=== PATIENT | male | born 1950 | race Caucasian/White ===

== ENCOUNTER → 2017-03-24 | Outpatient (CLI) | payer BC ==
[~2017-03-24] MED LIST: ADVIN50/60 INH; ALBU1AER9 INH; ALEN70TA2 PO; CHOL100010 PO; CHOL400C6 PO; CITA20TA4 PO; CLON1TAB3 PO; CTP1X PO; DILT-117 PO; FERR1TAB13 PO; IPRA1AER2 INH; IPRASOL4 INH; LAMO25TA PO; LEVA1.258 INH; LORA-741 PO; LXP/20 PO; OMEP20TA PO; OXGN; PRED-301 PO; PRED10TA PO; [UNRECOGNIZED DRUG - CODE] PO
--- NOTE | 2017-03-24 09:17 | DIAGNOSTIC IMAGING REPORT ---
(CHEST) THORAX WITHOUT CT DOSE: 411.30 mGycm CLINICAL HISTORY: 66 years-old Male with PULMONARY EMPHYSEMA, PULMONARY NODULE. Follow-up exam. TECHNIQUE: Multiaxial CT images of the chest were performed without contrast. A dose lowering technique was utilized adhering to the principles of ALARA. COMPARISON: CT chest 07/21/2016 and 01/19/2016. FINDINGS: No focal thyroid nodule identified. There is no pathologic adenopathy by CT size criteria. There is a small pericardial effusion measuring up to 1.1 cm anteriorly. Three-vessel distribution coronary arterial calcifications are present. There is moderate atherosclerosis of the thoracic aorta. Severe upper lobe prominent bullous centrilobular emphysematous changes are noted. There is no pneumothorax or pleural effusion. No focal suspicious pulmonary nodules are identified. Again noted are subsegmental linear consolidative opacities with mild bronchial wall thickening in the distribution of the right middle lobe, slightly improved from comparison suggesting atelectasis/scarring without circumscribed definite nodule identified. Similar less extensive changes are present in the lateral basal segment right lower lobe. The central airways are patent. Mild bronchial wall thickening involves the bilateral lung bases. Partially imaged midline anterior abdominal wall hernia is present containing mesenteric fat with diastases of 2.9 cm. Multiple gallstones are seen layering within the gallbladder neck. Punctate nonobstructing calculus of the superior pole left kidney is noted with low attenuating superior pole left kidney lesions suggesting cysts. Multiple remote rib fractures are seen on the right. The bones are demineralized with multilevel endplate spurring and facet arthrosis throughout the spine. IMPRESSION: 1. Persistent subsegmental distribution of somewhat linear and triangular shaped groundglass and consolidative opacities within the right middle lobe and to lesser extent the lateral basal segment right lower lobe with associated mild bronchial wall thickening appears unchanged from comparison study dated 07/21/2016. These findings would suggest chronic pleural parenchymal scarring with possible superimposed pneumonitis. No focal suspicious pulmonary nodules are identified. 2. Severe upper lobe predominant bullous centrilobular emphysema redemonstrated. 3. Cholelithiasis and nonobstructing punctate superior pole left renal calculus incidentally noted. 4. Small fat filled ventral abdominal wall hernia. Electronically signed by: Conner Montes M.D. 03/24/2017 9:16 AM Dictated Date/Time: 03/24/2017 9:06 AM
== END | disposition home or self-care (01) ==
LOC: C.CTS 08:50
PROVIDERS: ATTEND Internal Medicine Pulmonary Disease
DX: J43.9 Emphysema, unspecified (principal); R91.1 Solitary pulmonary nodule; R93.8 Abnormal findings on diagnostic imaging of other specified body structures; N20.0 Calculus of kidney; K80.20 Calculus of gallbladder without cholecystitis without obstruction; K43.9 Ventral hernia without obstruction or gangrene

== ENCOUNTER → 2017-04-29 | Day surgery (SDC) | payer BC ==
[2017-04-14 13:16] VITALS: Ht 170.2 cm; Wt 67.3 kg
[~2017-04-29] VITALS: Ht 170.2 cm; Wt 67.3 kg
[~2017-04-29] MED LIST changes: -ALBU1AER9 INH; -CHOL100010 PO; +FENTANYL CITRATE INJ 50 MCG/1 ML 2 ML VIAL ONE; -LEVA1.258 INH; +LIDOCAINE HCL 2% 2 ML VIAL (20MG/ML) ONE; -LORA-741 PO; -LXP/20 PO; -PRED10TA PO; +PROPOFOL IV EMULSION 10 MG/ML 20 ML VIAL IV ONE
--- NOTE | 2017-04-29 12:27 | Endo History and Physical ---
History & Physical Date of Service: Apr 29, 2017. Chief Complaint: Monteiro's Esophagus and Screening Colonoscopy Referring Physician: Case History of Present Illness 66 yo CM who presents for EGD secondary to Monteiro's Esophagus and screening colonoscopy. Past Medical History Asthma, Anxiety, Reflux, Hypertension, COPD, Depression Past Surgical History Hx Cardiac Surgery: Yes (HEART CATH, NO STENTS) Hx Internal Defibrillator: No Hx Pacemaker: No Hx Abdominal Surgery: No Hx of Implantable Prosthesis: No Hx Post-Op Nausea and Vomiting: No Hx Cancer Surgery: No Hx Thoracic Surgery: No Hx Orthopedic: No Hx Urinary Tract Surgery: No Family History None Social History Smoking Status: Former Smoker Hx Substance Use: No Hx Alcohol Use: No Allergies Coded Allergies: Influenza Vaccines (Verified Allergy, Severe, SHORTNESS OF BREATH, 04/29/17 ) Current Medications Reported Home Medications Medications Dose Route/Sig Max Daily Dose Days Date Category Fosamax (Alendronate Sodium) 70 Mg Tab 70 Mg PO WK 04/14/17 Reported Duoneb (Ipratropium-Albuterol) 3 Ml Nebu 1 Treatment INH Q4H PRN 04/14/17 Reported Kp Ferrous Sulfate (Ferrous Sulfate) 325 Mg Tab 1 Tab PO QPM 04/14/17 Reported Citalopram Hydrobromide 20 Mg Tab 1 Tab PO QAM 04/14/17 Reported Prednisone 5 Mg Tab 5 Mg PO Q2D 04/14/17 Reported D 400 (Cholecalciferol) 400 Unit Chw 2 Tabs PO NOON 04/14/17 Reported Oxygen Gas 3 Liter NA CONTINOUS 04/06/15 Reported Lamictal (Lamotrigine) 25 Mg Tab 2 Tabs PO QAM 04/06/15 Reported Klonopin (Clonazepam) 1 Mg Tab 0.5 Tab PO BID 02/15/15 Reported Clonidine HCl 0.1 Mg Tab 0.1 Mg PO BID 02/15/15 Reported Leland-Dur Ext Rel (Theophylline) 300 Mg Tabcr 300 Mg PO QAM 02/16/14 Reported Combivent Respimat (Ipratropium-Albuterol) 1 Aer Aer 1 Puff INH QID 05/30/13 Reported Advair Diskus 500/50 60 Dose (Fluticasone Prop/Salmeterol) 1 Ea Aerp 1 Puff INH BID 10/14/12 Reported Omeprazole 20 Mg Tab 20 Mg PO BID 10/14/12 Reported Tiazac (Diltiazem HCl) 300 Mg Capcr 300 Mg PO QAM 10/14/12 Reported Vital Signs Weight (Kilograms): 67.27 Height (Feet): 5 Height (Inches): 7 Physical Exam General Appearance: WD/WN, no apparent distress Respiratory/Chest: Auscultation: breath sounds normal Cardiovascular: Heart Auscultation: RRR Abdomen: Bowel Sounds: normal Inspection & Palpation: soft, non-distended, no tenderness, guarding & rebound Assessment and Plan Assessment: 66 yo CM who presents for EGD secondary to Monteiro's Esophagus and screening colonoscopy. Plan: Proceed with EGD and Colonoscopy.
--- NOTE | 2017-04-29 13:27 | GI REPORT ---
Procedure Date: 04/29/2017 12:50 PM Procedure: Upper GI endoscopy Indications: Follow-up of Monteiro's esophagus Medicines: Monitored Anesthesia Care Complications: No immediate complications. Estimated Blood Loss: Estimated blood loss: none. Procedure: Pre-Anesthesia Assessment: - Prior to the procedure, a History and Physical was performed, and patient medications and allergies were reviewed. The patient's tolerance of previous anesthesia was also reviewed. The risks and benefits of the procedure and the sedation options and risks were discussed with the patient. All questions were answered, and informed consent was obtained. Prior Anticoagulants: The patient has taken no previous anticoagulant or antiplatelet agents. ASA Grade Assessment: IV - A patient with severe systemic disease that is a constant threat to life. After reviewing the risks and benefits, the patient was deemed in satisfactory condition to undergo the procedure. After obtaining informed consent, the endoscope was passed under direct vision. Throughout the procedure, the patient's blood pressure, pulse, and oxygen saturations were monitored continuously. The scope was introduced through the mouth, and advanced to the second part of duodenum. The upper GI endoscopy was accomplished without difficulty. The patient tolerated the procedure well. Findings: There were esophageal mucosal changes consistent with long-segment Monteiro's esophagus present in the lower third of the esophagus. The maximum longitudinal extent of these mucosal changes was 8 cm in length. Mucosa was biopsied with a cold forceps for histology. One specimen bottle was sent to pathology. A small hiatus hernia was present. The examined duodenum was normal. Impression: - Esophageal mucosal changes consistent with long-segment Monteiro's esophagus. Biopsied. - Small hiatus hernia. - Normal examined duodenum. Recommendation: - Resume previous diet. - Continue present medications. - Await pathology results. - Return to GI office as previously scheduled. Barry Milligan DO 04/29/2017 1:27:02 PM This report has been signed electronically. Note Initiated On: 04/29/2017 12:50 PM I attest to the content of the Intraoperative Record and orders documented therein, exceptions below
--- NOTE | 2017-04-29 13:29 | GI REPORT ---
Procedure Date: 04/29/2017 1:03 PM Procedure: Colonoscopy Indications: Screening for colorectal malignant neoplasm Medicines: Monitored Anesthesia Care Complications: No immediate complications. Estimated Blood Loss: Estimated blood loss: none. Procedure: Pre-Anesthesia Assessment: - Prior to the procedure, a History and Physical was performed, and patient medications and allergies were reviewed. The patient's tolerance of previous anesthesia was also reviewed. The risks and benefits of the procedure and the sedation options and risks were discussed with the patient. All questions were answered, and informed consent was obtained. Prior Anticoagulants: The patient has taken no previous anticoagulant or antiplatelet agents. ASA Grade Assessment: IV - A patient with severe systemic disease that is a constant threat to life. After reviewing the risks and benefits, the patient was deemed in satisfactory condition to undergo the procedure. After I obtained informed consent, the scope was passed under direct vision. Throughout the procedure, the patient's blood pressure, pulse, and oxygen saturations were monitored continuously. The Scope was introduced through the anus and advanced to the cecum, identified by appendiceal orifice and ileocecal valve. The colonoscopy was performed without difficulty. The patient tolerated the procedure well. The quality of the bowel preparation was good. The ileocecal valve, appendiceal orifice, and rectum were photographed. Findings: A 10 mm polyp was found in the ascending colon. The polyp was sessile. The polyp was removed with a hot snare. Resection and retrieval were complete. Multiple small-mouthed diverticula were found in the sigmoid colon. Non-bleeding internal hemorrhoids were found during retroflexion. The hemorrhoids were small. Impression: - One 10 mm polyp in the ascending colon, removed with a hot snare. Resected and retrieved. - Diverticulosis in the sigmoid colon. - Non-bleeding internal hemorrhoids. Recommendation: - Resume previous diet. - Continue present medications. - Repeat colonoscopy for surveillance based on pathology results. - Return to primary care physician as previously scheduled. Barry Milligan, DO 04/29/2017 1:28:49 PM This report has been signed electronically. Note Initiated On: 04/29/2017 1:03 PM I attest to the content of the Intraoperative Record and orders documented therein, exceptions below
--- NOTE | 2017-04-29 13:36 | Discharge Instructions ---
Endoscopy Patient Instructions Date / Procedure(s) Performed Apr 29, 2017. Colonoscopy Allergy Information Coded Allergies: Influenza Vaccines (Verified Allergy, Severe, SHORTNESS OF BREATH, 04/29/17 ) Discharge Date / Findings Apr 29, 2017. EGD: Monteiro's Esophagus s/p biopsies, Hiatal hernia Colonoscopy: Colon polyp, Diverticulosis, Internal hemorrhoids Medication Instructions OK to resume all medications today as prescribed Reported Home Medications Medications Dose Route/Sig Max Daily Dose Days Date Category Fosamax (Alendronate Sodium) 70 Mg Tab 70 Mg PO WK 04/14/17 Reported Duoneb (Ipratropium-Albuterol) 3 Ml Nebu 1 Treatment INH Q4H PRN 04/14/17 Reported Kp Ferrous Sulfate (Ferrous Sulfate) 325 Mg Tab 1 Tab PO QPM 04/14/17 Reported Citalopram Hydrobromide 20 Mg Tab 1 Tab PO QAM 04/14/17 Reported Prednisone 5 Mg Tab 5 Mg PO Q2D 04/14/17 Reported D 400 (Cholecalciferol) 400 Unit Chw 2 Tabs PO NOON 04/14/17 Reported Oxygen Gas 3 Liter NA CONTINOUS 04/06/15 Reported Lamictal (Lamotrigine) 25 Mg Tab 2 Tabs PO QAM 04/06/15 Reported Klonopin (Clonazepam) 1 Mg Tab 0.5 Tab PO BID 02/15/15 Reported Clonidine HCl 0.1 Mg Tab 0.1 Mg PO BID 02/15/15 Reported Leland-Dur Ext Rel (Theophylline) 300 Mg Tabcr 300 Mg PO QAM 02/16/14 Reported Combivent Respimat (Ipratropium-Albuterol) 1 Aer Aer 1 Puff INH QID 05/30/13 Reported Advair Diskus 500/50 60 Dose (Fluticasone Prop/Salmeterol) 1 Ea Aerp 1 Puff INH BID 10/14/12 Reported Omeprazole 20 Mg Tab 20 Mg PO BID 10/14/12 Reported Tiazac (Diltiazem HCl) 300 Mg Capcr 300 Mg PO QAM 10/14/12 Reported Provider Instructions Activity Restrictions - No exercising or heavy lifting for 24 hours. - Do not drink alcohol the day of the procedure. - Do not drive a car or operate machinery until the day after the procedure. - Do not make any important decisions or sign important papers in 24 hours after the procedure. Following Day: - Return to full activity which may include returning to work/school. Diet Start your diet with liquids and light foods (jello, soup, juice, toast). Then eat your usual diet if not nauseated. Treatment For Common After Affects For mild abdominal pain, bloating, or excessive gas: - Rest - Eat lightly - Lie on right side Follow-Up Information Follow-up with as scheduled Anesthesia Information What You Should Know You have had a procedure that required some medicine to reduce anxiety and discomfort. This treatment is called moderate sedation. After receiving the treatment, you may be sleepy, but you will be able to breathe on your own. The effects of the treatment may last for several hours. Follow these instructions along with Activity/Diet recommendations noted above: * Do NOT do anything where dizziness or clumsiness would be dangerous. * Rest quietly at home today, then you can be up and about tomorrow. * Have a responsible person stay with you the rest of today. * You may have had an I.V. today. If so, you may take the dressing off later today. Recommendations Call your doctor if: * Trouble breathing * Continuous vomiting for more than 24 hours * Temperature above 101 degrees * Severe abdominal pain or bloating * Pain not relieved by pain medicine ordered * There is increased drainage or redness from any incision * A large amount of rectal bleeding greater than 2-3 tablespoons. (If you had a polyp/s removed or have hemorrhoids, a small amount of blood - from the rectum is to be expected.) * You have any unanswered questions or concerns. IN THE EVENT OF A SERIOUS EMERGENCY, GO TO THE NEAREST EMERGENCY ROOM Your discharge instructions were prepared by provider Barry Milligan. Patient Instructions Signature Page Jamison Guadalupe Patient (or Guardian) Signature/Date: I have read and understand the instructions given to me by my caregivers. Caregiver/RN/Doctor Signature/Date: The above-named patient and/or guardian has received patient instructions on this date. + Original Patient Signature Page (only) stays with chart. Please make copy for patient.
[2017-04-29 13:56] VITALS: BP 165/109; PULSE 83; O2SAT 98
--- NOTE | 2017-04-29 14:00 | Anesthesiology Progress Note ---
Anesthesia Post Op Note Date & Time Apr 29, 2017 at 14:00 Vital Signs Pain Intensity: 4 Vital Signs Past 12 Hours Date Time Temp Pulse Resp B/P (MAP) Pulse Ox O2 Delivery O2 Flow Rate FiO2 04/29/17 13:56 83 20 165/109 (127) 98 Nasal Cannula 3 04/29/17 13:41 80 20 190/100 (130) 98 Nasal Cannula 3 04/29/17 13:26 77 12 177/99 (125) 100 Oxymask 6 04/29/17 12:40 36.7 104 20 177/98 (124) 94 Nasal Cannula 2 Notes Mental Status: alert / awake / arousable, participated in evaluation Pt Amnestic to Procedure: Yes Nausea / Vomiting: adequately controlled Pain: adequately controlled Airway Patency, RR, SpO2: stable & adequate BP & HR: stable & adequate Hydration State: stable & adequate Anesthetic Complications: no major complications apparent
== END | disposition home or self-care (01) ==
LOC: C.GI 11:59
PROVIDERS: ATTEND Internal Medicine
DX: K22.70 Barrett's esophagus without dysplasia (principal); K44.9 Diaphragmatic hernia without obstruction or gangrene; Z12.11 Encounter for screening for malignant neoplasm of colon; D12.2 Benign neoplasm of ascending colon; K57.30 Diverticulosis of large intestine without perforation or abscess without bleeding; K64.8 Other hemorrhoids; K21.9 Gastro-esophageal reflux disease without esophagitis; I10 Essential (primary) hypertension; J44.9 Chronic obstructive pulmonary disease, unspecified; F32.9 Major depressive disorder, single episode, unspecified; F41.9 Anxiety disorder, unspecified; Z87.891 Personal history of nicotine dependence; Z86.718 Personal history of other venous thrombosis and embolism; Z86.14 Personal history of Methicillin resistant Staphylococcus aureus infection; Z86.19 Personal history of other infectious and parasitic diseases

== ENCOUNTER → 2017-11-15 | Outpatient (CLI) | payer OTHER ==
[~2017-11-15] MED LIST changes: -FENTANYL CITRATE INJ 50 MCG/1 ML 2 ML VIAL ONE; -LIDOCAINE HCL 2% 2 ML VIAL (20MG/ML) ONE; -PROPOFOL IV EMULSION 10 MG/ML 20 ML VIAL IV ONE
--- NOTE | 2017-11-15 13:01 | DIAGNOSTIC IMAGING REPORT ---
(CHEST) THORAX WITHOUT CLINICAL HISTORY: 67 years-old Male presenting with R06.02 Shortness of breath R91.1 Pulmonary nodule R93.8 Abnormal chest x-ray. TECHNIQUE: Multidetector CT imaging of the chest was performed without the use of intravenous contrast. IV contrast: None. A dose lowering technique was used consistent with the principles of ALARA (as low as reasonably achievable). COMPARISON: 03/24/2017. CT DOSE (mGy.cm): The estimated cumulative dose is 483.28 mGycm. FINDINGS: Rubber Off topogram: Hyperinflated lungs. On soft tissue windows, normal thyroid and thoracic inlet. No axillary, supraclavicular, or mediastinal lymphadenopathy. Evaluation of the yony limited without intravenous contrast. Atherosclerosis of the aorta. Normal heart size. Coronary artery calcification. Trace pericardial effusion. No pleural effusion. Cholelithiasis. Fat-containing ventral hernia in the epigastrium. No associated inflammatory changes to suggest strangulation. Hypodensities in the left kidney likely cysts. On lung windows, severe centrilobular emphysema. Multifocal bandlike and reticular opacities suggesting pleural-parenchymal scarring. New nodular opacity in the posterior basal right lower lobe (series 4 image 222). Multiple additional tree-in-bud opacities in this distribution. No suspicious nodule. Mild bronchial wall thickening. Central airways patent. On bone windows, exaggerated thoracic kyphosis. IMPRESSION: 1. Severe emphysema. 2. Superimposed tree-in-bud opacities in the posterior basal right lower lobe. This is concerning for infectious bronchiolitis. This pattern can also be seen in the setting of aspiration. 3. No suspicious nodule. 4. Fat-containing ventral hernia in the epigastrium. Electronically signed by: Olman Jiménez M.D. 11/15/2017 1:00 PM Dictated Date/Time: 11/15/2017 12:53 PM
--- NOTE | 2017-11-18 07:51 | PULMONARY FUNCTION TEST ---
Pre-bronchodilator spirometry reveals severe obstructive ventilatory defect, even more pronounced at low lung volumes. There was an excellent response to bronchodilator, suggesting a reversible airways component. Lung volumes demonstrate evidence of significant hyperinflation and air trapping and diffusion capacity was markedly reduced. Clinical correlation is needed.
== END | disposition home or self-care (01) ==
LOC: C.CTS 12:22
PROVIDERS: ATTEND Internal Medicine Pulmonary Disease
DX: R93.8 Abnormal findings on diagnostic imaging of other specified body structures (principal); J44.1 Chronic obstructive pulmonary disease with (acute) exacerbation; R91.1 Solitary pulmonary nodule; K43.9 Ventral hernia without obstruction or gangrene

== ENCOUNTER 2018-03-14 11:00 | Inpatient (IN) | payer OTHER ==
[~2018-03-14] VITALS: Ht 170.2 cm; Wt 72.0 kg
[~2018-03-14 11:00] MED LIST changes: -ADVIN50/60 INH; -ALEN70TA2 PO; -CHOL400C6 PO; +CHOL400T5 PO; -CLON1TAB3 PO; +CLON1TAB4 PO; +FLUT1AER14 INH; +IPRA-64 INH; -IPRASOL4 INH; +NRN100 PO; +TRAM-10 PO; -[UNRECOGNIZED DRUG - CODE] PO
[2018-03-14] MEDS ORDERED: METHYLPREDNISOLONE 125 MG VIAL IV STA (11:28)
[2018-03-14] MEDS ORDERED: PIPERACILLIN/TAZOBACTAM 4.5 GM/100ML D5W IV STA (11:28)
[2018-03-14] MEDS ORDERED: ALBUT/IPRATROP 3MG/0.5MG NEB 3 ML VIAL INH STA (11:28)
--- NOTE | 2018-03-14 11:55 | DIAGNOSTIC IMAGING REPORT ---
CHEST ONE VIEW PORTABLE CLINICAL HISTORY: Respiratory distress COMPARISON STUDY: 07/08/2015 FINDINGS: The heart is enlarged. There is pulmonary emphysema. There are right lower lobe airspace opacity suspicious for pneumonia. Films subsequent treatment are recommended in follow-up. Mildly increased markings are also present the left lung base. There is a retrocardiac opacity likely represent a hiatal hernia. There is a suspected trace right pleural effusion[ IMPRESSION: 1. Right lower lung zone airspace opacities, suspicious for pneumonia. Clinical and radiographic follow-up is recommended 2. Emphysema Electronically signed by: Dante Castillo M.D. 03/14/2018 11:54 AM Dictated Date/Time: 03/14/2018 11:53 AM
[2018-03-14 12:11] LABS: HEMATOCRIT 37.7 % (42-52); HEMOGLOBIN 12.9 g/dL (14.0-18.0); MEAN CORPUSCULAR HEMOGLOBIN 30.8 pg (25-34); MEAN CORPUSCULAR HGB CONC 34.2 g/dl (32-36); MEAN PLATELET VOLUME 8.3 fL (7.4-10.4); PLATELET COUNT 323 K/uL (130-400); RED CELL DISTRIBUTION WIDTH CV 13.8 % (11.5-14.5); RED CELL DISTRIBUTION WIDTH SD 45.6 fL (36.4-46.3); WHITE BLOOD COUNT 22.43 K/uL (4.8-10.8)
[2018-03-14 12:21] LABS: INR 0.9 (0.9-1.1); PTT PATIENT 27.1 SECONDS (21.0-31.0)
[2018-03-14 12:32] LABS: ALBUMIN 2.9 gm/dl (3.4-5.0); ALKALINE PHOSPHATASE 86 U/L (45-117); ALT/SGPT 14 U/L (12-78); AST/SGOT 14 U/L (15-37); BLOOD UREA NITROGEN 12 mg/dl (7-18); CALCIUM 8.4 mg/dl (8.5-10.1); CARBON DIOXIDE 29 mmol/L (21-32); CREATININE 0.98 mg/dl (0.60-1.40); GLUCOSE 105 mg/dl (70-99); POTASSIUM 3.6 mmol/L (3.5-5.1); SODIUM 138 mmol/L (136-145); TOTAL PROTEIN 6.7 gm/dl (6.4-8.2)
[2018-03-14 12:40] LABS: BASO % 0.1 %; BASO ABS # 0.03 K/uL (0-0.2); EOS ABS # 0.01 K/uL (0-0.5); IG# 0.08 K/uL (0.00-0.02); LYMPH % 5.1 %; LYMPH ABS # 1.14 K/uL (1.2-3.4); MONO % 4.7 %; MONO ABS # 1.05 K/uL (0.11-0.59); NEUT % 89.7 %; NEUT ABS # 20.12 K/uL (1.4-6.5)
[2018-03-14] MEDS ORDERED: FSM70 PO (12:55)
[2018-03-14 13:15] VITALS: O2SAT 94; Ht 170.2 cm; Wt 72.0 kg
[2018-03-14] MEDS ORDERED: ALUMINUM/MAGNESIUM/SIMETH (MAALOX MAX) 30 ML UDC PO PRN (13:30)
[2018-03-14] MEDS ORDERED: MAGNESIUM HYDROXIDE SUSP 30 ML UDC PO PRN (13:30)
[2018-03-14] MEDS ORDERED: ZOLPIDEM TARTRATE 5 MG TAB PO PRN (13:30)
[2018-03-14] MEDS ORDERED: ONDANSETRON INJ 2 MG/ML 2 ML VIAL IV PRN (13:30)
[2018-03-14] MEDS ORDERED: ALBUTEROL 0.083% NEBU SOLN 3 ML VIAL INH PRN (13:30)
[2018-03-14] MEDS ORDERED: ACETAMINOPHEN 325 MG TAB PO PRN (13:30)
[2018-03-14] MEDS ORDERED: POLYETHYLENE (MIRALAX) 17 GM PACK PO PRN (13:45)
--- NOTE | 2018-03-14 14:21 | History and Physical ---
History & Physical Date & Time of Service: Mar 14, 2018 at 14:05 Chief Complaint: Extreme Freezing Chills, Fever, Sob Primary Care Physician: Chin Meza D.O. History of Present Illness Source: patient, EMS, other 67 y/o M Hx COPD - 02 and steroid-dependent, HTN, GERD. The pt developed progressive SOB and rigors beginning the prior evening. His symptoms persisted prompting him to attend the ER. The pt denies CP or a productive cough. He does state that he was exhibiting pain in his L hip throughout the week. A CXR revealed a RLL infiltrate. Labs are notable for a markedly elevated WBC count. His 02 requirements have not increased. Past Medical/Surgical History 1) COPD - dependent on steroids and 3L 02 2) GERD 3) Monteiro's esophagus 4) HTN 5) Depression Surgical: 1) History of cardiac catheterization 2) Tonsillectomy Family History FH: lung disease Social History Quit smoking 12 years ago. 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 Smoking Status: Former Smoker Drug Use: none Marital Status: Housing status: lives with family Occupational Status: employed Immunizations History of Influenza Vaccine: No Influenza Vaccine Date: Jun 19, 2009 History of Tetanus Vaccine?: No Tetanus Immunization Date: Mar 03, 2005 History of Pneumococcal: No Pneumococcal Date: Jun 19, 2009 History of Hepatitis B Vaccine: No Allergies Coded Allergies: Influenza Vaccines (Verified Allergy, Severe, SHORTNESS OF BREATH, 03/14/18 ) Morphine (Unverified Allergy, Intermediate, "I FELT FUNNY IN THE HEAD", ) Home Medications Scheduled Alendronate Sodium (Alendronate Sodium), 70 MG PO WK Cholecalciferol (Vitamin D), 800 UNITS PO DAILY Citalopram Hydrobromide (Citalopram Hydrobromide), 20 MG PO QAM Clonidine HCl (Clonidine HCl), 0.1 MG PO BID Diltiazem Hcl Ext Rel (Tiazac), 300 MG PO QAM Ferrous Sulfate (Kp Ferrous Sulfate), 1 TAB PO QPM Klxoglcwdms-Aqezzjeqlpef-Rwgln (Trelegy Ellipta 100-62.5-25 Mcg/INH), 1 PUFF INH DAILY Gabapentin (Gabapentin), 300 MG PO HS Home O2 Therapy (Oxygen), 3 LITER NA CONTINOUS Lamotrigine (Lamictal), 50 MG PO QAM Omeprazole (Omeprazole), 20 MG PO Q2D Prednisone (Prednisone), 5 MG PO DAILY Scheduled PRN Clonazepam (Klonopin), 1 MG PO BID PRN for Anxiety Ipratropium-Albuterol (Combivent Respimat), 1 PUFF INH QID PRN for SOB/Wheezing Ipratropium-Albuterol (Duoneb), 1 TREATMENT INH Q4H PRN for Shortness of Breath Review of Systems Constitutional: + fever, + chills, + sweats, + weakness Eyes: No worsening of vision ENT: No hearing loss, No unusual epistaxis, No nasal symptoms Respiratory: + shortness of breath Cardiovascular: No chest pain, No orthopnea, No PND Abdomen: No pain, No nausea, No vomiting Musculoskeletal: + joint pain (Pain in L hip) Genitourinary - Male: No hematuria, No dysuria Neurologic: + weakness, No memory loss, No paralysis Psychiatric: No depression symptoms Endocrine: + fatigue Hematologic / Lymphatic: No abnormal bleeding/bruising Integumentary: No rash Allergic / Immunologic: No environmental allergies Physical Exam Vital Signs Date Time Temp Pulse Resp B/P (MAP) Pulse Ox O2 Delivery O2 Flow Rate FiO2 03/14/18 12:15 Nasal Cannula 3.0 03/14/18 12:03 Nasal Cannula 3.0 03/14/18 11:31 95 03/14/18 11:25 94 Nasal Cannula 3.0 03/14/18 11:05 37.4 96 20 126/80 94 Nasal Cannula 3.0 General Appearance: WD/WN, no apparent distress Head: normocephalic Eyes: normal inspection ENT: normal ENT inspection, pharynx normal Neck: supple, no JVD Respiratory/Chest: chest non-tender, + pertinent finding (Poor BL air entry - crackles at R base) Cardiovascular: regular rate, rhythm, no edema, no gallop Abdomen/GI: normal bowel sounds, non tender, soft Back: normal inspection Extremities/Musculoskelatal: normal inspection, no calf tenderness 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, no motor/sensory deficits, alert, oriented x 3 Skin: normal color Diagnostics Laboratory Results Results Past 24 Hours Test 03/14/18 11:53 Range/Units White Blood Count 22.43 4.8-10.8 K/uL Red Blood Count 4.19 4.7-6.1 M/uL Hemoglobin 12.9 14.0-18.0 g/dL Hematocrit 37.7 42-52 % Mean Corpuscular Volume 90.0 80-100 fL Mean Corpuscular Hemoglobin 30.8 25-34 pg Mean Corpuscular Hemoglobin Concent 34.2 32-36 g/dl Platelet Count 323 130-400 K/uL Mean Platelet Volume 8.3 7.4-10.4 fL Neutrophils (%) (Auto) 89.7 % Lymphocytes (%) (Auto) 5.1 % Monocytes (%) (Auto) 4.7 % Eosinophils (%) (Auto) 0.0 % Basophils (%) (Auto) 0.1 % Neutrophils # (Auto) 20.12 1.4-6.5 K/uL Lymphocytes # (Auto) 1.14 1.2-3.4 K/uL Monocytes # (Auto) 1.05 0.11-0.59 K/uL Eosinophils # (Auto) 0.01 0-0.5 K/uL Basophils # (Auto) 0.03 0-0.2 K/uL RDW Standard Deviation 45.6 36.4-46.3 fL RDW Coefficient of Variation 13.8 11.5-14.5 % Immature Granulocyte % (Auto) 0.4 % Immature Granulocyte # (Auto) 0.08 0.00-0.02 K/uL Hyposegmented Neutrophils 1+ Prothrombin Time 9.6 9.0-12.0 SECONDS Prothromb Time International Ratio 0.9 0.9-1.1 Activated Partial Thromboplast Time 27.1 21.0-31.0 SECONDS Partial Thromboplastin Ratio 1.0 Sodium Level 138 136-145 mmol/L Potassium Level 3.6 3.5-5.1 mmol/L Chloride Level 103 98-107 mmol/L Carbon Dioxide Level 29 21-32 mmol/L Anion Gap 6.0 3-11 mmol/L Blood Urea Nitrogen 12 7-18 mg/dl Creatinine 0.98 0.60-1.40 mg/dl Est Creatinine Clear Calc Drug Dose 70.3 ml/min Estimated GFR () 93.4 Estimated GFR (Non- 80.6 BUN/Creatinine Ratio 12.0 10-20 Random Glucose 105 70-99 mg/dl Lactic Acid Level 1.7 0.4-2.0 mmol/L Calcium Level 8.4 8.5-10.1 mg/dl Magnesium Level 2.0 1.8-2.4 mg/dl Total Bilirubin 0.4 0.2-1 mg/dl Aspartate Amino Transf (AST/SGOT) 14 15-37 U/L Alanine Aminotransferase (ALT/SGPT) 14 12-78 U/L Alkaline Phosphatase 86 45-117 U/L Troponin I < 0.015 0-0.045 ng/ml Total Protein 6.7 6.4-8.2 gm/dl Albumin 2.9 3.4-5.0 gm/dl Globulin 3.8 2.5-4.0 gm/dl Albumin/Globulin Ratio 0.8 0.9-2 Microbiology Results 03/14/18 Blood Culture, Received Pending 03/14/18 Blood Culture, Received Pending Diagnostic Radiology CXR: 1. Right lower lung zone airspace opacities, suspicious for pneumonia. Clinical and radiographic follow-up is recommended 2. Emphysema Impression Assessment and Plan 67 y/o M Hx COPD - 02 and steroid-dependent, HTN, GERD. The pt developed progressive SOB and rigors beginning the prior evening. His symptoms persisted prompting him to attend the ER. The pt denies CP or a productive cough. He does state that he was exhibiting pain in his L hip throughout the week. A CXR revealed a RLL infiltrate. Labs are notable for a markedly elevated WBC count. His 02 requirements have not increased. 1) PNM - placed on Ceftriaxone and Zithromax - sputum/blood cultures are pending 2) COPD - exacerbation related to acute PNM - placed on scheduled nebs and IV steroids 3) HTN - cont Clonidine, Diltiazem 4) GERD with Brown's - cont PPi Full code - Lovenox prophylaxis Total time for this admit including review of labs, meds, imaging, records - discussion with pt and ER attending - 37 min Advanced Directives Existing Living Will: No Existing Power of Supervising Appraiser: No Resuscitation Status VTE Prophylaxis Will order VTE Prophylaxis: Yes
--- NOTE | 2018-03-14 14:33 | EMERGENCY ROOM VISIT NOTE ---
History Report prepared by Milton: Roya Santana Under the Supervision of: Dr. Rubio Vidales M.D. First contact with patient: 11:20 Chief Complaint: SHORTNESS OF BREATH Stated Complaint: EXTREME FREEZING CHILLS, FEVER, SOB History of Present Illness The patient is a 67 year old male who presents to the Emergency Room with complaints of constant shortness of breath that onset 12 hours ago. The patient notes that he felt fine yesterday and that his symptoms onset last night. Per the patient's , the patient did a breathing treatment at 0430. The patient complains of fever, chills, and pain in his upper back. The patient notes that the back pain is exacerbated with movement. The patient notes that he had a fever of 101.7 this morning but it has since lowered to 99 degrees. He also states that he has chronic rhinorrhea that he believes is caused by his oxygen treatment. Per , the patient complains of lower back pain that radiates upwards. The patient denies coughing. The patient notes that he has COPD. The patient states that he had pneumonia 4 years ago and previous blood clots in both lungs. 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 He notes that he was on a blood thinner four years ago but he is no longer taking it. Source of History: patient, spouse/significant other Onset: 12 hours ago Position: chest Timing: constant Modifying Factors (Worsening): movement Associated Symptoms: + fevers, + chills, + back pain (upper back), No cough Note: The patient complains of rhinorrhea. Review of Systems See HPI for pertinent positives & negatives. A total of 10 systems reviewed and were otherwise negative. 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 (13) Pneumonia (14) PTSD (post-traumatic stress disorder) (15) Pulmonary embolism (16) Pulmonary emphysema (17) Sleep apnea Surgical Problems: (1) History of cardiac catheterization (2) S/P tonsillectomy Family History FH: lung disease Social History Smoking Status: Former Smoker Alcohol Use: none Drug Use: none Marital Status: Housing Status: lives with family Occupation Status: employed Current/Historical Medications Scheduled Alendronate Sodium (Alendronate Sodium), 70 MG PO WK Cholecalciferol (Vitamin D), 800 UNITS PO DAILY Citalopram Hydrobromide (Citalopram Hydrobromide), 20 MG PO QAM Clonidine HCl (Clonidine HCl), 0.1 MG PO BID Diltiazem Hcl Ext Rel (Tiazac), 300 MG PO QAM Ferrous Sulfate (Kp Ferrous Sulfate), 1 TAB PO QPM Wxoemykrorr-Wkssewcqxlja-Qbgca (Trelegy Ellipta 100-62.5-25 Mcg/INH), 1 PUFF INH DAILY Gabapentin (Gabapentin), 300 MG PO HS Home O2 Therapy (Oxygen), 3 LITER NA CONTINOUS Lamotrigine (Lamictal), 50 MG PO QAM Omeprazole (Omeprazole), 20 MG PO Q2D Prednisone (Prednisone), 5 MG PO DAILY Scheduled PRN Clonazepam (Klonopin), 1 MG PO BID PRN for Anxiety Ipratropium-Albuterol (Combivent Respimat), 1 PUFF INH QID PRN for SOB/Wheezing Ipratropium-Albuterol (Duoneb), 1 TREATMENT INH Q4H PRN for Shortness of Breath Allergies Coded Allergies: Influenza Vaccines (Verified Allergy, Severe, SHORTNESS OF BREATH, 03/14/18 ) Morphine (Unverified Allergy, Intermediate, "I FELT FUNNY IN THE HEAD", ) Physical Exam Vital Signs Date Time Temp Pulse Resp B/P (MAP) Pulse Ox O2 Delivery O2 Flow Rate FiO2 03/14/18 13:15 94 Nasal Cannula 3.0 03/14/18 13:00 89 31 95 Nasal Cannula 2.5 03/14/18 12:30 90 32 96 Nasal Cannula 2.5 03/14/18 12:15 Nasal Cannula 3.0 03/14/18 12:03 Nasal Cannula 3.0 03/14/18 12:00 91 18 95 Nasal Cannula 2.5 03/14/18 11:31 148/86 Nasal Cannula 2.5 03/14/18 11:31 95 03/14/18 11:30 92 31 95 Nasal Cannula 2.5 03/14/18 11:25 94 Nasal Cannula 3.0 03/14/18 11:05 37.4 96 20 126/80 94 Nasal Cannula 3.0 Physical Exam GENERAL: Patient is in no acute distress. HEENT: No acute trauma, normocephalic atraumatic, mucous membranes moist, no nasal congestion, no scleral icterus. NECK: No stridor, no adenopathy, no meningismus, trachea is midline. LUNGS: Diminished breath sounds bilaterally. No respiratory distress. Breath sounds equal. No wheezing or rhonchi. HEART: Without murmurs gallops or rubs, regular rate and rhythm. ABDOMEN: Soft, bowel sounds positive, no peritonitis. 8 cm right abdominal wall hernia--mildly tender but no erythema noted. EXTREMITIES: No cyanosis or edema, full range of motion of all the joints without pain or difficulty, no signs for acute trauma. NEUROLOGIC: Oriented x 3, no acute motor or sensory deficits, no focal weakness. SKIN: No rash, no jaundice, no diaphoresis. Medical Decision & Procedures ER Provider Diagnostic Interpretation: Radiology results as stated below per my review and radiologist interpretation: CHEST ONE VIEW PORTABLE CLINICAL HISTORY: Respiratory distress COMPARISON STUDY: 07/08/2015 FINDINGS: The heart is enlarged. There is pulmonary emphysema. There are right lower lobe airspace opacity suspicious for pneumonia. Films subsequent treatment are recommended in follow-up. Mildly increased markings are also present the left lung base. There is a retrocardiac opacity likely represent a hiatal hernia. There is a suspected trace right pleural effusion[ IMPRESSION: 1. Right lower lung zone airspace opacities, suspicious for pneumonia. Clinical and radiographic follow-up is recommended 2. Emphysema Electronically signed by: Dante Castillo M.D. 03/14/2018 11:54 AM Dictated Date/Time: 03/14/2018 11:53 AM Laboratory Results 03/14/18 11:53 Red Blood Count 4.19, Mean Corpuscular Volume 90.0, Mean Corpuscular Hemoglobin 30.8, Mean Corpuscular Hemoglobin Concent 34.2, Mean Platelet Volume 8.3, Neutrophils (%) (Auto) 89.7, Lymphocytes (%) (Auto) 5.1, Monocytes (%) (Auto) 4.7, Eosinophils (%) (Auto) 0.0, Basophils (%) (Auto) 0.1, Neutrophils # (Auto) 20.12, Lymphocytes # (Auto) 1.14, Monocytes # (Auto) 1.05, Eosinophils # (Auto) 0.01, Basophils # (Auto) 0.03 03/14/18 11:53 Test 03/14/18 11:53 White Blood Count 22.43 K/uL (4.8-10.8) Red Blood Count 4.19 M/uL (4.7-6.1) Hemoglobin 12.9 g/dL (14.0-18.0) Hematocrit 37.7 % (42-52) Mean Corpuscular Volume 90.0 fL (80-100) Mean Corpuscular Hemoglobin 30.8 pg (25-34) Mean Corpuscular Hemoglobin Concent 34.2 g/dl (32-36) Platelet Count 323 K/uL (130-400) Mean Platelet Volume 8.3 fL (7.4-10.4) Neutrophils (%) (Auto) 89.7 % Lymphocytes (%) (Auto) 5.1 % Monocytes (%) (Auto) 4.7 % Eosinophils (%) (Auto) 0.0 % Basophils (%) (Auto) 0.1 % Neutrophils # (Auto) 20.12 K/uL (1.4-6.5) Lymphocytes # (Auto) 1.14 K/uL (1.2-3.4) Monocytes # (Auto) 1.05 K/uL (0.11-0.59) Eosinophils # (Auto) 0.01 K/uL (0-0.5) Basophils # (Auto) 0.03 K/uL (0-0.2) RDW Standard Deviation 45.6 fL (36.4-46.3) RDW Coefficient of Variation 13.8 % (11.5-14.5) Immature Granulocyte % (Auto) 0.4 % Immature Granulocyte # (Auto) 0.08 K/uL (0.00-0.02) Hyposegmented Neutrophils 1+ Prothrombin Time 9.6 SECONDS (9.0-12.0) Prothromb Time International Ratio 0.9 (0.9-1.1) Activated Partial Thromboplast Time 27.1 SECONDS (21.0-31.0) Partial Thromboplastin Ratio 1.0 Anion Gap 6.0 mmol/L (3-11) Est Creatinine Clear Calc Drug Dose 70.3 ml/min Estimated GFR () 93.4 Estimated GFR (Non- 80.6 BUN/Creatinine Ratio 12.0 (10-20) Lactic Acid Level 1.7 mmol/L (0.4-2.0) Calcium Level 8.4 mg/dl (8.5-10.1) Magnesium Level 2.0 mg/dl (1.8-2.4) Total Bilirubin 0.4 mg/dl (0.2-1) Aspartate Amino Transf (AST/SGOT) 14 U/L (15-37) Alanine Aminotransferase (ALT/SGPT) 14 U/L (12-78) Alkaline Phosphatase 86 U/L (45-117) Troponin I < 0.015 ng/ml (0-0.045) Total Protein 6.7 gm/dl (6.4-8.2) Albumin 2.9 gm/dl (3.4-5.0) Globulin 3.8 gm/dl (2.5-4.0) Albumin/Globulin Ratio 0.8 (0.9-2) Laboratory results reviewed by me. Medications Administered Medications (Trade) Dose Ordered Sig/Rip Route Start Time Stop Time Status Last Admin Dose Admin Methylprednisolone Sodium Succinate (Solu-Medrol IV) 80 mg NOW STAT IV 03/14/18 11:28 03/14/18 11:33 DC 03/14/18 11:28 80 MG Albuterol/ Ipratropium (Duoneb) 3 ml NOW STAT INH 03/14/18 11:28 03/14/18 11:33 DC 03/14/18 11:28 3 ML Piperacillin Sod/ Tazobactam Sod (Zosyn Iv) 4.5 gm NOW STAT IV 03/14/18 11:28 03/14/18 11:33 DC 03/14/18 11:28 4.5 GM ECG Per My Interpretation Indication: SOB/dyspnea Rate (beats per minute): 90 Rhythm: normal sinus Findings: other (No ST elevation, no PVC) ED Course 1123: The patient was evaluated in room B9. A complete history and physical exam was performed. 1128: Ordered Zosyn IV 4.5 mg IV, Duoneb 3 ml INH, Solu-Medrol IV 80 mg IV. 1233: I reevaluated the patient. 1252: I spoke with the correctional counselor/case manager 1312: Discussed the patient's case with Dr. Ludwig [facility] Hospitalist. The patient will be evaluated for further management. Medical Decision Differential diagnoses include: exacerbation of COPD, pneumothorax, CHF, sepsis , cardiac ischemia, anemia, PE, bronchitis, and pneumonia. There is a marked leukocytosis at 22,000, this is consistent with infection. No concerning anemia. No significant electrolyte abnormality, kidney failure or hepatitis. Lactic acid level was not elevated making sepsis less likely. Blood cultures are pending. Chest film does show a right-sided pneumonia. EKG shows a sinus rhythm, no acute ischemia. Cardiac enzyme testing 1 is not consistent with acute cardiac injury. The patient received IV Zosyn, IV Solu-Medrol and a DuoNeb, he was maintained on nasal cannula oxygen. He is currently comfortable. The patient is immunocompromised as he is on chronic steroids. He has COPD and is oxygen dependent and now has evidence for pneumonia on x-ray with a very high white blood cell count, a hospital stay is warranted. I spoke to the patient and case management. The on-call hospitalist was consulted. Medication Reconcilliation Current Medication List: was personally reviewed by me Blood Pressure Screening Patient's blood pressure: Elevated blood pressure Referred to hospitalist. Consults Time Called: 1311 Consulting Physician: Dr. Ludwig [facility] Hospitalist Returned Call: 1312 Discussed the patient's case with Dr. Ludwig [facility] Hospitalist. The patient will be evaluated for further management. Impression Primary Impression: Pneumonia Additional Impressions: COPD exacerbation Leukocytosis Scribe Attestation The scribe's documentation has been prepared under my direction and personally reviewed by me in its entirety. I confirm that the note above accurately reflects all work, treatment, procedures, and medical decision making performed by me. Departure Information Dispostion Being Evaluated By Hospitalist Referrals Chin Meza D.O. (PCP) Forms HOME CARE DOCUMENTATION FORM, IMPORTANT VISIT INFORMATION Patient Instructions My [facility] Problem Qualifiers
[2018-03-14] MEDS: AZITHROMYCIN IV 500 MG in DEXTROSE 5% 250ML 250 ML IV SCH (14:57)
[2018-03-14] MEDS: ALBUT/IPRATROP 3MG/0.5MG NEB 3 ML VIAL INH SCH ×2 (15:00→19:21)
[2018-03-14 15:05] VITALS: BP 167/95; PULSE 91; TEMP 37; O2SAT 92
[2018-03-14 16:36] VITALS: PULSE 76; O2SAT 94
[2018-03-14] MEDS: ENOXAPARIN 40 MG/0.4 ML SYR SQ SCH (17:05)
[2018-03-14] MEDS: METHYLPREDNISOLONE IV 40 MG in SYRINGE 0 ML IV SCH ×2 (17:08→22:34)
[2018-03-14] MEDS: CEFTRIAXONE SOD INJ 1 GM in DEXTROSE 5% ADD-VANTAGE 50ML 50 ML IV SCH (18:29)
[2018-03-14 19:22] VITALS: PULSE 83; O2SAT 96
[2018-03-14 20:13] VITALS: BP 150/83; PULSE 91; O2SAT 93
[2018-03-14] MEDS: CLONAZEPAM 1 MG TAB PO PRN (20:16)
[2018-03-14] MEDS: GABAPENTIN 300 MG CAP PO SCH (20:16)
[2018-03-14] MEDS: FERROUS SULFATE 325 MG TAB PO SCH (20:18)
[2018-03-14] MEDS: CLONIDINE HCL 0.1 MG TAB PO SCH (20:18)
[2018-03-14 23:30] VITALS: BP 152/79; PULSE 83; TEMP 36.3; O2SAT 95
[2018-03-15] VITALS (9 sets, daily range): BP systolic 146–176; BP diastolic 74–84; PULSE 77–89; TEMP 36.5–36.7; O2SAT 94–97
[2018-03-15] MEDS: ALBUT/IPRATROP 3MG/0.5MG NEB 3 ML VIAL INH SCH ×4 (02:20→19:09)
[2018-03-15] MEDS: METHYLPREDNISOLONE IV 40 MG in SYRINGE 0 ML IV SCH ×4 (05:12→23:24)
--- NOTE | 2018-03-15 07:09 | Family Medicine Progress Note ---
Progress Note Date of Service Mar 15, 2018. Subjective Pt evaluation today including: conversation w/ patient, conversation w/ family , chart review, lab review The patient was seen and examined at bedside. No acute overnight events. Patient states that he is feeling much better. Amador portion of the HPI reviewed. Patient does NOT continue to smoke. Pt continues to have RUQ pain on deep inspiration. Patient is resting comfortably in bed. Denies having any pain. Eating and urinating well. Plan of care was described to the patient and all questions were answered. Constitutional: No fever, No chills, No sweats ENT: No hearing loss Respiratory: + cough, + shortness of breath, + dyspnea on exertion, No sputum, No wheezing Cardiovascular: No chest pain Abdomen: No pain, No nausea, No vomiting, No diarrhea Male : No dysuria Objective Physical Exam General Appearance: WD/WN, no apparent distress Eyes: normal inspection, PERRL ENT: normal ENT inspection Neck: supple, no adenopathy Respiratory/Chest: chest non-tender, lungs clear, normal breath sounds, no respiratory distress, no accessory muscle use Cardiovascular: regular rate, rhythm, no edema, no gallop, no JVD, no murmur Abdomen: normal bowel sounds, non tender, soft, no organomegaly, no pulsatile mass Extremities: normal range of motion, non-tender, normal inspection, no pedal edema, no calf tenderness Neurologic/Psychiatric: label drier II-XII nml as tested, no motor/sensory deficits, alert, normal mood/affect, oriented x 3 Assessment and Plan 67M with a PMHx of Hx COPD - 02 and steroid-dependent, HTN, GERD. Pt presents with SOB x 1 day with chills and rigors. X-ray showed a RLL infiltrate. Pt feels much improved on hospital Day #1 with continued RUQ pain. Pneumonia - CAP X-ray revealed RLL infiltrate. Pt is at his baseline oxygen requirement but has pain on deep inspiration at the site of the supposed infiltrate. If not improving consider other causes c.w Ceftriaxone and Zithromax sputum/blood cultures are pending h/o DVT, will have low threshold for US dopplers COPD exacerbation Chronic Respiratory failure on 2LNC at home on 5mg Prednisone daily at home. On Fosamax weekly for osteoporosis prevention. Placed on scheduled nebs and IV steroids HTN continue home regimen, Clonidine 0.1mg BID & Diltiazem 300mg QAM GERD with Brown's - cont PPi Depression - c/w Citalopram 20 MG PO QAM Bipolar (from chart review) - c/w Lamictal Neuropathic Pain - c/w Gabapenting 300mg QHS CAD s/p CATH Dispo: Med surg, lives w , good support, no needs on DC. DVT Proph: Lovenox FULL CODE Resident Involvement: Resident Care Provided Care Provided: Adult Hospital Medicine Reviewed: Pt Seen/Exam by Me History breathing better. Constitutional: denies: fever Cardiovascular: denies chest pain Gastrointestinal/Abdominal: negative: abdominal pain General Appearance: no apparent distress (sitting at the edge of bed) Respiratory: no respiratory distress, decreased breath sounds Cardiovascular: regular rate, rhythm Neurologic/Psychiatric: alert, oriented x 3 Skin Characteristics: warm/dry Assessment/Plan Resident Physician Supervision Note: I independently interviewed and examined the patient and verified the amador history and physical, reviewed labs and image studies, discussed the case with the resident Dr. York and agree with the findings and care plan.
[2018-03-15] MEDS: PANTOprazole SOD 40 MG TAB PO SCH (07:24)
[2018-03-15] MEDS: CITALOPRAM 20 MG TAB PO SCH (07:25)
[2018-03-15] MEDS: DILTIAZEM HCL 300 MG CAPCR PO SCH (07:25)
[2018-03-15] MEDS: CLONIDINE HCL 0.1 MG TAB PO SCH ×2 (07:25→20:36)
[2018-03-15] MEDS: AZITHROMYCIN IV 500 MG in DEXTROSE 5% 250ML 250 ML IV SCH (08:23)
[2018-03-15] MEDS: CLONAZEPAM 1 MG TAB PO PRN ×2 (08:23→20:36)
[2018-03-15] MEDS: ENOXAPARIN 40 MG/0.4 ML SYR SQ SCH (14:38)
[2018-03-15] MEDS: CEFTRIAXONE SOD INJ 1 GM in DEXTROSE 5% ADD-VANTAGE 50ML 50 ML IV SCH (18:42)
[2018-03-15] MEDS: GABAPENTIN 300 MG CAP PO SCH (20:36)
[2018-03-15] MEDS: FERROUS SULFATE 325 MG TAB PO SCH (20:36)
[2018-03-16] VITALS (9 sets, daily range): BP systolic 123–171; BP diastolic 70–90; PULSE 74–92; TEMP 36.5–36.6; O2SAT 91–97
[2018-03-16] MEDS: ALBUT/IPRATROP 3MG/0.5MG NEB 3 ML VIAL INH SCH ×4 (01:36→18:57)
[2018-03-16] MEDS: METHYLPREDNISOLONE IV 40 MG in SYRINGE 0 ML IV SCH ×4 (05:49→22:31)
[2018-03-16 06:28] LABS: HEMATOCRIT 36.5 % (42-52); HEMOGLOBIN 12.4 g/dL (14.0-18.0); MEAN CELL VOLUME 90.6 fL (80-100); MEAN CORPUSCULAR HEMOGLOBIN 30.8 pg (25-34); MEAN PLATELET VOLUME 8.3 fL (7.4-10.4); PLATELET COUNT 396 K/uL (130-400); RED CELL DISTRIBUTION WIDTH CV 14.1 % (11.5-14.5); RED CELL DISTRIBUTION WIDTH SD 46.8 fL (36.4-46.3); WHITE BLOOD COUNT 24.72 K/uL (4.8-10.8)
[2018-03-16 06:59] LABS: CALCIUM 8.2 mg/dl (8.5-10.1); CREATININE 1.07 mg/dl (0.60-1.40); POTASSIUM 3.5 mmol/L (3.5-5.1)
[2018-03-16 07:11] LABS: BASO ABS # 0.01 K/uL (0-0.2); IG# 0.08 K/uL (0.00-0.02); LYMPH % 3.2 %; LYMPH ABS # 0.79 K/uL (1.2-3.4); MONO % 3.5 %; MONO ABS # 0.87 K/uL (0.11-0.59); NEUT ABS # 22.97 K/uL (1.4-6.5)
[2018-03-16] MEDS: CLONIDINE HCL 0.1 MG TAB PO SCH ×2 (07:53→20:35)
[2018-03-16] MEDS: CITALOPRAM 20 MG TAB PO SCH (07:53)
[2018-03-16] MEDS: DILTIAZEM HCL 300 MG CAPCR PO SCH (07:53)
[2018-03-16] MEDS: AZITHROMYCIN IV 500 MG in DEXTROSE 5% 250ML 250 ML IV SCH (07:53)
--- NOTE | 2018-03-16 12:34 | Family Medicine Progress Note ---
Progress Note Date of Service Mar 16, 2018. Subjective Pt evaluation today including: conversation w/ patient, conversation w/ family , chart review, lab review The patient was seen and examined at bedside. No acute overnight events. Patient states that he is feeling much better. Amador portion of the HPI reviewed. Patient does NOT continue to smoke. Pt continues to have RUQ pain on deep inspiration. Pt did mention swelling in the RLE x 2 weeks. Constitutional: No fever, No chills, No sweats ENT: No hearing loss Respiratory: + cough, + shortness of breath, + dyspnea on exertion, No sputum, No wheezing Cardiovascular: No chest pain Abdomen: No pain, No nausea, No vomiting, No diarrhea Male : No dysuria Objective Physical Exam Notes: General Appearance: WD/WN, no apparent distress Eyes: normal inspection, PERRL ENT: normal ENT inspection Neck: supple, no adenopathy Respiratory/Chest: chest non-tender, lungs clear, normal breath sounds, no respiratory distress, no accessory muscle use, did appreciate crackles in the RLL. Cardiovascular: regular rate, rhythm, no edema, no gallop, no JVD, no murmur Abdomen: normal bowel sounds, non tender, soft, no organomegaly, no pulsatile mass Extremities: normal range of motion, non-tender, normal inspection, + left calf is slightly larger than right calf. 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 Pt presents with SOB x 1 day with chills and rigors. X-ray showed a RLL infiltrate. Ultrasound for DVT of LLE and Chest 2 view portable pending. Pneumonia - CAP X-ray revealed RLL infiltrate. Pt is at his baseline oxygen requirement but has pain on deep inspiration at the site of the supposed infiltrate. If not improving consider other causes c.w Ceftriaxone and Zithromax sputum/blood cultures are pending Ordering LLE DVT and repeat X-ray - dyspnea walking to bathroom - pt reports this is chronic. COPD exacerbation Chronic Respiratory failure on 2LNC at home on 5mg Prednisone daily at home. On Fosamax weekly for osteoporosis prevention. Placed on scheduled nebs and IV steroids HTN continue home regimen, Clonidine 0.1mg BID & Diltiazem 300mg QAM GERD with Brown's - cont PPi Depression - c/w Citalopram 20 MG PO QAM Bipolar (from chart review) - c/w Lamictal Neuropathic Pain - c/w Gabapentin 300mg QHS CAD s/p CATH Dispo: Med surg, lives w , good support, no needs on DC. DVT Proph: Lovenox FULL CODE Resident Involvement: Resident Care Provided Care Provided: Adult Hospital Medicine Reviewed: Pt Seen/Exam by Me History breathing better but still not at baseline Constitutional: denies: fever Cardiovascular: denies chest pain General Appearance: no apparent distress Respiratory: no respiratory distress, wheezing (occasional) Cardiovascular: regular rate, rhythm Neurologic/Psychiatric: alert, oriented x 3 Assessment/Plan Resident Physician Supervision Note: I independently interviewed and examined the patient and verified the amador history and physical, reviewed labs and image studies, discussed the case with the resident Dr. York and agree with the findings and care plan.
--- NOTE | 2018-03-16 13:38 | DIAGNOSTIC IMAGING REPORT ---
ULTRASOUND L VENOUS DOPP LOWER EXT UNILAT CLINICAL HISTORY: Left lower leg pain COMPARISON STUDY: 02/02/2018 FINDINGS: Real-time and color flow Doppler imaging were performed. Flow was seen within the femoral, popliteal and calf veins with no intraluminal thrombus demonstrated. The saphenous vein is patent. IMPRESSION: No evidence of left lower extremity DVT. Electronically signed by: Dante Castillo M.D. 03/16/2018 1:37 PM Dictated Date/Time: 03/16/2018 1:37 PM
--- NOTE | 2018-03-16 13:50 | DIAGNOSTIC IMAGING REPORT ---
CHEST 2 VIEWS ROUTINE CLINICAL HISTORY: no improvement in SOB, eval for progression of consolidation dyspnea COMPARISON STUDY: No previous studies for comparison. FINDINGS: Improving infiltrative change right as well as left lung base. Moderate residual. Upper lungs are clear. Several old right rib side rib fractures. IMPRESSION: Improving basilar infiltrate. The above report was generated using voice recognition software. It may contain grammatical, syntax or spelling errors. Electronically signed by: Barak Staples M.D. 03/16/2018 1:49 PM Dictated Date/Time: 03/16/2018 1:38 PM
[2018-03-16] MEDS: ENOXAPARIN 40 MG/0.4 ML SYR SQ SCH (14:38)
[2018-03-16] MEDS: CLONAZEPAM 1 MG TAB PO PRN (16:04)
[2018-03-16] MEDS: CEFTRIAXONE SOD INJ 1 GM in DEXTROSE 5% ADD-VANTAGE 50ML 50 ML IV SCH (18:46)
[2018-03-16] MEDS: FERROUS SULFATE 325 MG TAB PO SCH (20:35)
[2018-03-16] MEDS: GABAPENTIN 300 MG CAP PO SCH (21:16)
[2018-03-17 02:28] VITALS: PULSE 83; O2SAT 91
[2018-03-17] MEDS: ALBUT/IPRATROP 3MG/0.5MG NEB 3 ML VIAL INH SCH ×2 (02:28→06:59)
[2018-03-17] MEDS: METHYLPREDNISOLONE IV 40 MG in SYRINGE 0 ML IV SCH ×2 (05:07→12:24)
[2018-03-17] MEDS: CLONAZEPAM 1 MG TAB PO PRN (05:11)
[2018-03-17 06:59] VITALS: PULSE 79; O2SAT 98
[2018-03-17 07:09] LABS: HEMATOCRIT 33.9 % (42-52); HEMOGLOBIN 11.2 g/dL (14.0-18.0); IG# 0.12 K/uL (0.00-0.02); LYMPH % 3.6 %; LYMPH ABS # 0.71 K/uL (1.2-3.4); MEAN CELL VOLUME 90.9 fL (80-100); MEAN PLATELET VOLUME 8.5 fL (7.4-10.4); MONO % 3.6 %; MONO ABS # 0.72 K/uL (0.11-0.59); NEUT % 92.2 %; NEUT ABS # 18.41 K/uL (1.4-6.5); PLATELET COUNT 379 K/uL (130-400); RED CELL DISTRIBUTION WIDTH CV 14.2 % (11.5-14.5); RED CELL DISTRIBUTION WIDTH SD 47.4 fL (36.4-46.3); WHITE BLOOD COUNT 19.96 K/uL (4.8-10.8)
[2018-03-17 07:41] LABS: CREATININE 0.82 mg/dl (0.60-1.40)
[2018-03-17] MEDS: CLONIDINE HCL 0.1 MG TAB PO SCH (08:33)
[2018-03-17] MEDS: DILTIAZEM HCL 300 MG CAPCR PO SCH (08:33)
[2018-03-17] MEDS: PANTOprazole SOD 40 MG TAB PO SCH (08:34)
[2018-03-17 08:36] VITALS: BP 155/80; PULSE 85; TEMP 36.6; O2SAT 98
[2018-03-17] MEDS: AZITHROMYCIN IV 500 MG in DEXTROSE 5% 250ML 250 ML IV SCH ×2 (08:48→10:46)
[2018-03-17] MEDS: CITALOPRAM 20 MG TAB PO SCH (09:25)
[2018-03-17] MEDS ORDERED: PRD20 PO (13:07)
[2018-03-17] MEDS ORDERED: AZIT250T PO (13:07)
--- NOTE | 2018-03-17 13:08 | Discharge Instructions ---
Discharge Instructions Date of Service Mar 17, 2018. Admission Reason for Admission: Copd With Acute Exacerbation, Right Lower Lobe Discharge Discharge Diagnosis / Problem: COPD exacerbation Discharge Goals Goal(s): Improve function, Improve disease control Activity Recommendations Activity Limitations: resume your previous activity . Instructions / Follow-Up Instructions / Follow-Up Follow up with family physician in one week Current Hospital Diet Patient's current hospital diet: AHA Diet (Heart Healthy) Discharge Diet Recommended Diet: AHA Diet (Heart Healthy) Pending Studies Studies pending at discharge: no Medical Emergencies . Who to Call and When: Medical Emergencies: If at any time you feel your situation is an emergency, please call 911 immediately. . Non-Emergent Contact Non-Emergency issues call your: Primary Care Provider . . "Provider Documentation" section prepared by Diana William. .
--- NOTE | 2018-03-17 13:17 | Discharge Summary ---
Discharge Summary Date of Service Mar 17, 2018. Discharge Summary Admission Date: Mar 14, 2018 at 13:27 Discharge Date: Mar 17, 2018 Principal Diagnosis: COPD exacerbation Immunizations: Have You Had Influenza Vaccine: No Influenza Vaccine Date: Jun 19, 2009 History of Tetanus Vaccine?: No Tetanus Immunization Date: Mar 03, 2005 History of Pneumococcal: No Pneumococcal Date: Jun 19, 2009 History of Hepatitis B Vaccine: No Medication Reconciliation New Medications: Azithromycin (Zithromax) 250 Mg Tab 250 MG PO DAILY, #4 TAB Prednisone (Prednisone) 20 Mg Tab 1 TAB PO DAILY, #18 TAB 3 tablet for 3 days, 2 tablet for 3 days, 1 tablet for 3days Continued Medications: Alendronate Sodium (Alendronate Sodium) 70 Mg Tab 70 MG PO WK Cholecalciferol (Vitamin D) 400 Unit Tab 800 UNITS PO DAILY TWO 400 UNIT TABLETS AT NOON Citalopram Hydrobromide (Citalopram Hydrobromide) 20 Mg Tab 20 MG PO QAM Clonazepam (Klonopin) 1 Mg Tab 1 MG PO BID PRN for Anxiety Clonidine HCl (Clonidine HCl) 0.1 Mg Tab 0.1 MG PO BID Diltiazem Hcl Ext Rel (Tiazac) 300 Mg Capcr 300 MG PO QAM Ferrous Sulfate (Kp Ferrous Sulfate) 325 Mg Tab 1 TAB PO QPM Ezestmwtoso-Lshlgulpaipm-Mzboc (Trelegy Ellipta 100-62.5-25 Mcg/INH) 1 Aer Aer 1 PUFF INH DAILY Gabapentin (Gabapentin) 100 Mg Cap 300 MG PO HS Home O2 Therapy (Oxygen) Gas 3 LITER NA CONTINOUS Ipratropium-Albuterol (Combivent Respimat) 1 Aer Aer 1 PUFF INH QID PRN for SOB/Wheezing Ipratropium-Albuterol (Duoneb) 3 Ml Nebu 1 TREATMENT INH Q4H PRN for Shortness of Breath Lamotrigine (Lamictal) 25 Mg Tab 50 MG PO QAM Omeprazole (Omeprazole) 20 Mg Tab 20 MG PO Q2D Prednisone (Prednisone) 5 Mg Tab 5 MG PO DAILY Discharge Exam Last Resulted CBC 03/17/18 06:15 Red Blood Count 3.73, Mean Corpuscular Volume 90.9, Mean Corpuscular Hemoglobin 30.0, Mean Corpuscular Hemoglobin Concent 33.0, Mean Platelet Volume 8.5, Neutrophils (%) (Auto) 92.2, Lymphocytes (%) (Auto) 3.6, Monocytes (%) (Auto) 3.6, Eosinophils (%) (Auto) 0.0, Basophils (%) (Auto) 0.0, Neutrophils # (Auto) 18.41, Lymphocytes # (Auto) 0.71, Monocytes # (Auto) 0.72, Eosinophils # (Auto) 0.00, Basophils # (Auto) 0.00 Last Resulted BMP 03/17/18 06:15 Review of Systems: Constitutional: No fever Respiratory: No shortness of breath Cardiovascular: No chest pain Abdomen: No pain Physical Exam: General Appearance: no apparent distress Respiratory/Chest: lungs clear, no respiratory distress Cardiovascular: regular rate, rhythm Abdomen / GI: soft Neurologic/Psychiatric: alert, oriented x 3 Hospital Course 67M with a PMHx of Hx COPD - 02 and steroid-dependent, HTN, GERD. Pt presents with SOB x 1 day with chills and rigors. X-ray showed a RLL infiltrate. Pneumonia - CAP X-ray revealed RLL infiltrate. Pt is at his baseline oxygen requirement but had pain on deep inspiration at the site of the supposed infiltrate. Started on Ceftriaxone and Zithromax sputum/blood cultures came back negative. Home on 4 more days of zithromax. Leukocytosis coming down - still elevated at 19k on discharge. Likely from chronic steroid. Outpatient follow up on CBC to confirm resolution. COPD exacerbation Chronic Respiratory failure on 2LNC at home Given IV steroids - home on prednisone weaning dose. on 5mg Prednisone daily at home. HTN continue home regimen, Clonidine 0.1mg BID & Diltiazem 300mg QAM Osteoporosis On Fosamax weekly for osteoporosis prevention. GERD with Brown's - cont PPi Depression - c/w Citalopram 20 MG PO QAM Bipolar (from chart review) - c/w Lamictal Neuropathic Pain - c/w Gabapentin 300mg QHS CAD s/p CATH DVT Proph: Lovenox Total Time Spent: Greater than 30 minutes This includes examination of the patient, discharge planning, medication reconciliation, and communication with other providers. Discharge Instructions Please refer to the electronic Patient Visit Report (Discharge Instructions) for additional information. Additional Copies To Chin Meza D.O.
[2018-03-17 13:54] VITALS: BP 155/80; PULSE 85; TEMP 36.6; O2SAT 98
[2018-03-17 14:40] VITALS: BP 154/75; PULSE 66; TEMP 36.6; O2SAT 91
--- NOTE | 2018-03-17 15:53 | DIAGNOSTIC IMAGING REPORT ---
VENOUS DOPP LOWER EXT UNILAT HISTORY: 67 years-old Male right leg swelling acute pain and swelling of the right leg COMPARISON: None available TECHNIQUE: Multiple real-time sonographic images of the right lower extremity deep venous structures were obtained assessing grayscale appearance, color and spectral flow FINDINGS: Normal flow, compressibility, phasicity and augmentation of the right lower extremity deep venous structures. IMPRESSION: No sonographic evidence of deep venous thrombosis. The above report was generated using voice recognition software. It may contain grammatical, syntax or spelling errors. Electronically signed by: Conner Montes M.D. 03/17/2018 3:51 PM Dictated Date/Time: 03/17/2018 3:51 PM
== END 2018-03-17 16:35 | disposition home or self-care (01) | DRG 190 ==
LOC: C.EDB 11:01 → C.MS2W 13:27 → ENRESERV 13:40 → EDBEDREQ 14:05
PROVIDERS: ADMIT Internal Medicine; ATTEND Family Medicine
DX: J44.1 Chronic obstructive pulmonary disease with (acute) exacerbation (principal); J18.9 Pneumonia, unspecified organism; K22.70 Barrett's esophagus without dysplasia; I10 Essential (primary) hypertension; F43.10 Post-traumatic stress disorder, unspecified; Z87.891 Personal history of nicotine dependence; Z88.5 Allergy status to narcotic agent; Z79.52 Long term (current) use of systemic steroids; K21.9 Gastro-esophageal reflux disease without esophagitis; F31.9 Bipolar disorder, unspecified; G62.9 Polyneuropathy, unspecified; I25.10 Atherosclerotic heart disease of native coronary artery without angina pectoris

== ENCOUNTER → 2018-04-03 | Outpatient (CLI) | payer OTHER ==
[~2018-04-03] MED LIST changes: +AZIT250T PO; +FSM70 PO; +PRD20 PO; -TRAM-10 PO
[2018-04-03 13:53] LABS: BASO % 0.2 %; BASO ABS # 0.02 K/uL (0-0.2); EOS % 0.8 %; HEMATOCRIT 35.3 % (42-52); HEMOGLOBIN 11.5 g/dL (14.0-18.0); IG# 0.05 K/uL (0.00-0.02); LYMPH % 12.5 %; LYMPH ABS # 1.56 K/uL (1.2-3.4); MEAN CELL VOLUME 92.4 fL (80-100); MEAN CORPUSCULAR HEMOGLOBIN 30.1 pg (25-34); MEAN CORPUSCULAR HGB CONC 32.6 g/dl (32-36); MEAN PLATELET VOLUME 8.6 fL (7.4-10.4); MONO % 11.9 %; MONO ABS # 1.49 K/uL (0.11-0.59); NEUT % 74.2 %; NEUT ABS # 9.26 K/uL (1.4-6.5); PLATELET COUNT 284 K/uL (130-400); RED CELL DISTRIBUTION WIDTH CV 14.9 % (11.5-14.5); RED CELL DISTRIBUTION WIDTH SD 50.2 fL (36.4-46.3); WHITE BLOOD COUNT 12.48 K/uL (4.8-10.8)
[2018-04-03 14:17] LABS: ALBUMIN 2.8 gm/dl (3.4-5.0); ALKALINE PHOSPHATASE 80 U/L (45-117); ALT/SGPT 18 U/L (12-78); AST/SGOT 8 U/L (15-37); BLOOD UREA NITROGEN 10 mg/dl (7-18); CALCIUM 7.9 mg/dl (8.5-10.1); CARBON DIOXIDE 25 mmol/L (21-32); CREATININE 0.95 mg/dl (0.60-1.40); GLUCOSE 86 mg/dl (70-99); POTASSIUM 3.7 mmol/L (3.5-5.1); SODIUM 137 mmol/L (136-145); TOTAL PROTEIN 6.7 gm/dl (6.4-8.2)
== END | disposition home or self-care (01) ==
LOC: C.LAB1850 12:54
PROVIDERS: ATTEND Internal Medicine Pulmonary Disease
DX: R91.1 Solitary pulmonary nodule (principal); R06.02 Shortness of breath

== ENCOUNTER 2019-03-27 12:52 | Inpatient (IN) ==
[2019-03-27] MEDS ORDERED: ONDANSETRON INJ 2 MG/ML 2 ML VIAL IV STA (13:26)
[2019-03-27] MEDS ORDERED: SODIUM CHLORIDE 0.9% 500 ML IV SCH (13:30)
--- NOTE | 2019-03-27 14:06 | XRay Report ---
XR chest 1V portable CLINICAL HISTORY: pain chest pain COMPARISON STUDY: 03/14/2018 FINDINGS: Bibasilar fibrotic change. The bulk of this is considered chronic. Diaphragms remain visibl e. Emphysematous changes noted in the mid and upper lung regions. Findings of mild stable cardiomegal y. IMPRESSION: 1. Emphysematous change. 2. Chronic bibasilar fibrosis. The above report was generated using voice recognition software. It may contain grammatical, syntax or spelling errors. Electronically signed by: Barak Staples M.D. 03/27/2019 2:05 PM
[2019-03-27 14:08] LABS: Basophils # (auto) 0.07 K/uL (0-0.2); Basophils % (auto) 0.6 %; Eosinophils # (auto) 0.24 K/uL (0-0.5); Hemoglobin 13.9 g/dL (14.0-18.0); Immature Granulocytes # (auto) 0.07 K/uL (0.00-0.02); Immature Granulocytes % (auto) 0.6 %; Lymphocytes # (auto) 1.88 K/uL (1.2-3.4); Lymphocytes % (auto) 15.8 %; Mean Corpuscular Hgb Conc 34.8 g/dL (32-36); Mean Corpuscular Volume 90.7 fL (80-100); Mean Platelet Volume 8.7 fL (7.4-10.4); Monocytes # (auto) 1.11 K/uL (0.11-0.59); Monocytes % (auto) 9.3 %; Neutrophils # (auto) 8.54 K/uL (1.4-6.5); Neutrophils % (auto) 71.7 %; Platelet Count 330 K/uL (130-400); RDW Coefficient of Variation 13.4 % (11.5-14.5); RDW Standard Deviation 43.8 fL (36.4-46.3); Red Blood Count 4.41 M/uL (4.7-6.1); White Blood Count 11.91 K/uL (4.8-10.8)
[2019-03-27] MEDS: fentaNYL citrate 100 MCG/2 ML VIAL IV PRN ×2 (14:08→16:52)
[2019-03-27 14:13] LABS: iSTAT Creatinine 0.9 mg/dl (0.6-1.3); iSTAT Hemoglobin 13.9 g/dl (14.0-18.0); iSTAT Ionized Calcium 1.1 mmol/l (1.12-1.32); iSTAT Potassium 3.7 mEq/L (3.3-5.0)
[2019-03-27 14:20] LABS: Partial Thromboplastin Ratio 1.1; Prothrombin Time 9.8 Seconds (9.0-12.0)
[2019-03-27 14:32] LABS: Alanine Aminotransferase 29 U/L (12-78); Albumin Level 3.3 gm/dl (3.4-5.0); Aspartate Aminotransferase 17 U/L (15-37); BUN Creatinine Ratio 17.3 (10-20); Blood Urea Nitrogen 16 mg/dl (7-18); Calcium 8.3 mg/dl (8.5-10.1); Carbon Dioxide 29 mmol/L (21-32); Chloride 105 mmol/L (98-107); Creatinine Clr Calc Pharmacy 72.3 ml/min; Est GFR (African American) 97.5; Est GFR (Non-African American) 84.2; Glucose 86 mg/dl (70-99); Potassium 3.7 mmol/L (3.5-5.1); Sodium 140 mmol/L (136-145)
[2019-03-27 14:37] LABS: Albumin Globulin Ratio 0.8 (0.9-2); Alkaline Phosphatase 115 U/L (45-117); Bilirubin,Total 0.5 mg/dl (0.2-1); Globulin 4.2 gm/dl (2.5-4.0); Total Protein 7.5 gm/dl (6.4-8.2); Troponin I < 0.015 ng/ml (0-0.045)
[2019-03-27] MEDS ORDERED: IOVERSOL 100ml IV PRN (15:07)
--- NOTE | 2019-03-27 15:19 | CT Scan Report ---
ABDOMEN AND PELVIS CT WITH IV CONTRAST CT DOSE: 489.54 mGy.cm HISTORY: Generalized abdominal pain TECHNIQUE: Multiaxial CT images of the abdomen and pelvis were performed following the use of intrave nous contrast. A dose lowering technique was utilized adhering to the principles of ALARA. COMPARISON STUDY: Abdomen and pelvis CT 02/11/2018. FINDINGS: Emphysema is noted at the lung bases. Bandlike areas of consolidation within the right midd le lobe remain unchanged in favor scarring. No pneumoperitoneum. No pneumatosis. Patchy areas of scle rosis within the femoral heads consistent with avascular necrosis. This is similar to the prior study . No evidence for femoral head collapse at this time. Old left-sided rib fractures. Moderate hiatus h ernia, unchanged. The liver, spleen, adrenal glands, and pancreas are unremarkable. The gallbladder i s decompressed. Multiple small stones within the neck of the gallbladder. No inflammatory change surr ounding the gallbladder. Multiple bilateral renal hypodense lesions. Some of these are subcentimeter in size and too small to characterize. Statistically these represent cysts. No hydronephrosis. The pr ostate gland is enlarged. Bladder wall is mildly thickened. There is a small diverticulum at the blad solange dome. A few stones are noted measuring up to 5 mm. No retroperitoneal lymphadenopathy. Colonic di verticulosis. No evidence for diverticulitis. No bowel wall thickening or obstruction. Normal appendi x. Moderate size midline supraumbilical hernia containing a short segment of the transverse colon. Al so within this hernia sac there is a 2 cm fat lobule with surrounding inflammatory change. This is co nsistent with epiploic appendagitis. The best seen on image 179 there is a small focal area of inflam matory change adjacent to the mid transverse colon. This is nonspecific but could represent a develop ing acute diverticulitis given the adjacent diverticula. IMPRESSION: 1. Epiploic appendagitis located within the moderate sized ventral hernia.. 2. Small focus of inflammatory change adjacent to the mid transverse colon. This is nonspecific but c ould represent a developing acute diverticulitis given the adjacent diverticula. No bowel wall thicke baljeet at this time. 3. Multiple small stones within the neck of the gallbladder. The gallbladder is decompressed. No infl ammatory change identified surrounding the gallbladder. 4. Mild bladder wall thickening. This is likely due to chronic outlet obstruction from the enlarged p rostate gland. 5. Additional findings as described above. Electronically signed by: Hugh Kennedy M.D. 03/27/2019 3:18 PM
[2019-03-27] MEDS ORDERED: PIPERACILLIN/TAZOBACTAM 4.5 GM/120 ML BAG IV ONE (15:25)
[2019-03-27] MEDS ORDERED: PIPERACILL/TAZOBAC CONSULT ACTIVE PRN (15:25)
--- NOTE | 2019-03-27 15:45 | Emergency Department Note ---
Entered by Rukhsana Pearl acting as a scribe for John Rodrigez DO History of Present Illness General Chief complaint: Abdominal Pain Stated complaint: PAIN NEAR HERNIA Source: patient History of Present Illness Provider complaint: Abdominal pain Onset (ago): day(s) 4 Location: abdomen Pain Consistency: + other (worsening ) Maximum Pain Intensity: 9 Quality: + constant Associated symptoms: + other (Positive: abdominal pain, unable to walk, hurts to touch, chronic leg edema); no fever/chills (fever) and no nausea/vomiting (vomiting ) The patient is a 68 year old male who presents to the ED with complaints of worsening right sided abdominal pain that started four days ago. The patient reports he has hernia. He notes it hurts to touch and he is unable to walk. The patient states he has history of diverticulitis. He reports he has chronic leg edema. The patient denies fever or vomiting. Home Medications Home Medications Medication Instructions Recorded Confirmed Type acetaminophen 500 mg PO Q6H PRN 03/27/19 03/27/19 History albuterol sulfate [Ventolin HFA] 2 puff INHALATION Q6H 03/27/19 03/27/19 History cholecalciferol (vitamin D3) 2,000 unit PO DAILY 03/27/19 03/27/19 History [Vitamin D3] citalopram [Celexa] 20 mg PO QAM 03/27/19 03/27/19 History diltiazem HCl 300 mg PO DAILY 03/27/19 03/27/19 History swzewfuxgyr-gstizzhte-rpupdnfi 1 inh INHALATION DAILY 03/27/19 03/27/19 History [Trelegy Ellipta] ipratropium-albuterol 3 ml INHALATION Q6H PRN 03/27/19 03/27/19 History ipratropium-albuterol [Combivent 1 puff INHALATION Q4H 03/27/19 03/27/19 History Respimat] lamotrigine 50 mg PO DAILY 03/27/19 03/27/19 History losartan 25 mg PO DAILY 03/27/19 03/27/19 History omeprazole 20 mg PO QAM 03/27/19 03/27/19 History theophylline [Leland-24] 300 mg PO DAILY 03/27/19 03/27/19 History Allergies Allergy/AdvReac Type Severity Reaction Status Date / Time Influenza Virus Vaccines Allergy Severe SHORTNESS Verified 03/27/19 14:12 OF BREATH morphine Allergy Intermediate "I FELT Unverified 03/27/19 14:12 FUNNY IN THE HEAD" Past Med/Surg History Medical History Depression (Chronic) Depression (Acute) Anxiety (Acute) PTSD (post-traumatic stress disorder) (Chronic) Sleep apnea (Chronic) Anxiety (Acute) Pulmonary embolism (Acute 01/22/14) Pericardial effusion (Acute) Pulmonary embolism (Chronic) COPD (chronic obstructive pulmonary disease) (Chronic) Anemia (Chronic) Abdominal pain (Acute) JANNETH (acute kidney injury) (Acute) COPD exacerbation (Acute) COPD with acute exacerbation (Acute) Fall (Acute) Fall (Acute) Fall against object (Acute) Head pain (Acute) Headache (Acute) Headache (Acute) Hypokalemia (Acute) Hypokalemia (Acute) Laceration of right ear (Acute) Localized swelling of both lower legs (Acute) 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 and A total of 10 systems reviewed and were otherwise negative Physical Exam Vital Signs Vital Signs - 24 hr 03/27/19 13:08 03/27/19 13:22 03/27/19 13:23 Temperature 36.7 C Temperature Source Oral Sepsis Recent Fever Within 48 Hours No Sepsis Action Taken by Nursing No Action Required Pulse Rate 86 Pulse Rate [Apical] 78 Pulse Rhythm Regular Pulse Strength Normal Respiratory Rate 20 20 Respiratory Effort / Characteristics Non-Labored Spontaneous Respiratory Depth Normal Blood Pressure 143/82 H Blood Pressure [Right Arm] 174/86 H Blood Pressure Mean 102 Blood Pressure Mean [Right Arm] 115 Blood Pressure Position Sitting Pulse Oximetry 90 95 95 Oxygen Delivery Method Nasal Cannula Nasal Cannula Nasal Cannula Oxygen Flow Rate 2.5 2.5 2.5 03/27/19 14:00 Temperature Temperature Source Sepsis Recent Fever Within 48 Hours Sepsis Action Taken by Nursing Pulse Rate 80 Pulse Rate [Apical] Pulse Rhythm Pulse Strength Respiratory Rate 18 Respiratory Effort / Characteristics Respiratory Depth Blood Pressure 139/82 Blood Pressure [Right Arm] Blood Pressure Mean 101 Blood Pressure Mean [Right Arm] Blood Pressure Position Pulse Oximetry 97 Oxygen Delivery Method Nasal Cannula Oxygen Flow Rate 2.5 GENERAL: Patient is awake, alert, and in no acute distress.Patient is resting comfortably and showing no signs of anxiety EYES: The conjunctivae are clear. The pupils are round and reactive. EARS, NOSE, MOUTH AND THROAT: The nose is without any evidence of any deformity. Mucous membranes are moist.Tongue is midline NECK: The neck is nontender and supple. RESPIRATORY: Normal respiratory effort is noted. Lung sounds diminished throughout scattered wheezes in all gastelum. No tachypnea or conversational dyspnea. CARDIOVASCULAR: Regular rate and rhythm noted. There no murmurs rubs or gallops normal S1 normal S2 GASTROINTESTINAL: The abdomen is soft. Bowel sounds are present in all quadrants. Abdomen is moderately distended and diffusely tender. Large ventral hernia appreciated and is tender to palpation. MUSCULOSKELETAL/EXTREMITIES: There is no evidence of gross deformity. Full range of motion is noted in the hips and shoulders. Campbell edema noted. Left greater than right. SKIN: There is no obvious evidence of any rash. There are no petechiae, pallor or cyanosis noted. NEUROLOGIC: Patient is awake alert and oriented x3. Course 1323: The patient was evaluated in room B4B. A complete history and physical exam was performed. 1455: I checked on the patient. 1535: I discussed the patients case with Dr. Garcia, [facility] Hospitalist. The patient will be evaluated for further management. Consultations Consultation #1: I discussed the patients case with Dr. Garcia [facility] Hospitalist. The patient will be evaluated for further management. Time: 15:35 Administered Medications Fentanyl Citrate (Fentanyl Citrate) 50 mcg IV Q15M PRN PRN Reason: Pain Stop: 04/10/19 13:25 Last Admin: 03/27/19 14:08 Dose: 50 mcg Documented by: [id number] Ioversol (Optiray 320 100ml) 94 ml IV ONCE PRN PRN Reason: Interaction Checking Stop: 03/31/19 15:06 Last Admin: 03/27/19 15:07 Dose: 94 ml Documented by: [id number] Discontinued Medications Sodium Chloride (Nss) 500 mls @ 999 mls/hr IV .Q31M ALINA Stop: 03/27/19 14:00 Last Infusion: 03/27/19 14:48 Dose: 0 mls/hr Documented by: [id number] Admin: 03/27/19 14:08 Dose: 999 mls/hr Documented by: [id number] Ondansetron HCl (Zofran) 4 mg IV NOW STA Stop: 03/27/19 13:27 Last Admin: 03/27/19 14:08 Dose: 4 mg Documented by: [id number] Medical Decision Making Differential Diagnosis Differential diagnosis: Etiologies such as appendicitis, diverticulitis, PUD, biliary pathology, UTI, pancreatitis, obstruction, mesenteric ischemia, aortic pathology, infections, inflammatory bowel disease, renal colic, as well as others were entertained. Medical Records Attestation: I reviewed the patient's medical records. Home Medications Current Medication List: was personally reviewed by me Laboratory Data Attestation: I reviewed the patient's lab results. Result diagrams: 03/27/19 13:52 03/27/19 13:52 Lab Results 03/27/19 03/27/19 03/27/19 Range/Units 13:52 13:52 13:52 WBC 11.91 H (4.8-10.8) K/uL RBC 4.41 L (4.7-6.1) M/uL Hgb 13.9 L (14.0-18.0) g/dL POC Hgb (14.0-18.0) g/dl Hct 40.0 L (42-52) % POC Hct (42-52) % MCV 90.7 (80-100) fL MCH 31.5 (25-34) pg MCHC 34.8 (32-36) g/dL RDW Std Deviation 43.8 (36.4-46.3) fL RDW Coeff of Loida 13.4 (11.5-14.5) % Plt Count 330 (130-400) K/uL MPV 8.7 (7.4-10.4) fL Immature Gran % (Auto) 0.6 % Neut % (Auto) 71.7 % Lymph % (Auto) 15.8 % [place] % (Auto) 9.3 % Eos % (Auto) 2.0 % Baso % (Auto) 0.6 % Immature Gran # (Auto) 0.07 H (0.00-0.02) K/uL Neut # (Auto) 8.54 H (1.4-6.5) K/uL Lymph # (Auto) 1.88 (1.2-3.4) K/uL [place] # (Auto) 1.11 H (0.11-0.59) K/uL Eos # (Auto) 0.24 (0-0.5) K/uL Baso # (Auto) 0.07 (0-0.2) K/uL PT 9.8 (9.0-12.0) Seconds INR 1.0 (0.9-1.1) APTT 30.0 (21.0-31.0) Seconds PTT Ratio 1.1 POC Sodium (135-144) mEq/L Sodium 140 (136-145) mmol/L POC Potassium (3.3-5.0) mEq/L Potassium 3.7 (3.5-5.1) mmol/L POC Chloride (101-112) mEq/L Chloride 105 (98-107) mmol/L Carbon Dioxide 29 (21-32) mmol/L POC Total CO2 (24-31) mEq/l Anion Gap 6.0 (3-11) POC Anion Gap (16-25) mmol/L POC BUN (7-18) mg/dl BUN 16 (7-18) mg/dl Creatinine 0.94 (0.6-1.4) mg/dl POC Creatinine (0.6-1.3) mg/dl Est Cr Clr Drug Dosing 72.3 ml/min Est GFR ( Amer) 97.5 Est GFR (Non-Af Amer) 84.2 BUN/Creatinine Ratio 17.3 (10-20) Glucose 86 (70-99) mg/dl POC Glucose (other) (70-99) mg/dl Calcium 8.3 L (8.5-10.1) mg/dl POC Ioniz Calcium Isela (1.12-1.32) mmol/l Total Bilirubin 0.5 (0.2-1) mg/dl AST 17 (15-37) U/L ALT 29 (12-78) U/L Alkaline Phosphatase 115 (45-117) U/L Troponin I < 0.015 (0-0.045) ng/ml Total Protein 7.5 (6.4-8.2) gm/dl Albumin 3.3 L (3.4-5.0) gm/dl Globulin 4.2 H (2.5-4.0) gm/dl Albumin/Globulin Ratio 0.8 L (0.9-2) Lipase 64 L (73-393) U/L 03/27/19 Range/Units 13:59 WBC (4.8-10.8) K/uL RBC (4.7-6.1) M/uL Hgb (14.0-18.0) g/dL POC Hgb 13.9 L (14.0-18.0) g/dl Hct (42-52) % POC Hct 41 L (42-52) % MCV (80-100) fL MCH (25-34) pg MCHC (32-36) g/dL RDW Std Deviation (36.4-46.3) fL RDW Coeff of Loida (11.5-14.5) % Plt Count (130-400) K/uL MPV (7.4-10.4) fL Immature Gran % (Auto) % Neut % (Auto) % Lymph % (Auto) % [place] % (Auto) % Eos % (Auto) % Baso % (Auto) % Immature Gran # (Auto) (0.00-0.02) K/uL Neut # (Auto) (1.4-6.5) K/uL Lymph # (Auto) (1.2-3.4) K/uL [place] # (Auto) (0.11-0.59) K/uL Eos # (Auto) (0-0.5) K/uL Baso # (Auto) (0-0.2) K/uL PT (9.0-12.0) Seconds INR (0.9-1.1) APTT (21.0-31.0) Seconds PTT Ratio POC Sodium 139 (135-144) mEq/L Sodium (136-145) mmol/L POC Potassium 3.7 (3.3-5.0) mEq/L Potassium (3.5-5.1) mmol/L POC Chloride 101 (101-112) mEq/L Chloride (98-107) mmol/L Carbon Dioxide (21-32) mmol/L POC Total CO2 26 (24-31) mEq/l Anion Gap (3-11) POC Anion Gap 17.0 (16-25) mmol/L POC BUN 16 (7-18) mg/dl BUN (7-18) mg/dl Creatinine (0.6-1.4) mg/dl POC Creatinine 0.9 (0.6-1.3) mg/dl Est Cr Clr Drug Dosing ml/min Est GFR ( Amer) Est GFR (Non-Af Amer) BUN/Creatinine Ratio (10-20) Glucose (70-99) mg/dl POC Glucose (other) 91 (70-99) mg/dl Calcium (8.5-10.1) mg/dl POC Ioniz Calcium Isela 1.10 L (1.12-1.32) mmol/l Total Bilirubin (0.2-1) mg/dl AST (15-37) U/L ALT (12-78) U/L Alkaline Phosphatase (45-117) U/L Troponin I (0-0.045) ng/ml Total Protein (6.4-8.2) gm/dl Albumin (3.4-5.0) gm/dl Globulin (2.5-4.0) gm/dl Albumin/Globulin Ratio (0.9-2) Lipase (73-393) U/L Imaging Data Radiologist's Impression: Radiology results as stated below per my review and the radiologist's interpretation: XR chest 1V portable CLINICAL HISTORY: pain chest pain COMPARISON STUDY: 03/14/2018 FINDINGS: Bibasilar fibrotic change. The bulk of this is considered chronic. Diaphragms remain visible. Emphysematous changes noted in the mid and upper lung regions. Findings of mild stable cardiomegaly. IMPRESSION: 1. Emphysematous change. 2. Chronic bibasilar fibrosis. The above report was generated using voice recognition software. It may contain grammatical, syntax or spelling errors. Electronically signed by: Barak Staples M.D. 03/27/2019 2:05 PM ABDOMEN AND PELVIS CT WITH IV CONTRAST CT DOSE: 489.54 mGy.cm HISTORY: Generalized abdominal pain TECHNIQUE: Multiaxial CT images of the abdomen and pelvis were performed following the use of intravenous contrast. A dose lowering technique was utilized adhering to the principles of ALARA. COMPARISON STUDY: Abdomen and pelvis CT 02/11/2018. FINDINGS: Emphysema is noted at the lung bases. Bandlike areas of consolidation within the right middle lobe remain unchanged in favor scarring. No pneumoperitoneum. No pneumatosis. Patchy areas of sclerosis within the femoral heads consistent with avascular necrosis. This is similar to the prior study. No evidence for femoral head collapse at this time. Old left-sided rib fractures. Moderate hiatus hernia, unchanged. The liver, spleen, adrenal glands, and pancreas are unremarkable. The gallbladder is decompressed. Multiple small stones within the neck of the gallbladder. No inflammatory change surrounding the gallbladder. Multiple bilateral renal hypodense lesions. Some of these are subcentimeter in size and too small to characterize. Statistically these represent cysts. No hydronephrosis. The prostate gland is enlarged. Bladder wall is mildly thickened. There is a small diverticulum at the bladder dome. A few stones are noted measuring up to 5 mm. No retroperitoneal lymphadenopathy. Colonic diverticulosis. No evidence for diverticulitis. No bowel wall thickening or obstruction. Normal appendix. Moderate size midline supraumbilical hernia containing a short segment of the transverse colon. Also within this hernia sac there is a 2 cm fat lobule with surrounding inflammatory change. This is consistent with epiploic appendagitis. The best seen on image 179 there is a small focal area of inflammatory change adjacent to the mid transverse colon. This is nonspecific but could represent a developing acute diverticulitis given the adjacent diverticula. IMPRESSION: 1. Epiploic appendagitis located within the moderate sized ventral hernia.. 2. Small focus of inflammatory change adjacent to the mid transverse colon. This is nonspecific but could represent a developing acute diverticulitis given the adjacent diverticula. No bowel wall thickening at this time. 3. Multiple small stones within the neck of the gallbladder. The gallbladder is decompressed. No inflammatory change identified surrounding the gallbladder. 4. Mild bladder wall thickening. This is likely due to chronic outlet obstruction from the enlarged prostate gland. 5. Additional findings as described above. Electronically signed by: Hugh Kennedy M.D. 03/27/2019 3:18 PM ECG Data Attestation: I personally reviewed and interpreted this ECG as follows: Indication: abdominal pain Rate (beats per minute): 78 Rhythm: normal sinus Findings: no ST depression, no ST elevation and no ectopy Comparison ECG Date: from (03/14/18) Change: no significant change Blood Pressure Blood Pressure Findings: Normal blood pressure Blood Pressure Disposition: did not require urgent referral MDM Narrative The patient is a 68-year-old male who presented to the emergency department for an evaluation of abdominal pain. The patient is a large ventral hernia which at this time is not amenable to surgical correction because of the patient's underlying pulmonary problems. The patient also has a history of diverticulitis. His history and physical exam appear to be more consistent with diverticulitis. The patient has significant tenderness over the ventral hernia. I discussed the patient's laboratory and radiographic studies with him. He was treated with IV fluids IV pain medication and IV anabiotic's for presumed diverticulitis. He does appear to have significant pain and given his other comorbidities I do not know if he would do well as an outpatient with this finding. For this reason I discussed his case with the on-call [facility] hospitalist group. They have agreed to evaluate the patient in the emergency department for further management disposition. The patient was agreeable to evaluation by the hospitalist. Impression & Plan Diverticulitis, Abdominal pain, Epiploic appendagitis, Ventral hernia : Abdominal pain Qualifiers: Abdominal location: left lower quadrant Qualified Code(s): R10.32 - Left lower quadrant pain Ventral hernia Qualifiers: Obstruction and gangrene presence: without obstruction or gangrene Qualified Code(s): K43.9 - Ventral hernia without obstruction or gangrene The scribe's documentation has been prepared under my direction and personally reviewed by me in its entirety. I confirm that the note above accurately reflects all work, treatment, procedures, and medical decision making performed by me.
--- NOTE | 2019-03-27 17:19 | History & Physical Report ---
Date of Service March 27, 2019 Assessment & Plan (1) Diverticulitis: Admit to [facility] on telemetry Vital signs every 4 hours Start IV fluid at 80 cc/h normal saline CBC CMP daily replenish electrolytes as necessary Keep n.p.o. Zosyn given in the ER switched to Cipro 500 mg IV twice daily and Flagyl 500 mg every 8 hours Present on Admission?: Yes (2) COPD (chronic obstructive pulmonary disease): Stable at this time. Continue supplemental oxygen. Continue albuterol inhaler 2 puffs every 6 hours, continue Trelegy Ellipta 1 inhalation daily, continue Combivent 1 puff every 4 hours. Present on Admission?: Yes (3) Anxiety: Stable continue home medicine lamotrigine 50 mg p.o. daily, hold citalopram 20 mg p.o. every morning to prevent prolongation of QT interval Present on Admission?: Yes (4) Depression: Stable, continue medical management as the above. Present on Admission?: Yes History of Present Illness Chief Complaint: Abdominal pain Primary Care Provider: Anila Rolle DO The patient is a 68 years old male with past medical history of severe COPD, large ventral hernia ,sleep apnea, depression, PTSD who is brought by his to the emergency with a complaint of abdominal pain that started 4 days ago and patient said that it hurts and he cannot start she is abdomen. Patient also reports left lower extremity edema. Patient denies fever chills headache chest pain shortness of breath frequency urgency hemoptysis hematochezia melena nausea and vomiting. Labs were reviewed and showed white blood cell count of 11.91 hemoglobin of 13.9 hematocrit of 40 platelets 330, PT 9.8 INR 1, APTT 30, sodium 139 potassium 3.7 chloride 101, BUN 16 creatinine 0.94 GFR of 72.3 BUN/creatinine ratio 17.3, calcium 8.3 ionized calcium 1.10 AST 17 ALT 29 alkaline phosphatase 115 troponin 0 0.015, lipase 64. CT abdomen pelvis with IV contrast shows:Epiploic appendagitis located within the moderate sized ventral hernia.. Small focus of inflammatory change adjacent to the mid transverse colon. This is nonspecific but could represent a developing acute diverticulitis given the adjacent diverticula. No bowel wall thickening at this time. Multiple small stones within the neck of the gallbladder. The gallbladder is decompressed. No inflammatory change identified surrounding the gallbladder. Mild bladder wall thickening. This is likely due to chronic outlet obstruction from the enlarged prostate gland. Case discussed with Dr.Mark Bullock general surgery and repeat he recommended conservative treatment with IV fluids n.p.o. and antibiotics. At this point hernia ventral hernia is not strangulated. Made patient to [facility] on telemetry for further treatment of diverticulitis. Allergies Allergy/AdvReac Type Severity Reaction Status Date / Time Influenza Virus Vaccines Allergy Severe SHORTNESS Verified 03/27/19 14:12 OF BREATH morphine Allergy Intermediate "I FELT Unverified 03/27/19 14:12 FUNNY IN THE HEAD" Home Medications Home Medications Medication Instructions Recorded Confirmed Type acetaminophen 500 mg PO Q6H PRN 03/27/19 03/27/19 History albuterol sulfate [Ventolin HFA] 2 puff INHALATION Q6H 03/27/19 03/27/19 History cholecalciferol (vitamin D3) 2,000 unit PO DAILY 03/27/19 03/27/19 History [Vitamin D3] citalopram [Celexa] 20 mg PO QAM 03/27/19 03/27/19 History diltiazem HCl 300 mg PO DAILY 03/27/19 03/27/19 History mgjrywfgahp-jfyfrvesz-gmwqmxvg 1 inh INHALATION DAILY 03/27/19 03/27/19 History [Trelegy Ellipta] ipratropium-albuterol 3 ml INHALATION Q6H PRN 03/27/19 03/27/19 History ipratropium-albuterol [Combivent 1 puff INHALATION Q4H 03/27/19 03/27/19 History Respimat] lamotrigine 50 mg PO DAILY 03/27/19 03/27/19 History losartan 25 mg PO DAILY 03/27/19 03/27/19 History omeprazole 20 mg PO QAM 03/27/19 03/27/19 History theophylline [Leland-24] 300 mg PO DAILY 03/27/19 03/27/19 History Past Med/Surg History Medical History Depression (Chronic) Depression (Acute) Anxiety (Acute) PTSD (post-traumatic stress disorder) (Chronic) Sleep apnea (Chronic) Anxiety (Acute) Pulmonary embolism (Acute 01/22/14) Pericardial effusion (Acute) Pulmonary embolism (Chronic) COPD (chronic obstructive pulmonary disease) (Chronic) Anemia (Chronic) Abdominal pain (Acute) JANNETH (acute kidney injury) (Acute) COPD exacerbation (Acute) COPD with acute exacerbation (Acute) Fall (Acute) Fall (Acute) Fall against object (Acute) Head pain (Acute) Headache (Acute) Headache (Acute) Hypokalemia (Acute) Hypokalemia (Acute) Laceration of right ear (Acute) Localized swelling of both lower legs (Acute) 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) Mood disorder (Acute) Pneumonia (Acute) Pneumonia (Acute) Right lower lobe pneumonia (Acute) Sepsis (Acute) Suicidal ideation (Acute) Supratherapeutic INR (Acute) UTI (urinary tract infection) (Acute) Surgical History History of cardiac catheterization (Resolved) S/P tonsillectomy (Resolved) Family History Other Lung disease Social History Feels Safe at Home: Yes Smoking Status: Never smoker Review of Systems Review of Systems: All systems reviewed & are unremarkable except as noted in HPI & below Physical Exam Constitutional: WD/WN, vitals as above well developed and + obese Eyes: PERRL, conjunctivae normal, anicteric sclerae ENMT: external ear and nose normal, oropharynx normal Neck: trachea midline, no thyromegaly Respiratory: normal respiratory effort, + hyperresonance to percussion, able to speak in complete sentences and + prolonged expiratory phase Auscultation: + wheezes and + egophony Continues on 2 L of oxygen 24/7 Cardiovascular: RRR, no murmur, no edema Chest (Breasts): normal inspection/palpation of breasts Gastrointestinal (Abdomen): Inspection/Auscultation: + hyperactive bowel sounds Percussion/Palpation: + abdomen tender, + guarding, + hernia ( large ventral hernia) and + tympanic to percussion Bowel sounds decreased in all 4 quadrants, abdomen mildly tender no guarding and no rebound Musculoskeletal: Left lower extremity chronic edema, positive pulses dorsalis pedis bilaterally. Skin: no rashes, warm and dry + dry skin Multiple scratches over the left lower extremities Neurologic: patellar DTR's 2+ bilat, sensation intact Psychiatric: A+Ox3, euthymic affect Genitourinary: no testicular masses, no penis abnormality Lymphatic: no cervical or axillary lymphadenopathy Results & Data Vital Signs (Past 12 Hours) Vital Signs Temp Pulse Pulse Resp BP BP Pulse Ox 03/27/19 16:39 76 22 155/88 H 91 03/27/19 16:33 127 H 16 03/27/19 16:00 70 24 159/96 H 98 03/27/19 15:30 72 27 H 162/99 H 97 03/27/19 15:11 21 03/27/19 14:30 75 20 147/89 H 95 03/27/19 14:00 80 18 139/82 97 03/27/19 13:23 95 03/27/19 13:22 78 20 174/86 H 95 03/27/19 13:08 36.7 C 86 20 143/82 H 90 Code Status & VTE Plan Code Status Full code VTE Prophylaxis Plan VTE Prophylaxis will be ordered: Yes PG Care Time/CCT Total # of Minutes Spent Total Time Spent with Patient: Total time spent is greater than 50% in coordination of care (as documented) at patient's floor/unit and/or counseling patient:
[2019-03-27] MEDS ORDERED: ACETAMINOPHEN 325 MG TAB PO PRN (18:27)
[2019-03-27] MEDS ORDERED: ZOLPIDEM TARTRATE 5 MG TAB PO PRN (18:27)
[2019-03-27] MEDS ORDERED: ACETAMINOPHEN 500 MG TAB PO PRN (18:27)
[2019-03-27] MEDS ORDERED: ALBUTEROL HFA 8 GM INHALER INH PRN (18:27)
[2019-03-27] MEDS ORDERED: ALBUT/IPRATROP 3MG/0.5MG NEB 3 ML VIAL INH PRN (18:27)
[2019-03-27] MEDS: SODIUM CHLORIDE 0.9% 1000ML 1,000 ML IV SCH (18:38)
[2019-03-27 19:26] LABS: Appearance Urine Clear (Clear); Bacteria Urine Automated Negative (Negative); Bilirubin Urine Negative (Negative); Blood Urine Negative (Negative); Color Urine Yellow; Glucose Urine UA Negative (Negative); Ketones Urine Negative (Negative); Leukocyte Esterase Urine 1+ (Negative); Nitrite Urine Negative (Negative); Protein Urine Negative (Negative); RBC Urine Automated 0-4 /hpf (0-4); Specific Gravity Urine > 1.045 (1.000-1.030); Urobilinogen Urine Negative (Negative); pH Urine 5.5 (4.5-7.5)
[2019-03-27] MEDS: metroNIDAZOLE 500 MG/100 ML BAG IV SCH (20:27)
[2019-03-27] MEDS: IPRATROPIUM BROMIDE/ALBUTEROL respimat INH INH SCH (20:28)
[2019-03-27] MEDS ORDERED: KETOROLAC TROMETHAMINE 15 MG/ML VIAL IV PRN (20:45)
[2019-03-27] MEDS: FAMOTIDINE 20 MG in SYRINGE 3 ML IV SCH (20:46)
[2019-03-27] MEDS ORDERED: Nursing to Pharmacy Communication ONE (21:02)
[2019-03-27] MEDS: CIPROFLOXACIN 400 MG/200 ML BAG IV SCH (21:36)
[2019-03-28] MEDS: IPRATROPIUM BROMIDE/ALBUTEROL respimat INH INH SCH ×7 (00:49→23:54)
[2019-03-28] MEDS: metroNIDAZOLE 500 MG/100 ML BAG IV SCH ×3 (04:02→20:43)
--- NOTE | 2019-03-28 06:37 | XRay Report ---
XR tibia fibula LT 2V CLINICAL HISTORY: swelling of the left lower ext COMPARISON: 02/02/2018 DISCUSSION: No fractures are visualized. No destructive lesions are evident. There is mild soft tissu e edema. IMPRESSION: No fractures identified. Electronically signed by: Dante Castillo M.D. 03/28/2019 6:36 AM
[2019-03-28 06:54] LABS: Basophils # (auto) 0.06 K/uL (0-0.2); Basophils % (auto) 0.7 %; Eosinophils # (auto) 0.32 K/uL (0-0.5); Eosinophils % (auto) 3.7 %; Hematocrit (blood only) 37.4 % (42-52); Hemoglobin 13.1 g/dL (14.0-18.0); Immature Granulocytes # (auto) 0.03 K/uL (0.00-0.02); Immature Granulocytes % (auto) 0.3 %; Lymphocytes % (auto) 18.6 %; Mean Corpuscular Volume 92.8 fL (80-100); Mean Platelet Volume 8.5 fL (7.4-10.4); Monocytes # (auto) 0.99 K/uL (0.11-0.59); Monocytes % (auto) 11.5 %; Neutrophils # (auto) 5.59 K/uL (1.4-6.5); Neutrophils % (auto) 65.2 %; Platelet Count 283 K/uL (130-400); RDW Coefficient of Variation 13.5 % (11.5-14.5); RDW Standard Deviation 45.9 fL (36.4-46.3); Red Blood Count 4.03 M/uL (4.7-6.1); White Blood Count 8.59 K/uL (4.8-10.8)
--- NOTE | 2019-03-28 07:12 | Ultrasound Report ---
LEFT LOWER EXTREMITY VENOUS DOPPLER HISTORY: swelling of the left lower ext, r/o DVT COMPARISON STUDY: Left leg venous Doppler 01/18/2019. FINDINGS: There is normal compressibility, flow, and augmentation within the left lower extremity paige p venous system. IMPRESSION: No DVT within the left lower extremity. Electronically signed by: Hugh Kennedy M.D. 03/28/2019 7:10 AM
[2019-03-28 07:28] LABS: Albumin Level 2.7 gm/dl (3.4-5.0); Calcium 7.8 mg/dl (8.5-10.1); Creatinine Clr Calc Pharmacy 80.9 ml/min; Est GFR (African American) 105.7; Est GFR (Non-African American) 91.2; Potassium 3.9 mmol/L (3.5-5.1)
[2019-03-28 07:32] LABS: Albumin Globulin Ratio 0.8 (0.9-2); Bilirubin,Total 0.3 mg/dl (0.2-1); Globulin 3.4 gm/dl (2.5-4.0); Total Protein 6.1 gm/dl (6.4-8.2)
[2019-03-28] MEDS: SODIUM CHLORIDE 0.9% 1000ML 1,000 ML IV SCH ×2 (07:51→20:43)
[2019-03-28] MEDS: THEOPHYLLINE 300MG EXTENDED REL TAB PO SCH (07:52)
[2019-03-28] MEDS: CHOLECALCIFEROL 1,000 UNITS TAB PO SCH (07:52)
[2019-03-28] MEDS: lamoTRIgine 25 MG TAB PO SCH (07:53)
[2019-03-28] MEDS: dilTIAZem HCL 300 MG CAPCR PO SCH (07:53)
[2019-03-28] MEDS: clonazePAM 1 MG TAB PO PRN ×2 (08:01→20:49)
[2019-03-28] MEDS: CIPROFLOXACIN 400 MG/200 ML BAG IV SCH ×2 (08:02→20:43)
[2019-03-28] MEDS ORDERED: NON-FORMULARY MEDICATION (Fluticasone-Umeclidin-Vilanter [Trelegy Ellipta] 1 PUFFS) INH SCH (09:00)
[2019-03-28] MEDS ORDERED: LOSARTAN POTASSIUM 25 MG TAB PO SCH ×2 (09:00→21:00)
[2019-03-28] MEDS ORDERED: PANTOprazole 40 MG TAB PO SCH (09:00)
[2019-03-28] MEDS ORDERED: CITALOPRAM 20 MG TAB PO SCH (09:00)
--- NOTE | 2019-03-28 15:10 | Family Medicine Progress Note ---
Date of Service March 28, 2019 Assessment & Plan (1) Diverticulitis: 68yo M PMH severe COPD, MAKAYLA, depression, ventral hernia, PTSD presents with 4 day h/o abdominal pain, admitted for developing diverticulitis Diverticulitis -Pain improving, will start clear liquids and progress as tolerated -Cipro 500 mg IV twice daily and Flagyl 500 mg every 8 hours -Will convert to PO on discharge for 10 day course COPD -Stable. No evidence of exacerbation. -Continue supplemental oxygen, pt wears 2.5 L at home -Albuterol inhaler 2 puffs every 6 hours, continue Trelegy Ellipta 1 inhalation daily, continue Combivent 1 puff every 4 hours. Anxiety/depression/PTSD -Stable, continue lamotrigine 50 mg p.o. daily -hold citalopram 20 mg to prevent prolongation of QT interval Code: Full Dispo: discharge 03/29 if symptoms improving DVTP: lovenox (2) COPD (chronic obstructive pulmonary disease): (3) Anxiety: (4) Depression: Supervising Physician Co-Signing Physician Notes I saw the patient with the resident physician confirmed herrera portion history and physical exam. I agree with the impression and plan as noted above. In reviewing previous studies, a left lower leg x-ray was negative, a left lower extremity venous Doppler was negative, and a chest x-ray was unremarkable except for chronic and there is edematous changes and bibasilar fibrosis. A CT scan was indicative of epiploic appendagitis, and some indication of perhaps early changes of diverticulitis. He has gallstones without cholecystitis. Upon our exam this afternoon, the patient was seen in bed; he said his abdominal pain was much improved. Upon examination, he has some mild tenderness just left of midline in the mid to lower abdominal quadrants. He does not have any rebound or guarding. He really does not have any true left lower quadrant tenderness. He is afebrile. His white blood count is normal. Impression Abdominal pain secondary to either epiploic appendagitis versus early acute diverticulitis, favor the former Given diagnostic uncertainty, agree with empiric coverage for diverticulitis Treatment for appendagitis would be pain control Advance diet for the remainder of today Consider discharge tomorrow if he can tolerate oral medications and has no increase in his pain Subjective Patient awake and alert; in good spirits today. Notes he is feeling better than arrival, but still has moderate amount of abdominal pain with movement and pressing on belly. He states he does have an appetite but he is hesitant to start eating and would like to take things slowly. He is concerned about his condition and worries he will need to have surgery. Review of Systems Review of Systems: All systems reviewed & are unremarkable except as noted in HPI & below Constitutional: + fatigue and + weight gain; no fever Respiratory: + cough, + dyspnea on exertion and + wheezing Cardiovascular: + dyspnea on exertion; no chest pain, no radiating jaw, neck or arm pain and no palpitations Gastrointestinal: + abdominal pain, + bloating, + early satiety, + nausea and + constipation; no vomiting and no blood in stools Physical Exam Constitutional: WD/WN, vitals as above well developed and + obese Eyes: PERRL, conjunctivae normal, anicteric sclerae ENMT: external ear and nose normal, oropharynx normal Neck: trachea midline, no thyromegaly Respiratory: normal respiratory effort, able to speak in complete sentences and + prolonged expiratory phase Auscultation: + wheezes and + egophony Cardiovascular: RRR, no murmur, no edema Chest (Breasts): normal inspection/palpation of breasts Gastrointestinal (Abdomen): Inspection/Auscultation: + hyperactive bowel sounds Percussion/Palpation: + abdomen tender (LLQ and on lower aspect of ventral hernia) and + hernia ( large ventral hernia) Skin: no rashes, warm and dry + dry skin Neurologic: patellar DTR's 2+ bilat, sensation intact Psychiatric: A+Ox3, euthymic affect Genitourinary: no testicular masses, no penis abnormality Lymphatic: no cervical or axillary lymphadenopathy Results & Data Vital Signs (Past 12 Hours) Vital Signs Temp Pulse Pulse Resp BP BP Pulse Ox 03/28/19 11:23 36.5 C 77 20 164/87 H 95 03/28/19 08:42 36.6 C 79 20 152/72 H 96 03/28/19 07:31 67 03/28/19 03:51 36.6 C 72 20 139/76 91 Laboratory Results 03/28/19 03/28/19 03/27/19 Range/Units 06:32 06:32 19:00 WBC 8.59 (4.8-10.8) K/uL RBC 4.03 L (4.7-6.1) M/uL Hgb 13.1 L (14.0-18.0) g/dL Hct 37.4 L (42-52) % MCV 92.8 (80-100) fL MCH 32.5 (25-34) pg MCHC 35.0 (32-36) g/dL RDW Std Deviation 45.9 (36.4-46.3) fL RDW Coeff of [place] 13.5 (11.5-14.5) % Plt Count 283 (130-400) K/uL MPV 8.5 (7.4-10.4) fL Immature Gran % (Auto) 0.3 % Neut % (Auto) 65.2 % Lymph % (Auto) 18.6 % [place] % (Auto) 11.5 % Eos % (Auto) 3.7 % Baso % (Auto) 0.7 % Immature Gran # (Auto) 0.03 H (0.00-0.02) K/uL Neut # (Auto) 5.59 (1.4-6.5) K/uL Lymph # (Auto) 1.60 (1.2-3.4) K/uL [place] # (Auto) 0.99 H (0.11-0.59) K/uL Eos # (Auto) 0.32 (0-0.5) K/uL Baso # (Auto) 0.06 (0-0.2) K/uL Sodium 143 (136-145) mmol/L Potassium 3.9 (3.5-5.1) mmol/L Chloride 108 H (98-107) mmol/L Carbon Dioxide 31 (21-32) mmol/L Anion Gap 4.0 (3-11) BUN 13 (7-18) mg/dl Creatinine 0.84 (0.6-1.4) mg/dl Est Cr Clr Drug Dosing 80.9 ml/min Est GFR ( Amer) 105.7 Est GFR (Non-Af Amer) 91.2 BUN/Creatinine Ratio 15.0 (10-20) Glucose 82 (70-99) mg/dl Calcium 7.8 L (8.5-10.1) mg/dl Total Bilirubin 0.3 (0.2-1) mg/dl AST 17 (15-37) U/L ALT 29 (12-78) U/L Alkaline Phosphatase 101 (45-117) U/L NT-Pro-B Natriuret Pep 74 (0-900) pg/ml Total Protein 6.1 L (6.4-8.2) gm/dl Albumin 2.7 L (3.4-5.0) gm/dl Globulin 3.4 (2.5-4.0) gm/dl Albumin/Globulin Ratio 0.8 L (0.9-2) Urine Color Yellow Urine Appearance Clear (Clear) Urine pH 5.5 (4.5-7.5) Ur Specific [place] > 1.045 H (1.000-1.030) Urine Protein Negative (Negative) Urine Glucose (UA) Negative (Negative) Urine Ketones Negative (Negative) Urine Blood Negative (Negative) Urine Nitrite Negative (Negative) Urine Bilirubin Negative (Negative) Urine Urobilinogen Negative (Negative) Ur Leukocyte Esterase 1+ H (Negative) Urine WBC (Auto) 10-30 H (0-5) /hpf Urine RBC (Auto) 0-4 (0-4) /hpf U Hyaline Cast (Auto) 1-5 (0-5) /lpf U Epithel Cells (Auto) 5-10 H (0-5) /lpf Urine Bacteria (Auto) Negative (Negative) Medications Administered Current Inpatient Medications Acetaminophen (Tylenol) 500 mg PO Q6H PRN PRN Reason: Pain Stop: 04/26/19 18:26 Acetaminophen (Tylenol) 650 mg PO Q4H PRN PRN Reason: Pain or Fever Stop: 04/26/19 18:26 Albuterol (Ventolin Hfa) 2 puffs INH Q6H PRN PRN Reason: Shortness Of Breath Or Wheezing Stop: 04/26/19 18:26 Albuterol (Combivent Respimat) 1 puffs INH Q4H ALINA Stop: 04/26/19 19:59 Last Admin: 03/28/19 17:09 Dose: 1 puffs Documented by: Albuterol (Duoneb) 3 ml INH Q6H PRN PRN Reason: Shortness Of Breath Stop: 04/26/19 18:26 Citalopram Hydrobromide (Celexa) 20 mg PO QAM ALINA Stop: 04/29/19 08:59 Clonazepam (Klonopin) 1 mg PO Q12H PRN PRN Reason: Anxiety Stop: 04/27/19 05:25 Last Admin: 03/28/19 08:01 Dose: 1 mg Documented by: Diltiazem HCl (Cardizem Cd) 300 mg PO DAILY [facility] Stop: 04/27/19 08:59 Last Admin: 03/28/19 07:53 Dose: 300 mg Documented by: Enoxaparin Sodium (Lovenox) 40 mg SQ Q24H ALINA Stop: 04/27/19 16:59 Last Admin: 03/28/19 17:09 Dose: 40 mg Documented by: Ciprofloxacin (Cipro) 400 mg in 200 mls @ 100 mls/hr IV Q12H [facility]; Protocol Stop: 03/29/19 20:59 Last Infusion: 03/28/19 10:03 Dose: Infused Documented by: Metronidazole (Flagyl) 500 mg in 100 mls @ 100 mls/hr IV Q8H [facility] Stop: 03/29/19 19:59 Last Infusion: 03/28/19 14:27 Dose: Infused Documented by: Sodium Chloride (Nss 1000ml) 1,000 mls @ 80 mls/hr IV .[id number] [facility] Stop: 04/26/19 18:26 Last Admin: 03/28/19 07:51 Dose: 80 mls/hr Documented by: Famotidine 20 mg/ Syringe 5 mls @ 2.5 mls/min IV Q24H [facility] Stop: 04/26/19 19:59 Last Admin: 03/27/19 20:46 Dose: 2.5 mls/min Documented by: Ketorolac Tromethamine (Toradol) 15 mg IV Q6H PRN PRN Reason: Pain Stop: 04/01/19 20:44 Last Admin: 03/27/19 20:51 Dose: 15 mg Documented by: Lamotrigine (Lamictal) 50 mg PO DAILY [facility] Stop: 04/27/19 08:59 Last Admin: 03/28/19 07:53 Dose: 50 mg Documented by: Losartan Potassium (Cozaar) 25 mg PO HS [facility] Stop: 04/27/19 20:59 Miscellaneous (Order Awaiting Action) 1 ea N/A QS [facility] Stop: 04/27/19 00:00 Last Admin: 03/28/19 16:07 Dose: Not Given Documented by: Theophylline ([place] Extended Rel) 300 mg PO DAILY [facility] Stop: 04/27/19 08:59 Last Admin: 03/28/19 07:52 Dose: 300 mg Documented by: Vitamin D (Vitamin D3) 2,000 units PO DAILY [facility] Stop: 04/27/19 08:59 Last Admin: 03/28/19 07:52 Dose: 2,000 units Documented by: Zolpidem Tartrate (Ambien) 5 mg PO HS PRN PRN Reason: Sleep Stop: 04/26/19 18:26 PG Care Time/CCT Total # of Minutes Spent Total Time Spent with Patient: Total time spent is greater than 50% in coordination of care (as documented) at patient's floor/unit and/or counseling patient: Resident Activity Tracking Resident Involvement: Resident Care Provided Care Provided: Adult Hospital Medicine
[2019-03-28] MEDS ORDERED: ENOXAPARIN INJ 40 MG/0.4 ML SYR SQ SCH (17:00)
[2019-03-28] MEDS: FAMOTIDINE 20 MG in SYRINGE 3 ML IV SCH (20:43)
[2019-03-29] MEDS: metroNIDAZOLE 500 MG/100 ML BAG IV SCH ×2 (04:08→12:00)
[2019-03-29] MEDS: IPRATROPIUM BROMIDE/ALBUTEROL respimat INH INH SCH ×3 (04:08→13:05)
[2019-03-29 06:34] LABS: Basophils # (auto) 0.08 K/uL (0-0.2); Basophils % (auto) 0.8 %; Eosinophils # (auto) 0.44 K/uL (0-0.5); Eosinophils % (auto) 4.4 %; Hematocrit (blood only) 38.3 % (42-52); Hemoglobin 13.4 g/dL (14.0-18.0); Immature Granulocytes # (auto) 0.05 K/uL (0.00-0.02); Immature Granulocytes % (auto) 0.5 %; Lymphocytes # (auto) 1.81 K/uL (1.2-3.4); Lymphocytes % (auto) 17.9 %; Mean Corpuscular Volume 91.2 fL (80-100); Mean Platelet Volume 8.3 fL (7.4-10.4); Monocytes # (auto) 1.17 K/uL (0.11-0.59); Monocytes % (auto) 11.6 %; Neutrophils # (auto) 6.54 K/uL (1.4-6.5); Neutrophils % (auto) 64.8 %; Platelet Count 332 K/uL (130-400); RDW Coefficient of Variation 13.2 % (11.5-14.5); White Blood Count 10.09 K/uL (4.8-10.8)
[2019-03-29 07:06] LABS: BUN Creatinine Ratio 12.2 (10-20); Calcium 7.8 mg/dl (8.5-10.1); Creatinine Clr Calc Pharmacy 76.3 ml/min; Est GFR (African American) 103.3; Est GFR (Non-African American) 89.1; Potassium 3.6 mmol/L (3.5-5.1)
[2019-03-29 07:09] LABS: Albumin Globulin Ratio 0.8 (0.9-2); Bilirubin,Total 0.2 mg/dl (0.2-1); Globulin 3.6 gm/dl (2.5-4.0); Total Protein 6.6 gm/dl (6.4-8.2)
[2019-03-29] MEDS: clonazePAM 1 MG TAB PO PRN (09:01)
[2019-03-29] MEDS: CHOLECALCIFEROL 1,000 UNITS TAB PO SCH (09:02)
[2019-03-29] MEDS: lamoTRIgine 25 MG TAB PO SCH (09:02)
[2019-03-29] MEDS: THEOPHYLLINE 300MG EXTENDED REL TAB PO SCH (09:02)
[2019-03-29] MEDS: dilTIAZem HCL 300 MG CAPCR PO SCH (09:03)
[2019-03-29] MEDS ORDERED: KETOROLAC TROMETHAMINE 15 MG/ML VIAL IV ONE (09:05)
[2019-03-29] MEDS: CIPROFLOXACIN 400 MG/200 ML BAG IV SCH (09:05)
[2019-03-29] MEDS: SODIUM CHLORIDE 0.9% 1000ML 1,000 ML IV SCH (09:09)
--- NOTE | 2019-03-29 10:10 | Discharge Summary ---
Date of Service March 29, 2019 Admission HPI Per Admitting Provider The patient is a 68 years old male with past medical history of severe COPD, large ventral hernia ,sleep apnea, depression, PTSD who is brought by his to the emergency with a complaint of abdominal pain that started 4 days ago and patient said that it hurts and he cannot start she is abdomen. Patient also reports left lower extremity edema. Patient denies fever chills headache chest pain shortness of breath frequency urgency hemoptysis hematochezia melena nausea and vomiting. Labs were reviewed and showed white blood cell count of 11.91 hemoglobin of 13.9 hematocrit of 40 platelets 330, PT 9.8 INR 1, APTT 30, sodium 139 potassium 3.7 chloride 101, BUN 16 creatinine 0.94 GFR of 72.3 BUN/creatinine ratio 17.3, calcium 8.3 ionized calcium 1.10 AST 17 ALT 29 alkaline phosphatase 115 troponin 0 0.015, lipase 64. CT abdomen pelvis with IV contrast shows:Epiploic appendagitis located within the moderate sized ventral hernia.. Small focus of inflammatory change adjacent to the mid transverse colon. This is nonspecific but could represent a developing acute diverticulitis given the adjacent diverticula. No bowel wall thickening at this time. Multiple small stones within the neck of the gallbladder. The gallbladder is decompressed. No inflammatory change identified surrounding the gallbladder. Mild bladder wall thickening. This is likely due to chronic outlet obstruction from the enlarged prostate gland. Case discussed with Dr.Mark Bullock general surgery and repeat he recommended conservative treatment with IV fluids n.p.o. and antibiotics. At this point hernia ventral hernia is not strangulated. Made patient to [facility] on telemetry for further treatment of diverticulitis. Admission Exam (Per Admitting) Constitutional WD/WN, vitals as above well developed and + obese Eyes PERRL, conjunctivae normal, anicteric sclerae ENMT external ear and nose normal, oropharynx normal Neck trachea midline, no thyromegaly Respiratory normal respiratory effort, able to speak in complete sentences and + prolonged expiratory phase Auscultation: + wheezes and + egophony Cardiovascular RRR, no murmur, no edema Chest (Breasts) normal inspection/palpation of breasts Gastrointestinal (Abdomen) Inspection/Auscultation: + hyperactive bowel sounds Percussion/Palpation: + abdomen tender (LLQ and on lower aspect of ventral hernia) and + hernia ( large ventral hernia) Skin no rashes, warm and dry + dry skin Neurologic patellar DTR's 2+ bilat, sensation intact Psychiatric A+Ox3, euthymic affect Genitourinary no testicular masses, no penis abnormality Lymphatic no cervical or axillary lymphadenopathy Discharge Data Consultations 03/27/19 15:38 ED Decision to Admit Stat 03/29/19 09:27 Consult [facility] seat pack inspector Routine Hospital Course (1) Diverticulitis: 68yo M PMH severe COPD, MAKAYLA, depression, ventral hernia, PTSD presents with 4 day h/o abdominal pain, admitted for developing diverticulitis vs. epiploic appendagitis Diverticulitis/Epiploic appendagitis -Symptoms gradually improving. 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 Due to wanting to continue celexa, will convert to BID Augmentin x 7 days as outpatient. -Non-operative management for ventral hernia. Due to severe copd has been told that he is not candidate for elective surgery for hernia repair COPD -Stable. No evidence of exacerbation. -Continue supplemental oxygen, pt wears 2.5 L at home -Continue home regimen Anxiety/depression/PTSD -Stable, continue lamotrigine 50 and celexa Code: Full (2) COPD (chronic obstructive pulmonary disease): (3) Anxiety: (4) Depression: Supervising Physician Co-Signing Physician Notes I saw the patient with the resident physician confirmed herrera portion history and physical exam. I agree with the impression and plan as noted above. The patient is feeling better. He is tolerating p.o. without difficulty. Impression Abdominal pain secondary to either epiploic appendagitis versus early acute diverticulitis, favor the former (improved) Given diagnostic uncertainty, agree with empiric coverage for diverticulitis Treatment for appendagitis would be pain control Resident Activity Tracking Resident Involvement: Resident Care Provided Care Provided: Adult [facility] Medicine
[2019-03-30] MEDS ORDERED: CITALOPRAM 20 MG TAB PO SCH (09:00)
== END 2019-03-29 16:07 | disposition home or self-care (01) | DRG 392 ==
LOC: ED 12:52 → SUATTDRO 17:22 → 2W 17:22

== ENCOUNTER 2021-04-06 02:40 | Inpatient (IN) ==
[2021-04-06] MEDS ORDERED: SODIUM CHLORIDE 0.9% 500 ML IV ONE (03:02)
[2021-04-06] MEDS ORDERED: HYDROmorphone INJ 0.5 MG/0.5 ML SYR IV STA ×3 (03:07→22:13)
[2021-04-06 03:32] LABS: Hematocrit (blood only) 41.6 % (42-52); Hemoglobin 14.2 g/dL (14.0-18.0); Mean Corpuscular Hemoglobin 31.4 pg (25-34); Mean Corpuscular Hgb Conc 34.1 g/dL (32-36); Mean Platelet Volume 8.5 fL (7.4-10.4); Platelet Count 380 K/uL (130-400); RDW Coefficient of Variation 13.8 % (11.5-14.5); RDW Standard Deviation 45.5 fL (36.4-46.3); Red Blood Count 4.52 M/uL (4.7-6.1)
[2021-04-06 03:51] LABS: Alanine Aminotransferase 20 U/L (12-78); Albumin Level 3.7 gm/dl (3.4-5.0); Aspartate Aminotransferase 13 U/L (15-37); BUN Creatinine Ratio 21.6 (10-20); Blood Urea Nitrogen 22 mg/dl (7-18); Calcium 9.2 mg/dl (8.5-10.1); Carbon Dioxide 31 mmol/L (21-32); Chloride 102 mmol/L (98-107); Est GFR (African American) 86.1 ml/min; Est GFR (Non-African American) 74.3 ml/min; Glucose 165 mg/dl (70-99); Lipase 63 U/L (73-393); Potassium 4.3 mmol/L (3.5-5.1); Sodium 140 mmol/L (136-145)
[2021-04-06 03:53] LABS: Albumin Globulin Ratio 0.9 (0.9-2); Alkaline Phosphatase 108 U/L (45-117); Bilirubin,Total 0.5 mg/dl (0.2-1); Globulin 4.1 gm/dl (2.5-4.0); Total Protein 7.8 gm/dl (6.4-8.2)
[2021-04-06 04:08] LABS: Basophils # (auto) 0.02 K/uL (0-0.2); Basophils % (auto) 0.1 %; Immature Granulocytes # (auto) 0.11 K/uL (0.00-0.02); Immature Granulocytes % (auto) 0.5 %; Lymphocytes # (auto) 0.93 K/uL (1.2-3.4); Neutrophils # (auto) 21.44 K/uL (1.4-6.5); Neutrophils % (auto) 92.4 %; RBC Morphology Unremarkable
[2021-04-06] MEDS ORDERED: OPTIRAY 320 100ml IV ONE (04:26)
[2021-04-06 05:25] LABS: Appearance Urine Clear (Clear); Bilirubin Urine Negative (Negative); Blood Urine Negative (Negative); Color Urine Yellow; Glucose Urine UA Negative (Negative); Ketones Urine Trace (Negative); Leukocyte Esterase Urine Negative (Negative); Nitrite Urine Negative (Negative); Protein Urine Negative (Negative); Specific Gravity Urine > 1.045 (1.000-1.030); Urobilinogen Urine Negative (Negative)
--- NOTE | 2021-04-06 05:57 | History & Physical Report ---
Date of Service April 06, 2021 History of Present Illness Primary Care Provider: Jaime Rolle PA-C Allergies Allergy/AdvReac Type Severity Reaction Status Date / Time Influenza Virus Vaccines Allergy Severe SHORTNESS Verified 01/07/21 08:51 OF BREATH morphine Allergy Intermediate "I FELT Unverified 01/07/21 08:51 FUNNY IN THE HEAD" Home Medications Medication Instructions Recorded Confirmed Type acetaminophen 500 mg tablet 500 mg PO Q6H PRN 03/27/19 01/07/21 History albuterol sulfate 90 mcg/actuation 2 puff INHALATION Q6H 03/27/19 01/07/21 History aerosol inhaler (Ventolin HFA) cholecalciferol (vitamin D3) 25 2,000 unit PO DAILY 03/27/19 01/07/21 History mcg (1,000 unit) capsule (Vitamin D3) citalopram 20 mg tablet (Celexa) 20 mg PO QAM 03/27/19 01/07/21 History lamotrigine 50 mg tablet,extended 50 mg PO DAILY 03/27/19 01/07/21 History release 24 hr clonazepam 1 mg tablet (Klonopin) 1 mg PO BID 06/13/19 01/07/21 History fluticasone 500 mcg-salmeterol 50 1 puffs INH BID #3 inhaler 11/28/19 01/07/21 Rx mcg/dose blistr powdr for inhalation (Advair Diskus) losartan 25 mg tablet 25 mg PO DAILY #90 tab 11/29/19 01/07/21 Rx nebulizers #1 ea 01/23/20 01/07/21 Rx telmisartan 40 mg tablet (Micardis) 40 mg PO DAILY #90 tab 02/06/20 01/07/21 Rx ipratropium 0.5 mg-albuterol 3 mg 3 ml INHALATION Q6H PRN #90 ml 04/01/20 01/07/21 Rx (2.5 mg base)/3 mL nebulization soln omeprazole 20 mg capsule,delayed 20 mg PO QAM #30 cap 05/06/20 01/07/21 Rx release fluticasone fur. 100 mcg-umeclid 1 inh INHALATION DAILY #60 ea 07/02/20 01/07/21 Rx 62.5 mcg-vilant 25 mcg inhalat.powder (Trelegy Ellipta) fluticasone fur. 100 mcg-umeclid 1 inh INHALATION DAILY #3 inhaler 10/21/20 01/07/21 Rx 62.5 mcg-vilant 25 mcg inhalat.powder (Trelegy Ellipta) ciprofloxacin HCl 500 mg tablet 500 mg PO BID #20 tab 11/19/20 01/07/21 Rx (Cipro) metronidazole 500 mg tablet 500 mg PO TID #30 tab 11/19/20 01/07/21 Rx (Flagyl) ipratropium 20 mcg-albuterol 100 1 puff INHALATION Q4H #12 gm 01/13/21 Rx mcg/actuation mist for inhalation (Combivent Respimat) alfuzosin 10 mg tablet,extended 10 mg PO DAILY #30 tab 01/19/21 Rx release 24 hr (Uroxatral) diltiazem HCl 300 mg capsule,24 300 mg PO QAM #90 cap 01/30/21 Rx hr,extended release (Tiadylt ER) Past Med/Surg History Medical History (Updated 01/20/21 @ 08:27 by John Cristina MD) Abdominal pain JANNETH (acute kidney injury) Anemia Anxiety Anxiety BPH (benign prostatic hyperplasia) COPD (chronic obstructive pulmonary disease) COPD exacerbation COPD with acute exacerbation Depression Depression Fall Fall Fall against object Head pain Headache Headache High prostate specific antigen (PSA) Hypokalemia Hypokalemia Laceration of right ear Localized swelling of both lower legs Mood disorder 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 Pericardial effusion Pneumonia Pneumonia PTSD (post-traumatic stress disorder) Pulmonary embolism (01/22/14) Pulmonary embolism Right lower lobe pneumonia Sepsis Sleep apnea Suicidal ideation Supratherapeutic INR UTI (urinary tract infection) Surgical History History of cardiac catheterization S/P tonsillectomy Family History Other Lung disease Social History Smoking Status: Former smoker Second Hand Exposure: No; Hx Alcohol Use: No Hx Substance Use: No Preferred Language: [place] Communication Ability: Effective Sandblast Carver Required: No Beliefs That Will Affect Care: None Current Living Situation: Spouse Feels Safe at Home: Yes Assistive Devices: Denture - Upper, Denture - Lower and Oxygen - Continuous Results & Data Results & Data ([facility]) Vital Signs (Past 12 Hours) Vital Signs Temp Pulse Resp BP Pulse Ox 04/06/21 05:00 91 H 21 162/131 H 93 04/06/21 04:30 90 20 186/94 H 96 04/06/21 04:21 97 04/06/21 04:01 109 H 20 177/133 H 04/06/21 03:47 37.1 C 96 04/06/21 03:30 88 17 167/98 H 98 04/06/21 03:00 96 H 18 171/111 H 98 04/06/21 02:48 99 H 21 157/120 H 98 Code Status & VTE Plan VTE Prophylaxis Plan VTE Prophylaxis will be ordered: Yes
--- NOTE | 2021-04-06 05:59 | Emergency Department Note ---
Impression & Plan SBO (small bowel obstruction), Incarcerated ventral hernia Admit to the [facility] ED Provider Note NAME: DAT DON AGE: 70 SEX: M ARRIVES VIA: Ambulance INFORMANT: Patient ED PROVIDER(S): Cora Gaitan DO CHIEF COMPLAINT: Abdominal pain and vomiting PLAN: Disposition: Admit to the [facility] and consult surgery Condition: Guarded MEDICAL DECISION MAKING: This is a 70-year-old male patient with a history of a ventral hernia who presents to the emergency department with increasing pain in that hernia for the past 24 hours. The patient developed significant episodes of vomiting since [address] scan shows evidence of an incarcerated hernia with small bowel obstruction. Patient was treated with IV analgesia and IV antiemetics along with IV crystalloid therapy. The patient will require admission to the hospital and consultation with general surgery. Patient is hemodynamically stable. He questions whether or not he will want to have surgery as he has been told in the past that he is not a good candidate for surgery or being placed on a ventilator because of his severe COPD. I discussed the case with the [facility] and they will evaluate for further management. Triage Nursing notes reviewed and agree with them. Prior medical records reviewed Vital Signs: reviewed and remarkable for hypertension Differential diagnosis: Incarcerated hernia, volvulus, small bowel obstruction, perforated viscus, colitis, diverticulitis ER treatment provided: IV normal saline IV Dilaudid x2 Diagnostics interpreted by me: Cardiac Monitoring: Normal sinus rhythm at a rate of 90 Laboratory studies: See below Imaging studies: As per stat read CT abdomen pelvis with contrast: Ventral hernia containing small bowel and transverse colon. There is small bowel obstruction with distention of the upstream jejunum up to 4 cm. No evidence of strangulation at this time however the mucosa of the herniated small bowel is thickened. Unremarkable appearance of the transverse colon loop within the hernia sac. Fluid-filled and distended stomach. Her hiatal hernia containing fluid and f luid in the distal esophagus. Marked emphysema Cholelithiasis. Prostamegaly. Multiple stones within the bladder. Colonic diverticulosis. Consultation(s): General surgery-Dr. Anders HPI: 70/M arrives for evaluation of abdominal pain and vomiting. The patient has had increasing abdominal pain since 5 PM last evening with multiple episodes of vomiting. The patient called EMS. During transport, they administer 100 mcg of IV fentanyl which gave the patient some relief of his discomfort. The patient has a ventral hernia which she has been told in the past that would need repaired but he has also been told that he would not be a good surgical candidate because of his COPD. ROS: See above HPI for pertinent positives & negatives. A total of 10 systems reviewed and were otherwise negative. PAST MEDICAL HISTORY:See Below PAST SURGICAL HISTORY:See Below FAMILY HISTORY:See Below SOCIAL HISTORY:See Below HOME MEDICATIONS:See list ALLERGIES:See list VITALS:See Below PHYSICAL EXAMINATION: HEENT: Head - normocephalic and atraumatic. Pupils are equal, round, and reactive to light. Extraocular eye muscles are intact, and sclera are anicteric. Nose - moist nasal mucosa without discharge. Mouth - moist buccal mucosa. Oropharynx is nonerythematous and there is no tonsillar exudate or edema noted. Neck: Supple; no cervical lymphadenopathy or nuchal rigidity Heart: Regular rate and rhythm. There is a normal S1 and S2 with no murmurs, clicks, or gallops appreciated. Lungs: Clear to auscultation bilaterally with no wheezes, rales, or rhonchi. Abdomen: Soft, with a ventral hernia that is exquisitely tender to touch and very hard and distended. Extremities: No evidence of cyanosis, clubbing, or edema. There are easily palpable peripheral pulses. Skin: warm and dry with good turgor and no rashes. ED COURSE: Times/Reassessments: 0245: The patient was evaluated in room B6. A complete history and physical was performed. Laboratory studies were drawn as above. An order was placed for continuous cardiac monitoring. The patient is in a normal sinus rhythm at a rate of 90. The patient was started on a normal saline drip and kept n.p.o. He was medicated with IV Dilaudid for his pain. The patient had a CT scan of the abdomen/pelvis. This showed evidence of an incarcerated ventral hernia with small bowel obstruction. I discussed the case with Dr. Anders from general surgery and he recommended admission to the medical team and consultation to surgery. I reevaluated the patient at this time I reviewed the results of the labs and CAT scan. The patient requested additional pain medication. He voiced his concerned about having surgery as he has been told in the past that he would not be a good surgical candidate because of his COPD and respiratory status. I explained to the patient that this is a surgical emergency. He requested that the nursing staff contact his . The nurse will do so. 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 Pericardial effusion Pneumonia Pneumonia PTSD (post-traumatic stress disorder) Pulmonary embolism (01/22/14) Pulmonary embolism Right lower lobe pneumonia Sepsis Sleep apnea Suicidal ideation Supratherapeutic INR UTI (urinary tract infection) Surgical History History of cardiac catheterization S/P tonsillectomy Family History Other Lung disease Social History Smoking Status: Former smoker Second Hand Exposure: No; Hx Alcohol Use: Yes Hx Substance Use: No Preferred Language: Tajik Communication Ability: Effective Stonework Supervisor Required: No Beliefs That Will Affect Care: None Current Living Situation: Spouse Feels Safe at Home: Yes Assistive Devices: Oxygen - Continuous Allergies Allergies Allergy/AdvReac Type Severity Reaction Status Date / Time Influenza Virus Vaccines Allergy Severe SHORTNESS Verified 04/06/21 07:10 OF BREATH morphine Allergy Intermediate "I FELT Unverified 04/06/21 07:10 FUNNY IN THE HEAD" Home Meds Home Medications Medication Instructions Recorded Confirmed acetaminophen 500 mg tablet 500 mg PO Q6H PRN 03/27/19 04/06/21 citalopram 20 mg tablet (Celexa) 20 mg PO QAM 03/27/19 04/06/21 lamotrigine 50 mg tablet,extended 50 mg PO QAM 03/27/19 04/06/21 release 24 hr clonazepam 1 mg tablet (Klonopin) 1 mg PO BID 06/13/19 04/06/21 alfuzosin 10 mg tablet,extended 10 mg PO QAM 04/06/21 04/06/21 release 24 hr (Uroxatral) gabapentin 100 mg capsule 100 mg PO HS 04/06/21 04/06/21 losartan 25 mg tablet 25 mg PO PM 04/06/21 04/06/21 omeprazole 20 mg capsule,delayed 20 mg PO QDL 04/06/21 04/06/21 release Previous Rx's Medication Instructions Recorded fluticasone 500 mcg-salmeterol 50 1 puffs INH BID #3 inhaler 11/28/19 mcg/dose blistr powdr for inhalation (Advair Diskus) nebulizers #1 ea 01/23/20 diltiazem HCl 300 mg capsule,24 300 mg PO QAM #90 cap 01/30/21 hr,extended release (Tiadylt ER) Results & Data (ED) Vital Signs Vital Signs - 24 hr 04/06/21 05:00 04/06/21 05:30 Pulse Rate 91 H 82 Pulse Rate from SpO2 Sensor 88 83 Respiratory Rate 21 22 Blood Pressure 162/131 H 142/116 H Blood Pressure Mean 141 124 Pulse Oximetry 93 97 Laboratory Data Result diagrams: 04/06/21 03:24 04/06/21 03:24 Lab Results 04/06/21 04/06/21 04/06/21 Range/Units 03:24 03:24 03:24 WBC 23.20 H (4.8-10.8) K/uL RBC 4.52 L (4.7-6.1) M/uL Hgb 14.2 (14.0-18.0) g/dL Hct 41.6 L (42-52) % MCV 92.0 (80-100) fL MCH 31.4 (25-34) pg MCHC 34.1 (32-36) g/dL RDW Std Deviation 45.5 (36.4-46.3) fL RDW Coeff of [place] 13.8 (11.5-14.5) % Plt Count 380 (130-400) K/uL MPV 8.5 (7.4-10.4) fL Immature Gran % (Auto) 0.5 % Neut % (Auto) 92.4 % Lymph % (Auto) 4.0 % [place] % (Auto) 3.0 % Eos % (Auto) 0.0 % Baso % (Auto) 0.1 % Neut # (Auto) 21.44 H (1.4-6.5) K/uL Lymph # (Auto) 0.93 L (1.2-3.4) K/uL [place] # (Auto) 0.70 H (0.11-0.59) K/uL Eos # (Auto) 0.00 (0-0.5) K/uL Baso # (Auto) 0.02 (0-0.2) K/uL Immature Gran # (Auto) 0.11 H (0.00-0.02) K/uL RBC Morphology Unremarkable Sodium 140 (136-145) mmol/L Potassium 4.3 (3.5-5.1) mmol/L Chloride 102 (98-107) mmol/L Carbon Dioxide 31 (21-32) mmol/L Anion Gap 7.0 (3-11) BUN 22 H (7-18) mg/dl Creatinine 1.03 (0.6-1.4) mg/dl Est Cr Clr Drug Dosing Not Reportable Est GFR ( Amer) 86.1 ml/min Est GFR (Non-Af Amer) 74.3 ml/min BUN/Creatinine Ratio 21.6 H (10-20) Glucose 165 H (70-99) mg/dl Lactate 1.2 (0.4-2.0) mmol/L Calcium 9.2 (8.5-10.1) mg/dl Total Bilirubin 0.5 (0.2-1) mg/dl AST 13 L (15-37) U/L ALT 20 (12-78) U/L Alkaline Phosphatase 108 (45-117) U/L Total Protein 7.8 (6.4-8.2) gm/dl Albumin 3.7 (3.4-5.0) gm/dl Globulin 4.1 H (2.5-4.0) gm/dl Albumin/Globulin Ratio 0.9 (0.9-2) Lipase 63 L (73-393) U/L Urine Color Urine Appearance (Clear) Urine pH (4.5-7.5) Ur Specific [place] (1.000-1.030) Urine Protein (Negative) Urine Glucose (UA) (Negative) Urine Ketones (Negative) Urine Blood (Negative) Urine Nitrite (Negative) Urine Bilirubin (Negative) Urine Urobilinogen (Negative) Ur Leukocyte Esterase (Negative) COVID-19 Eval Order SARS-CoV-2 (PCR) (Negative) 04/06/21 04/06/21 04/06/21 Range/Units 04:23 05:06 05:06 WBC (4.8-10.8) K/uL RBC (4.7-6.1) M/uL Hgb (14.0-18.0) g/dL Hct (42-52) % MCV (80-100) fL MCH (25-34) pg MCHC (32-36) g/dL RDW Std Deviation (36.4-46.3) fL RDW Coeff of [place] (11.5-14.5) % Plt Count (130-400) K/uL MPV (7.4-10.4) fL Immature Gran % (Auto) % Neut % (Auto) % Lymph % (Auto) % [place] % (Auto) % Eos % (Auto) % Baso % (Auto) % Neut # (Auto) (1.4-6.5) K/uL Lymph # (Auto) (1.2-3.4) K/uL [place] # (Auto) (0.11-0.59) K/uL Eos # (Auto) (0-0.5) K/uL Baso # (Auto) (0-0.2) K/uL Immature Gran # (Auto) (0.00-0.02) K/uL RBC Morphology Sodium (136-145) mmol/L Potassium (3.5-5.1) mmol/L Chloride (98-107) mmol/L Carbon Dioxide (21-32) mmol/L Anion Gap (3-11) BUN (7-18) mg/dl Creatinine (0.6-1.4) mg/dl Est Cr Clr Drug Dosing Est GFR ( Amer) ml/min Est GFR (Non-Af Amer) ml/min BUN/Creatinine Ratio (10-20) Glucose (70-99) mg/dl Lactate (0.4-2.0) mmol/L Calcium (8.5-10.1) mg/dl Total Bilirubin (0.2-1) mg/dl AST (15-37) U/L ALT (12-78) U/L Alkaline Phosphatase (45-117) U/L Total Protein (6.4-8.2) gm/dl Albumin (3.4-5.0) gm/dl Globulin (2.5-4.0) gm/dl Albumin/Globulin Ratio (0.9-2) Lipase (73-393) U/L Urine Color Yellow Urine Appearance Clear (Clear) Urine pH 8.0 H (4.5-7.5) Ur Specific [place] > 1.045 H (1.000-1.030) Urine Protein Negative (Negative) Urine Glucose (UA) Negative (Negative) Urine Ketones Trace H (Negative) Urine Blood Negative (Negative) Urine Nitrite Negative (Negative) Urine Bilirubin Negative (Negative) Urine Urobilinogen Negative (Negative) Ur Leukocyte Esterase Negative (Negative) COVID-19 Eval Order Covid19 at [facility] SARS-CoV-2 (PCR) NEGATIVE (Negative) Administered Medications Albuterol (Albut/Ipratrop 3mg/0.5mg Neb 3 Ml Vial) 3 ml NEB Q2H PRN PRN Reason: dyspnea Stop: 05/06/21 06:36 Last Admin: 04/06/21 14:36 Dose: 3 ml Documented by: [id number] Citalopram Hydrobromide (Citalopram 20 Mg Tab) 20 mg PO QAM [facility] Stop: 05/06/21 08:59 Last Admin: 04/06/21 11:14 Dose: 20 mg Documented by: [id number] Clonazepam (Clonazepam 1 Mg Tab) 1 mg PO BID [facility] Stop: 05/06/21 08:59 Last Admin: 04/06/21 20:45 Dose: 1 mg Documented by: [id number] Admin: 04/06/21 11:14 Dose: 1 mg Documented by: [id number] Diltiazem HCl (Diltiazem Hcl 300 Mg Capcr) 300 mg PO QAM [facility] Stop: 05/06/21 08:59 Last Admin: 04/06/21 10:08 Dose: Not Given Documented by: [id number] Diltiazem HCl (Diltiazem Hcl 60 Mg Tab) 60 mg PO TID [facility] Stop: 05/06/21 09:44 Last Admin: 04/06/21 20:45 Dose: 60 mg Documented by: [id number] Admin: 04/06/21 15:26 Dose: 60 mg Documented by: [id number] Admin: 04/06/21 11:14 Dose: 60 mg Documented by: [id number] Fluticasone Furoate (Fluticasone Furoate 100mcg 14 Puffs/Inhaler) 1 puffs INH DAILY [facility] Stop: 05/06/21 08:59 Last Admin: 04/06/21 11:32 Dose: 1 puffs Documented by: [id number] Hydromorphone HCl (Hydromorphone Inj 0.5 Mg/0.5 Ml Syr) 0.25 mg IV Q3H PRN PRN Reason: Moderate Pain Stop: 04/20/21 06:40 Last Admin: 04/06/21 14:10 Dose: 0.25 mg Documented by: [id number] Hydromorphone HCl (Hydromorphone Inj 0.5 Mg/0.5 Ml Syr) 0.5 mg IV Q3H PRN PRN Reason: Severe Pain Stop: 04/20/21 06:40 Last Admin: 04/07/21 02:40 Dose: 0.5 mg Documented by: [id number] Admin: 04/06/21 20:46 Dose: 0.5 mg Documented by: [id number] Admin: 04/06/21 17:38 Dose: 0.5 mg Documented by: [id number] Admin: 04/06/21 08:57 Dose: 0.5 mg Documented by: [id number] Piperacillin Sod/Tazobactam (Sod 3.375 gm/ Dextrose) 115 mls @ 28.75 mls/hr IV Q8H [facility]; Protocol Stop: 04/16/21 13:59 Last Infusion: 04/07/21 02:44 Dose: 0 mls/hr Documented by: [id number] Admin: 04/06/21 22:26 Dose: 28.8 mls/hr Documented by: [id number] Infusion: 04/06/21 19:04 Dose: 0 mls/hr Documented by: [id number] Admin: 04/06/21 15:03 Dose: 28.8 mls/hr Documented by: [id number] Famotidine 20 mg/ Syringe 5 mls @ 2.5 mls/min IV Q12H [facility] Stop: 05/06/21 07:59 Last Admin: 04/06/21 20:45 Dose: 2.5 mls/min Documented by: [id number] Admin: 04/06/21 07:49 Dose: 2.5 mls/min Documented by: [id number] Acetaminophen (Ofirmev) 1,000 mg in 100 mls @ 400 mls/hr IV Q8H PRN PRN Reason: Pain or Fever Stop: 04/09/21 06:40 Last Infusion: 04/06/21 16:40 Dose: 0 mls/hr Documented by: [id number] Admin: 04/06/21 16:25 Dose: 400 mls/hr Documented by: [id number] Sodium Chloride (Nss) 1,000 mls @ 125 mls/hr IV .Q8H [facility] Stop: 05/06/21 10:29 Last Admin: 04/07/21 02:40 Dose: 125 mls/hr Documented by: [id number] Infusion: 04/07/21 02:40 Dose: 125 mls/hr Documented by: [id number] Infusion: 04/06/21 21:45 Dose: 125 mls/hr Documented by: [id number] Infusion: 04/06/21 20:43 Dose: 0 mls/hr Documented by: [id number] Admin: 04/06/21 18:36 Dose: 125 mls/hr Documented by: [id number] Infusion: 04/06/21 18:36 Dose: 125 mls/hr Documented by: [id number] Admin: 04/06/21 10:49 Dose: 125 mls/hr Documented by: [id number] Miscellaneous ((Lamotrigine 50 Mg Tablet Extended Release 24hr) ~ Order Awaiting Action) 1 ea N/A QS [facility] Stop: 05/06/21 15:59 Last Admin: 04/07/21 00:55 Dose: Not Given Documented by: [id number] Admin: 04/06/21 15:21 Dose: Not Given Documented by: [id number] Ondansetron HCl (Ondansetron Inj 2 Mg/Ml 2 Ml Vial) 4 mg IV Q6H PRN PRN Reason: NAUSEA/VOMITING Stop: 05/06/21 06:20 Last Admin: 04/06/21 10:36 Dose: 4 mg Documented by: [id number] Telmisartan (Telmisartan 40 Mg Tab) 40 mg PO DAILY [facility] Stop: 05/06/21 08:59 Last Admin: 04/06/21 11:52 Dose: Not Given Documented by: [id number] Umeclidinium/Vilanterol (Umeclidinium/Vilanterol 62.5/25mcg 7 Puffs/Inhaler) 1 puffs INH DAILY [facility] Stop: 05/06/21 08:59 Last Admin: 04/06/21 11:31 Dose: 1 puffs Documented by: [id number] Discontinued Medications Hydromorphone HCl (Hydromorphone Inj 0.5 Mg/0.5 Ml Syr) 0.5 mg IV NOW STA Stop: 04/06/21 03:08 Last Admin: 04/06/21 03:29 Dose: 0.5 mg Documented by: [id number] Hydromorphone HCl (Hydromorphone Inj 0.5 Mg/0.5 Ml Syr) 0.5 mg IV NOW STA Stop: 04/06/21 05:16 Last Admin: 04/06/21 05:40 Dose: 0.5 mg Documented by: [id number] Hydromorphone HCl (Hydromorphone Inj 0.5 Mg/0.5 Ml Syr) 0.25 mg IV NOW STA Stop: 04/06/21 22:14 Last Admin: 04/06/21 22:26 Dose: 0.25 mg Documented by: [id number] Sodium Chloride (Nss) 500 mls @ 999 mls/hr IV .Q31M ONE Stop: 04/06/21 03:32 Last Infusion: 04/06/21 04:51 Dose: 0 mls/hr Documented by: [id number] Admin: 04/06/21 03:35 Dose: 999 mls/hr Documented by: [id number] Sodium Chloride (Nss) 500 mls @ 125 mls/hr IV .Q4H [facility] Stop: 05/06/21 05:59 Last Admin: 04/06/21 09:55 Dose: Not Given Documented by: [id number] Piperacillin Sod/Tazobactam (Sod 4.5 gm/ Dextrose) 120 mls @ 200 mls/hr IV NOW ONE; Protocol Stop: 04/06/21 08:20 Last Infusion: 04/06/21 09:45 Dose: 0 mls/hr Documented by: [id number] Admin: 04/06/21 07:49 Dose: 200 mls/hr Documented by: [id number] Potassium Chloride/Sodium Chloride (Normal Saline W/20 Meq Kcl) 20 meq in 1,000 mls @ 100 mls/hr IV .Q10H [facility] Stop: 05/06/21 08:59 Last Admin: 04/06/21 10:10 Dose: Not Given Documented by: [id number] Ioversol (Optiray 320 100ml) 100 ml IV ONCE ONE Stop: 04/06/21 04:27 Last Admin: 04/06/21 04:26 Dose: 99 ml Documented by: [id number] Metoprolol Tartrate (Metoprolol Tartrate 1 Mg/Ml Vial) 5 mg IV Q6 [facility] Stop: 05/06/21 08:41 Last Admin: 04/06/21 09:50 Dose: Not Given Documented by: [id number] Discharge Plan Visit Data Chief Complaint: Abdominal Pain Stated Complaint: HERNIA/PAIN ED Provider: Cora Gaitan Discharge Problem: SBO (small bowel obstruction), Incarcerated ventral hernia Patient Disposition: Admitted As Inpatient Discharge Instructions Interventions: ED Discharge Assessment Last Done: 04/06/21 08:15
[2021-04-06] MEDS ORDERED: SODIUM CHLORIDE 0.9% 500 ML IV SCH (06:00)
[2021-04-06] MEDS ORDERED: PIPERACILL/TAZOBAC CONSULT ACTIVE PRN ×2 (06:19→08:42)
[2021-04-06] MEDS ORDERED: LORazepam 0.5 MG/1 ML VIAL IV PRN (06:36)
[2021-04-06] MEDS ORDERED: HYDROmorphone INJ 0.5 MG/0.5 ML SYR IV PRN (06:41)
--- NOTE | 2021-04-06 06:43 | History & Physical Report ---
Date of Service April 06, 2021 Assessment & Plan (1) Small bowel obstruction: Plan: Ventral abdominal hernia containing small bowel and transverse colon. There is small bowel obstruction with distention of upstream jejunum up to 4 cm. No evidence of strangulation at this time, however, the mucosa of the herniated small bowel is thickened. Fluid-filled and distended stomach. Hiatal hernia containing fluid and fluid in the distal esophagus. NG tube to low intermittent suction NPO Famotidine 20 mg IV every 12 hours Zofran 4 mg IV every 6 hours As needed Zosyn 4.5 g IV every 8 hours Acetaminophen 1000 mg IV every 8 hours as needed mild pain or fever Dilaudid 0.5 mg IV every 3 hours as needed severe pain Dilaudid 0.25 mg IV every 3 hours as needed moderate pain (2) Ventral incisional hernia: Plan: See above (3) BPH (benign prostatic hyperplasia): Plan: Monitor urine output closely while unable to take alfuzosin (4) Depression: Plan: Depression/anxiety/PTSD- Hold citalopram and clonazepam Lorazepam 0.5 mg IV every 6 hours as needed (5) PTSD (post-traumatic stress disorder): Plan: See above (6) Anxiety: Plan: See above (7) COPD (chronic obstructive pulmonary disease): Plan: Continue Trelegy Ellipta DuoNebs every 2 hours as needed (8) Pulmonary embolism: Plan: Not actively on anticoagulation as an outpatient SCDs. If surgery does not plan on taking him to the OR today, would start DVT prophylaxis with heparin subcu History of Present Illness Chief Complaint: The patient presents to the emergency department with complaint of severe abdominal pain, nausea and vomiting that began around 5:00 the previous evening after eating stuffed green peppers Primary Care Provider: Jaime Rolle PA-C The patient is a 70-year-old male with a past medical history including ventral incisional hernia, Monteiro's esophagus, BPH with LUTS, diverticular disease of large intestine, diverticulitis, depression, anxiety, PTSD, sleep apnea, pulmonary embolism, pericardial effusion, severe COPD, MRSA, pneumonia, and UTI. He presents with symptoms as noted above. He reports that these had these symptoms intermittently in the past, but never this severe and never lasting this long. He does report that the pain seems to occasionally go into his back as well. 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 Allergies Allergy/AdvReac Type Severity Reaction Status Date / Time Influenza Virus Vaccines Allergy Severe SHORTNESS Verified 01/07/21 08:51 OF BREATH morphine Allergy Intermediate "I FELT Unverified 01/07/21 08:51 FUNNY IN THE HEAD" Home Medications Medication Instructions Recorded Confirmed Type acetaminophen 500 mg tablet 500 mg PO Q6H PRN 03/27/19 01/07/21 History albuterol sulfate 90 mcg/actuation 2 puff INHALATION Q6H 03/27/19 01/07/21 History aerosol inhaler (Ventolin HFA) cholecalciferol (vitamin D3) 25 2,000 unit PO DAILY 03/27/19 01/07/21 History mcg (1,000 unit) capsule (Vitamin D3) citalopram 20 mg tablet (Celexa) 20 mg PO QAM 03/27/19 01/07/21 History lamotrigine 50 mg tablet,extended 50 mg PO DAILY 03/27/19 01/07/21 History release 24 hr clonazepam 1 mg tablet (Klonopin) 1 mg PO BID 06/13/19 01/07/21 History fluticasone 500 mcg-salmeterol 50 1 puffs INH BID #3 inhaler 11/28/19 01/07/21 Rx mcg/dose blistr powdr for inhalation (Advair Diskus) losartan 25 mg tablet 25 mg PO DAILY #90 tab 11/29/19 01/07/21 Rx nebulizers #1 ea 01/23/20 01/07/21 Rx telmisartan 40 mg tablet (Micardis) 40 mg PO DAILY #90 tab 02/06/20 01/07/21 Rx ipratropium 0.5 mg-albuterol 3 mg 3 ml INHALATION Q6H PRN #90 ml 04/01/20 01/07/21 Rx (2.5 mg base)/3 mL nebulization soln omeprazole 20 mg capsule,delayed 20 mg PO QAM #30 cap 05/06/20 01/07/21 Rx release fluticasone fur. 100 mcg-umeclid 1 inh INHALATION DAILY #60 ea 07/02/20 01/07/21 Rx 62.5 mcg-vilant 25 mcg inhalat.powder (Trelegy Ellipta) fluticasone fur. 100 mcg-umeclid 1 inh INHALATION DAILY #3 inhaler 10/21/20 01/07/21 Rx 62.5 mcg-vilant 25 mcg inhalat.powder (Trelegy Ellipta) ciprofloxacin HCl 500 mg tablet 500 mg PO BID #20 tab 11/19/20 01/07/21 Rx (Cipro) metronidazole 500 mg tablet 500 mg PO TID #30 tab 11/19/20 01/07/21 Rx (Flagyl) ipratropium 20 mcg-albuterol 100 1 puff INHALATION Q4H #12 gm 01/13/21 Rx mcg/actuation mist for inhalation (Combivent Respimat) alfuzosin 10 mg tablet,extended 10 mg PO DAILY #30 tab 01/19/21 Rx release 24 hr (Uroxatral) diltiazem HCl 300 mg capsule,24 300 mg PO QAM #90 cap 01/30/21 Rx hr,extended release (Tiadylt ER) Past Med/Surg History Medical History (Updated 04/06/21 @ 06:31 by Philip Colorado MD) Abdominal pain JANNETH (acute kidney injury) Anemia Anxiety Anxiety BPH (benign prostatic hyperplasia) COPD (chronic obstructive pulmonary disease) COPD exacerbation COPD with acute exacerbation Depression Depression Fall Fall Fall against object Head pain Headache Headache High prostate specific antigen (PSA) Hypokalemia Hypokalemia Laceration of right ear Localized swelling of both lower legs Mood disorder 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 Pericardial effusion Pneumonia Pneumonia PTSD (post-traumatic stress disorder) Pulmonary embolism (01/22/14) Pulmonary embolism Right lower lobe pneumonia Sepsis Sleep apnea Suicidal ideation Supratherapeutic INR UTI (urinary tract infection) Surgical History History of cardiac catheterization S/P tonsillectomy Family History Other Lung disease Social History Smoking Status: Former smoker Second Hand Exposure: No; Hx Alcohol Use: No Hx Substance Use: No Preferred Language: Niuean Communication Ability: Effective Sterile Instrument Technician Required: No Beliefs That Will Affect Care: None Current Living Situation: Spouse Feels Safe at Home: Yes Assistive Devices: Denture - Upper, Denture - Lower and Oxygen - Continuous Review of Systems Review of Systems: The patient denies chest pain, palpitations, shortness of breath, dyspnea on exertion, cough, lower extremity swelling, sore throat, fevers, chills, sweats, blood in urine or stool, dysuria, urinary frequency or urgency, lightheadedness, dizziness, headache, memory loss, loss of consciousness, rash, abnormal bruising or bleeding, imbalance, focal or generalized weakness, numbness or tingling in arms or legs, generalized arthralgias or myalgias, neck pain, or night sweats. The review of systems is otherwise negative other than for that already noted above, and at least 10 systems have been reviewed. Physical Exam Physical Exam: The patient is awake, alert and oriented 3, well developed and well nourished, normocephalic and atraumatic, lying in bed and in mild distress. HEENT--PERRL, EOMI, mucous membranes and oropharynx dry. Neck--supple. No JVD. No bruits. Thyroid normal, trachea midline, no adenopathy. Heart--normal S1 and S2. No murmurs, rubs or gallops. Lungs--clear bilaterally, no respiratory distress, no accessory muscle use. Abdomen--large ventral hernia with active bowel sounds Extremities--no cyanosis or clubbing. No edema. Dermatologic--normal skin turgor, normal color, no abnormal lymph nodes, no rash. Neurologic--cranial nerves II through XII grossly intact. Rheumatologic--limited exam Psychiatric--normal affect. Results & Data Results & Data ([facility]) Vital Signs (Past 12 Hours) Vital Signs Temp Pulse Resp BP Pulse Ox 04/06/21 05:00 91 H 21 162/131 H 93 04/06/21 04:30 90 20 186/94 H 96 04/06/21 04:21 97 04/06/21 04:01 109 H 20 177/133 H 04/06/21 03:47 98.8 F 96 04/06/21 03:30 88 17 167/98 H 98 04/06/21 03:00 96 H 18 171/111 H 98 04/06/21 02:48 99 H 21 157/120 H 98 Laboratory Results Laboratory Results WBC 23.20 K/uL (4.8-10.8) H 04/06/21 03:24 RBC 4.52 M/uL (4.7-6.1) L 04/06/21 03:24 Hgb 14.2 g/dL (14.0-18.0) 04/06/21 03:24 Hct 41.6 % (42-52) L 04/06/21 03:24 MCV 92.0 fL (80-100) 04/06/21 03:24 MCH 31.4 pg (25-34) 04/06/21 03:24 MCHC 34.1 g/dL (32-36) 04/06/21 03:24 RDW Std Deviation 45.5 fL (36.4-46.3) 04/06/21 03:24 RDW Coeff of [place] 13.8 % (11.5-14.5) 04/06/21 03:24 Plt Count 380 K/uL (130-400) 04/06/21 03:24 MPV 8.5 fL (7.4-10.4) 04/06/21 03:24 Immature Gran % (Auto) 0.5 % 04/06/21 03:24 Neut % (Auto) 92.4 % 04/06/21 03:24 Lymph % (Auto) 4.0 % 04/06/21 03:24 [place] % (Auto) 3.0 % 04/06/21 03:24 Eos % (Auto) 0.0 % 04/06/21 03:24 Baso % (Auto) 0.1 % 04/06/21 03:24 Neut # (Auto) 21.44 K/uL (1.4-6.5) H 04/06/21 03:24 Lymph # (Auto) 0.93 K/uL (1.2-3.4) L 04/06/21 03:24 [place] # (Auto) 0.70 K/uL (0.11-0.59) H 04/06/21 03:24 Eos # (Auto) 0.00 K/uL (0-0.5) 04/06/21 03:24 Baso # (Auto) 0.02 K/uL (0-0.2) 04/06/21 03:24 Immature Gran # (Auto) 0.11 K/uL (0.00-0.02) H 04/06/21 03:24 RBC Morphology Unremarkable 04/06/21 03:24 Sodium 140 mmol/L (136-145) 04/06/21 03:24 Potassium 4.3 mmol/L (3.5-5.1) 04/06/21 03:24 Chloride 102 mmol/L (98-107) 04/06/21 03:24 Carbon Dioxide 31 mmol/L (21-32) 04/06/21 03:24 Anion Gap 7.0 (3-11) 04/06/21 03:24 BUN 22 mg/dl (7-18) H 04/06/21 03:24 Creatinine 1.03 mg/dl (0.6-1.4) 04/06/21 03:24 Est Cr Clr Drug Dosing Not Reportable 04/06/21 03:24 Est GFR ( Amer) 86.1 ml/min 04/06/21 03:24 Est GFR (Non-Af Amer) 74.3 ml/min 04/06/21 03:24 BUN/Creatinine Ratio 21.6 (10-20) H 04/06/21 03:24 Glucose 165 mg/dl (70-99) H 04/06/21 03:24 Lactate 1.2 mmol/L (0.4-2.0) 04/06/21 03:24 Calcium 9.2 mg/dl (8.5-10.1) 04/06/21 03:24 Total Bilirubin 0.5 mg/dl (0.2-1) 04/06/21 03:24 AST 13 U/L (15-37) L 04/06/21 03:24 ALT 20 U/L (12-78) 04/06/21 03:24 Alkaline Phosphatase 108 U/L (45-117) 04/06/21 03:24 Total Protein 7.8 gm/dl (6.4-8.2) 04/06/21 03:24 Albumin 3.7 gm/dl (3.4-5.0) 04/06/21 03:24 Globulin 4.1 gm/dl (2.5-4.0) H 04/06/21 03:24 Albumin/Globulin Ratio 0.9 (0.9-2) 04/06/21 03:24 Lipase 63 U/L (73-393) L 04/06/21 03:24 Urine Color Yellow 04/06/21 04:23 Urine Appearance Clear (Clear) 04/06/21 04:23 Urine pH 8.0 (4.5-7.5) H 04/06/21 04:23 Ur Specific [place] > 1.045 (1.000-1.030) H 04/06/21 04:23 Urine Protein Negative (Negative) 04/06/21 04:23 Urine Glucose (UA) Negative (Negative) 04/06/21 04:23 Urine Ketones Trace (Negative) H 04/06/21 04:23 Urine Blood Negative (Negative) 04/06/21 04:23 Urine Nitrite Negative (Negative) 04/06/21 04:23 Urine Bilirubin Negative (Negative) 04/06/21 04:23 Urine Urobilinogen Negative (Negative) 04/06/21 04:23 Ur Leukocyte Esterase Negative (Negative) 04/06/21 04:23 COVID-19 Eval Order Covid19 at [facility] 04/06/21 05:06 SARS-CoV-2 (PCR) NEGATIVE (Negative) 04/06/21 05:06 Diagnostic Findings [facility] Patient: DAT DON (Male) : 54 Status: ER Date: 04/06/21 04:30 Room #: History: , EVAL FOR INCARCERATED HERNIA Slices: [phone] Priors: Tech: Shady Ingramie @ [phone] Exams: CT ABDOMEN & PELVIS With Contrast Contrast: IV Amt: 99 ML OPTIRAY 320 Accession Numbers: [id number] Referring Physician: REFERRED SELF Preliminary Findings Only See Final Report For Complete Findings CT ABDOMEN & PELVIS With Contrast: Ventral hernia containing small bowel and transverse colon. There is small bowel obstruction with distention of the upstream jejunum up to 4 cm. No evidence of strangulation at this time however the mucosa of the herniated small bowel is thickened. Unremarkable appearance of the transverse colon loop within the hernia sac. Fluid-filled and distended stomach. Hiatal hernia containing fluid and fluid in the distal esophagus. Marked emphysema. Cholelithiasis. Prostatomegaly. Multiple stones within the bladder. Colonic diverticulosis. Radiologist: Phani Caicedo MD Study ready at 04:37 and initial results transmitted at 05:23 *This report constitutes a preliminary interpretation only. Non-acute findings felt to be unrelated to the clinical presentation may not be discussed in this report. The study will be interpreted and a final report will be generated by the local Radiologist the following shift. To reach the hospital radiology department call [phone]. If a discrepancy is found between the preliminary and final interpretations of this study, please notify us via our Client Portal at [email or web address], under QA Exams.You can also fax this report with a description of the discrepancy, or include the final report, to our daytime fax number [phone].If faxing, please indicate the severity of discrepancy using one of the following categories: [ ] 1 - Agree/Informational [ ] 2 - Unlikely to Affect Management [ ] 3 - Possible Eventual Change of Management [ ] 4 - Probable Immediate Change of Management For all other patient related information, please fax us at [phone]. [id number] ECG Additional Comments: DAT DON ID:[id number] 27-MAR-2019 13:41:21 [facility]- [facility]STA ROUTINE RETRIEVAL Normal sinus rhythm Normal ECG When compared with ECG of 14-MAR-2018 12:11, No significant change was found Confirmed by Brenden Winston ([id number]) on 03/28/2019 6:09:34 AM 25mm/s 10mm/mV 150Hz 9.0.9 12SL 241 DUNG: 10 Referred by: REFERRED SELF Confirmed By: Brenden Winston Vent. rate 78 BPM IN interval 154 ms QRS duration 92 ms QT/QTc 412/469 ms P-R-T axes 76 60 76 1950 (68 yr) Male 46in 2lb Room: Lo Code Status & VTE Plan Code Status Full code VTE Prophylaxis Plan VTE Prophylaxis will be ordered: Yes PG Care Time/CCT Total # of Minutes Spent Total Time Spent with Patient: Total time spent is greater than 50% in coordination of care (as documented) at patient's floor/unit and/or counseling patient: Coding Level of Care Code 44047 Initial Inpt Care Lvl 3 Diagnoses Small bowel obstruction K56.609 Ventral incisional hernia K43.2 BPH (benign prostatic hyperplasia) N40.0 Depression F32.9 PTSD (post-traumatic stress disorder) F43.10 Anxiety F41.9 COPD (chronic obstructive pulmonary disease) J44.9 Pulmonary embolism I26.99
--- NOTE | 2021-04-06 07:09 | XRay Report ---
XR chest 1V portable CLINICAL HISTORY: SBO, aspiration risk COMPARISON STUDY: Chest radiograph March 27, 2019. FINDINGS: No pneumothorax or pleural effusion is noted. Severe emphysema. Cardiomegaly is unchanged. Multiple old right rib fractures are incidentally noted. A hiatal hernia is noted. Tip of nasogastric tube is difficult to visualize but projects over the lower mediastinum and may be within a hiatal he rnia. Left lower lung interstitial thickening is unchanged. This is chronic. Right lower lung opacity is also similar to prior exams. This is also likely chronic. IMPRESSION: 1. Tip of nasogastric tube difficult to visualize but likely projects over the lower mediastinum, lik ashlyn within a hiatal hernia. 2. Lower lung interstitial thickening and right basilar opacity, similar to prior exam. This findings are likely chronic. 3. Severe emphysema ACT 112: Negative or not required by law. Electronically signed by: Nicolás Wilcox M.D. 04/06/2021 7:08 AM
[2021-04-06] MEDS ORDERED: PIPERACILLIN/TAZOBACTAM 4.5 GM in DEXTROSE 5% 100 ML IV ONE (07:45)
[2021-04-06] MEDS: FAMOTIDINE 20 MG in SYRINGE 3 ML IV SCH ×2 (07:49→20:45)
--- NOTE | 2021-04-06 08:32 | CT Scan Report ---
ABDOMEN AND PELVIS CT WITH IV CONTRAST CT DOSE: 433.58 mGy.cm HISTORY: Acute mid abdominal pain with incarcerated abdominal wall hernia eval for incarcerated kd ia TECHNIQUE: Multiaxial CT images of the abdomen and pelvis were performed following the IV administrat ion of 99 cc of Optiray, A dose lowering technique was utilized adhering to the principles of ALARA. COMPARISON STUDY: CT abdomen and pelvis 02/27/2020 FINDINGS: The imaged inferior cardiac chambers are unremarkable with coronary artery calcifications. Severe emphysema. Consolidative opacities of the right middle lobe. No pneumatosis or pneumoperitoneu m. The spleen, pancreas and adrenal glands are unremarkable. The gallbladder is mildly contracted with c holelithiasis. No CT evidence of acute cholecystitis. There is no biliary ductal dilation. Unremarkab le liver. Bilateral renal cysts measure up to 2.6 cm on the left. No renal or ureteral calculi or hydronephrosi s. Prostamegaly. Urinary bladder wall thickening and reticulation with numerous small diverticula. Th ere are several layering calculi within the urinary bladder measuring up to 7 mm. Moderate atheroscle rosis of the abdominal aorta and branch vessels. No aneurysm. Small fat filled inguinal hernias. No a denopathy. Fluid distended distal esophagus with small hiatal hernia. Moderate fluid distention of the stomach. There is a moderate sized supraumbilical ventral abdominal wall hernia, diastases of 5.2 cm which con tains a loop of nonobstructed jejunum, dilated upstream measuring up to 4 cm and decompressed as it e xits the hernia sac. Additionally mild associated circumferential wall thickening involves the loop o f small bowel., the hernia contains mesenteric fat and a nonobstructed loop of transverse colon. Trac e inflammatory stranding in the hernia sac. Colonic diverticulosis without CT evidence of acute diverticulitis. Noninflamed appendix. Tiny fat fi lled periumbilical hernia. Unchanged 2.3 cm lucent focus of the left iliac bone with nonaggressive fe atures. Degenerative changes of the spine, pelvis and hips. IMPRESSION: 1. Moderate-sized supraumbilical ventral abdominal wall hernia contains jejunum, transverse colon and mesenteric fat. This results in a high-grade small bowel obstruction with mild wall thickening invol ving the obstructed loop of small bowel. No pneumatosis or pneumoperitoneum. 2. Prostamegaly with evidence of chronic outlet obstruction. Numerous urinary bladder calculi are pre sent. 3. Cholelithiasis. 4. Colonic diverticulosis. 5. Consolidative opacities of the right middle lobe. Findings should be correlated clinically to excl ude pneumonitis. 6. Emphysema. 7. Additional findings as above. ACT 112: Negative or not required by law. The above report was generated using voice recognition software. It may contain grammatical, syntax o r spelling errors. Electronically signed by: Sarwat Montes M.D. 04/06/2021 8:31 AM
[2021-04-06] MEDS ORDERED: PIPERACILLIN/TAZOBACTAM 4.5 GM in DEXTROSE 5% 100 ML IV SCH (08:42)
[2021-04-06] MEDS ORDERED: METOPROLOL TARTRATE 1 MG/ML VIAL IV SCH (08:42)
[2021-04-06] MEDS ORDERED: [UNRECOGNIZED DRUG - OTHER] PO SCH (08:42)
[2021-04-06] MEDS ORDERED: LAMOTRIGINE 50 MG PO SCH (08:42)
[2021-04-06] MEDS ORDERED: DILTIAZEM HCL 300 MG PO SCH (08:42)
[2021-04-06] MEDS: HYDROmorphone INJ 0.5 MG/0.5 ML SYR IV PRN ×3 (08:57→20:46)
[2021-04-06] MEDS ORDERED: dilTIAZem HCL 300 MG CAPCR PO SCH (09:00)
[2021-04-06] MEDS ORDERED: TELMISARTAN 40 MG TAB PO SCH (09:00)
[2021-04-06] MEDS ORDERED: clonazePAM 1 MG TAB PO SCH (09:00)
[2021-04-06] MEDS ORDERED: NON-FORMULARY MEDICATION (Fluticasone-Umeclidin-Vilanter [Trelegy Ellipta] 100-62.5-25 mcg INH SCH (09:00)
[2021-04-06] MEDS ORDERED: CITALOPRAM 20 MG TAB PO SCH ×2 (09:00)
[2021-04-06] MEDS ORDERED: NSS + 20MEQ KCL 20 MEQ/1,000 ML BAG IV SCH (09:00)
--- NOTE | 2021-04-06 09:20 | Hospitalist Progress Note ---
Date of Service April 06, 2021 Assessment & Plan (1) Small bowel obstruction: Plan: Ventral abdominal hernia containing small bowel and transverse colon. There is small bowel obstruction with distention of upstream jejunum up to 4 cm. No evidence of strangulation at this time, however, the mucosa of the herniated small bowel is thickened. Fluid-filled and distended stomach. Hiatal hernia containing fluid and fluid in the distal esophagus. NG tube to low intermittent suction NPO Famotidine 20 mg IV every 12 hours Zofran 4 mg IV every 6 hours As needed Zosyn 4.5 g IV every 8 hours Acetaminophen 1000 mg IV every 8 hours as needed mild pain or fever Dilaudid 0.5 mg IV every 3 hours as needed severe pain Dilaudid 0.25 mg IV every 3 hours as needed moderate pain (2) Ventral incisional hernia: Plan: See above (3) BPH (benign prostatic hyperplasia): Plan: Monitor urine output closely while unable to take alfuzosin (4) Depression: Plan: Depression/anxiety/PTSD- Hold citalopram and clonazepam Lorazepam 0.5 mg IV every 6 hours as needed (5) PTSD (post-traumatic stress disorder): Plan: Patient's PTSD is affecting his decision to proceed toward surgery especially as Dr. Cristina told him his lung disease make surgery risky however this is risk of life not proceeding to surgery for this high-grade bowel obstruction. Continuing antianxiety medications as listed in the depression category (6) Anxiety: Plan: See above (7) COPD (chronic obstructive pulmonary disease): Plan: Continue Trelegy Ellipta DuoNebs every 2 hours as needed Patient's pulmonary disease places him at moderate surgical risk observation and telemetry would be recommended post procedure (8) Pulmonary embolism: Plan: Not actively on anticoagulation as an outpatient SCDs. Admission and Anticipated Discharge Date Admission Date: April 06, 2021 Subjective The patient was seen on 2 occasions once at the request of his . I explained to her with the surgeon and related that delaying surgery is a risky endeavor including bowel rupture sepsis and even the need of a colostomy. Patient still feels he may went away to Tuesday of surgery but the is pushing to have surgery tomorrow if there is a possible opening of the schedule. Physical Exam Physical Exam: Patient has a protuberant abdomen with a large tympanic mass the size of a grapefruit to the right of his umbilicus. I attempted to gently reduce this and was unable to due to extreme pain. Patient is mildly tachypneic he has reasonable air movement wheezes or focal air loss Results & Data Results & Data ([facility]) Vital Signs (Past 12 Hours) Vital Signs Temp Pulse Pulse Resp BP BP Pulse Ox 04/06/21 09:09 159/96 H 04/06/21 08:54 97.5 F L 91 H 18 185/117 H 97 04/06/21 08:15 87 20 178/105 H 98 04/06/21 08:01 94 H 20 178/105 H 99 04/06/21 07:30 88 21 159/115 H 97 04/06/21 07:00 94 H 21 175/114 H 98 04/06/21 06:30 103 H 22 177/112 H 94 04/06/21 06:00 91 H 18 150/129 H 96 04/06/21 05:30 82 22 142/116 H 97 04/06/21 05:00 91 H 21 162/131 H 93 04/06/21 04:30 90 20 186/94 H 96 04/06/21 04:21 97 04/06/21 04:01 109 H 20 177/133 H 04/06/21 03:47 98.8 F 96 04/06/21 03:30 88 17 167/98 H 98 04/06/21 03:00 96 H 18 171/111 H 98 04/06/21 02:48 99 H 21 157/120 H 98 PG Care Time/CCT Total # of Minutes Spent Total Time Spent with Patient: Total time spent is greater than 50% in coordination of care (as documented) at patient's floor/unit and/or counseling patient: Coding Level of Care Code None Diagnoses Small bowel obstruction K56.609 Ventral incisional hernia K43.2 BPH (benign prostatic hyperplasia) N40.0 Depression F32.9 PTSD (post-traumatic stress disorder) F43.10 Anxiety F41.9 COPD (chronic obstructive pulmonary disease) J44.9 Pulmonary embolism I26.99
[2021-04-06] MEDS ORDERED: Nursing to Pharmacy Communication SCH (09:30)
[2021-04-06] MEDS: ONDANSETRON INJ 2 MG/ML 2 ML VIAL IV PRN (10:36)
[2021-04-06] MEDS: SODIUM CHLORIDE 0.9% 1,000 ML IV SCH ×2 (10:49→18:36)
[2021-04-06] MEDS: clonazePAM 1 MG TAB PO SCH ×2 (11:14→20:45)
[2021-04-06] MEDS: dilTIAZem HCl 60 MG TAB PO SCH ×3 (11:14→20:45)
[2021-04-06] MEDS: UMECLIDINIUM/VILANTEROL 62.5/25MCG 7 PUFFS/INHALER INH SCH (11:31)
[2021-04-06] MEDS: FLUTICASONE FUROATE 100MCG 14 PUFFS/INHALER INH SCH (11:32)
--- NOTE | 2021-04-06 11:33 | Surgery Consultation ---
Date of Consultation April 06, 2021 Assessment & Plan (1) Small bowel obstruction: pt is a 70 year-old male who was admitted to hospital for SBO, ventral hernia, COPD, plan,base on H/P, CT scan finding, ventral hernia caused SBO, I recommend to do open repair ventral hernia possible mesh, D/W benefits, risks and alternatives of the surgery, the risk - infection, bleeding, injury other organs, bowel obstruction, hernia recurrence, seroma, complications relate to mesh, respiratory failure, TN, DVT, stroke, and , pt wants to think about the surgery, pt dose not want to do surgery today, I also indicate that, delay surgery, could cause bowel ischemia or perforation and , pt understood, pt wants to make decision tomorrow, would start DVT prophylaxis with heparin subcu today, but hold it after MN, NPO now, high WBC, continue IV antibiotic, NG tube, repeat labs in morning, will F/U, (2) Ventral hernia: pt is a 70 year-old male who was admitted to hospital for SBO, ventral hernia, COPD, plan, I recommend to do open repair ventral hernia possible mesh, D/W benefits, risks and alternatives of the surgery, the risk - infection, bleeding, injury other organs, bowel obstruction, hernia recurrence, seroma, complications relate to mesh, respiratory failure, TN, DVT, stroke, and , pt wants to think about the surgery, pt dose not want to do surgery today, I also indicate that, delay surgery, could cause bowel ischemia or perforation and , pt understood, pt wants to make decision tomorrow, would start DVT prophylaxis with heparin subcu today, but hold it after MN, NPO now, will F/U, History of Present Illness Reason for Consultation: SBO, ventral hernia Requesting Physician: Walker Gaspar MD Attending Physician: Walker Gaspar MD History of Present Illness History of Present Illness Chief Complaint: The patient presents to the emergency department with complaint of severe abdominal pain, nausea and vomiting that began around 5:00 the previous evening after eating stuffed green peppers Primary Care Provider: Jaime Rolle PA-C The patient is a 70-year-old male with a past medical history including ventral incisional hernia, Monteiro's esophagus, BPH with LUTS, diverticular disease of large intestine, diverticulitis, depression, anxiety, PTSD, sleep apnea, pulmonary embolism, pericardial effusion, severe COPD, MRSA, pneumonia, and UTI. He presents with symptoms as noted above. He reports that these had these symptoms intermittently in the past, but never this severe and never lasting this long. He does report that the pain seems to occasionally go into his back as well. 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 I ( Ai García MD ) got a call for consult SBO, ventral hernia, I reviewed pt's H/P, labs, CT scan with pt, pt said he has this ventral hernia for 2 years, the hernia is getting bigger, base on severe COPD, pt was told he can not have elective ventral hernia repair, less abdominal pain now compare last night, pt had BM yesterday, NG tube in, Allergies Allergy/AdvReac Type Severity Reaction Status Date / Time Influenza Virus Vaccines Allergy Severe SHORTNESS Verified 01/07/21 08:51 OF BREATH morphine Allergy Intermediate "I FELT Unverified 01/07/21 08:51 FUNNY IN THE HEAD" Home Medications Medication Instructions Recorded Confirmed Type acetaminophen 500 mg tablet 500 mg PO Q6H PRN 03/27/19 01/07/21 History albuterol sulfate 90 mcg/actuation 2 puff INHALATION Q6H 03/27/19 01/07/21 History aerosol inhaler (Ventolin HFA) cholecalciferol (vitamin D3) 25 2,000 unit PO DAILY 03/27/19 01/07/21 History mcg (1,000 unit) capsule (Vitamin D3) citalopram 20 mg tablet (Celexa) 20 mg PO QAM 03/27/19 01/07/21 History lamotrigine 50 mg tablet,extended 50 mg PO DAILY 03/27/19 01/07/21 History release 24 hr clonazepam 1 mg tablet (Klonopin) 1 mg PO BID 06/13/19 01/07/21 History fluticasone 500 mcg-salmeterol 50 1 puffs INH BID #3 inhaler 11/28/19 01/07/21 Rx mcg/dose blistr powdr for inhalation (Advair Diskus) losartan 25 mg tablet 25 mg PO DAILY #90 tab 11/29/19 01/07/21 Rx nebulizers #1 ea 01/23/20 01/07/21 Rx telmisartan 40 mg tablet (Micardis) 40 mg PO DAILY #90 tab 02/06/20 01/07/21 Rx ipratropium 0.5 mg-albuterol 3 mg 3 ml INHALATION Q6H PRN #90 ml 04/01/20 01/07/21 Rx (2.5 mg base)/3 mL nebulization soln omeprazole 20 mg capsule,delayed 20 mg PO QAM #30 cap 05/06/20 01/07/21 Rx release fluticasone fur. 100 mcg-umeclid 1 inh INHALATION DAILY #60 ea 07/02/20 01/07/21 Rx 62.5 mcg-vilant 25 mcg inhalat.powder (Trelegy Ellipta) fluticasone fur. 100 mcg-umeclid 1 inh INHALATION DAILY #3 inhaler 10/21/20 01/07/21 Rx 62.5 mcg-vilant 25 mcg inhalat.powder (Trelegy Ellipta) ciprofloxacin HCl 500 mg tablet 500 mg PO BID #20 tab 11/19/20 01/07/21 Rx (Cipro) metronidazole 500 mg tablet 500 mg PO TID #30 tab 11/19/20 01/07/21 Rx (Flagyl) ipratropium 20 mcg-albuterol 100 1 puff INHALATION Q4H #12 gm 01/13/21 Rx mcg/actuation mist for inhalation (Combivent Respimat) alfuzosin 10 mg tablet,extended 10 mg PO DAILY #30 tab 01/19/21 Rx release 24 hr (Uroxatral) diltiazem HCl 300 mg capsule,24 300 mg PO QAM #90 cap 01/30/21 Rx hr,extended release (Tiadylt ER) Past Med/Surg History Medical History (Updated 04/06/21 @ 06:31 by Philip [place] MD) Abdominal pain JANNETH (acute kidney injury) Anemia Anxiety Anxiety BPH (benign prostatic hyperplasia) COPD (chronic obstructive pulmonary disease) COPD exacerbation COPD with acute exacerbation Depression Depression Fall Fall Fall against object Head pain Headache Headache High prostate specific antigen (PSA) Hypokalemia Hypokalemia Laceration of right ear Localized swelling of both lower legs Mood disorder 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 Pericardial effusion Pneumonia Pneumonia PTSD (post-traumatic stress disorder) Pulmonary embolism (01/22/14) Pulmonary embolism Right lower lobe pneumonia Sepsis Sleep apnea Suicidal ideation Supratherapeutic INR UTI (urinary tract infection) Surgical History History of cardiac catheterization S/P tonsillectomy Family History Other Lung disease Social History Smoking Status: Former smoker Second Hand Exposure: No; Hx Alcohol Use: No Hx Substance Use: No Preferred Language: Malaysian Communication Ability: Effective [employer] 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 Beliefs That Will Affect Care: None Current Living Situation: Spouse Feels Safe at Home: Yes Assistive Devices: Denture - Upper, Denture - Lower and Oxygen - Continuous Review of Systems Review of Systems: The patient denies chest pain, palpitations, shortness of breath, dyspnea on exertion, cough, lower extremity swelling, sore throat, fevers, chills, sweats, blood in urine or stool, dysuria, urinary frequency or urgency, lightheadedness, dizziness, headache, memory loss, loss of consciousness, rash, abnormal bruising or bleeding, imbalance, focal or generalized weakness, numbness or tingling in arms or legs, generalized arthralgias or myalgias, neck pain, or night sweats. The review of systems is otherwise negative other than for that already noted above, and at least 10 systems have been reviewed. Allergies Allergy/AdvReac Type Severity Reaction Status Date / Time Influenza Virus Vaccines Allergy Severe SHORTNESS Verified 04/06/21 07:10 OF BREATH morphine Allergy Intermediate "I FELT Unverified 04/06/21 07:10 FUNNY IN THE HEAD" Home Medications Medication Instructions Recorded Confirmed Type acetaminophen 500 mg tablet 500 mg PO Q6H PRN 03/27/19 04/06/21 History citalopram 20 mg tablet (Celexa) 20 mg PO QAM 03/27/19 04/06/21 History lamotrigine 50 mg tablet,extended 50 mg PO QAM 03/27/19 04/06/21 History release 24 hr clonazepam 1 mg tablet (Klonopin) 1 mg PO BID 06/13/19 04/06/21 History fluticasone 500 mcg-salmeterol 50 1 puffs INH BID #3 inhaler 11/28/19 04/06/21 Rx mcg/dose blistr powdr for inhalation (Advair Diskus) nebulizers #1 ea 01/23/20 01/07/21 Rx diltiazem HCl 300 mg capsule,24 300 mg PO QAM #90 cap 01/30/21 04/06/21 Rx hr,extended release (Tiadylt ER) alfuzosin 10 mg tablet,extended 10 mg PO QAM 04/06/21 04/06/21 History release 24 hr (Uroxatral) gabapentin 100 mg capsule 100 mg PO HS 04/06/21 04/06/21 History losartan 25 mg tablet 25 mg PO PM 04/06/21 04/06/21 History omeprazole 20 mg capsule,delayed 20 mg PO QDL 04/06/21 04/06/21 History release Patient History Medical History (Updated 04/06/21 @ 11:45 by Ai García MD) Abdominal pain JANNETH (acute kidney injury) Anemia Anxiety Anxiety BPH (benign prostatic hyperplasia) COPD (chronic obstructive pulmonary disease) COPD exacerbation COPD with acute exacerbation Depression Depression Fall Fall Fall against object Head pain Headache Headache High prostate specific antigen (PSA) Hypokalemia Hypokalemia Laceration of right ear Localized swelling of both lower legs Mood disorder 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 Pericardial effusion Pneumonia Pneumonia PTSD (post-traumatic stress disorder) Pulmonary embolism (01/22/14) Pulmonary embolism Right lower lobe pneumonia Sepsis Sleep apnea Suicidal ideation Supratherapeutic INR UTI (urinary tract infection) Surgical History History of cardiac catheterization S/P tonsillectomy Family History Other Lung disease Social History Smoking Status: Former smoker Second Hand Exposure: No; Hx Alcohol Use: Yes Hx Substance Use: No Preferred Language: Malaysian Communication Ability: Effective [employer] 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 Beliefs That Will Affect Care: None Current Living Situation: Spouse Feels Safe at Home: Yes Assistive Devices: Denture - Upper, Denture - Lower, Oxygen - Continuous and Walker Physical Exam Constitutional: WD/WN, vitals as above Eyes: PERRL, conjunctivae normal, anicteric sclerae Neck: trachea midline, no thyromegaly Respiratory: Auscultation: + diminished lung sounds mask O2, Cardiovascular: RRR, no murmur, no edema Gastrointestinal (Abdomen): large ventral hernia just above umbilical, size about 20 x20cm, could not complete reducible, mild tenderness, no redness, no rebound pain, BS + Musculoskeletal: no cyanosis or clubbing, extremities motor strength 5/5 Neurologic: patellar DTR's 2+ bilat, sensation intact Psychiatric: A+Ox3, euthymic affect Results & Data ([facility]) Vital Signs (Past 12 Hours) Vital Signs Temp Pulse Pulse Resp BP BP Pulse Ox 04/06/21 11:14 88 142/88 H 04/06/21 09:45 36.5 C 82 18 151/93 H 97 04/06/21 09:09 159/96 H 04/06/21 08:54 36.4 C L 91 H 18 185/117 H 97 04/06/21 08:15 87 20 178/105 H 98 04/06/21 08:01 94 H 20 178/105 H 99 04/06/21 07:30 88 21 159/115 H 97 04/06/21 07:00 94 H 21 175/114 H 98 04/06/21 06:30 103 H 22 177/112 H 94 04/06/21 06:00 91 H 18 150/129 H 96 04/06/21 05:30 82 22 142/116 H 97 04/06/21 05:00 91 H 21 162/131 H 93 04/06/21 04:30 90 20 186/94 H 96 04/06/21 04:21 97 04/06/21 04:01 109 H 20 177/133 H 04/06/21 03:47 37.1 C 96 04/06/21 03:30 88 17 167/98 H 98 04/06/21 03:00 96 H 18 171/111 H 98 04/06/21 02:48 99 H 21 157/120 H 98 Laboratory Results Abnormal lab results 04/06/21 04/06/21 04/06/21 Range/Units 03:24 03:24 04:23 WBC 23.20 H (4.8-10.8) K/uL RBC 4.52 L (4.7-6.1) M/uL Hct 41.6 L (42-52) % Neut # (Auto) 21.44 H (1.4-6.5) K/uL Lymph # (Auto) 0.93 L (1.2-3.4) K/uL [place] # (Auto) 0.70 H (0.11-0.59) K/uL Immature Gran # (Auto) 0.11 H (0.00-0.02) K/uL BUN 22 H (7-18) mg/dl BUN/Creatinine Ratio 21.6 H (10-20) Glucose 165 H (70-99) mg/dl AST 13 L (15-37) U/L Globulin 4.1 H (2.5-4.0) gm/dl Lipase 63 L (73-393) U/L Urine pH 8.0 H (4.5-7.5) Ur Specific [place] > 1.045 H (1.000-1.030) Urine Ketones Trace H (Negative) Diagnostic Findings ABDOMEN AND PELVIS CT WITH IV CONTRAST CT DOSE: 433.58 mGy.cm HISTORY: Acute mid abdominal pain with incarcerated abdominal wall hernia eval for incarcerated hernia TECHNIQUE: Multiaxial CT images of the abdomen and pelvis were performed following the IV administration of 99 cc of Optiray, A dose lowering technique was utilized adhering to the principles of ALARA. COMPARISON STUDY: CT abdomen and pelvis 02/27/2020 FINDINGS: The imaged inferior cardiac chambers are unremarkable with coronary artery calcifications. Severe emphysema. Consolidative opacities of the right middle lobe. No pneumatosis or pneumoperitoneum. The spleen, pancreas and adrenal glands are unremarkable. The gallbladder is mildly contracted with cholelithiasis. No CT evidence of acute cholecystitis. There is no biliary ductal dilation. Unremarkable liver. Bilateral renal cysts measure up to 2.6 cm on the left. No renal or ureteral calculi or hydronephrosis. Prostamegaly. Urinary bladder wall thickening and reticulation with numerous small diverticula. There are several layering calculi within the urinary bladder measuring up to 7 mm. Moderate atherosclerosis of the abdominal aorta and branch vessels. No aneurysm. Small fat filled inguinal hernias. No adenopathy. Fluid distended distal esophagus with small hiatal hernia. Moderate fluid distention of the stomach. There is a moderate sized supraumbilical ventral abdominal wall hernia, diastases of 5.2 cm which contains a loop of nonobstructed jejunum, dilated upstream measuring up to 4 cm and decompressed as it exits the hernia sac. Additionally mild associated circumferential wall thickening involves the loop of small bowel., the hernia contains mesenteric fat and a nonobstructed loop of transverse colon. Trace inflammatory stranding in the hernia sac. Colonic diverticulosis without CT evidence of acute diverticulitis. Noninflamed appendix. Tiny fat filled periumbilical hernia. Unchanged 2.3 cm lucent focus of the left iliac bone with nonaggressive features. Degenerative changes of the spine, pelvis and hips. IMPRESSION: 1. Moderate-sized supraumbilical ventral abdominal wall hernia contains jejunum, transverse colon and mesenteric fat. This results in a high-grade small bowel obstruction with mild wall thickening involving the obstructed loop of small bowel. No pneumatosis or pneumoperitoneum. 2. Prostamegaly with evidence of chronic outlet obstruction. Numerous urinary bladder calculi are present. 3. Cholelithiasis. 4. Colonic diverticulosis. 5. Consolidative opacities of the right middle lobe. Findings should be correlated clinically to exclude pneumonitis. 6. Emphysema. 7. Additional findings as above.
[2021-04-06] MEDS: TELMISARTAN 40 MG TAB PO SCH (11:52)
[2021-04-06] MEDS: ALBUT/IPRATROP 3MG/0.5MG NEB 3 ML VIAL NEB PRN (14:36)
[2021-04-06] MEDS: PIPERACILLIN/TAZOBACTAM 3.375 GM in DEXTROSE 5% 100 ML IV SCH ×2 (15:03→22:26)
[2021-04-06] MEDS: ACETAMINOPHEN 1,000 MG/100 ML VIAL IV PRN (16:25)
[2021-04-06] MEDS ORDERED: CHLORASEPTIC 1.4% SOLN 180 ML BTL MT PRN (19:44)
[2021-04-06 20:57] LABS: Base Excess ABG 3.1 mEq/L (-9-1.8); HCO3 ABG 31 mmol/L (19-24); Oxygen Saturation ABG 96.6 % (90-95); PCO2 ABG 61 mmHg (35-46); PO2 ABG 96 mmHg (80-95); pH ABG 7.32 (7.35-7.45)
[2021-04-06 21:27] LABS: Allen Test Pos (Pos)
--- NOTE | 2021-04-07 01:21 | Anesthesiology Consultation ---
Date of Service April 07, 2021 Assessment & Plan (1) Encounter for pre-operative examination: Chart Review Chart Review: Acceptable Risk for Surgery Patient with severe COPD and ventral hernia containing bowel. He is at a greater risk of complication due to his comorbidities but he is presently on 2L of oxygen with satisfactory oxygenation though his ABG does show he is retaining CO2 and is mildly acidotic. If his bowel obstruction worsens and he perforates he will be at much greater risk of complication for that surgery. It is certainly possible he will require some postoperative ventilatory support, but in his present state I would say he has a good chance of being extubated successfully after his surgery. History Height/Weight Height: 5 ft 7 in Weight: 71.8 kg Allergies Allergy/AdvReac Type Severity Reaction Status Date / Time Influenza Virus Vaccines Allergy Severe SHORTNESS Verified 04/06/21 07:10 OF BREATH morphine Allergy Intermediate "I FELT Unverified 04/06/21 07:10 FUNNY IN THE HEAD" Medications Home Medications Medication Instructions Recorded Confirmed Last Taken acetaminophen 500 mg tablet 500 mg PO Q6H PRN 03/27/19 04/06/21 Unknown citalopram 20 mg tablet (Celexa) 20 mg PO QAM 03/27/19 04/06/21 Unknown lamotrigine 50 mg tablet,extended 50 mg PO QAM 03/27/19 04/06/21 04/05/21 release 24 hr clonazepam 1 mg tablet (Klonopin) 1 mg PO BID 06/13/19 04/06/21 04/05/21 fluticasone 500 mcg-salmeterol 50 1 puffs INH BID #3 inhaler 11/28/19 04/06/21 04/05/21 mcg/dose blistr powdr for inhalation (Advair Diskus) nebulizers #1 ea 01/23/20 01/07/21 Unknown diltiazem HCl 300 mg capsule,24 300 mg PO QAM #90 cap 01/30/21 04/06/21 04/05/21 hr,extended release (Tiadylt ER) alfuzosin 10 mg tablet,extended 10 mg PO QAM 04/06/21 04/06/21 04/05/21 release 24 hr (Uroxatral) gabapentin 100 mg capsule 100 mg PO HS 04/06/21 04/06/21 04/04/21 losartan 25 mg tablet 25 mg PO PM 04/06/21 04/06/21 04/04/21 omeprazole 20 mg capsule,delayed 20 mg PO QDL 04/06/21 04/06/21 04/05/21 release Active Medications Generic Name Dose Route Start Last Admin Trade Name An PRN Reason Stop Dose Admin Albuterol 3 ml 04/06/21 06:37 04/06/21 14:36 Albut/Ipratrop 3mg/0.5mg Neb 3 Ml Vial NEB 05/06/21 06:36 3 ml Q2H PRN Administration dyspnea Citalopram Hydrobromide 20 mg 04/06/21 09:00 04/06/21 11:14 Citalopram 20 Mg Tab PO 05/06/21 08:59 20 mg QAM ALINA Administration Clonazepam 1 mg 04/06/21 09:00 04/06/21 20:45 Clonazepam 1 Mg Tab PO 05/06/21 08:59 1 mg BID ALINA Administration Diltiazem HCl 300 mg 04/06/21 09:00 04/06/21 10:08 Diltiazem Hcl 300 Mg Capcr PO 05/06/21 08:59 Not Given QAM ALINA Diltiazem HCl 60 mg 04/06/21 09:45 04/06/21 20:45 Diltiazem Hcl 60 Mg Tab PO 05/06/21 09:44 60 mg TID ALINA Administration Fluticasone Furoate 1 puffs 04/06/21 10:00 04/06/21 11:32 Fluticasone Furoate 100mcg 14 Puffs/Inhaler INH 05/06/21 08:59 1 puffs DAILY ALINA Administration Hydromorphone HCl 0.25 mg 04/06/21 06:41 04/06/21 14:10 Hydromorphone Inj 0.5 Mg/0.5 Ml Syr IV 04/20/21 06:40 0.25 mg Q3H PRN Administration Moderate Pain Hydromorphone HCl 0.5 mg 04/06/21 06:41 04/06/21 20:46 Hydromorphone Inj 0.5 Mg/0.5 Ml Syr IV 04/20/21 06:40 0.5 mg Q3H PRN Administration Severe Pain Piperacillin Sod/Tazobactam 115 mls @ 28.75 mls/hr 04/06/21 14:00 04/06/21 22:26 Sod 3.375 gm/ Dextrose IV 04/16/21 13:59 28.8 mls/hr Q8H ALINA Administration Protocol Famotidine 20 mg/ Syringe 5 mls @ 2.5 mls/min 04/06/21 08:00 04/06/21 20:45 IV 05/06/21 07:59 2.5 mls/min Q12H ALINA Administration Acetaminophen 1,000 mg in 100 mls @ 400 mls/hr 04/06/21 06:41 04/06/21 16:40 Ofirmev IV 04/09/21 06:40 Infused Q8H PRN Infusion Pain or Fever Sodium Chloride 1,000 mls @ 125 mls/hr 04/06/21 10:30 04/06/21 18:36 Nss IV 05/06/21 10:29 125 mls/hr .Q8H ALINA Administration Miscellaneous 1 ea 04/06/21 16:00 04/07/21 00:55 (Lamotrigine 50 Mg Tablet Extended Release 24hr) ~ Order Awaiting Action N/A 05/06/21 15:59 Not Given QS ALINA Ondansetron HCl 4 mg 04/06/21 06:21 04/06/21 10:36 Ondansetron Inj 2 Mg/Ml 2 Ml Vial IV 05/06/21 06:20 4 mg Q6H PRN Administration NAUSEA/VOMITING Telmisartan 40 mg 04/06/21 09:00 04/06/21 11:52 Telmisartan 40 Mg Tab PO 05/06/21 08:59 Not Given DAILY ALINA Umeclidinium/Vilanterol 1 puffs 04/06/21 10:00 04/06/21 11:31 Umeclidinium/Vilanterol 62.5/25mcg 7 Puffs/Inhaler INH 05/06/21 08:59 1 puffs DAILY ALINA Administration NPO Date Last Intake of Fluids: 04/06/21 Time Last Intake of Fluids: 20:45 Last Intake of Fluids Comment: sip of water Past Medical History Medical History Abdominal pain JANNETH (acute kidney injury) Anemia Anxiety Anxiety BPH (benign prostatic hyperplasia) COPD (chronic obstructive pulmonary disease) COPD exacerbation COPD with acute exacerbation Depression Depression Fall Fall Fall against object Head pain Headache Headache High prostate specific antigen (PSA) Hypokalemia Hypokalemia Laceration of right ear Localized swelling of both lower legs Mood disorder 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 Pericardial effusion Pneumonia Pneumonia PTSD (post-traumatic stress disorder) Pulmonary embolism (01/22/14) Pulmonary embolism Right lower lobe pneumonia Sepsis Sleep apnea Suicidal ideation Supratherapeutic INR UTI (urinary tract infection) Past Family History Family History Other Lung disease Past Surgical History Surgical History History of cardiac catheterization S/P tonsillectomy Social History Smoking Status: Former smoker tobacco type: cigarettes Do You Dip or Chew Tobacco: No Hx Alcohol Use: Yes alcohol intake frequency: holidays/special occasions only Hx Substance Use: No substance use type: does not use Physical Exam Vital Signs Last Vital Signs Temp 36.7 C 04/06/21 23:29 Pulse 74 04/06/21 23:29 Resp 20 04/06/21 23:29 BP 155/82 H 04/06/21 23:29 Pulse Ox 97 04/06/21 23:29 Testing Laboratory Results 04/06/21 03:24 04/06/21 03:24 Urine Color Yellow 04/06/21 04:23 Urine Appearance Clear (Clear) 04/06/21 04:23 Urine pH 8.0 (4.5-7.5) H 04/06/21 04:23 Ur Specific [place] > 1.045 (1.000-1.030) H 04/06/21 04:23 Urine Protein Negative (Negative) 04/06/21 04:23 Urine Glucose (UA) Negative (Negative) 04/06/21 04:23 Urine Ketones Trace (Negative) H 04/06/21 04:23 Urine Nitrite Negative (Negative) 04/06/21 04:23 Ur Leukocyte Esterase Negative (Negative) 04/06/21 04:23 Electrocardiogram Date: 03/27/21 Findings: + NSR @ (78) Chest X-Ray Date: 04/06/21 severe emphysema NG ube likely in hiatal hernia
[2021-04-07] MEDS: HYDROmorphone INJ 0.5 MG/0.5 ML SYR IV PRN ×3 (02:40→14:51)
[2021-04-07] MEDS: SODIUM CHLORIDE 0.9% 1,000 ML IV SCH ×3 (02:40→21:55)
[2021-04-07] MEDS: PIPERACILLIN/TAZOBACTAM 3.375 GM in DEXTROSE 5% 100 ML IV SCH ×2 (04:47→14:59)
[2021-04-07] MEDS: ACETAMINOPHEN 1,000 MG/100 ML VIAL IV PRN (05:30)
[2021-04-07 07:38] LABS: Basophils # (auto) 0.04 K/uL (0-0.2); Basophils % (auto) 0.2 %; Eosinophils # (auto) 0.15 K/uL (0-0.5); Eosinophils % (auto) 0.8 %; Hematocrit (blood only) 38.1 % (42-52); Hemoglobin 12.1 g/dL (14.0-18.0); Immature Granulocytes # (auto) 0.06 K/uL (0.00-0.02); Immature Granulocytes % (auto) 0.3 %; Lymphocytes # (auto) 1.02 K/uL (1.2-3.4); Lymphocytes % (auto) 5.4 %; Mean Corpuscular Hemoglobin 30.4 pg (25-34); Mean Corpuscular Hgb Conc 31.8 g/dL (32-36); Mean Corpuscular Volume 95.7 fL (80-100); Mean Platelet Volume 8.7 fL (7.4-10.4); Neutrophils # (auto) 16.05 K/uL (1.4-6.5); Neutrophils % (auto) 85.3 %; Platelet Count 354 K/uL (130-400); RDW Coefficient of Variation 14.1 % (11.5-14.5); RDW Standard Deviation 49.7 fL (36.4-46.3); Red Blood Count 3.98 M/uL (4.7-6.1); White Blood Count 18.82 K/uL (4.8-10.8)
[2021-04-07 08:15] LABS: Albumin Level 2.9 gm/dl (3.4-5.0); BUN Creatinine Ratio 26.4 (10-20); Calcium 8.1 mg/dl (8.5-10.1); Creatinine Clr Calc Pharmacy 71.8 ml/min; Est GFR (African American) 98.7 ml/min; Est GFR (Non-African American) 85.2 ml/min; Potassium 3.9 mmol/L (3.5-5.1)
[2021-04-07 08:18] LABS: Albumin Globulin Ratio 0.8 (0.9-2); Bilirubin,Total 0.7 mg/dl (0.2-1); Globulin 3.7 gm/dl (2.5-4.0); Total Protein 6.6 gm/dl (6.4-8.2)
[2021-04-07] MEDS ORDERED: methylPREDNISolone 40 MG in SYRINGE 0 ML IV STA (08:37)
[2021-04-07] MEDS: TELMISARTAN 40 MG TAB PO SCH (08:47)
[2021-04-07] MEDS: UMECLIDINIUM/VILANTEROL 62.5/25MCG 7 PUFFS/INHALER INH SCH (08:48)
[2021-04-07] MEDS: FLUTICASONE FUROATE 100MCG 14 PUFFS/INHALER INH SCH (08:48)
[2021-04-07] MEDS: dilTIAZem HCl 60 MG TAB PO SCH ×3 (09:01→21:56)
[2021-04-07] MEDS: FAMOTIDINE 20 MG in SYRINGE 3 ML IV SCH ×2 (09:03→21:55)
[2021-04-07] MEDS: ONDANSETRON INJ 2 MG/ML 2 ML VIAL IV PRN (10:36)
[2021-04-07] MEDS ORDERED: CONSULT PHARMACY STA (10:48)
--- NOTE | 2021-04-07 10:50 | Hospitalist Progress Note ---
Date of Service April 07, 2021 Assessment & Plan (1) Small bowel obstruction: Plan: Ventral abdominal hernia containing small bowel and transverse colon. There is small bowel obstruction with distention of upstream jejunum up to 4 cm. No evidence of strangulation at this time, however, the mucosa of the herniated small bowel is thickened. Fluid-filled and distended stomach. Hiatal hernia containing fluid and fluid in the distal esophagus. NG tube to low intermittent suction Famotidine 20 mg IV every 12 hours Zofran 4 mg IV every 6 hours As needed Zosyn 4.5 g IV every 8 hours Acetaminophen 1000 mg IV every 8 hours as needed mild pain or fever Dilaudid 0.5 mg IV every 3 hours as needed severe pain Dilaudid 0.25 mg IV every 3 hours as needed moderate pain Patient was offered surgery on the he refused at that time when to think about it some more he was warned that this could create postoperative complications including a colostomy. The patient then agreed to go to surgery on the however surgery was pushed back to the urgent cases is still pending surgical correction at the time of this note (2) Ventral incisional hernia: Plan: See above (3) BPH (benign prostatic hyperplasia): Plan: cannot urinate will place simons until post op period (4) Depression: Plan: Depression/anxiety/PTSD-pt feeling very stressed with this hospital stay citalopram and clonazepam with small sip and clamp ngt afterward Lorazepam 0.5 mg IV every 6 hours as needed (5) PTSD (post-traumatic stress disorder): Plan: Patient's PTSD is affecting his decision to proceed toward surgery especially as Dr. Cristina told him his lung disease make surgery risky however this is risk of life not proceeding to surgery for this high-grade bowel obstruction. Continuing antianxiety medications as listed in the depression category (6) Anxiety: Plan: See above (7) COPD (chronic obstructive pulmonary disease): Plan: Continue Trelegy Ellipta DuoNebs every 2 hours as needed Patient's pulmonary disease places him at moderate surgical risk observation and telemetry would be recommended post procedure as this is a significant morbidity associated with high-grade bowel obstruction (8) Pulmonary embolism: Plan: Not actively on anticoagulation as an outpatient SCDs. Admission and Anticipated Discharge Date Admission Date: April 06, 2021 Subjective this pt is in distress physically and emotionally Review of Systems Review of Systems: Mild distress, moderate anxiety and fatigue no headache, no visual changes no speech or swallowing issues no chest pain, pressure or palpitations Baseline shortness of breath, cough or wheezes Protuberant abdomen with pain no nausea or vomiting has had constipation no dysuria, hematuria or frequency no focal joint pain or swelling no back pain, CVA tenderness or radicular pain no bruising, bleeding or rashes no focal signs of weakness or numbness or altered sensation Planes of anxiety and PTSD Physical Exam Physical Exam: The patient appeared in mild distress Vital signs as documented. Head exam is normocephalic atraumatic Neck is without JVD, thyromegaly, or carotid bruits. Lungs are labored with poor airmovement Cardiac exam, Rhythm is regular.. No murmurs, rubs or gallops. Abdominal exam reveals hypoactive bowel sounds, protuberant non reducible ventral hernia that is tender Extremities are nonedematous and both pedal pulses are present Neurologic exam is alert and oriented, no focal loss of strength or sensation Skin is without bruises or rashes Psychologically is with anxiety Results & Data Results & Data ([facility]) Vital Signs (Past 12 Hours) Vital Signs Temp Pulse Resp BP Pulse Ox 04/07/21 09:08 24 98 04/07/21 08:46 86 168/87 H 04/07/21 07:47 97.9 F 85 18 176/97 H 98 04/06/21 23:29 98.1 F 74 20 155/82 H 97 PG Care Time/CCT Total # of Minutes Spent Total Time Spent with Patient: Total time spent is greater than 50% in coordination of care (as documented) at patient's floor/unit and/or counseling patient: Coding Level of Care Code 66985 Subseq Hosp Care Lvl 2 Diagnoses Small bowel obstruction K56.609 Ventral incisional hernia K43.2 BPH (benign prostatic hyperplasia) N40.0 Depression F32.9 PTSD (post-traumatic stress disorder) F43.10 Anxiety F41.9 COPD (chronic obstructive pulmonary disease) J44.9 Pulmonary embolism I26.99
[2021-04-07] MEDS: ALBUT/IPRATROP 3MG/0.5MG NEB 3 ML VIAL NEB PRN (11:18)
--- NOTE | 2021-04-07 13:32 | Pulmonary Consultation ---
Date of Consultation April 07, 2021 Assessment & Plan (1) Acute on chronic respiratory failure with hypoxia and hypercapnia: (2) COPD (chronic obstructive pulmonary disease): (3) COPD exacerbation: --Acute on chronic hypercapnic hypoxic respiratory failure Multifactorial Underlying decrease tidal volume secondary to abdominal pain playing a role in his hypercapnia Patient's hypercapnia would likely get worse as he is not able to tolerate BiPAP given the NGT and is not able to take deep breaths because of abdominal pain I would recommend to have surgery done sooner rather than postpone it. --COPD with emphysema Continue with inhaled bronchodilators Plan: ABG 04/06/2021: 7.32/61/96 on 4 L Patient does have underlying severe COPD and emphysema. SBO and he is in significant discomfort secondary to pain Patient will be at moderate to high risk given underlying hypercapnia and chronic hypoxia with that he is in discomfort I think this would considered to be an emergent surgery. Would recommend 6-8 mL/kg of tidal volume and BiPAP post surgery if possible Keep O2 saturation between 88-92% I discussed this with the patient as well as patient's on the phone as well as in person. I discussed the case with anesthesiologist as well on 's request All the questions inquiries of both of them were answered in depth Please note the above document was generated using voice recognition software. It may contain grammatical, syntax or spelling errors.Any formal questions or concerns about the content, text or information contained within the body of this dictation should be directly addressed to the provider for clarification. History of Present Illness Reason for Consultation: 70-year-old male past medical history of COPD on chronic oxygen, history of PE, anxiety/depression was admitted to hospital because of small bowel obstruction from ventral hernia. Pulmonary consulted as patient is high risk for surgery Patient is to follow-up with Dr. Cristina. Previous notes personally reviewed At the time of examination patient had NG tube. He was saturating 97% on 4 L nasal cannula. I went down to 2 L which is his baseline He was in distress and was complaining of abdominal pain He was anxious on asking whether he should undergo the surgery. He states that he is compliant with his inhalers. Has never been intubated in the past. Has had multiple bouts of prednisone on and off Social history: [id number] smoking history quit long time ago Attending Physician: Walker Gaspar MD Allergies Allergy/AdvReac Type Severity Reaction Status Date / Time Influenza Virus Vaccines Allergy Severe SHORTNESS Verified 04/06/21 07:10 OF BREATH morphine Allergy Intermediate "I FELT Unverified 04/06/21 07:10 FUNNY IN THE HEAD" Home Medications Medication Instructions Recorded Confirmed Type acetaminophen 500 mg tablet 500 mg PO Q6H PRN 03/27/19 04/06/21 History citalopram 20 mg tablet (Celexa) 20 mg PO QAM 03/27/19 04/06/21 History lamotrigine 50 mg tablet,extended 50 mg PO QAM 03/27/19 04/06/21 History release 24 hr clonazepam 1 mg tablet (Klonopin) 1 mg PO BID 06/13/19 04/06/21 History fluticasone 500 mcg-salmeterol 50 1 puffs INH BID #3 inhaler 11/28/19 04/06/21 Rx mcg/dose blistr powdr for inhalation (Advair Diskus) nebulizers #1 ea 01/23/20 01/07/21 Rx diltiazem HCl 300 mg capsule,24 300 mg PO QAM #90 cap 01/30/21 04/06/21 Rx hr,extended release (Tiadylt ER) alfuzosin 10 mg tablet,extended 10 mg PO QAM 04/06/21 04/06/21 History release 24 hr (Uroxatral) gabapentin 100 mg capsule 100 mg PO HS 04/06/21 04/06/21 History losartan 25 mg tablet 25 mg PO PM 04/06/21 04/06/21 History omeprazole 20 mg capsule,delayed 20 mg PO QDL 04/06/21 04/06/21 History release Patient History Medical History Abdominal pain JANNETH (acute kidney injury) Anemia Anxiety Anxiety BPH (benign prostatic hyperplasia) COPD (chronic obstructive pulmonary disease) COPD exacerbation COPD with acute exacerbation Depression Depression Fall Fall Fall against object Head pain Headache Headache High prostate specific antigen (PSA) Hypokalemia Hypokalemia Laceration of right ear Localized swelling of both lower legs Mood disorder 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 Pericardial effusion Pneumonia Pneumonia PTSD (post-traumatic stress disorder) Pulmonary embolism (01/22/14) Pulmonary embolism Right lower lobe pneumonia Sepsis Sleep apnea Suicidal ideation Supratherapeutic INR UTI (urinary tract infection) Surgical History History of cardiac catheterization S/P tonsillectomy Family History Other Lung disease Social History Smoking Status: Former smoker Second Hand Exposure: No; Hx Alcohol Use: Yes Hx Substance Use: No Preferred Language: Argentine Communication Ability: Effective Weigher Packing Required: No Beliefs That Will Affect Care: None Current Living Situation: Spouse Feels Safe at Home: Yes Assistive Devices: None Review of Systems Review of Systems: All systems reviewed & are unremarkable except as noted in HPI & below Physical Exam Physical Exam: Constitutional: No acute distress HEENT: EOMI, PERRLA, positive NGT Respiratory system: Decreased air entry bilaterally, no rhonchi, positive mild crackles bilateral lower lobes, positive expiratory wheeze CVS: S1-S2 positive, no murmurs or gallops Abdomen: Soft, distended, periumbilical hernia appreciated tender to touch, decreased bowel sounds Extremities: +2 pulses bilaterally radialis/ dorsalis pedis, no cyanosis, no edema Neuro: Awake alert oriented x3 Psych: Normal mood and affect G/U: No Slade Results & Data Results & Data ([facility]) Vital Signs (Past 12 Hours) Vital Signs Temp Pulse Resp BP Pulse Ox 04/07/21 11:20 86 22 97 04/07/21 09:08 24 98 04/07/21 08:46 86 168/87 H 04/07/21 07:47 36.6 C 85 18 176/97 H 98 04/07/21 06:48 04/07/21 06:48 PG Care Time/CCT Total # of Minutes Spent Total Time Spent with Patient: Total time spent is greater than 50% in coordination of care (as documented) at patient's floor/unit and/or counseling patient: [place] [address] Initial Inpt Care Lvl 3 Patient Type New Diagnoses Acute on chronic respiratory failure with hypoxia and hypercapnia J96.21; J96.22 COPD (chronic obstructive pulmonary disease) J44.9 COPD exacerbation J44.1
[2021-04-07] MEDS: CITALOPRAM 20 MG TAB PO SCH (13:53)
[2021-04-07] MEDS: clonazePAM 1 MG TAB PO SCH ×2 (13:53→21:55)
[2021-04-07] MEDS ORDERED: ceFAZolin 2000MG 2,000 MG/15 ML SYR IV ONE (16:18)
--- NOTE | 2021-04-07 16:18 | History & Physical Bridge Note ---
Date of Service April 07, 2021 History & Physical Bridge Note I have examined the patient, reviewed the History & Physical and in the interval since the performance of the History & Physical I have noted the following changes of clinical significance: no changes noted
--- NOTE | 2021-04-07 18:50 | Progress Note ---
Date of Service April 07, 2021 the ventral hernia is not reducible, pt is still have abdominal pain, NG tube in 675ml/12 hours, Assessment & Plan (1) Small bowel obstruction: Plan: pt is a 70 year-old male who was admitted to hospital for SBO, ventral hernia, COPD, plan,base on H/P, CT scan finding, ventral hernia caused SBO, I recommend to do open repair ventral hernia possible mesh, D/W benefits, risks and alternatives of the surgery, the risk - infection, bleeding, injury other organs, bowel obstruction, hernia recurrence, seroma, complications relate to mesh, respiratory failure, ID, DVT, stroke, and , pt wants to think about the surgery, pt dose not want to do surgery today, I also indicate that, delay surgery, could cause bowel ischemia or perforation and , pt understood, pt wants to make decision tomorrow, would start DVT prophylaxis with heparin subcu today, but hold it after MN, NPO now, high WBC, continue IV antibiotic, NG tube, repeat labs in morning, will F/U, (2) Ventral hernia: Plan: pt is a 70 year-old male who was admitted to hospital for SBO, ventral hernia, COPD, plan, I recommend to do open repair ventral hernia possible mesh, D/W benefits, risks and alternatives of the surgery, the risk - infection, bleeding, injury other organs, bowel obstruction, hernia recurrence, seroma, complications relate to mesh, respiratory failure, ID, DVT, stroke, and , pt wants to think about the surgery, pt dose not want to do surgery today, I also indicate that, delay surgery, could cause bowel ischemia or perforation and , pt understood, pt wants to make decision tomorrow, would start DVT prophylaxis with heparin subcu today, but hold it after MN, NPO now, will F/U, 04/07/2021 6:52PM I reviewed anesthesiologist and pulmonary doctor note, I recommend to do open repair ventral hernia possible mesh,D/W benefits, risks and alternatives of the surgery, the risks - infection, bleeding, injury other organs, hernia recurrence, complications relate to mesh, respiratory failure, DVT, ID, stroke, , pt and his understood, they agree with the surgery, pt signed informed consent, I answered all questions, Admission and Anticipated Discharge Date Admission Date: April 06, 2021 Subjective this pt is in distress physically and emotionally Physical Exam Constitutional: WD/WN, vitals as above Eyes: PERRL, conjunctivae normal, anicteric sclerae Neck: trachea midline, no thyromegaly Respiratory: Auscultation: + diminished lung sounds Cardiovascular: RRR, no murmur, no edema Gastrointestinal (Abdomen): large middle line ventral hernia, which is not reducible, tenderness, distend abdomen, no rebound pain, BS + Musculoskeletal: no cyanosis or clubbing, extremities motor strength 5/5 Neurologic: patellar DTR's 2+ bilat, sensation intact Psychiatric: A+Ox3, euthymic affect Results & Data ([facility]) Vital Signs (Past 12 Hours) Vital Signs Temp Pulse Resp BP Pulse Ox 04/07/21 15:16 93 H 175/99 H 04/07/21 14:49 36.9 C 88 22 197/104 H 99 04/07/21 11:20 86 22 97 04/07/21 09:08 24 98 04/07/21 08:46 86 168/87 H 04/07/21 07:47 36.6 C 85 18 176/97 H 98 Laboratory Results Abnormal lab results 04/06/21 04/07/21 04/07/21 Range/Units 20:39 06:48 06:48 WBC 18.82 H (4.8-10.8) K/uL RBC 3.98 L (4.7-6.1) M/uL Hgb 12.1 L (14.0-18.0) g/dL Hct 38.1 L (42-52) % MCHC 31.8 L (32-36) g/dL RDW Std Deviation 49.7 H (36.4-46.3) fL Neut # (Auto) 16.05 H (1.4-6.5) K/uL Lymph # (Auto) 1.02 L (1.2-3.4) K/uL Calloway # (Auto) 1.50 H (0.11-0.59) K/uL Immature Gran # (Auto) 0.06 H (0.00-0.02) K/uL ABG pH 7.32 L (7.35-7.45) ABG pCO2 61 H (35-46) mmHg ABG pO2 96 H (80-95) mmHg ABG HCO3 31 H (19-24) mmol/L ABG O2 Saturation 96.6 H (90-95) % ABG Base Excess 3.1 H (-9-1.8) mEq/L Chloride 108 H (98-107) mmol/L BUN 24 H (7-18) mg/dl BUN/Creatinine Ratio 26.4 H (10-20) Glucose 104 H (70-99) mg/dl Calcium 8.1 L (8.5-10.1) mg/dl AST 55 H (15-37) U/L Albumin 2.9 L (3.4-5.0) gm/dl Albumin/Globulin Ratio 0.8 L (0.9-2)
[2021-04-07] MEDS ORDERED: ROCURONIUM BROMIDE 10 MG/ML 5 ML VIAL IV ONE (19:15)
[2021-04-07] MEDS ORDERED: ONDANSETRON INJ 2 MG/ML 2 ML VIAL ONE (19:15)
[2021-04-07] MEDS ORDERED: fentaNYL citrate 100 MCG/2 ML VIAL ONE ×3 (19:15→21:16)
[2021-04-07] MEDS ORDERED: LIDOCAINE 2% 2 ML VIAL/AMP(20MG/ML) INFIL ONE (19:15)
[2021-04-07] MEDS ORDERED: PROPOFOL IV EMULSION 10 MG/ML 20 ML VIAL IV ONE (19:15)
[2021-04-07] MEDS ORDERED: SUCCINYLCHOLINE CHLORIDE 20 MG/ML 10 ML VIAL IV ONE (19:16)
[2021-04-07] MEDS ORDERED: MIDAZOLAM HCL 1 MG/ML 2ML VIAL ONE (19:17)
[2021-04-07] MEDS ORDERED: BUPIVACAINE 0.5 % 5 MG/1 ML MPF 30ML VIAL ONE (19:20)
[2021-04-07] MEDS ORDERED: LIDOCAINE 1% LOCAL 20 ML VIAL ONE (19:20)
[2021-04-07] MEDS ORDERED: BACITRACIN OINT 15 GM TUBE ONE (19:20)
--- NOTE | 2021-04-07 20:40 | Post Operative Brief Note ---
Immediate Post Op Note v1 Date of Surgery April 07, 2021 Pre & Post Diagnosis Operation Date: 04/07/21 11:55 Pre-Op Diagnosis: Small bowel obstruction, incarcerated Ventral hernia Post-Op Diagnosis: Small bowel obstruction, incarcerated Ventral hernia I identified the patient and participated in the time-out.: Yes Procedure Operation Date: 04/07/21 11:55 Actual Procedures p Open Ventral Hernia Repair with Mesh(Not Applicable) - Ai García MD Surgeon Ai García MD Spinning Room Worker Shmuel Schmitz Estimated Blood Loss 20 Findings Consistent with Post-Op Diagnosis incarcerated ventral hernia, size 5x5cm, Fluids 600ml Drains Slade Catheter (Slade present upon arrival. Anesthesia to monitor urine output throughout procedure. ) Anesthesia Type General Complications none Disposition Accompanied Patient To Recovery: Yes
[2021-04-07] MEDS ORDERED: hydrALAZINE HCL 20 MG/ML VIAL ONE (20:57)
[2021-04-07] MEDS ORDERED: PROMETHAZINE HCL 12.5 MG in SODIUM CHLORIDE 0.9% 50 ML IV PRN (21:04)
[2021-04-07] MEDS ORDERED: LABETALOL HCL IV 5 MG/ML 20ML IV PRN (21:04)
[2021-04-07] MEDS ORDERED: ATROPINE SULFATE 0.1 MG/ML 10ML SYR IV PRN (21:04)
[2021-04-07] MEDS ORDERED: ePHEDrine sulfate 50 MG/ML AMP IV PRN (21:04)
[2021-04-07] MEDS ORDERED: fentaNYL citrate 100 MCG/2 ML VIAL IV PRN (21:04)
[2021-04-07] MEDS ORDERED: NALOXONE HCL 0.4 MG/1 ML VIAL/CARP IV PRN (21:04)
[2021-04-07] MEDS ORDERED: ONDANSETRON INJ 2 MG/ML 2 ML VIAL IV PRN (21:04)
[2021-04-07] MEDS ORDERED: FLUMAZENIL 0.1 MG/1 ML 10 ML VIAL IV PRN (21:04)
[2021-04-07] MEDS ORDERED: STAT IV Infusion **Titration per Protocol STA (21:16)
--- NOTE | 2021-04-07 21:21 | Critical Care Consultation ---
Date of Consultation April 07, 2021 Assessment & Plan (1) Admitted to intensive care unit: Reason Critically Ill: 70-year-old male with small bowel obstruction from incarcerated ventral hernia who underwent open ventral hernia repair with mesh placement requiring close monitoring from a pulmonary standpoint in the patient with severe COPD and at high risk for requiring reintubation. Patient did present to the ICU acutely agitated. He was extremely hypertensive as well. Patient is in apparent respiratory distress and not moving air. Breath sounds were diminished bilaterally with slight end expiratory wheezes appreciated throughout. Orders initially placed for IV fentanyl followed by Precedex drip. IV fentanyl did help improve agitation and blood pressure. Additionally, Precedex drip did improve agitation as well. Orders placed for ABG as well as BiPAP. ABG suggested acute respiratory acidosis with hypercarbia. Patient placed on home BiPAP settings. Patient was also provided hour-long DuoNeb. On reassessment, the patient is moving much more air at this time. He is resting more comfortably. Patient is able to provide more information. He states that he feels better. He complains of some slight abdominal pain. Overall, his mental status has improved. A repeat ABG approximately 1 hour after initiation of BiPAP as well as DuoNeb and Precedex drip demonstrate near correction of hypercarbia. Patient's mental status has greatly improved at this time. He remained on BiPAP throughout the night. We will attempt to wean down Precedex with the goal to remove BiPAP by morning. NEURO - * CAM ICU: POSITIVE * Agitation: * Likely secondary to acute on chronic hypercapnic respiratory failure. * Initially received fentanyl which did help alleviate some agitation. * Will place on Precedex drip until pulmonary status can be improved. * Surgery, the anesthesia in combination with the patient's baseline mental health issues may be contributing to this as well. CARDIAC/VASCULAR - * Hypertension: * Continue home medications as tolerated. * Monitor on telemetry. RESPIRATORY - * Acute on chronic respiratory therapy with hypercapnia: * Clinically, the patient examines like a COPD exacerbation. He is barely moving air and is with slight end expiratory wheezing. Patient provided hour-long DuoNeb as well as ongoing BiPAP and Precedex. * Patient has clinically improved with these methods. * Continue with pulmonary toilet to hopefully help to prevent reintubation. * Low threshold for intubation for respiratory failure. GI/NUTRITION - * Status post open ventral hernia repair: * NGT to LIS. * N.p.o. currently. * Continue with general surgery recommendations. * Prophylaxis: Famotidine RENAL/LYTES - * No significant electrolyte derangements. * IVF: NSS at 150 mL's per hour. - * Slade in place - Strict I&Os. ENDO - * No h/o DM or Thyroid Dz * BSGs per unit protocol. ISS --> gtt per unit policy. HEME - * Stable H&H * Monitor for s/s bleeding s/p extensive surgery. ID - * Agree with broad spectrum antibiotic coverage s/p extensive abdominal sugery. LINES/IV ACCESS - * PIVs x2 * Slade * NGT DVT PROPHYLAXIS - * Hold s/p sugery. * SCDs I have personally spent 58 minutes of critical care time in the direct management of this patient. This is a life/limb threatening event. This includes time spent evaluating patient, direct bedside care, chart review, placing orders, interpretation of diagnostic studies, discussion with consultants, patient, and family members, as well as other required patient management activities. This time is exclusive of all separately billable procedures, and teaching time and separate from and in addition to any other critical care service time. Thank you for allowing us to participate in the care of this patient. Please refer to my attending physician's documentation for any further recommendations. (2) SBO (small bowel obstruction): (3) Incarcerated ventral hernia: (4) Acute on chronic respiratory failure with hypoxia and hypercapnia: (5) S/P repair of ventral hernia: History of Present Illness Attending Physician: Walker Gaspar MD History of Present Illness Patient is a 70-year-old male with a significant past medical history including ventral incisional hernia, BPH, diverticulitis, depression, anxiety, PTSD, sleep apnea, prior history of PE, COPD, pneumonia, and recurrent UTIs. Patient presented to the emergency department on 04/06 with complaints of severe abdominal pain, nausea, and vomiting. Patient was found to have small bowel obstruction. Patient has been medically managed on the floor to this point and has actually declined surgery up until today. Patient was concerned given his significant pulmonary history that his keeper head told him if he undergoes surgery he may not be able to get off of the ventilator. Thankfully, the patient agreed to undergo surgical intervention today. Patient underwent open ventral hernia repair with mesh placement. Patient was subsequently extubated in PACU and transferred to the ICU for ongoing management. Upon evaluation initially, the patient is agitated and hypertensive. His breathing is labored despite oxygenating well. He is unable to communicate initially with provider. Patient was administered hydralazine by anesthesia. Patient was provided 25 mcg of fentanyl. Orders placed for Precedex drip. Respiratory therapy was called to obtain ABG and BiPAP placement. Allergies Allergy/AdvReac Type Severity Reaction Status Date / Time Influenza Virus Vaccines Allergy Severe SHORTNESS Verified 04/06/21 07:10 OF BREATH morphine Allergy Intermediate "I FELT Unverified 04/06/21 07:10 FUNNY IN THE HEAD" Home Medications Medication Instructions Recorded Confirmed Type acetaminophen 500 mg tablet 500 mg PO Q6H PRN 03/27/19 04/06/21 History citalopram 20 mg tablet (Celexa) 20 mg PO QAM 03/27/19 04/06/21 History lamotrigine 50 mg tablet,extended 50 mg PO QAM 03/27/19 04/06/21 History release 24 hr clonazepam 1 mg tablet (Klonopin) 1 mg PO BID 06/13/19 04/06/21 History fluticasone 500 mcg-salmeterol 50 1 puffs INH BID #3 inhaler 11/28/19 04/06/21 Rx mcg/dose blistr powdr for inhalation (Advair Diskus) nebulizers #1 ea 01/23/20 01/07/21 Rx diltiazem HCl 300 mg capsule,24 300 mg PO QAM #90 cap 01/30/21 04/06/21 Rx hr,extended release (Tiadylt ER) alfuzosin 10 mg tablet,extended 10 mg PO QAM 04/06/21 04/06/21 History release 24 hr (Uroxatral) gabapentin 100 mg capsule 100 mg PO HS 04/06/21 04/06/21 History losartan 25 mg tablet 25 mg PO PM 04/06/21 04/06/21 History omeprazole 20 mg capsule,delayed 20 mg PO QDL 04/06/21 04/06/21 History release Patient History Medical History Abdominal pain JANNETH (acute kidney injury) Anemia Anxiety Anxiety BPH (benign prostatic hyperplasia) COPD (chronic obstructive pulmonary disease) COPD exacerbation COPD with acute exacerbation Depression Depression Fall Fall Fall against object Head pain Headache Headache High prostate specific antigen (PSA) Hypokalemia Hypokalemia Laceration of right ear Localized swelling of both lower legs Mood disorder 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 Pericardial effusion Pneumonia Pneumonia PTSD (post-traumatic stress disorder) Pulmonary embolism (01/22/14) Pulmonary embolism Right lower lobe pneumonia Sepsis Sleep apnea Suicidal ideation Supratherapeutic INR UTI (urinary tract infection) Surgical History History of cardiac catheterization S/P tonsillectomy Family History Other Lung disease Social History Smoking Status: Former smoker Second Hand Exposure: No; Hx Alcohol Use: Yes Hx Substance Use: No Preferred Language: Pashto Communication Ability: Effective Emulsion Operator Required: No Beliefs That Will Affect Care: None Current Living Situation: Spouse Feels Safe at Home: Yes Assistive Devices: None Review of Systems Review of Systems: Unobtainable due to cognitive status Physical Exam Physical Exam: VITAL SIGNS - Vital signs and nursing notes were reviewed. GENERAL - 70-year-old male appearing older than his stated age who is in moderate distress. SKIN - Without rashes. Midline abdominal incision clean, dry, and intact. HEAD - NC/AT. EYES - PERRL with EOMI bilaterally. Sclera anicteric. EARS - No deformities of external structures noted on gross examination bilaterally. NOSE - Midline and without cyanosis. No epistaxis or purulent drainage noted. MOUTH/OROPHARYNX - Without perioral cyanosis. Buccal mucosa pink and moist. NECK - Neck with FROM. No nuchal rigidity. LUNGS -tachypneic with accessory muscle use. Patient moving little to no air with decreased respiratory sounds bilaterally. Faint wheezes noted on end expiration. CARDIAC - RRR with S1/S2. No murmur, rubs, or gallops appreciated. ABDOMEN - Abdominal contour flat. Bowel sounds decreased throughout. Midline incision clean, dry, and intact. EXTREMITIES - No clubbing or peripheral cyanosis. No pretibial edema present. +3/5 radial and dorsalis pedis pulses palpated throughout. +5/5 strength noted in UE/LE bilaterally. NEUROLOGIC - No focal neurological deficits noted. Patient agitated post anesthesia. Responded well to IV Fentanyl and Precedex gtts. Results & Data Results & Data ([facility]) Vital Signs (Past 12 Hours) Vital Signs Temp Pulse Resp BP Pulse Ox 04/07/21 18:48 37.1 C 101 H 25 H 185/97 H 93 04/07/21 15:16 93 H 175/99 H 04/07/21 14:49 36.9 C 88 22 197/104 H 99 04/07/21 11:20 86 22 97 Coding Level of Care Code Critical Care 1st 30-74 mins Diagnoses Admitted to intensive care unit Z78.9 SBO (small bowel obstruction) K56.609 Incarcerated ventral hernia K43.6 Acute on chronic respiratory failure with hypoxia and hypercapnia J96.21; J96.22 S/P repair of ventral hernia Z98.890; Z87.19 Time Spent (min) 58
[2021-04-07] MEDS ORDERED: ALBUT/IPRATROP 3MG/0.5MG NEB 3 ML VIAL NEB ONE (21:28)
[2021-04-07 21:29] LABS: iSTAT Arterial Blood Gas HCO3 32 meg/L (19-24); iSTAT Arterial Blood Gas pCO2 81 mmHg (35-46); iSTAT Arterial Blood Gas pH 7.21 (7.35-7.45); iSTAT Arterial Blood Gas pO2 132 mmHg (80-95); iSTAT Carbon Dioxide 35 mmol/L (24-31); iSTAT Site Art Line
[2021-04-07] MEDS: DEXMEDETOMIDINE HCL 200 MCG in SODIUM CHLORIDE 0.9% 48 ML IV SCH (21:32)
[2021-04-07 21:50] LABS: Basophils # (auto) 0.02 K/uL (0-0.2); Basophils % (auto) 0.1 %; Hematocrit (blood only) 37.9 % (42-52); Hemoglobin 12.2 g/dL (14.0-18.0); Immature Granulocytes % (auto) 0.4 %; Lymphocytes # (auto) 1.77 K/uL (1.2-3.4); Lymphocytes % (auto) 7.9 %; Mean Corpuscular Hemoglobin 30.7 pg (25-34); Mean Corpuscular Hgb Conc 32.2 g/dL (32-36); Mean Corpuscular Volume 95.2 fL (80-100); Mean Platelet Volume 8.7 fL (7.4-10.4); Monocytes # (auto) 1.07 K/uL (0.11-0.59); Monocytes % (auto) 4.8 %; Neutrophils # (auto) 19.35 K/uL (1.4-6.5); Neutrophils % (auto) 86.8 %; Platelet Count 429 K/uL (130-400); RDW Standard Deviation 48.8 fL (36.4-46.3); Red Blood Count 3.98 M/uL (4.7-6.1); White Blood Count 22.31 K/uL (4.8-10.8)
--- NOTE | 2021-04-07 21:54 | Anesthesiology Progress Note ---
Date of Service April 07, 2021 Anesthesia Post Procedure Vital Signs Vital Signs: Temp Pulse Pulse Resp BP BP Pulse Ox 04/07/21 21:39 117 H 28 H 98 04/07/21 21:33 115 H 27 H 156/78 H 96 04/07/21 21:23 128 H 32 H 187/85 H 96 04/07/21 21:18 130 H 24 95 04/07/21 21:13 36.7 C 114 H 229/198 H 96 04/07/21 18:48 37.1 C 101 H 25 H 185/97 H 93 04/07/21 15:16 93 H 175/99 H 04/07/21 14:49 36.9 C 88 22 197/104 H 99 04/07/21 11:20 86 22 97 04/07/21 09:08 24 98 04/07/21 08:46 86 168/87 H 04/07/21 07:47 36.6 C 85 18 176/97 H 98 04/06/21 23:29 36.7 C 74 20 155/82 H 97 Pain Intensity Right Abdomen: Pain Intensity: 6 Transfer of Care Handoff Completed per policy Notes Mental Status: alert / awake / arousable and participated in evaluation Patient Amnestic to Procedure: Yes Nausea / Vomiting: adequately controlled Pain: improving with treatment Airway Patency, RR, SpO2: see Notes below BP & HR: stable & adequate and see Notes below Hydration State: stable & adequate and see Notes below Anesthetic Complications: no major complications apparent Notes: Pt is critical;w/severe COPD;Pt was placed on BiPap in ICU; Strong possibility of Reintubating pt and placing on mech. vent
[2021-04-07 22:08] LABS: BUN Creatinine Ratio 23.2 (10-20); Calcium 7.8 mg/dl (8.5-10.1); Creatinine Clr Calc Pharmacy 76.9 ml/min; Est GFR (African American) 103.3 ml/min; Est GFR (Non-African American) 89.1 ml/min
[2021-04-07 22:09] LABS: Phosphorus 3.3 mg/dl (2.5-4.9)
[2021-04-07 22:41] LABS: iSTAT Arterial Blood Gas HCO3 29 meg/L (19-24); iSTAT Arterial Blood Gas pCO2 57 mmHg (35-46); iSTAT Arterial Blood Gas pH 7.32 (7.35-7.45); iSTAT Arterial Blood Gas pO2 152 mmHg (80-95); iSTAT Carbon Dioxide 31 mmol/L (24-31); iSTAT FiO2 30 %; iSTAT Site Art Line
[2021-04-08] MEDS ORDERED: fentaNYL citrate 100 MCG/2 ML VIAL IV PRN (00:06)
[2021-04-08] MEDS: PIPERACILLIN/TAZOBACTAM 3.375 GM in DEXTROSE 5% 100 ML IV SCH ×2 (00:29→09:19)
--- NOTE | 2021-04-08 01:56 | Operative Report (OR) ---
DATE OF SURGERY: 04/07/2021. PREOPERATIVE DIAGNOSES: Incarcerated ventral hernia, small bowel obstruction. POSTOPERATIVE DIAGNOSES: Incarcerated ventral hernia, small bowel obstruction. OPERATION: Open repair of ventral hernia with mesh. SURGEON: Ai García MD PAINT TESTER: Dr. Shmuel Green. ANESTHESIA: General. ESTIMATED BLOOD LOSS: About 20 mL. FINDINGS: Incarcerated ventral hernia. COMPLICATIONS: None. INDICATIONS FOR THE PROCEDURE: This is a 70-year-old gentleman who was admitted to the hospital for incarcerated ventral hernia and with severe COPD and based on the patient's incarcerated ventral hernia, we recommended to do open repair of ventral hernia with mesh, possible. I did talk to the patient and the patient's about the benefits, risks, and alternate procedures. I indicated the risks may include, but not limited to, such as bleeding, infection, hernia recurrence, seroma, complication related to mesh, myocardial infarction, respiratory failure, DVT, stroke, and even , they understand. The patient signed informed consent and I answered all questions. DETAILS OF PROCEDURE: After identifying the patient and verifying the procedure, we brought in the patient to the OR and put the patient in the supine position on the OR table. The patient received SCDs on bilateral legs to prevent DVT. Also, the patient received 2 grams Ancef IV for prophylactic antibiotic. The patient received general anesthesia without difficulty. The abdomen was prepped and draped in routine sterile fashion. After timeout, we made a midline incision about 5 cm above the umbilicus, the incision length about 10 cm. Then, we dissected the subcutaneous layer and reached the hernia sac and at this moment, we could not completely reduce the hernia contents back to the abdominal cavity, so we mobilized the hernia sac. Then we opened the hernia sac and found the patient had an incarcerated hernia that contained omental fat with partial bowel. Then we reduced the partial bowel and reduced omental sac back to abdominal cavity. At this moment, we resected the hernia sac to send to pathology. Then we measured the hernia, the size about 5 x 5 cm, so I decided to use an 8 cm round mesh to repair the ventral hernia. I used the #1 Ethibond to suture the fascia into the mesh interruptedly and tie the sutures one by one. The mesh seated nicely, no tension. Hemostasis obtained. Then I closed the subcutaneous layer by using 2-0 Vicryl. We reduced the hernia contents back to the abdominal cavity. I believe the patient had the bowel obstruction by the incarcerated ventral hernia, partial bowel, inside the hernia sac. Once we reduced this, the bowel obstruction released. I did not see any dilated bowel at this moment. No ischemic bowel. So again after we closed the subcutaneous layer by using 2-0 Vicryl, then we closed the skin by using staple. Then we put the dressing on. The patient tolerated the procedure well. All instrument, needle, sponge counts were correct x2 at the end of the case. The patient was transferred to recovery room in stable condition. The specimen was sent to pathology. After the procedure, I did talk to the patient and about the OR finding and the procedure we did, she understands. Dr. Greenwebfed offset press operatoroptometry assistant, his roles are exposure and attraction. Job ID: [id number] [facility]
[2021-04-08] MEDS: SODIUM CHLORIDE 0.9% 1,000 ML IV SCH ×2 (03:31→11:45)
[2021-04-08 04:42] LABS: Basophils # (auto) 0.02 K/uL (0-0.2); Basophils % (auto) 0.1 %; Hematocrit (blood only) 33.6 % (42-52); Immature Granulocytes # (auto) 0.06 K/uL (0.00-0.02); Immature Granulocytes % (auto) 0.3 %; Lymphocytes # (auto) 1.41 K/uL (1.2-3.4); Lymphocytes % (auto) 7.3 %; Mean Corpuscular Hemoglobin 30.8 pg (25-34); Mean Corpuscular Hgb Conc 32.7 g/dL (32-36); Mean Corpuscular Volume 94.1 fL (80-100); Mean Platelet Volume 8.4 fL (7.4-10.4); Monocytes # (auto) 2.32 K/uL (0.11-0.59); Monocytes % (auto) 11.9 %; Neutrophils # (auto) 15.61 K/uL (1.4-6.5); Neutrophils % (auto) 80.4 %; Platelet Count 303 K/uL (130-400); RDW Coefficient of Variation 14.1 % (11.5-14.5); RDW Standard Deviation 48.5 fL (36.4-46.3); Red Blood Count 3.57 M/uL (4.7-6.1); White Blood Count 19.42 K/uL (4.8-10.8)
[2021-04-08 05:05] LABS: Albumin Level 2.7 gm/dl (3.4-5.0); BUN Creatinine Ratio 29.8 (10-20); Bilirubin Direct 0.1 mg/dl (0-0.2); Calcium 7.4 mg/dl (8.5-10.1); Creatinine Clr Calc Pharmacy 81.6 ml/min; Est GFR (African American) 105.8 ml/min; Est GFR (Non-African American) 91.3 ml/min; Potassium 3.7 mmol/L (3.5-5.1)
[2021-04-08 05:09] LABS: Bilirubin,Total 0.5 mg/dl (0.2-1); Total Protein 6.2 gm/dl (6.4-8.2)
[2021-04-08 05:09] LABS: iSTAT Arterial Blood Gas HCO3 31 meg/L (19-24); iSTAT Arterial Blood Gas pCO2 52 mmHg (35-46); iSTAT Arterial Blood Gas pH 7.39 (7.35-7.45); iSTAT Arterial Blood Gas pO2 92 mmHg (80-95); iSTAT Carbon Dioxide 33 mmol/L (24-31); iSTAT FiO2 30 %; iSTAT Site Art Line
[2021-04-08] MEDS ORDERED: POTASSIUM PHOS 3 MMOL/1 ML INFUSION IV STA (05:26)
[2021-04-08] MEDS ORDERED: POTASSIUM PHOSPHATE 15 MMOL in SODIUM CHLORIDE 0.9% 250 ML IV ONE (06:00)
--- NOTE | 2021-04-08 07:12 | Hospitalist Progress Note ---
Date of Service April 08, 2021 Assessment & Plan (1) Acute on chronic respiratory failure with hypoxia and hypercapnia: Plan: Pt developed acute delirium and respiratory distress moving to the icu for hypercarbic respiratory failure and hypertensive urgency, the blood pressure was controlled after his delirium was improved with pain control and Precedex. Pt has stabilized with improved ventialtion but still with some need to control anxiety and pain will continue nebulized support and return of scheduled anxiolytics avoiding steroids at this point trying not to negatively influence wound healing (2) Small bowel obstruction: Plan: Ventral abdominal hernia containing small bowel and transverse colon. There is small bowel obstruction with distention of upstream jejunum up to 4 cm. No e vidence of strangulation at this time, however, the mucosa of the herniated small bowel is thickened. Fluid-filled and distended stomach. Hiatal hernia containing fluid and fluid in the distal esophagus. NG tube to low intermittent suction Famotidine 20 mg IV every 12 hours Zofran 4 mg IV every 6 hours As needed Zosyn 4.5 g IV every 8 hours Acetaminophen 1000 mg IV every 8 hours as needed mild pain or fever Dilaudid 0.5 mg IV every 3 hours as needed severe pain Dilaudid 0.25 mg IV every 3 hours as needed moderate pain Patient was offered surgery on the he refused at that time when to think about it some more he was warned that this could create postoperative complications including a colostomy. The patient then agreed to go to surgery on the however surgery was pushed back to the urgent cases is still pending surgical correction at the time of this note (3) Ventral incisional hernia: Plan: See above (4) BPH (benign prostatic hyperplasia): Plan: cannot urinate will place simons until post op period (5) Depression: Plan: Depression/anxiety/PTSD-pt feeling very stressed with this hospital stay citalopram and clonazepam with small sip and clamp ngt afterward Lorazepam 0.5 mg IV every 6 hours as needed (6) PTSD (post-traumatic stress disorder): Plan: Patient's PTSD is affecting his decision to proceed toward surgery especially as Dr. Cristina told him his lung disease make surgery risky however this is risk of life not proceeding to surgery for this high-grade bowel obstruction. Continuing antianxiety medications as listed in the depression category (7) Anxiety: Plan: See above (8) COPD (chronic obstructive pulmonary disease): Plan: Continue Trelegy Ellipta DuoNebs every 2 hours as needed Patient's pulmonary disease places him at moderate surgical risk observation and telemetry would be recommended post procedure as this is a significant morbidity associated with high-grade bowel obstruction (9) Pulmonary embolism: Plan: Not actively on anticoagulation as an outpatient SCDs. Admission and Anticipated Discharge Date Admission Date: April 06, 2021 Subjective pt is slightly bewildered, still with some abdominal pain and seems anxious, ngt in place in morning but removed by surgical team and will downgrade to pcu status but keep close due to respiratory monitoring Review of Systems Review of Systems: Mild distress, moderate anxiety and fatigue no headache, no visual changes no speech or swallowing issues no chest pain, pressure or palpitations Baseline shortness of breath, cough or wheezes Protuberant abdomen with pain no nausea or vomiting has had constipation no dysuria, hematuria or frequency no focal joint pain or swelling no back pain, CVA tenderness or radicular pain no bruising, bleeding or rashes no focal signs of weakness or numbness or altered sensation Planes of anxiety and PTSD Physical Exam Physical Exam: The patient appeared in mild distress Vital signs as documented. Head exam is normocephalic atraumatic Neck is without JVD, thyromegaly, or carotid bruits. Lungs are with poor air movement no loss of air sounds Cardiac exam, Rhythm is regular.. No murmurs, rubs or gallops. Abdominal exam reveals hypoactive bowel sounds, hernia is now reduced, painful Extremities are nonedematous and both pedal pulses are present Neurologic exam is alert and oriented, no focal loss of strength or sensation Skin is without bruises or rashes Psychologically is with anxiety, maybe bzd wihtdrawal Results & Data Results & Data ([facility]) Vital Signs (Past 12 Hours) Vital Signs Temp Pulse Pulse Resp BP Pulse Ox 04/08/21 04:57 102 H 26 H 95 04/08/21 04:11 98 H 148/72 H 96 04/08/21 03:11 100 H 140/82 95 04/08/21 02:11 98.6 F 105 H 141/88 H 96 04/08/21 01:11 94 H 118/68 96 04/08/21 00:52 94 H 26 H 96 04/08/21 00:11 95 H 118/71 96 04/07/21 23:11 99 H 119/65 95 04/07/21 22:30 105 H 27 H 98 04/07/21 22:01 105 H 108/84 98 04/07/21 21:39 117 H 28 H 98 04/07/21 21:33 115 H 27 H 156/78 H 96 04/07/21 21:23 128 H 32 H 187/85 H 96 04/07/21 21:18 130 H 24 95 04/07/21 21:13 98.1 F 114 H 229/198 H 96 PG Care Time/CCT Total # of Minutes Spent Total Time Spent with Patient: Total time spent is greater than 50% in coordination of care (as documented) at patient's floor/unit and/or counseling patient: Coding Level of Care Code 09987 Subseq Hosp Care Lvl 3 Diagnoses Small bowel obstruction K56.609 Ventral incisional hernia K43.2 BPH (benign prostatic hyperplasia) N40.0 Depression F32.9 PTSD (post-traumatic stress disorder) F43.10 Anxiety F41.9 COPD (chronic obstructive pulmonary disease) J44.9 Pulmonary embolism I26.99 Acute on chronic respiratory failure with hypoxia and hypercapnia J96.21; J96.22
[2021-04-08] MEDS ORDERED: HYDROmorphone INJ 0.5 MG/0.5 ML SYR IV STA (08:03)
--- NOTE | 2021-04-08 08:12 | Critical Care Progress Note ---
Date of Service April 08, 2021 Assessment & Plan (1) Admitted to intensive care unit: Plan: Jamison Guadalupe is a 70yo male with PMHx significant for COPD (uses 2.5L/min supplemental O2 via NC continuously) who was admitted to [facility] on 04/06 with small bowel obstruction from incarcerated ventral hernia. He underwent open ventral hernia repair with mesh placement on 04/07 and was admitted to the ICU for close monitoring from a pulmonary standpoint given severe COPD and high risk for requiring reintubation. NEURO - CAM ICU: NEGATIVE Patient was initially agitated due to anxiety s/p intubation in addition to chronic COPD. Agitation/anxiety resolved with Fentanyl x1 and Precedex gtt. - Precedex gtt weaned overnight - continue home anxiolytic regimen CARDIO - Mild hypertension/tachycardia likely due to anxiety as well as post-operative pain. - Continue home medications as tolerated. - Continue PRN pain medications - Monitor on telemetry. RESPIRATORY - Acute on chronic hypercapnic respiratory failure likely due to mild COPD exacerbation immediately after being extubated post-operatively, with anxiety/agitation contributing. - ABG significantly improved this morning: pH 7.21 --> 7.39, pCO2 81 --> 52 - Respiratory status appears back at baseline after DuoNeb x1, Fentanyl x1, and Precedex gtt overnight, currently satting well on 3-4L oxymask (uses 2.5L NC at home) - Continue with pulmonary toilet to hopefully help to prevent reintubation - continue supplemental oxygen as tolerated to maintain SpO2 88-92% - Pulmonology consulted - appreciate recs GI/NUTRITION - Status post open ventral hernia repair for SBO 2/2 incarcerated bowel. - Surgery on board - appreciate recs - NGT to LIS. - KUB today showing NGT in lower mediastinum; will advance ~10cm - NPO currently. - can have sips with meds RENAL/LYTES - No significant electrolyte derangements. IVF: NSS decreased to 80cc/hr - Slade in place - Strict I&Os. ENDO - No h/o DM or Thyroid Disease. - BSGs per unit protocol. ISS --> gtt per unit policy. HEME - Stable H&H - Monitor for s/s bleeding s/p extensive surgery. ID - No concerns for infection at this time. - discontinued Zosyn LINES/IV ACCESS - - PIVs x2, Slade, NGT intact DVT PROPHYLAXIS - Hold s/p surgery. SCDs GI ppx - Famotidine Disposition - consider possible downgrade out of ICU later today Thank you for allowing us to be part of this patient's care. Please refer to Dr. Sandoval's documentation for any further recommendations. (2) SBO (small bowel obstruction): (3) S/P repair of ventral hernia: (4) Incarcerated ventral hernia: (5) Acute on chronic respiratory failure with hypoxia and hypercapnia: (6) COPD (chronic obstructive pulmonary disease): Admission and Anticipated Discharge Date Admission Date: April 06, 2021 Supervising Physician Co-Signing Physician Notes Dr. Hopper was resident physician during care of patient. I separately evaluated patient for herrera portions of the history and the exam. I was present during the critical portion of medical decision making, and I discussed the case with the resident. I generally agree with the findings and plan. Stopping antibiotics, okay for pills with sips today checking KUB does confirm position of NG tube would consider possible downgrade later today. PT OT out of bed to chair today Subjective Patient became agitated/anxious overnight with severe hypertension and tachycardia, which improved after DuoNeb x1, BiPAP, Fentanyl x1, and Precedex gtt. This morning the patient reports moderate abdominal pain associated with hernia repair and also endorses moderate anxiety. However he is otherwise well. Review of Systems Review of Systems: Denies fever/chills, chest pain, SOB, cough, N/V, rash. Physical Exam Physical Exam: General: A&Ox3. NAD. Cooperative. HEENT: Atraumatic, normocephalic. Oxymask in place. Pulm: CTAB A&P. -wheezes, -rales, -rhonchi. Symmetrical chest rise. No increase work of breathing. No respiratory distress. Cardiac: RRR, -mrg. Radial pulses intact and symmetrical. Abdominal: soft, non-tender, non-distended, hypoactive BS, dressing c/d/i Skin: warm, dry, no rash Results & Data Results & Data ([facility]) Vital Signs (Past 12 Hours) Vital Signs Temp Pulse Pulse Resp BP Pulse Ox 04/08/21 04:57 102 H 26 H 95 04/08/21 04:11 98 H 148/72 H 96 04/08/21 03:11 100 H 140/82 95 04/08/21 02:11 37 C 105 H 141/88 H 96 04/08/21 01:11 94 H 118/68 96 04/08/21 00:52 94 H 26 H 96 04/08/21 00:11 95 H 118/71 96 04/07/21 23:11 99 H 119/65 95 04/07/21 22:30 105 H 27 H 98 04/07/21 22:01 105 H 108/84 98 04/07/21 21:39 117 H 28 H 98 04/07/21 21:33 115 H 27 H 156/78 H 96 04/07/21 21:23 128 H 32 H 187/85 H 96 04/07/21 21:18 130 H 24 95 04/07/21 21:13 36.7 C 114 H 229/198 H 96 Resident Activity Tracking Resident Involvement: Resident Care Provided Care Provided: [facility]
[2021-04-08] MEDS: FAMOTIDINE 20 MG in SYRINGE 3 ML IV SCH ×2 (09:20→19:51)
[2021-04-08] MEDS: CITALOPRAM 20 MG TAB PO SCH ×2 (09:21→11:45)
[2021-04-08] MEDS: FLUTICASONE FUROATE 100MCG 14 PUFFS/INHALER INH SCH (09:21)
[2021-04-08] MEDS: clonazePAM 1 MG TAB PO SCH ×3 (09:21→19:51)
[2021-04-08] MEDS: UMECLIDINIUM/VILANTEROL 62.5/25MCG 7 PUFFS/INHALER INH SCH (09:21)
[2021-04-08] MEDS: dilTIAZem HCl 60 MG TAB PO SCH ×4 (09:21→19:51)
--- NOTE | 2021-04-08 09:21 | XRay Report ---
SINGLE VIEW CHEST CLINICAL HISTORY: Aspiration. FINDINGS: 2 AP, portable, semierect chest radiographs are compared to study dated 04/06/2021 and corre lated with chest CT dated 04/14/2018. The examination is degraded by portable technique and patient ro tation. A hiatal hernia is suggested. An enteric tube is in place. The tip likely projects at the lev el of the diaphragm. The cardiomediastinal silhouette is unremarkable noting atherosclerotic calcific ation of the thoracic aorta. There is volume loss in the right lung. Advanced emphysema and chronic i nterstitial thickening is similar to previous. Reason airspace opacities are similar to previous. Bul lous change is noted. No large pleural effusion or pneumothorax is seen. Atelectasis is suggested in the right middle lobe. The skeletal structures are osteopenic. There are healed bilateral rib fractur es. IMPRESSION: 1. The tip of the enteric tube projects at the level of the diaphragm, possibly within a hiatal herni a. 2. Advanced emphysema. 3. Dependent airspace opacities likely represent scarring/atelectasis. Clinical correlation required. 4. Suspect right middle lobe atelectasis. ACT 112: Negative or not required by law. Electronically signed by: Rubio Barry M.D. 04/08/2021 9:19 AM
--- NOTE | 2021-04-08 10:03 | Billing Data ---
Date of Service April 08, 2021 Coding Level of Care Code 76626 Subseq Obs Care Lvl 3
[2021-04-08] MEDS ORDERED: PIPERACILL/TAZOBAC CONSULT ACTIVE PRN (10:38)
[2021-04-08] MEDS ORDERED: PIPERACILLIN/TAZOBACTAM 3.375 GM in DEXTROSE 5% 100 ML IV SCH (10:45)
--- NOTE | 2021-04-08 10:46 | XRay Report ---
KUB CLINICAL HISTORY: NG placement COMPARISON STUDY: CT of the abdomen and pelvis April 06, 2021. FINDINGS: Tip of nasogastric tube projects over the lower mediastinum, likely within a hiatal hernia. Skin fina from interval laparotomy are noted. Several loops of mildly dilated small bowel measure up to 3.5 cm in caliber. IMPRESSION: 1. Tip of nasogastric tube projects over the lower mediastinum, likely within a hiatal hernia. If pos sible, the tube should be advanced approximately 10 cm. 2. Several loops of mildly dilated small bowel. ACT 112: Negative or not required by law. Electronically signed by: Nicolás Wilcox M.D. 04/08/2021 10:45 AM
[2021-04-08] MEDS: DEXMEDETOMIDINE HCL 200 MCG in SODIUM CHLORIDE 0.9% 48 ML IV SCH (11:45)
--- NOTE | 2021-04-08 11:45 | Progress Note ---
Date of Service April 08, 2021 Assessment & Plan (1) Small bowel obstruction: Plan: pt is a 70 year-old male who was admitted to hospital for SBO, ventral hernia, COPD, plan,base on H/P, CT scan finding, ventral hernia caused SBO, I recommend to do open repair ventral hernia possible mesh, D/W benefits, risks and alternatives of the surgery, the risk - infection, bleeding, injury other organs, bowel obstruction, hernia recurrence, seroma, complications relate to mesh, respiratory failure, VT, DVT, stroke, and , pt wants to think about the surgery, pt dose not want to do surgery today, I also indicate that, delay surgery, could cause bowel ischemia or perforation and , pt understood, pt wants to make decision tomorrow, would start DVT prophylaxis with heparin subcu today, but hold it after MN, NPO now, high WBC, continue IV antibiotic, NG tube, repeat labs in morning, will F/U, (2) Ventral hernia: Plan: pt is a 70 year-old male who was admitted to hospital for SBO, ventral hernia, COPD, plan, I recommend to do open repair ventral hernia possible mesh, D/W benefits, risks and alternatives of the surgery, the risk - infection, bleeding, injury other organs, bowel obstruction, hernia recurrence, seroma, complications relate to mesh, respiratory failure, VT, DVT, stroke, and , pt wants to think about the surgery, pt dose not want to do surgery today, I also indicate that, delay surgery, could cause bowel ischemia or perforation and , pt understood, pt wants to make decision tomorrow, would start DVT prophylaxis with heparin subcu today, but hold it after MN, NPO now, will F/U, 04/07/2021 6:52PM I reviewed anesthesiologist and pulmonary doctor note, I recommend to do open repair ventral hernia possible mesh,D/W benefits, risks and alternatives of the surgery, the risks - infection, bleeding, injury other organs, hernia recurrence, complications relate to mesh, respiratory failure, DVT, VT, stroke, , pt and his understood, they agree with the surgery, pt signed informed consent, I answered all questions, 04/08/2021 11:51AM, F/U S/P open repair ventral hernia, POD 1, doing better, pulled NG tube, clear diet, stop IV fluid, will F/U, Admission and Anticipated Discharge Date Admission Date: April 06, 2021 Supervising Physician Co-Signing Physician Notes Dr. Hopper was resident physician during care of patient. I separately evaluated patient for herrera portions of the history and the exam. I was present during the critical portion of medical decision making, and I discussed the case with the resident. I generally agree with the findings and plan. Stopping antibiotics, okay for pills with sips today checking KUB does confirm position of NG tube would consider possible downgrade later today. PT OT out of bed to chair today Subjective Patient became agitated/anxious overnight with severe hypertension and tachycardia, which improved after DuoNeb x1, BiPAP, Fentanyl x1, and Precedex gtt. This morning the patient reports moderate abdominal pain associated with hernia repair and also endorses moderate anxiety. However he is otherwise well. F/U S/P open repair ventral hernia with mesh, POD 1, on 4L /min O2, stable, no significant abdominal pain, NG tube 400ml, pulled this morning, Physical Exam Constitutional: WD/WN, vitals as above Eyes: PERRL, conjunctivae normal, anicteric sclerae Neck: trachea midline, no thyromegaly Respiratory: Auscultation: + diminished lung sounds Cardiovascular: RRR, no murmur, no edema Gastrointestinal (Abdomen): soft, some tenderness at incision site, no rebound pain, the incision intact, BS + Musculoskeletal: no cyanosis or clubbing, extremities motor strength 5/5 Neurologic: patellar DTR's 2+ bilat, sensation intact Psychiatric: A+Ox3, euthymic affect Results & Data ([facility]) Vital Signs (Past 12 Hours) Vital Signs Temp Pulse Resp BP Pulse Ox 04/08/21 04:57 102 H 26 H 95 04/08/21 04:11 98 H 148/72 H 96 04/08/21 03:11 100 H 140/82 95 04/08/21 02:11 37 C 105 H 141/88 H 96 04/08/21 01:11 94 H 118/68 96 04/08/21 00:52 94 H 26 H 96 04/08/21 00:11 95 H 118/71 96 Laboratory Results Abnormal lab results 04/07/21 04/07/21 04/07/21 Range/Units 21:14 21:38 21:38 WBC 22.31 H (4.8-10.8) K/uL RBC 3.98 L (4.7-6.1) M/uL Hgb 12.2 L (14.0-18.0) g/dL Hct 37.9 L (42-52) % RDW Std Deviation 48.8 H (36.4-46.3) fL Plt Count 429 H (130-400) K/uL Neut # (Auto) 19.35 H (1.4-6.5) K/uL Vilas # (Auto) 1.07 H (0.11-0.59) K/uL Immature Gran # (Auto) 0.10 H (0.00-0.02) K/uL POC pH 7.21 L (7.35-7.45) POC pCO2 81 H (35-46) mmHg POC pO2 132 H (80-95) mmHg POC HCO3 32 H (19-24) yobani/L POC Total CO2 35 H (24-31) mmol/L POC Base Excess 4.0 H (-9-1.8) yobani/L POC ABG O2 Sat 98.0 H (90-95) % Chloride (98-107) mmol/L BUN 20 H (7-18) mg/dl BUN/Creatinine Ratio 23.2 H (10-20) Glucose 128 H (70-99) mg/dl Calcium 7.8 L (8.5-10.1) mg/dl Phosphorus (2.5-4.9) mg/dl Total Protein (6.4-8.2) gm/dl Albumin (3.4-5.0) gm/dl 04/07/21 04/08/21 04/08/21 Range/Units 22:27 04:31 04:31 WBC 19.42 H (4.8-10.8) K/uL RBC 3.57 L (4.7-6.1) M/uL Hgb 11.0 L (14.0-18.0) g/dL Hct 33.6 L (42-52) % RDW Std Deviation 48.5 H (36.4-46.3) fL Plt Count (130-400) K/uL Neut # (Auto) 15.61 H (1.4-6.5) K/uL Vilas # (Auto) 2.32 H (0.11-0.59) K/uL Immature Gran # (Auto) 0.06 H (0.00-0.02) K/uL POC pH 7.32 L (7.35-7.45) POC pCO2 57 H (35-46) mmHg POC pO2 152 H (80-95) mmHg POC HCO3 29 H (19-24) yobani/L POC Total CO2 (24-31) mmol/L POC Base Excess 3.0 H (-9-1.8) yobani/L POC ABG O2 Sat 99.0 H (90-95) % Chloride 108 H (98-107) mmol/L BUN 24 H (7-18) mg/dl BUN/Creatinine Ratio 29.8 H (10-20) Glucose 104 H (70-99) mg/dl Calcium 7.4 L (8.5-10.1) mg/dl Phosphorus 2.0 L D (2.5-4.9) mg/dl Total Protein 6.2 L (6.4-8.2) gm/dl Albumin 2.7 L (3.4-5.0) gm/dl 04/08/21 Range/Units 04:55 WBC (4.8-10.8) K/uL RBC (4.7-6.1) M/uL Hgb (14.0-18.0) g/dL Hct (42-52) % RDW Std Deviation (36.4-46.3) fL Plt Count (130-400) K/uL Neut # (Auto) (1.4-6.5) K/uL Vilas # (Auto) (0.11-0.59) K/uL Immature Gran # (Auto) (0.00-0.02) K/uL POC pH (7.35-7.45) POC pCO2 52 H (35-46) mmHg POC pO2 (80-95) mmHg POC HCO3 31 H (19-24) yobani/L POC Total CO2 33 H (24-31) mmol/L POC Base Excess 6.0 H (-9-1.8) yobani/L POC ABG O2 Sat 97.0 H (90-95) % Chloride (98-107) mmol/L BUN (7-18) mg/dl BUN/Creatinine Ratio (10-20) Glucose (70-99) mg/dl Calcium (8.5-10.1) mg/dl Phosphorus (2.5-4.9) mg/dl Total Protein (6.4-8.2) gm/dl Albumin (3.4-5.0) gm/dl
[2021-04-08] MEDS: HYDROmorphone INJ 0.5 MG/0.5 ML SYR IV PRN ×3 (13:55→22:52)
--- NOTE | 2021-04-08 16:06 | Pulmonology Progress Note ---
Date of Service April 08, 2021 Assessment & Plan (1) Acute on chronic respiratory failure with hypoxia and hypercapnia: (2) COPD (chronic obstructive pulmonary disease): (3) COPD exacerbation: Plan: --Acute on chronic hypercapnic hypoxic respiratory failure Multifactorial Would avoid steroids given the patient recently had surgery Patient is not wheezing today --COPD with emphysema Continue with inhaled bronchodilators Continue with Anoro and Arnuity Recommend patient to be on Trelegy on discharge Would recommend PFTs to be done as an outpatient. Plan: Recommend keeping the patient's oxygen saturation between 80-92% BiPAP nightly and as needed shortness of breath Would also recommend the patient to be on BiPAP he is getting [id number] pain medication as it will suppress respiratory drive. Plan was discussed with RN in the ICU Please note the above document was generated using voice recognition software. It may contain grammatical, syntax or spelling errors.Any formal questions or concerns about the content, text or information contained within the body of t his dictation should be directly addressed to the provider for clarification. Admission and Anticipated Discharge Date Admission Date: April 06, 2021 Subjective Patient seen and examined at bedside. No acute distress, no adverse events overnight Patient is s/p OR 04/07/2021. He is extubated. Was on facemask 5 L at time of examination saturating 97% I went down to 2 L which is his baseline Does complain of abdominal pain. Breathing is better than yesterday. Denies any chest pain He does have NGT Review of Systems Review of Systems: All systems reviewed & are unremarkable except as noted in Subjective Physical Exam Physical Exam: Constitutional: No acute distress HEENT: EOMI, PERRLA, positive NGT Respiratory system: Decreased air entry bilaterally, no rhonchi, positive mild crackles bilateral lower lobes, no wheeze CVS: S1-S2 positive, no murmurs or gallops Abdomen: Soft, mild tenderness, no rebound, dressing in place, decreased bowel sounds x4 Extremities: +2 pulses bilaterally radialis/ dorsalis pedis, no cyanosis, no edema Neuro: Awake alert oriented x3 Psych: Normal mood and affect G/U: Positive Slade Skin: no rashes, warm and dry Lymphatic: no cervical or axillary lymphadenopathy Results & Data Results & Data ([facility]) Vital Signs (Past 12 Hours) Vital Signs Temp Pulse Resp BP Pulse Ox 04/08/21 12:24 106 H 22 171/85 H 95 04/08/21 11:57 110 H 22 180/124 H 94 04/08/21 11:11 102 H 163/92 H 97 04/08/21 10:11 106 H 169/88 H 97 04/08/21 09:52 108 H 170/98 H 94 04/08/21 09:11 109 H 157/100 H 95 04/08/21 08:11 37.0 C 102 H 142/86 H 97 04/08/21 07:11 96 H 114/77 98 04/08/21 04:57 102 H 26 H 95 04/08/21 04:11 98 H 148/72 H 96 04/08/21 04:31 04/08/21 04:31 PG Care Time/CCT Total # of Minutes Spent Total Time Spent with Patient: Total time spent is greater than 50% in coordination of care (as documented) at patient's floor/unit and/or counseling patient: C[place] [address] Subseq Hosp Care Lvl 3 Patient Type Established Diagnoses Acute on chronic respiratory failure with hypoxia and hypercapnia J96.21; J96.22 COPD (chronic obstructive pulmonary disease) J44.9 COPD exacerbation J44.1
[2021-04-09] MEDS: oxyCODONE/ACETAMINOPHEN 5mg/325mg TAB PO PRN ×4 (00:52→21:36)
[2021-04-09 04:57] LABS: Basophils # (auto) 0.03 K/uL (0-0.2); Basophils % (auto) 0.2 %; Eosinophils # (auto) 0.11 K/uL (0-0.5); Eosinophils % (auto) 0.7 %; Hematocrit (blood only) 34.6 % (42-52); Hemoglobin 11.1 g/dL (14.0-18.0); Immature Granulocytes # (auto) 0.03 K/uL (0.00-0.02); Immature Granulocytes % (auto) 0.2 %; Lymphocytes # (auto) 1.64 K/uL (1.2-3.4); Lymphocytes % (auto) 9.8 %; Mean Corpuscular Hemoglobin 31.2 pg (25-34); Mean Corpuscular Hgb Conc 32.1 g/dL (32-36); Mean Corpuscular Volume 97.2 fL (80-100); Mean Platelet Volume 8.7 fL (7.4-10.4); Monocytes # (auto) 2.54 K/uL (0.11-0.59); Monocytes % (auto) 15.1 %; Neutrophils # (auto) 12.43 K/uL (1.4-6.5); Platelet Count 376 K/uL (130-400); RDW Coefficient of Variation 14.1 % (11.5-14.5); RDW Standard Deviation 50.8 fL (36.4-46.3); Red Blood Count 3.56 M/uL (4.7-6.1); White Blood Count 16.78 K/uL (4.8-10.8)
[2021-04-09 05:13] LABS: BUN Creatinine Ratio 29.3 (10-20); Creatinine Clr Calc Pharmacy 80.6 ml/min; Est GFR (African American) 105.3 ml/min; Est GFR (Non-African American) 90.9 ml/min; Magnesium 2.2 mg/dl (1.8-2.4); Phosphorus 1.6 mg/dl (2.5-4.9); Potassium 3.8 mmol/L (3.5-5.1)
[2021-04-09] MEDS: HYDROmorphone INJ 0.5 MG/0.5 ML SYR IV PRN (06:08)
[2021-04-09] MEDS ORDERED: POTASSIUM PHOS 3 MMOL/1 ML INFUSION IV STA (08:06)
--- NOTE | 2021-04-09 08:06 | Pulmonology Progress Note ---
Date of Service April 09, 2021 Assessment & Plan (1) Acute on chronic respiratory failure with hypoxia and hypercapnia: (2) COPD (chronic obstructive pulmonary disease): (3) COPD exacerbation: Plan: --Acute on chronic hypercapnic hypoxic respiratory failure Multifactorial Secondary to pain from her hernia shallow breaths from the pain Underlying severe COPD also playing a role. C/w inhaled bronchodilators --COPD with emphysema Continue with inhaled bronchodilators Continue with Anoro and Arnuity Recommend patient to be on Trelegy on discharge Would recommend PFTs to be done as an outpatient. --S/p Ex lap for hernia repair 04/07/21 Plan: In/Out: +ve 3.2 L Start duonebs. If patient is still wheezing will give solumedrol one dose . Recommend keeping the patient's oxygen saturation between 80-92% BiPAP nightly and as needed shortness of breath I would repeat an ABG today to see if the patient is hypercapnic. The patient hypercapnic patient is going to benefit from AVAPS. Patient states that he is not able to tolerate the BiPAP mask. I will give a try one more time tonight to see if he is able to tolerate it. I did explain to him the importance of using the BiPAP especially in a patient who has severe chronic hypercapnic hypoxic respiratory failure due to underlying severe COPD. Please note the above document was generated using voice recognition software. It may contain grammatical, syntax or spelling errors.Any formal questions or concerns about the content, text or information contained within the body of this dictation should be directly addressed to the provider for clarification. Admission and Anticipated Discharge Date Admission Date: April 06, 2021 Subjective Patient seen and examined at bedside. NAD, MILVIA overnight. Denies any chest pain. No SAUCEDO, no N or V. NGT removed. Tolerating diet. Denies any N or V. No bowel movement Afebrile. Patient was not able to tolerate BiPAP stating it's too much pressure. Review of Systems Review of Systems: All systems reviewed & are unremarkable except as noted in Subjective Physical Exam Physical Exam: Constitutional: No acute distress HEENT: EOMI, PERRLA Respiratory system: Decreased air entry bilaterally, no rhonchi, positive mild crackles bilateral lower lobes, positive wheezing bilaterally CVS: S1-S2 positive, no murmurs or gallops Abdomen: Soft, non tender, no rebound, dressing in place, decreased bowel sounds x4 Extremities: +2 pulses bilaterally radialis/ dorsalis pedis, no cyanosis, no edema Neuro: Awake alert oriented x3 Psych: Normal mood and affect G/U: Positive Slade Skin: no rashes, warm and dry Lymphatic: no cervical or axillary lymphadenopathy Results & Data Results & Data ([facility] [place]) Vital Signs (Past 12 Hours) Vital Signs Temp Pulse Resp BP Pulse Ox 04/09/21 03:57 36.7 C 92 H 24 158/90 H 95 04/08/21 23:58 36.7 C 87 25 H 149/83 H 98 04/09/21 04:21 04/09/21 04:21 PG Care Time/CCT Total # of Minutes Spent Total Time Spent with Patient: Total time spent is greater than 50% in coordination of care (as documented) at patient's floor/unit and/or counseling patient: [place] [address] Subseq Hosp Care Lvl 3 Patient Type Established Diagnoses Acute on chronic respiratory failure with hypoxia and hypercapnia J96.21; J96.22 COPD (chronic obstructive pulmonary disease) J44.9 COPD exacerbation J44.1
[2021-04-09 08:22] LABS: Base Excess ABG 5.5 mEq/L (-9-1.8); HCO3 ABG 33 mmol/L (19-24); Oxygen Saturation ABG 94.7 % (90-95); PCO2 ABG 64 mmHg (35-46); PO2 ABG 75 mmHg (80-95); pH ABG 7.33 (7.35-7.45)
[2021-04-09 08:26] LABS: Allen Test Pos (Pos)
[2021-04-09] MEDS ORDERED: FUROSEMIDE 20 MG in SYRINGE 0 ML IV ONE (08:30)
[2021-04-09] MEDS ORDERED: POTASSIUM PHOSPHATE 21 MMOL in SODIUM CHLORIDE 0.9% 500 ML IV ONE (08:45)
[2021-04-09] MEDS: CITALOPRAM 20 MG TAB PO SCH (09:09)
[2021-04-09] MEDS: dilTIAZem HCl 60 MG TAB PO SCH ×3 (09:09→21:15)
[2021-04-09] MEDS: FLUTICASONE FUROATE 100MCG 14 PUFFS/INHALER INH SCH (09:10)
[2021-04-09] MEDS: UMECLIDINIUM/VILANTEROL 62.5/25MCG 7 PUFFS/INHALER INH SCH (09:10)
[2021-04-09] MEDS: clonazePAM 1 MG TAB PO SCH ×2 (09:11→21:16)
[2021-04-09] MEDS: FAMOTIDINE 20 MG in SYRINGE 3 ML IV SCH ×2 (09:12→21:21)
[2021-04-09] MEDS: ALBUT/IPRATROP 3MG/0.5MG NEB 3 ML VIAL NEB PRN (09:28)
[2021-04-09] MEDS ORDERED: PIPERACILL/TAZOBAC CONSULT ACTIVE PRN (11:41)
--- NOTE | 2021-04-09 11:48 | Progress Note ---
Date of Service April 09, 2021 Assessment & Plan (1) Small bowel obstruction: Plan: pt is a 70 year-old male who was admitted to hospital for SBO, ventral hernia, COPD, plan,base on H/P, CT scan finding, ventral hernia caused SBO, I recommend to do open repair ventral hernia possible mesh, D/W benefits, risks and alternatives of the surgery, the risk - infection, bleeding, injury other organs, bowel obstruction, hernia recurrence, seroma, complications relate to mesh, respiratory failure, UT, DVT, stroke, and , pt wants to think about the surgery, pt dose not want to do surgery today, I also indicate that, delay surgery, could cause bowel ischemia or perforation and , pt understood, pt wants to make decision tomorrow, would start DVT prophylaxis with heparin subcu today, but hold it after MN, NPO now, high WBC, continue IV antibiotic, NG tube, repeat labs in morning, will F/U, (2) Ventral hernia: Plan: pt is a 70 year-old male who was admitted to hospital for SBO, ventral hernia, COPD, plan, I recommend to do open repair ventral hernia possible mesh, D/W benefits, risks and alternatives of the surgery, the risk - infection, bleeding, injury other organs, bowel obstruction, hernia recurrence, seroma, complications relate to mesh, respiratory failure, UT, DVT, stroke, and , pt wants to think about the surgery, pt dose not want to do surgery today, I also indicate that, delay surgery, could cause bowel ischemia or perforation and , pt understood, pt wants to make decision tomorrow, would start DVT prophylaxis with heparin subcu today, but hold it after MN, NPO now, will F/U, 04/07/2021 6:52PM I reviewed anesthesiologist and pulmonary doctor note, I recommend to do open repair ventral hernia possible mesh,D/W benefits, risks and alternatives of the surgery, the risks - infection, bleeding, injury other organs, hernia recurrence, complications relate to mesh, respiratory failure, DVT, UT, stroke, , pt and his understood, they agree with the surgery, pt signed informed consent, I answered all questions, 04/08/2021 11:51AM, F/U S/P open repair ventral hernia, POD 1, doing better, pulled NG tube, clear diet, stop IV fluid, will F/U, 04/09/2021 11:45 AM, Dr. García F/Portia S/P open repair ventral hernia with mesh, POD 2 doing better, continue lung treatment, WBC 16,000, U/A, CXR to R/O lung infection, start zosyn today, to prevent mesh get infection, will f/U, Admission and Anticipated Discharge Date Admission Date: April 06, 2021 Supervising Physician Co-Signing Physician Notes Dr. Hopper was resident physician during care of patient. I separately evaluated patient for herrera portions of the history and the exam. I was present during the critical portion of medical decision making, and I discussed the case with the resident. I generally agree with the findings and plan. Stopping antibiotics, okay for pills with sips today checking KUB does confirm position of NG tube would consider possible downgrade later today. PT OT out of bed to chair today Subjective Patient seen and examined at bedside. NAD, MILVIA overnight. Denies any chest pain. No SAUCEDO, no N or V. NGT removed. Tolerating diet. Denies any N or V. No bowel movement Afebrile. Patient was not able to tolerate BiPAP stating it's too much pressure. 04/09/2021 11:42AM Dr. García F/Portia S/P open repair ventral hernia with mesh POD 2 pt id doing fine, god control incision pain, no nausea, no vomiting, no fever, but WBC 16,000, Physical Exam Constitutional: WD/WN, vitals as above Eyes: PERRL, conjunctivae normal, anicteric sclerae Neck: trachea midline, no thyromegaly Respiratory: Auscultation: + diminished lung sounds Cardiovascular: RRR, no murmur, no edema Gastrointestinal (Abdomen): soft, mild tenderness at incision site, no rebound pain, BS +, the incision intact, no redness, Musculoskeletal: no cyanosis or clubbing, extremities motor strength 5/5 Neurologic: patellar DTR's 2+ bilat, sensation intact Psychiatric: A+Ox3, euthymic affect Results & Data ([facility]) Vital Signs (Past 12 Hours) Vital Signs Temp Pulse Resp BP Pulse Ox 04/09/21 10:57 102 H 29 H 172/97 H 98 04/09/21 08:57 98 H 25 H 171/94 H 99 04/09/21 06:58 108 H 32 H 142/122 H 95 04/09/21 03:57 36.7 C 92 H 24 158/90 H 95 04/08/21 23:58 36.7 C 87 25 H 149/83 H 98 Laboratory Results Abnormal lab results 04/09/21 04/09/21 04/09/21 Range/Units 04:21 04:21 08:07 WBC 16.78 H (4.8-10.8) K/uL RBC 3.56 L (4.7-6.1) M/uL Hgb 11.1 L (14.0-18.0) g/dL Hct 34.6 L (42-52) % RDW Std Deviation 50.8 H (36.4-46.3) fL Neut # (Auto) 12.43 H (1.4-6.5) K/uL [place] # (Auto) 2.54 H (0.11-0.59) K/uL Immature Gran # (Auto) 0.03 H (0.00-0.02) K/uL ABG pH 7.33 L (7.35-7.45) ABG pCO2 64 H (35-46) mmHg ABG pO2 75 L (80-95) mmHg ABG HCO3 33 H (19-24) mmol/L ABG Base Excess 5.5 H (-9-1.8) mEq/L Carbon Dioxide 37 H (21-32) mmol/L Anion Gap 2.0 L (3-11) BUN 24 H (7-18) mg/dl BUN/Creatinine Ratio 29.3 H (10-20) Calcium 8.0 L (8.5-10.1) mg/dl Phosphorus 1.6 L (2.5-4.9) mg/dl
[2021-04-09] MEDS: lamoTRIgine 25 MG TAB PO SCH (11:55)
[2021-04-09] MEDS ORDERED: PIPERACILLIN/TAZOBACTAM 4.5 GM in DEXTROSE 5% 100 ML IV ONE (12:00)
--- NOTE | 2021-04-09 12:53 | XRay Report ---
XR chest 1V portable HISTORY: 70 years-old Male To R/O lung infection acute shortness of breath COMPARISON: Chest radiograph 04/08/2021, CT abdomen and pelvis 04/06/2021. TECHNIQUE: Portable AP view of the chest FINDINGS: Cardiac silhouette is enlarged. Emphysema with chronic interstitial coarsening. No pneumothorax, larg e pleural effusion or lobar airspace consolidation. Mildly improved aeration of the right lung base w ith mild persistent linear bibasilar densities. Interval removal of the enteric tube. Chronic right-s ided rib fractures. Degenerative changes of the shoulders and spine. IMPRESSION: 1. Emphysema with chronic interstitial coarsening, most pronounced at the level of the lung bases. 2. Mildly improved aeration of the medial right lung base. ACT 112: Negative or not required by law. The above report was generated using voice recognition software. It may contain grammatical, syntax o r spelling errors. Electronically signed by: Sarwat Montes M.D. 04/09/2021 12:52 PM
[2021-04-09 13:40] LABS: Appearance Urine Clear (Clear); Bacteria Urine Automated Negative (Negative); Bilirubin Urine Negative (Negative); Blood Urine 3+ (Negative); Color Urine Orange; Glucose Urine UA Negative (Negative); Ketones Urine 2+ (Negative); Leukocyte Esterase Urine Trace (Negative); Nitrite Urine Negative (Negative); Protein Urine 1+ (Negative); RBC Urine Automated >30 /hpf (0-4); Specific Gravity Urine 1.015 (1.000-1.030); Urobilinogen Urine Negative (Negative); pH Urine 5.5 (4.5-7.5)
[2021-04-09] MEDS: ALBUT/IPRATROP 3MG/0.5MG NEB 3 ML VIAL NEB SCH ×2 (15:17→22:31)
[2021-04-09] MEDS: PIPERACILLIN/TAZOBACTAM 3.375 GM in DEXTROSE 5% 100 ML IV SCH (17:09)
--- NOTE | 2021-04-09 18:59 | Hospitalist Progress Note ---
Date of Service April 09, 2021 Assessment & Plan (1) Acute on chronic respiratory failure with hypoxia and hypercapnia: Plan: Now resolved. Pt developed acute delirium and respiratory distress postoperatively required him to move to the icu for hypercarbic respiratory failure and hypertensive urgency, the blood pressure was controlled after his delirium was improved with pain control and Precedex. Pt has stabilized with improved ventilation will be transferred to the floor now with stable respiratory status will continue nebulized support and return of scheduled anxiolytics avoiding steroids at this point trying not to negatively influence wound healing (2) Small bowel obstruction: Plan: Ventral abdominal hernia containing small bowel and transverse colon. There is small bowel obstruction with distention of upstream jejunum up to 4 cm. No evidence of strangulation at this time, however, the mucosa of the herniated small bowel is thickened. Fluid-filled and distended stomach. Hiatal hernia containing fluid and fluid in the distal esophagus. Patient is allowed liquid oral intake did have flatus no bowel movements NG tube removed by surgery surgery is following and advancing diet Famotidine 20 mg IV every 12 hours Zofran 4 mg IV every 6 hours As needed Zosyn 4.5 g IV every 8 hours Acetaminophen 1000 mg IV every 8 hours as needed mild pain or fever Dilaudid 0.5 mg IV every 3 hours as needed severe pain Dilaudid 0.25 mg IV every 3 hours as needed moderate pain (3) Ventral incisional hernia: Plan: See above (4) BPH (benign prostatic hyperplasia): Plan: cannot urinate will place simons until post op period (5) Depression: Plan: Depression/anxiety/PTSD-pt feeling very stressed with this hospital stay citalopram and clonazepam with small sip and clamp ngt afterward Lorazepam 0.5 mg IV every 6 hours as needed (6) PTSD (post-traumatic stress disorder): Plan: Patient's PTSD is affecting his decision to proceed toward surgery especially as Dr. Cristina told him his lung disease make surgery risky however this is risk of life not proceeding to surgery for this high-grade bowel obstruction. Con tinuing antianxiety medications as listed in the depression category (7) Anxiety: Plan: See above (8) COPD (chronic obstructive pulmonary disease): Plan: Continue Trelegy Ellipta DuoNebs every 2 hours as needed Acute on chronic respiratory failure with hypoxia (9) Pulmonary embolism: Plan: Not actively on anticoagulation as an outpatient SCDs. Admission and Anticipated Discharge Date Admission Date: April 06, 2021 Subjective Patient is doing well still with some abdominal pain difficulty ambulating due to abdominal pain shortness of breath is improved dramatically tolerating liquid oral intake did have flatus but no stool Review of Systems Review of Systems: Mild distress, moderate anxiety and fatigue no headache, no visual changes no speech or swallowing issues no chest pain, pressure or palpitations Baseline shortness of breath, cough or wheezes marked dyspnea on exertion Abdomen now is without hernia it is mildly tender no dysuria, hematuria or frequency no focal joint pain or swelling no back pain, CVA tenderness or radicular pain no bruising, bleeding or rashes no focal signs of weakness or numbness or altered sensation difficulty ambulating due to weakness Planes of anxiety and PTSD Physical Exam Physical Exam: The patient appeared in mild distress Vital signs as documented. Head exam is normocephalic atraumatic Neck is without JVD, thyromegaly, or carotid bruits. Lungs are with poor air movement no loss of air sounds Cardiac exam, Rhythm is regular.. No murmurs, rubs or gallops. Abdominal exam reveals hypoactive bowel sounds, hernia is now reduced, still with mild to moderate pain Extremities are nonedematous and both pedal pulses are present Neurologic exam is alert and oriented, no focal loss of strength or sensation Skin is without bruises or rashes Psychologically is with anxiety, maybe bzd wihtdrawal Results & Data Results & Data ([facility]) Vital Signs (Past 12 Hours) Vital Signs Temp Pulse Pulse Resp BP BP Pulse Ox 04/09/21 15:28 97 H 04/09/21 15:20 86 22 97 04/09/21 15:00 97.9 F 100 H 23 153/82 H 97 04/09/21 14:55 04/09/21 14:36 96 04/09/21 11:58 98.1 F 99 H 14 148/99 H 94 04/09/21 10:57 102 H 29 H 172/97 H 98 04/09/21 09:28 101 H 24 94 04/09/21 09:18 105 H 24 94 04/09/21 08:57 98 H 25 H 171/94 H 99 04/09/21 06:58 108 H 32 H 142/122 H 95 Pulse Ox 04/09/21 15:28 04/09/21 15:20 04/09/21 15:00 04/09/21 14:55 92 04/09/21 14:36 04/09/21 11:58 04/09/21 10:57 04/09/21 09:28 04/09/21 09:18 04/09/21 08:57 04/09/21 06:58 PG Care Time/CCT Total # of Minutes Spent Total Time Spent with Patient: Total time spent is greater than 50% in coordination of care (as documented) at patient's floor/unit and/or counseling patient: Coding Level of Care Code 63038 Subseq Hosp Care Lvl 2 Diagnoses Acute on chronic respiratory failure with hypoxia and hypercapnia J96.21; J96.22 Small bowel obstruction K56.609 Ventral incisional hernia K43.2 BPH (benign prostatic hyperplasia) N40.0 Depression F32.9 PTSD (post-traumatic stress disorder) F43.10 Anxiety F41.9 COPD (chronic obstructive pulmonary disease) J44.9 Pulmonary embolism I26.99
[2021-04-10] MEDS: PIPERACILLIN/TAZOBACTAM 3.375 GM in DEXTROSE 5% 100 ML IV SCH ×3 (01:58→18:07)
[2021-04-10] MEDS: ALBUT/IPRATROP 3MG/0.5MG NEB 3 ML VIAL NEB SCH ×3 (07:03→23:16)
[2021-04-10] MEDS: HYDROmorphone INJ 0.5 MG/0.5 ML SYR IV PRN (07:53)
[2021-04-10] MEDS: FAMOTIDINE 20 MG in SYRINGE 3 ML IV SCH ×2 (08:36→20:30)
[2021-04-10] MEDS: UMECLIDINIUM/VILANTEROL 62.5/25MCG 7 PUFFS/INHALER INH SCH (08:51)
[2021-04-10] MEDS: clonazePAM 1 MG TAB PO SCH ×2 (08:52→20:30)
[2021-04-10] MEDS: CITALOPRAM 20 MG TAB PO SCH (08:52)
[2021-04-10] MEDS: FLUTICASONE FUROATE 100MCG 14 PUFFS/INHALER INH SCH (08:52)
[2021-04-10] MEDS: lamoTRIgine 25 MG TAB PO SCH (08:52)
[2021-04-10] MEDS: dilTIAZem HCl 60 MG TAB PO SCH ×3 (08:52→20:31)
[2021-04-10 09:00] LABS: Basophils # (auto) 0.03 K/uL (0-0.2); Basophils % (auto) 0.2 %; Eosinophils # (auto) 0.32 K/uL (0-0.5); Eosinophils % (auto) 2.1 %; Hematocrit (blood only) 33.9 % (42-52); Hemoglobin 10.9 g/dL (14.0-18.0); Immature Granulocytes # (auto) 0.03 K/uL (0.00-0.02); Immature Granulocytes % (auto) 0.2 %; Lymphocytes # (auto) 1.24 K/uL (1.2-3.4); Mean Corpuscular Hemoglobin 31.4 pg (25-34); Mean Corpuscular Hgb Conc 32.2 g/dL (32-36); Mean Corpuscular Volume 97.7 fL (80-100); Mean Platelet Volume 8.6 fL (7.4-10.4); Monocytes % (auto) 11.6 %; Neutrophils # (auto) 12.11 K/uL (1.4-6.5); Neutrophils % (auto) 77.9 %; Platelet Count 354 K/uL (130-400); RDW Coefficient of Variation 14.4 % (11.5-14.5); RDW Standard Deviation 50.9 fL (36.4-46.3); Red Blood Count 3.47 M/uL (4.7-6.1); White Blood Count 15.53 K/uL (4.8-10.8)
[2021-04-10 09:20] LABS: BUN Creatinine Ratio 24.2 (10-20); Calcium 7.9 mg/dl (8.5-10.1); Creatinine Clr Calc Pharmacy 52.9 ml/min; Est GFR (African American) 68.1 ml/min; Est GFR (Non-African American) 58.8 ml/min; Potassium 3.5 mmol/L (3.5-5.1)
[2021-04-10 09:21] LABS: Phosphorus 1.6 mg/dl (2.5-4.9)
[2021-04-10] MEDS ORDERED: methylPREDNISolone 40 MG in SYRINGE 0 ML IV STA (10:39)
--- NOTE | 2021-04-10 10:42 | Pulmonology Progress Note ---
Date of Service April 10, 2021 Assessment & Plan (1) Acute on chronic respiratory failure with hypoxia and hypercapnia: (2) COPD (chronic obstructive pulmonary disease): (3) COPD exacerbation: Plan: --Acute on chronic hypercapnic hypoxic respiratory failure Multifactorial Secondary to pain from her hernia shallow breaths from the pain Underlying severe COPD also playing a role. C/w inhaled bronchodilators --COPD with emphysema Continue with inhaled bronchodilators Continue with Anoro and Arnuity Recommend patient to be on Trelegy on discharge Would recommend PFTs to be done as an outpatient. --S/p Ex lap for hernia repair 04/07/21 ABG 04/09/2021: 7.33/64/75 on 3 and half liters Due to chronic respiratory failure consequent to COPD, patient now requires a noninvasive home ventilator. Bilevel therapy with and without a rate would be ineffective as patient requires a volume targeted mode. Ventilation is required to decrease work of breathing and improve pulmonary stat us. Interruption of ventilator support would lead to decline of health status. NIMV settings should be AVAPS-AE; Breath rate: auto; Inspiratory time:auto; Sigh: off; Tidal Volume: 350-450, PS min: 4-10 PS max: 12-20; EPAP min: 6-10; EPAP max: 10-16; AVAPS rate: 14 during sleep and as needed Plan: In/Out: -43 mL Patient has been using BiPAP. And I think because of his underlying severe COPD and chronic hypercapnic hypoxic respiratory failure is going to benefit from AVAPS machine. Case management has been consulted. Give 1 dose of Solu-Medrol. Recommend keeping the patient's oxygen saturation between 80-92% BiPAP nightly and as needed shortness of breath Please note the above document was generated using voice recognition software. It may contain grammatical, syntax or spelling errors.Any formal questions or concerns about the content, text or information contained within the body of this dictation should be directly addressed to the provider for clarification. Admission and Anticipated Discharge Date Admission Date: April 06, 2021 Subjective Patient seen and examined at bedside. No acute distress. No episodes overni ght. In the time of examination patient was noted to lethargic. He had just gotten his Dilaudid because of abdominal pain. He was on 4 L saturating well Spoke with the nurse to put the patient on BiPAP while he is somnolent like this. Keep O2 saturation between 80-92% Patient is having flatulence, no movement Review of Systems Review of Systems: All systems reviewed & are unremarkable except as noted in Subjective Physical Exam Physical Exam: Constitutional: No acute distress HEENT: EOMI, PERRLA Respiratory system: Decreased air entry bilaterally, no rhonchi, positive mild crackles bilateral lower lobes, positive wheezing bilaterally CVS: S1-S2 positive, no murmurs or gallops Abdomen: Soft, non tender, no rebound, dressing in place, decreased bowel sounds x4 Extremities: +2 pulses bilaterally radialis/ dorsalis pedis, no cyanosis, no edema Neuro: Awake alert oriented x3 Psych: Normal mood and affect G/U: Positive Slade Skin: no rashes, warm and dry Lymphatic: no cervical or axillary lymphadenopathy Results & Data Results & Data ([facility]) Vital Signs (Past 12 Hours) Vital Signs Temp Pulse Pulse Resp BP Pulse Ox 04/10/21 09:50 84 19 94 04/10/21 08:20 36.4 C L 96 H 22 132/75 97 04/10/21 07:03 67 24 98 04/10/21 05:08 36.5 C 76 18 125/70 94 04/10/21 03:01 15 94 04/10/21 00:00 79 04/09/21 22:58 36.4 C L 78 18 103/64 93 04/10/21 08:42 04/10/21 08:42 PG Care Time/CCT Total # of Minutes Spent Total Time Spent with Patient: Total time spent is greater than 50% in coordination of care (as documented) at patient's floor/unit and/or counseling patient: Coding Level of Care Code 70148 Subseq Hosp Care Lvl 3 Diagnoses Acute on chronic respiratory failure with hypoxia and hypercapnia J96.21; J96.22 COPD (chronic obstructive pulmonary disease) J44.9 COPD exacerbation J44.1
--- NOTE | 2021-04-10 11:53 | Surgery Progress Note ---
Date of Service April 10, 2021 Assessment & Plan (1) Ventral hernia: Plan: POD # 2.5 open incisional hernia repair with mesh -afebrile, vitals stable. - Leukocytosis of 15k (16K yesterday) - adequate urine output, awaiting urine culture Plan: Okay to advance to regular diet Continue PO pain medication as needed, try to limit narcotics given lethargy and severe COPD. Add po Tylenol and Tramadol. Consider IV Tylenol prn Start BID Colace Discontinue Slade catheter Continue IV Zosyn given leukocytosis repeat am labs COPD management per medicine and pulmonology PT/OT scds Dr. Darnell covering this weekend Dr. García has seen and examined pt, agrees with above. (2) Small bowel obstruction: Admission and Anticipated Discharge Date Admission Date: April 06, 2021 Supervising Physician Co-Signing Physician Notes Dr. Hopper was resident physician during care of patient. I separately evaluated patient for herrera portions of the history and the exam. I was present during the critical portion of medical decision making, and I discussed the case with the resident. I generally agree with the findings and plan. Stopping antibiotics, okay for pills with sips today checking KUB does confirm position of NG tube would consider possible downgrade later today. PT OT out of bed to chair today Subjective feeling better minimal abdominal pain no nausea or vomiting, tolerated clear liquids passing gas but no bowel movement Physical Exam Constitutional: WD/WN, vitals as above + frail appearing and cooperative; no acute distress and not ill appearing Eyes: PERRL, conjunctivae normal, anicteric sclerae Neck: trachea midline, no thyromegaly Respiratory: Auscultation: + diminished lung sounds Cardiovascular: RRR, no murmur, no edema Gastrointestinal (Abdomen): Inspection/Auscultation: abdomen normal to inspection and + abdominal surgical incision (clean/dry/intact, no surrounding erythema, fina intact); abdomen not distended Percussion/Palpation: + abdomen tender (mild at incision site) and abdomen soft; no guarding and abdomen not rigid Musculoskeletal: no cyanosis or clubbing, extremities motor strength 5/5 Skin: no rashes, warm and dry Neurologic: patellar DTR's 2+ bilat, sensation intact Psychiatric: A+Ox3, euthymic affect Orientation: alert and oriented x 3 Results & Data ([facility]) Vital Signs (Past 12 Hours) Vital Signs Temp Pulse Pulse Resp BP Pulse Ox 04/10/21 11:11 36.8 C 83 18 117/73 95 04/10/21 09:50 84 19 94 04/10/21 08:20 36.4 C L 96 H 22 132/75 97 04/10/21 08:00 75 04/10/21 07:03 67 24 98 04/10/21 05:08 36.5 C 76 18 125/70 94 04/10/21 03:01 15 94 04/10/21 00:00 79 Laboratory Results 04/10/21 04/10/21 04/09/21 Range/Units 08:42 08:42 12:50 WBC 15.53 H (4.8-10.8) K/uL RBC 3.47 L (4.7-6.1) M/uL Hgb 10.9 L (14.0-18.0) g/dL Hct 33.9 L (42-52) % MCV 97.7 (80-100) fL MCH 31.4 (25-34) pg MCHC 32.2 (32-36) g/dL RDW Std Deviation 50.9 H (36.4-46.3) fL RDW Coeff of [place] 14.4 (11.5-14.5) % Plt Count 354 (130-400) K/uL MPV 8.6 (7.4-10.4) fL Immature Gran % (Auto) 0.2 % Neut % (Auto) 77.9 % Lymph % (Auto) 8.0 % [place] % (Auto) 11.6 % Eos % (Auto) 2.1 % Baso % (Auto) 0.2 % Neut # (Auto) 12.11 H (1.4-6.5) K/uL Lymph # (Auto) 1.24 (1.2-3.4) K/uL [place] # (Auto) 1.80 H (0.11-0.59) K/uL Eos # (Auto) 0.32 (0-0.5) K/uL Baso # (Auto) 0.03 (0-0.2) K/uL Immature Gran # (Auto) 0.03 H (0.00-0.02) K/uL Sodium 141 (136-145) mmol/L Potassium 3.5 (3.5-5.1) mmol/L [place] 102 (98-107) mmol/L Carbon Dioxide 36 H (21-32) mmol/L Anion Gap 3.0 (3-11) BUN 30 H (7-18) mg/dl Creatinine 1.25 D (0.6-1.4) mg/dl Est Cr Clr Drug Dosing 52.9 ml/min Est GFR ( Amer) 68.1 ml/min Est GFR (Non-Af Amer) 58.8 ml/min BUN/Creatinine Ratio 24.2 H (10-20) Glucose 105 H (70-99) mg/dl Calcium 7.9 L (8.5-10.1) mg/dl Phosphorus 1.6 L (2.5-4.9) mg/dl Urine Color [place] Urine Appearance Clear (Clear) Urine pH 5.5 (4.5-7.5) Ur Specific [place] 1.015 (1.000-1.030) Urine Protein 1+ H (Negative) Urine Glucose (UA) Negative (Negative) Urine Ketones 2+ H (Negative) Urine Blood 3+ H (Negative) Urine Nitrite Negative (Negative) Urine Bilirubin Negative (Negative) Urine Urobilinogen Negative (Negative) Ur Leukocyte Esterase Trace H (Negative) Urine WBC (Auto) 10-30 H (0-5) /hpf Urine RBC (Auto) >30 H (0-4) /hpf U Hyaline Cast (Auto) 1-5 (0-5) /lpf U Epithel Cells (Auto) 10-20 H (0-5) /lpf Urine Bacteria (Auto) Negative (Negative)
[2021-04-10] MEDS ORDERED: ACETAMINOPHEN 325 MG TAB PO PRN ×2 (12:02→12:09)
[2021-04-10] MEDS: DOCUSATE SODIUM 100 MG CAP PO SCH ×2 (12:03→20:31)
[2021-04-10] MEDS ORDERED: oxyCODONE/ACETAMINOPHEN 5mg/325mg TAB PO PRN (12:09)
--- NOTE | 2021-04-10 17:42 | Hospitalist Progress Note ---
Date of Service April 10, 2021 Assessment & Plan (1) Acute on chronic respiratory failure with hypoxia and hypercapnia: Plan: Now resolved. Pt developed acute delirium and respiratory distress postoperatively required him to move to the icu for hypercarbic respiratory failure and hypertensive urgency, the blood pressure was controlled after his delirium was improved with pain control and Precedex. Pt has stabilized with improved ventilation will be transferred to the floor now with stable respiratory status will continue nebulized support and return of scheduled anxiolytics avoiding steroids at this point trying not to negatively influence wound healing (2) Small bowel obstruction: Plan: Ventral abdominal hernia containing small bowel and transverse colon. There is small bowel obstruction with distention of upstream jejunum up to 4 cm. No evidence of strangulation at this time, however, the mucosa of the herniated small bowel is thickened. Fluid-filled and distended stomach. Hiatal hernia containing fluid and fluid in the distal esophagus. Patient is allowed liquid oral intake did have flatus no bowel movements NG tube removed by surgery surgery is following and advancing diet Famotidine 20 mg IV every 12 hours Zofran 4 mg IV every 6 hours As needed Zosyn 4.5 g IV every 8 hours Acetaminophen 1000 mg IV every 8 hours as needed mild pain or fever Dilaudid 0.5 mg IV every 3 hours as needed severe pain Dilaudid 0.25 mg IV every 3 hours as needed moderate pain (3) Ventral incisional hernia: Plan: See above (4) BPH (benign prostatic hyperplasia): Plan: cannot urinate will place simons until post op period (5) Depression: Plan: Depression/anxiety/PTSD-pt feeling very stressed with this hospital stay citalopram and clonazepam with small sip and clamp ngt afterward Lorazepam 0.5 mg IV every 6 hours as needed (6) PTSD (post-traumatic stress disorder): Plan: Patient's PTSD is affecting his decision to proceed toward surgery especially as Dr. Cristina told him his lung disease make surgery risky however this is risk of life not proceeding to surgery for this high-grade bowel obstruction. Con tinuing antianxiety medications as listed in the depression category (7) Anxiety: Plan: See above (8) COPD (chronic obstructive pulmonary disease): Plan: Continue Trelegy Ellipta DuoNebs every 2 hours as needed Acute on chronic respiratory failure with hypoxia (9) Pulmonary embolism: Plan: Not actively on anticoagulation as an outpatient SCDs. Admission and Anticipated Discharge Date Admission Date: April 06, 2021 Subjective feeling better minimal abdominal pain no nausea or vomiting, tolerated clear liquids passing gas but no bowel movement Review of Systems Review of Systems: Mild distress, moderate anxiety and fatigue no headache, no visual changes no speech or swallowing issues no chest pain, pressure or palpitations Baseline shortness of breath, cough or wheezes marked dyspnea on exertion Abdomen now is without hernia it is mildly tender no dysuria, hematuria or frequency no focal joint pain or swelling no back pain, CVA tenderness or radicular pain no bruising, bleeding or rashes no focal signs of weakness or numbness or altered sensation difficulty ambulating due to weakness Planes of anxiety and PTSD Physical Exam Physical Exam: The patient appeared in mild distress Vital signs as documented. Head exam is normocephalic atraumatic Neck is without JVD, thyromegaly, or carotid bruits. Lungs are with poor air movement no loss of air sounds Cardiac exam, Rhythm is regular.. No murmurs, rubs or gallops. Abdominal exam reveals hypoactive bowel sounds, hernia repaired , still with mild to moderate pain Extremities are nonedematous and both pedal pulses are present Neurologic exam is alert and oriented, no focal loss of strength or sensation Skin is without bruises or rashes Psychologically is with anxiety, maybe bzd wihtdrawal Results & Data Results & Data ([facility]) Vital Signs (Past 12 Hours) Vital Signs Temp Pulse Pulse Resp BP Pulse Ox 04/10/21 15:23 79 26 H 97 04/10/21 15:18 98.2 F 97 H 20 160/88 H 98 04/10/21 11:11 98.2 F 83 18 117/73 95 04/10/21 09:50 84 19 94 04/10/21 08:20 97.5 F L 96 H 22 132/75 97 04/10/21 08:00 75 04/10/21 07:03 67 24 98 PG Care Time/CCT Total # of Minutes Spent Total Time Spent with Patient: Total time spent is greater than 50% in coordination of care (as documented) at patient's floor/unit and/or counseling patient: Coding Level of Care Code 54903 Subseq Hosp Care Lvl 2 Diagnoses Acute on chronic respiratory failure with hypoxia and hypercapnia J96.21; J96.22 Small bowel obstruction K56.609 Ventral incisional hernia K43.2 BPH (benign prostatic hyperplasia) N40.0 Depression F32.9 PTSD (post-traumatic stress disorder) F43.10 Anxiety F41.9 COPD (chronic obstructive pulmonary disease) J44.9 Pulmonary embolism I26.99
[2021-04-10] MEDS: oxyCODONE/ACETAMINOPHEN 5mg/325mg TAB PO PRN ×2 (18:10→22:27)
[2021-04-10] MEDS: traMADol HCL 50 MG TABLET PO PRN (20:30)
[2021-04-11] MEDS: PIPERACILLIN/TAZOBACTAM 3.375 GM in DEXTROSE 5% 100 ML IV SCH ×4 (01:35→23:59)
[2021-04-11] MEDS: oxyCODONE/ACETAMINOPHEN 5mg/325mg TAB PO PRN ×2 (05:02→15:09)
--- NOTE | 2021-04-11 06:27 | Surgery Progress Note ---
Date of Service April 11, 2021 Assessment & Plan (1) S/P repair of ventral hernia: Plan: Postop day #3 open incisional hernia repair utilizing mesh Continue diet as tolerated Continue antibiotics in the form of Zosyn as patient has a leukocytosis A.m. labs are pending Mobilize as able as above. doing well from our standpoint. rome diet. ok for d/c when ok with primary service. Admission and Anticipated Discharge Date Admission Date: April 06, 2021 Subjective Patient is resting comfortably in bed. He denies any nausea vomiting. He notes his abdominal pain is well controlled since surgery. Notes that he is tolerating solid food. Physical Exam Gastrointestinal (Abdomen): Bowel sounds are hypoactive. Abdomen is noted to be slightly distended. There is minimal pain with palpation. Incision is clean dry and intact. Results & Data ([facility]) Vital Signs (Past 12 Hours) Vital Signs Temp Pulse Pulse Resp BP Pulse Ox 04/11/21 03:27 37.1 C 79 19 148/79 H 99 04/10/21 23:30 36.5 C 76 18 129/79 97 04/10/21 23:19 78 78 18 96 04/10/21 22:19 90 04/10/21 19:37 36.6 C 91 H 21 166/82 H 95 PG Care Time/CCT Total # of Minutes Spent Total Time Spent with Patient: Total time spent is greater than 50% in coordination of care (as documented) at patient's floor/unit and/or counseling patient: Coding Level of Care Code None Diagnoses S/P repair of ventral hernia Z98.890; Z87.19
[2021-04-11] MEDS: ALBUT/IPRATROP 3MG/0.5MG NEB 3 ML VIAL NEB SCH ×3 (07:24→22:34)
[2021-04-11] MEDS ORDERED: POTASSIUM PHOS 3 MMOL/1 ML INFUSION IV STA (07:31)
[2021-04-11] MEDS ORDERED: POTASSIUM PHOSPHATE 15 MMOL in SODIUM CHLORIDE 0.9% 250 ML IV ONE (08:00)
[2021-04-11] MEDS: FAMOTIDINE 20 MG in SYRINGE 3 ML IV SCH ×2 (08:28→20:19)
[2021-04-11] MEDS: DOCUSATE SODIUM 100 MG CAP PO SCH ×2 (09:43→20:19)
[2021-04-11] MEDS: clonazePAM 1 MG TAB PO SCH ×2 (09:43→20:19)
[2021-04-11] MEDS: FLUTICASONE FUROATE 100MCG 14 PUFFS/INHALER INH SCH (09:43)
[2021-04-11] MEDS: dilTIAZem HCl 60 MG TAB PO SCH ×3 (09:43→20:20)
[2021-04-11] MEDS: CITALOPRAM 20 MG TAB PO SCH (09:43)
[2021-04-11] MEDS: lamoTRIgine 25 MG TAB PO SCH (09:44)
[2021-04-11] MEDS: UMECLIDINIUM/VILANTEROL 62.5/25MCG 7 PUFFS/INHALER INH SCH (09:44)
--- NOTE | 2021-04-11 14:21 | Pulmonology Progress Note ---
Date of Service April 11, 2021 Assessment & Plan (1) Acute on chronic respiratory failure with hypoxia and hypercapnia: (2) COPD (chronic obstructive pulmonary disease): (3) COPD exacerbation: Plan: --Acute on chronic hypercapnic hypoxic respiratory failure Multifactorial Secondary to pain from her hernia shallow breaths from the pain Underlying severe COPD also playing a role. C/w inhaled bronchodilators --COPD with emphysema Continue with inhaled bronchodilators Continue with Anoro and Arnuity Recommend patient to be on Trelegy on discharge Would recommend PFTs to be done as an outpatient. --S/p Ex lap for hernia repair 04/07/21 ABG 04/09/2021: 7.33/64/75 on 3 and half liters Due to chronic respiratory failure consequent to COPD, patient now requires a noninvasive home ventilator. Bilevel therapy with and without a rate would be ineffective as patient requires a volume targeted mode. Ventilation is required to decrease work of breathing and improve pulmonary stat us. Interruption of ventilator support would lead to decline of health status. NIMV settings should be AVAPS-AE; Breath rate: auto; Inspiratory time:auto; Sigh: off; Tidal Volume: 350-450, PS min: 4-10 PS max: 12-20; EPAP min: 6-10; EPAP max: 10-16; AVAPS rate: 14 during sleep and as needed Plan: In/Out: Positive 425 Recommend keeping the patient's oxygen saturation between 80-92% BiPAP nightly and as needed shortness of breath Patient clinically improving from pulmonary perspective. Continue with the same treatment Pulmonary will follow peripherally. Call directly with any questions. Please note the above document was generated using voice recognition software. It may contain grammatical, syntax or spelling errors.Any formal questions or concerns about the content, text or information contained within the body of this dictation should be directly addressed to the provider for clarification. Admission and Anticipated Discharge Date Admission Date: April 06, 2021 Subjective Patient seen and examined at bedside. No acute distress, no adverse events overnight. Patient uses BiPAP at night He also has a trilogy machine also waiting for him to go home with Overall he is feeling better. Good appetite. No bowel movement. Has been having flatulence Afebrile. Review of Systems Review of Systems: All systems reviewed & are unremarkable except as noted in Subjective Physical Exam Physical Exam: Constitutional: No acute distress HEENT: EOMI, PERRLA Respiratory system: Decreased air entry bilaterally, no rhonchi, positive mild crackles bilateral lower lobes, no wheezing CVS: S1-S2 positive, no murmurs or gallops Abdomen: Soft, non tender, no rebound, dressing in place, decreased bowel sounds x4 Extremities: +2 pulses bilaterally radialis/ dorsalis pedis, no cyanosis, no edema Neuro: Awake alert oriented x3 Psych: Normal mood and affect G/U: Positive Slade Skin: no rashes, warm and dry Lymphatic: no cervical or axillary lymphadenopathy Results & Data Results & Data ([facility]) Vital Signs (Past 12 Hours) Vital Signs Temp Pulse Pulse Resp BP Pulse Ox 04/11/21 12:06 36.9 C 82 16 161/73 H 98 04/11/21 08:30 36.6 C 87 16 176/82 H 94 04/11/21 08:00 70 04/11/21 07:25 76 17 96 04/11/21 03:27 37.1 C 79 19 148/79 H 99 04/10/21 08:42 04/10/21 08:42 PG Care Time/CCT Total # of Minutes Spent Total Time Spent with Patient: Total time spent is greater than 50% in coordination of care (as documented) at patient's floor/unit and/or counseling patient: Coding Level of Care Code 49687 Subseq Hosp Care Lvl 2 Diagnoses Acute on chronic respiratory failure with hypoxia and hypercapnia J96.21; J96.22 COPD (chronic obstructive pulmonary disease) J44.9 COPD exacerbation J44.1
[2021-04-11] MEDS: traMADol HCL 50 MG TABLET PO PRN (18:12)
--- NOTE | 2021-04-11 18:13 | Hospitalist Progress Note ---
Date of Service April 11, 2021 Assessment & Plan (1) Acute on chronic respiratory failure with hypoxia and hypercapnia: Plan: Now resolved. Pt developed acute delirium and respiratory distress postoperatively required him to move to the icu for hypercarbic respiratory failure and hypertensive urgency, the blood pressure was controlled after his delirium was improved with pain control and Precedex. will have home trilogy and anora and Arnuity will continue nebulized support and return of scheduled anxiolytics avoiding steroids at this point (2) Small bowel obstruction: Plan: Ventral abdominal hernia containing small bowel and transverse colon. There is small bowel obstruction with distention of upstream jejunum up to 4 cm. No evidence of strangulation at this time, however, the mucosa of the herniated small bowel is thickened. Fluid-filled and distended stomach. Hiatal hernia containing fluid and fluid in the distal esophagus. advancing diet did have bowel movement 04/10/21 h2 qi continues (3) Ventral incisional hernia: Plan: surgical repair 04/07/21 (4) BPH (benign prostatic hyperplasia): Plan: will attempt to remove simons (5) Depression: Plan: Depression/anxiety/PTSD-pt feeling very stressed with this hospital stay citalopram and clonazepam with small sip and clamp ngt afterward Lorazepam 0.5 mg IV every 6 hours as needed (6) PTSD (post-traumatic stress disorder): Plan: Patient's PTSD is affecting his decision to proceed toward surgery especially as Dr. Cristina told him his lung disease make surgery risky however this is risk of life not proceeding to surgery for this high-grade bowel obstruction. Continuing antianxiety medications as listed in the depression category (7) Anxiety: Plan: See above (8) COPD (chronic obstructive pulmonary disease): Plan: Continue Trelegy Ellipta DuoNebs every 2 hours as needed Acute on chronic respiratory failure with hypoxia (9) Pulmonary embolism: Plan: Not actively on anticoagulation as an outpatient SCDs. Admission and Anticipated Discharge Date Admission Date: April 06, 2021 Subjective Patient seen and seems to be returning to his prehospital state Patient uses BiPAP at night He also has a trilogy machine also waiting for him to go home with Overall he is feeling better. Good appetite. Review of Systems Review of Systems: Mild distress, moderate anxiety and fatigue no headache, no visual changes no speech or swallowing issues no chest pain, pressure or palpitations Baseline shortness of breath, cough or wheezes marked dyspnea on exertion Abdomen now is without hernia it is mildly tender no dysuria, hematuria or frequency no focal joint pain or swelling no back pain, CVA tenderness or radicular pain no bruising, bleeding or rashes no focal signs of weakness or numbness or altered sensation difficulty ambulating due to weakness Planes of anxiety and PTSD Physical Exam Physical Exam: The patient appeared in mild distress Vital signs as documented. Head exam is normocephalic atraumatic Neck is without JVD, thyromegaly, or carotid bruits. Lungs are with poor air movement no loss of air sounds Cardiac exam, Rhythm is regular.. No murmurs, rubs or gallops. Abdominal exam reveals hypoactive bowel sounds, hernia repaired , still with mild to moderate pain Extremities are nonedematous and both pedal pulses are present Neurologic exam is alert and oriented, no focal loss of strength or sensation Skin is without bruises or rashes Psychologically is with anxiety, maybe bzd wihtdrawal Results & Data Results & Data ([facility]) Vital Signs (Past 12 Hours) Vital Signs Temp Pulse Pulse Resp BP Pulse Ox 04/11/21 16:05 98.8 F 85 16 159/79 H 96 04/11/21 15:36 93 H 04/11/21 15:30 72 20 98 04/11/21 12:06 98.4 F 82 16 161/73 H 98 04/11/21 08:30 97.9 F 87 16 176/82 H 94 04/11/21 08:00 70 04/11/21 07:25 76 17 96 PG Care Time/CCT Total # of Minutes Spent Total Time Spent with Patient: Total time spent is greater than 50% in c oordination of care (as documented) at patient's floor/unit and/or counseling patient: Coding Level of Care Code 61381 Subseq Hosp Care Lvl 2 Diagnoses Acute on chronic respiratory failure with hypoxia and hypercapnia J96.21; J96.22 Small bowel obstruction K56.609 Ventral incisional hernia K43.2 BPH (benign prostatic hyperplasia) N40.0 Depression F32.9 PTSD (post-traumatic stress disorder) F43.10 Anxiety F41.9 COPD (chronic obstructive pulmonary disease) J44.9 Pulmonary embolism I26.99
--- NOTE | 2021-04-12 06:25 | Surgery Progress Note ---
Date of Service April 12, 2021 Assessment & Plan (1) S/P repair of ventral hernia: Plan: Postop day #4 open incisional hernia repair utilizing mesh Patient is currently tolerating solid diet which should continue. Continue Zosyn while in hospital. Continue to mobilize as tolerated Admission and Anticipated Discharge Date Admission Date: April 06, 2021 Subjective Patient is resting in bed. At the present time he denies any abdominal pain. He denies any nausea or vomiting. He notes that he is tolerating solid food without any difficulty. Physical Exam Gastrointestinal (Abdomen): Abdomen is soft and nondistended. There is minimal pain with palpation. His incision is clean dry and intact. Results & Data ([facility]) Vital Signs (Past 12 Hours) Vital Signs Temp Pulse Pulse Resp BP Pulse Ox 04/12/21 03:13 36.6 C 74 20 137/82 96 04/11/21 23:42 67 04/11/21 22:36 87 22 100 04/11/21 22:34 84 22 100 04/11/21 19:05 36.6 C 78 16 141/70 H 96 PG Care Time/CCT Total # of Minutes Spent Total Time Spent with Patient: Total time spent is greater than 50% in coordination of care (as documented) at patient's floor/unit and/or counseling patient: Coding Level of Care Code None Diagnoses S/P repair of ventral hernia Z98.890; Z87.19
[2021-04-12 06:56] LABS: Creatinine Clr Calc Pharmacy 75.1 ml/min; Est GFR (African American) 102.3 ml/min; Est GFR (Non-African American) 88.3 ml/min
[2021-04-12] MEDS: ALBUT/IPRATROP 3MG/0.5MG NEB 3 ML VIAL NEB SCH ×3 (07:11→23:15)
[2021-04-12] MEDS: FAMOTIDINE 20 MG in SYRINGE 3 ML IV SCH ×2 (08:03→20:04)
[2021-04-12] MEDS: PIPERACILLIN/TAZOBACTAM 3.375 GM in DEXTROSE 5% 100 ML IV SCH ×2 (08:04→16:58)
[2021-04-12] MEDS: CITALOPRAM 20 MG TAB PO SCH (08:05)
[2021-04-12] MEDS: dilTIAZem HCl 60 MG TAB PO SCH ×3 (08:06→20:04)
[2021-04-12] MEDS: lamoTRIgine 25 MG TAB PO SCH (08:06)
[2021-04-12] MEDS: DOCUSATE SODIUM 100 MG CAP PO SCH ×2 (08:06→20:04)
[2021-04-12] MEDS: UMECLIDINIUM/VILANTEROL 62.5/25MCG 7 PUFFS/INHALER INH SCH (08:07)
[2021-04-12] MEDS: FLUTICASONE FUROATE 100MCG 14 PUFFS/INHALER INH SCH (08:08)
[2021-04-12] MEDS: clonazePAM 1 MG TAB PO SCH ×2 (08:10→20:04)
[2021-04-12] MEDS: oxyCODONE/ACETAMINOPHEN 5mg/325mg TAB PO PRN ×3 (08:24→19:26)
--- NOTE | 2021-04-12 15:33 | Hospitalist Progress Note ---
Date of Service April 12, 2021 Assessment & Plan (1) Acute on chronic respiratory failure with hypoxia and hypercapnia: Plan: Now resolved. Baseline moderate respirtory distress. Pt developed acute delirium and respiratory distress postoperatively required him to move to the icu for hypercarbic respiratory failure and hypertensive urgency, the blood pressure was controlled after his delirium was improved with pain control and Precedex. will have home trilogy and anora and Arnuity will continue nebulized support and return of scheduled anxiolytics avoiding steroids at this point (2) Small bowel obstruction: Plan: Ventral abdominal hernia containing small bowel and transverse colon. There is small bowel obstruction with distention of upstream jejunum up to 4 cm. No evidence of strangulation at this time, however, the mucosa of the herniated small bowel is thickened. Fluid-filled and distended stomach. Hiatal hernia containing fluid and fluid in the distal esophagus. advancing diet did have bowel movement 04/10/21, none since continue to follow h2 qi continues (3) Ventral incisional hernia: Plan: surgical repair 04/07/21 (4) BPH (benign prostatic hyperplasia): Plan: removed simons 04/11 (5) Depression: Plan: Depression/anxiety/PTSD-pt feeling very stressed with this hospital stay citalopram and clonazepam with small sip and clamp ngt afterward Lorazepam 0.5 mg IV every 6 hours as needed (6) PTSD (post-traumatic stress disorder): Plan: Patient's PTSD is affecting his decision to proceed toward surgery especially as Dr. Cristina told him his lung disease make surgery risky however this is risk of life not proceeding to surgery for this high-grade bowel obstruction. Continuing antianxiety medications as listed in the depression category (7) Anxiety: Plan: See above (8) COPD (chronic obstructive pulmonary disease): Plan: Continue Trelegy Ellipta DuoNebs every 2 hours as needed Acute on chronic respiratory failure with hypoxia (9) Pulmonary embolism: Plan: Not actively on anticoagulation as an outpatient SCDs. (10) Hypertension: Plan: returns to cardizem cd 300 mg on 04/13 Admission and Anticipated Discharge Date Admission Date: April 06, 2021 Subjective Patient is resting in bed. At the present time he denies any abdominal pain. He denies any nausea or vomiting. He notes that he is tolerating solid food but still feels very weak, not having bowel movement 08, given the frailty of his pulmonary status will continue supportive care for another day and be assured pt does not need a supportive environement Review of Systems Review of Systems: Mild distress, moderate anxiety and fatigue no headache, no visual changes no speech or swallowing issues no chest pain, pressure or palpitations Baseline shortness of breath, cough or wheezes marked dyspnea on exertion Abdomen now is without hernia it is mildly tender no dysuria, hematuria or frequency no focal joint pain or swelling no back pain, CVA tenderness or radicular pain no bruising, bleeding or rashes no focal signs of weakness or numbness or altered sensation difficulty ambulating due to weakness Planes of anxiety and PTSD Physical Exam Physical Exam: The patient appeared in mild distress Vital signs as documented. Head exam is normocephalic atraumatic Neck is without JVD, thyromegaly, or carotid bruits. Lungs are with poor air movement no loss of air sounds Cardiac exam, Rhythm is regular.. No murmurs, rubs or gallops. Abdominal exam reveals hypoactive bowel sounds, hernia repaired , still with mild to moderate pain Extremities are nonedematous and both pedal pulses are present Neurologic exam is alert and oriented, no focal loss of strength or sensation Skin is without bruises or rashes Psychologically is with anxiety, maybe bzd wihtdrawal Results & Data Results & Data ([facility]) Vital Signs (Past 12 Hours) Vital Signs Temp Pulse Pulse Resp BP Pulse Ox 04/12/21 15:16 69 04/12/21 15:08 75 20 98 04/12/21 13:37 94 04/12/21 11:46 97.3 F L 80 18 162/91 H 99 04/12/21 07:46 97.7 F 82 16 173/98 H 100 04/12/21 07:11 59 L 20 100 04/12/21 07:08 72 PG Care Time/CCT Total # of Minutes Spent Total Time Spent with Patient: Total time spent is greater than 50% in coordination of care (as documented) at patient's floor/unit and/or counseling patient: Coding Level of Care Code 90479 Subseq Hosp Care Lvl 2 Diagnoses Acute on chronic respiratory failure with hypoxia and hypercapnia J96.21; J96.22 Small bowel obstruction K56.609 Ventral incisional hernia K43.2 BPH (benign prostatic hyperplasia) N40.0 Depression F32.9 PTSD (post-traumatic stress disorder) F43.10 Anxiety F41.9 COPD (chronic obstructive pulmonary disease) J44.9 Pulmonary embolism I26.99 Hypertension I10
[2021-04-13] MEDS: PIPERACILLIN/TAZOBACTAM 3.375 GM in DEXTROSE 5% 100 ML IV SCH ×2 (00:30→08:03)
[2021-04-13] MEDS: oxyCODONE/ACETAMINOPHEN 5mg/325mg TAB PO PRN ×2 (01:04→08:02)
[2021-04-13 07:02] LABS: Creatinine Clr Calc Pharmacy 85.8 ml/min; Est GFR (African American) 108.1 ml/min; Est GFR (Non-African American) 93.2 ml/min
[2021-04-13] MEDS: ALBUT/IPRATROP 3MG/0.5MG NEB 3 ML VIAL NEB SCH ×2 (07:20→15:34)
[2021-04-13] MEDS: clonazePAM 1 MG TAB PO SCH ×2 (08:02→20:05)
[2021-04-13] MEDS: FAMOTIDINE 20 MG in SYRINGE 3 ML IV SCH (08:04)
[2021-04-13] MEDS: dilTIAZem HCL 300 MG CAPCR PO SCH (08:06)
[2021-04-13] MEDS: CITALOPRAM 20 MG TAB PO SCH (08:08)
[2021-04-13] MEDS: DOCUSATE SODIUM 100 MG CAP PO SCH ×2 (08:08→20:05)
[2021-04-13] MEDS: lamoTRIgine 25 MG TAB PO SCH (08:09)
--- NOTE | 2021-04-13 08:25 | Progress Note ---
Date of Service April 13, 2021 Assessment & Plan (1) Ventral hernia: Plan: POD # 2.5 open incisional hernia repair with mesh -afebrile, vitals stable. - Leukocytosis of 15k (16K yesterday) - adequate urine output, awaiting urine culture Plan: Okay to advance to regular diet Continue PO pain medication as needed, try to limit narcotics given lethargy and severe COPD. Add po Tylenol and Tramadol. Consider IV Tylenol prn Start BID Colace Discontinue Slade catheter Continue IV Zosyn given leukocytosis repeat am labs COPD management per medicine and pulmonology PT/OT scds Dr. Darnell covering this weekend Dr. García has seen and examined pt, agrees with above. 04/13/2021 8:21AM doing fine, possible go home tomorrow, he cant take a shower on 04/14/2021 no heavy lifting > 25 LBS for 4 weeks, F/U me 2 weeks, (2) Small bowel obstruction: Admission and Anticipated Discharge Date Admission Date: April 06, 2021 Supervising Physician Co-Signing Physician Notes Dr. Hopper was resident physician during care of patient. I separately evaluated patient for herrera portions of the history and the exam. I was present during the critical portion of medical decision making, and I discussed the case with the resident. I generally agree with the findings and plan. Stopping antibiotics, okay for pills with sips today checking KUB does confirm position of NG tube would consider possible downgrade later today. PT OT out of bed to chair today Subjective Patient is resting in bed. At the present time he denies any abdominal pain. He denies any nausea or vomiting. He notes that he is tolerating solid food but still feels very weak, not having bowel movement 0829, given the frailty of his pulmonary status will continue supportive care for another day and be assured pt does not need a supportive environement 04/13/2021 8:19AM Dr. García doing better, no abdominal pain, no BM yet, no nausea, no vomiting, tolerated diet, no fever, Physical Exam Constitutional: WD/WN, vitals as above + frail appearing and cooperative; no acute distress and not ill appearing Eyes: PERRL, conjunctivae normal, anicteric sclerae Neck: trachea midline, no thyromegaly Respiratory: Auscultation: + diminished lung sounds Cardiovascular: RRR, no murmur, no edema Gastrointestinal (Abdomen): soft, NT, ND incision intact, no redness, BS + Musculoskeletal: no cyanosis or clubbing, extremities motor strength 5/5 Neurologic: patellar DTR's 2+ bilat, sensation intact Psychiatric: A+Ox3, euthymic affect Orientation: alert and oriented x 3 Results & Data ([facility]) Vital Signs (Past 12 Hours) Vital Signs Temp Pulse Pulse Resp BP Pulse Ox 04/13/21 07:35 36.9 C 98 H 16 182/97 H 95 04/13/21 07:20 67 20 100 04/13/21 04:00 36.5 C 86 20 153/83 H 90 04/12/21 23:16 75 22 100 04/12/21 23:00 36.6 C 79 18 152/84 H 98 04/12/21 22:19 72
[2021-04-13] MEDS: FLUTICASONE FUROATE 100MCG 14 PUFFS/INHALER INH SCH (10:20)
[2021-04-13] MEDS: POLYETHYLENE (MIRALAX) 17 GM PACK PO SCH (10:20)
[2021-04-13] MEDS: UMECLIDINIUM/VILANTEROL 62.5/25MCG 7 PUFFS/INHALER INH SCH (10:20)
[2021-04-13] MEDS: traMADol HCL 50 MG TABLET PO PRN (14:45)
--- NOTE | 2021-04-13 16:36 | Hospitalist Progress Note ---
Date of Service April 13, 2021 Assessment & Plan (1) Small bowel obstruction: Plan: S/p open repair of ventral hernia with mesh on 04/[address] García. - Still with slow BM return of function. - Continue docusate BID - Added Miralax on 04/13 - Discharge when feeling better (2) Ventral incisional hernia: Plan: As above (3) Acute on chronic respiratory failure with hypoxia and hypercapnia: Plan: Now resolved. Baseline moderate respiratory distress. - Now has home trilogy. - Continue Anoro and Arnuity maintenance inhalers - DuoNebs PRN (4) COPD (chronic obstructive pulmonary disease): Plan: As above (5) Hypertension: Plan: BP today is 180/90. - Continue home diltiazem 300 mg PO daily (6) BPH (benign prostatic hyperplasia): Plan: No LUTS today. - Removed Slade on 04/11 (7) Depression: Plan: Depression/anxiety/PTSD-pt feeling very stressed with this hospital stay. - Continue home citalopram and clonazepam - Continue lorazepam 0.5 mg IV every 6 hours as needed (8) PTSD (post-traumatic stress disorder): Plan: - As above (9) Anxiety: Plan: See above (10) Pulmonary embolism: Plan: Hx of. Not actively on anticoagulation as an outpatient. - Lovenox 40 mg SQ daily Admission and Anticipated Discharge Date Admission Date: April 06, 2021 Subjective Doing well today. Reports some ongoing stomach pain. Reports no fevers/chills, chest pain, shortness of breath, nausea, or vomiting. Physical Exam Constitutional: WD/WN, vitals as above Eyes: EOM intact bilaterally; no conjunctival abnormality ENMT: external ear and nose normal, oropharynx normal Neck: trachea midline, no thyromegaly normal visual inspection Respiratory: normal respiratory effort, lungs clear to auscultation no respiratory distress Cardiovascular: RRR, no murmur, no edema Gastrointestinal (Abdomen): Inspection/Auscultation: abdomen normal to inspection; abdomen not distended Musculoskeletal: no cyanosis or clubbing, extremities motor strength 5/5 Skin: no rashes, warm and dry Neurologic: moves all extremities and awake Psychiatric: Orientation: alert, oriented to person and cooperative Results & Data Results & Data ([place]) Vital Signs (Past 12 Hours) Vital Signs Temp Pulse Pulse Resp BP Pulse Ox 04/13/21 15:35 69 18 99 04/13/21 15:33 36.5 C 86 20 180/92 H 100 04/13/21 15:14 83 04/13/21 12:00 36.4 C L 98 H 16 175/98 H 95 04/13/21 07:35 36.9 C 98 H 16 182/97 H 95 04/13/21 07:20 67 20 100 04/13/21 06:20 88 PG Care Time/CCT Total # of Minutes Spent Total Time Spent with Patient: Total time spent is greater than 50% in coordination of care (as documented) at patient's floor/unit and/or counseling patient: Coding Level of Care Code 02725 Subseq Hosp Care Lvl 2 Diagnoses Acute on chronic respiratory failure with hypoxia and hypercapnia J96.21; J96.22 Small bowel obstruction K56.609 Ventral incisional hernia K43.2 BPH (benign prostatic hyperplasia) N40.0 Depression F32.9 PTSD (post-traumatic stress disorder) F43.10 Anxiety F41.9 COPD (chronic obstructive pulmonary disease) J44.9 Pulmonary embolism I26.99 Hypertension I10
[2021-04-13] MEDS ORDERED: ENOXAPARIN INJ 40 MG/0.4 ML SYR SQ SCH (17:00)
[2021-04-13] MEDS ORDERED: SENNA 8.6 MG TAB PO SCH (21:00)
[2021-04-13] MEDS: ALBUT/IPRATROP 3MG/0.5MG NEB 3 ML VIAL NEB PRN (22:55)
[2021-04-14] MEDS ORDERED: METOPROLOL TARTRATE 1 MG/ML VIAL IV STA (03:58)
[2021-04-14] MEDS: ALBUT/IPRATROP 3MG/0.5MG NEB 3 ML VIAL NEB SCH ×2 (06:23→07:24)
[2021-04-14 06:32] LABS: Hematocrit (blood only) 32.9 % (42-52); Hemoglobin 10.6 g/dL (14.0-18.0); Mean Corpuscular Hemoglobin 30.8 pg (25-34); Mean Corpuscular Hgb Conc 32.2 g/dL (32-36); Mean Corpuscular Volume 95.6 fL (80-100); Mean Platelet Volume 8.3 fL (7.4-10.4); Platelet Count 420 K/uL (130-400); RDW Standard Deviation 48.4 fL (36.4-46.3); Red Blood Count 3.44 M/uL (4.7-6.1); White Blood Count 11.23 K/uL (4.8-10.8)
[2021-04-14 07:08] LABS: BUN Creatinine Ratio 21.1 (10-20); Calcium 8.9 mg/dl (8.5-10.1); Creatinine Clr Calc Pharmacy 106.6 ml/min; Est GFR (African American) 118.1 ml/min; Est GFR (Non-African American) 101.9 ml/min; Magnesium 2.2 mg/dl (1.8-2.4); Potassium 3.2 mmol/L (3.5-5.1)
[2021-04-14] MEDS: lamoTRIgine 25 MG TAB PO SCH (08:57)
[2021-04-14] MEDS: UMECLIDINIUM/VILANTEROL 62.5/25MCG 7 PUFFS/INHALER INH SCH (08:58)
[2021-04-14] MEDS: clonazePAM 1 MG TAB PO SCH (08:58)
[2021-04-14] MEDS: CITALOPRAM 20 MG TAB PO SCH (08:58)
[2021-04-14] MEDS: POLYETHYLENE (MIRALAX) 17 GM PACK PO SCH (08:58)
[2021-04-14] MEDS: FLUTICASONE FUROATE 100MCG 14 PUFFS/INHALER INH SCH (08:58)
[2021-04-14] MEDS: DOCUSATE SODIUM 100 MG CAP PO SCH (08:58)
[2021-04-14] MEDS: dilTIAZem HCL 300 MG CAPCR PO SCH (08:58)
[2021-04-14] MEDS ORDERED: ENOXAPARIN INJ 40 MG/0.4 ML SYR SQ SCH (09:00)
--- NOTE | 2021-04-14 12:11 | Progress Note ---
Date of Service April 14, 2021 Assessment & Plan (1) Ventral hernia: Plan: POD # 2.5 open incisional hernia repair with mesh -afebrile, vitals stable. - Leukocytosis of 15k (16K yesterday) - adequate urine output, awaiting urine culture Plan: Okay to advance to regular diet Continue PO pain medication as needed, try to limit narcotics given lethargy and severe COPD. Add po Tylenol and Tramadol. Consider IV Tylenol prn Start BID Colace Discontinue Slade catheter Continue IV Zosyn given leukocytosis repeat am labs COPD management per medicine and pulmonology PT/OT scds Dr. Darnell covering this weekend Dr. García has seen and examined pt, agrees with above. 04/13/2021 8:21AM doing fine, possible go home tomorrow, he cant take a shower on 04/14/2021 no heavy lifting > 25 LBS for 4 weeks, F/U me 2 weeks, 04/14/2021 12:09PM doing fine, pt can be discharged home today, , he cant take a shower on 04/14/2021 no heavy lifting > 25 LBS for 4 weeks, F/U me 2 weeks, (2) Small bowel obstruction: Admission and Anticipated Discharge Date Admission Date: April 06, 2021 Supervising Physician Co-Signing Physician Notes Dr. Hopper was resident physician during care of patient. I separately evaluated patient for herrera portions of the history and the exam. I was present during the critical portion of medical decision making, and I discussed the case with the resident. I generally agree with the findings and plan. Stopping antibiotics, okay for pills with sips today checking KUB does confirm position of NG tube would consider possible downgrade later today. PT OT out of bed to chair today Subjective Doing well today. Reports some ongoing stomach pain. Reports no fevers/chills, chest pain, shortness of breath, nausea, or vomiting. 04/14/2021 12:08Pm doing fine, tolerated diet, no abdominal pain, no fever, Physical Exam Constitutional: WD/WN, vitals as above + frail appearing and cooperative; no acute distress and not ill appearing Eyes: PERRL, conjunctivae normal, anicteric sclerae Neck: trachea midline, no thyromegaly Respiratory: Auscultation: + diminished lung sounds Cardiovascular: RRR, no murmur, no edema Gastrointestinal (Abdomen): soft, mild tenderness at incision site, no redness, no rebound pain, BS + Musculoskeletal: no cyanosis or clubbing, extremities motor strength 5/5 Neurologic: patellar DTR's 2+ bilat, sensation intact Psychiatric: A+Ox3, euthymic affect Orientation: alert and oriented x 3 Results & Data ([facility]) Vital Signs (Past 12 Hours) Vital Signs Temp Pulse Pulse Resp BP BP BP 04/14/21 11:34 37.0 C 92 H 20 169/85 H 04/14/21 07:56 37.0 C 88 20 167/98 H 04/14/21 07:25 100 H 20 04/14/21 07:00 86 04/14/21 04:11 97 H 181/95 H 04/14/21 03:07 36.7 C 98 H 18 184/117 H Pulse Ox 04/14/21 11:34 98 04/14/21 07:56 99 04/14/21 07:25 94 04/14/21 07:00 04/14/21 04:11 04/14/21 03:07 99 Laboratory Results Abnormal lab results 04/14/21 04/14/21 Range/Units 06:18 06:18 WBC 11.23 H (4.8-10.8) K/uL RBC 3.44 L (4.7-6.1) M/uL Hgb 10.6 L (14.0-18.0) g/dL Hct 32.9 L (42-52) % RDW Std Deviation 48.4 H (36.4-46.3) fL Plt Count 420 H (130-400) K/uL Potassium 3.2 L (3.5-5.1) mmol/L Carbon Dioxide 36 H (21-32) mmol/L BUN/Creatinine Ratio 21.1 H (10-20) Glucose 69 L (70-99) mg/dl
[2021-04-14] MEDS: oxyCODONE/ACETAMINOPHEN 5mg/325mg TAB PO PRN (12:56)
--- NOTE | 2021-04-14 14:35 | Discharge Summary ---
Date of Service April 14, 2021 Admission HPI Per Admitting Provider The patient is a 70-year-old male with a past medical history including ventral incisional hernia, Monteiro's esophagus, BPH with LUTS, diverticular disease of large intestine, diverticulitis, depression, anxiety, PTSD, sleep apnea, pulmonary embolism, pericardial effusion, severe COPD, MRSA, pneumonia, and UTI. He presents with symptoms as noted above. He reports that these had these symptoms intermittently in the past, but never this severe and never lasting this long. He does report that the pain seems to occasionally go into his back as well. With his severe lung disease, he was told by his air conditioning mechanic industrial that he should not get his ventral hernia repaired unless it became an emergency, as because of his severe lung disease he would have difficulty getting off of the ventilator. Principal Diagnosis Ventral hernia causing small bowel obstruction Discharge Exam Constitutional WD/WN, vitals as above Eyes EOM intact bilaterally; no conjunctival abnormality ENMT external ear and nose normal, oropharynx normal Neck trachea midline, no thyromegaly normal visual inspection Respiratory normal respiratory effort, lungs clear to auscultation no respiratory distress Cardiovascular RRR, no murmur, no edema Gastrointestinal (Abdomen) Inspection/Auscultation: abdomen normal to inspection; abdomen not distended Musculoskeletal no cyanosis or clubbing, extremities motor strength 5/5 Skin no rashes, warm and dry Neurologic moves all extremities and awake Psychiatric Orientation: alert, oriented to person and cooperative Discharge Data Allergies Allergy/AdvReac Type Severity Reaction Status Date / Time Influenza Virus Vaccines Allergy Severe SHORTNESS Verified 04/06/21 07:10 OF BREATH morphine Allergy Intermediate "I FELT Unverified 04/06/21 07:10 FUNNY IN THE HEAD" Consultations 04/06/21 05:50 ED Decision to Admit Stat 04/06/21 09:20 Consult General Surgery Routine 04/06/21 17:40 Consult Anesthesiology Routine 04/06/21 17:44 Consult Pulmonology Routine Procedures Performed Operation Date: 04/07/21 11:55 Actual Procedures p Open Ventral Hernia Repair with Mesh(Not Applicable) - Ai García MD Ordered Studies 04/06/21 03:01 CT abd pelvis IV con only Urgent Hospital Course (1) Small bowel obstruction: S/p open repair of ventral hernia with mesh on 04/[address] García. - Added Miralax on 04/13 - BM by 04/13. Discharge home. Will see Dr. García in 2 weeks. Discharge instructions with the usual limitations after surgery. (2) Ventral incisional hernia: As above (3) Acute on chronic respiratory failure with hypoxia and hypercapnia: Now resolved. Baseline moderate respiratory distress. - Now has home trilogy. Will go home with it. - Continue Anoro and Arnuity maintenance inhalers - DuoNebs PRN (4) COPD (chronic obstructive pulmonary disease): As above (5) Hypertension: BP today is 180/90. - Continue home diltiazem 300 mg PO daily (6) BPH (benign prostatic hyperplasia): Had return of retention on 04/13 and required replacement of his Slade. - Offered to discharge with Slade in place and urology follow up. We do not have his alfuzosin, so he hasn't gotten any alpha-blockers. If he declines, hopefully with return of his medication, he won't retain. (7) Depression: Depression/anxiety/PTSD-pt feeling very stressed with this hospital stay. - Continue home citalopram and clonazepam - Continue lorazepam 0.5 mg IV every 6 hours as needed (8) PTSD (post-traumatic stress disorder): - As above (9) Anxiety: See above (10) Pulmonary embolism: Hx of. Not actively on anticoagulation as an outpatient. - Lovenox 40 mg SQ daily Total Time Total Time Spent Total Time Spent (In Minutes): 35 Discharge Plan Discharge Items Patient Disposition: Home - Home Health Services Reason For Visit: SBO Discharge Diagnosis: Small bowel obstruction Breathing issues from your COPD Activity: Resume your previous activity Non-emergency contact: Primary Care Provider and Compressor Stations Superintendent Call non-emergency contact if: your symptoms worsen, your pain is worsening and your temperature is above 101 Follow-up/Referrals: Shmuel Reid DO [Physician] - 04/24/21 11:00 am () Ai García MD [Physician] - (Dr. García's office will call you with an appointment.) Jaime Rolle PA-C [Primary Care Provider] - (Please call your primary care provider to set up a discharge follow-up appointment within 7-10 days.) Diet: Regular Addtl Attending Provider Instructions: Mr. Guadalupe, You were admitted for a small bowel obstruction caused by your hernia. Dr. García repaired this for you, and you are doing better each day. Your breathing was also an issue, though this is a long-term issue from your COPD. Dr. Haney helped get a machine that will help you breath more easily at home, and this was delivered to the hospital. Dr. García would like to see you in 2 weeks for follow-up. Please see Dr. Haney (or your regular lung doctor/air conditioning mechanic industrial) in 2 weeks to be sure you are doing well. Please call the Urology office to schedule a "voiding trial." You do not need to see any particular provider, just any one that will be able to see you in 1-2 weeks. Addtl [place] Provider Instructions: Post-Surgical ~Discharge Instructions Activity Recommendations: - lifting limitation: (10 pounds for 6 weeks), - exercise/sex/sports limit: (nonstrenuous for 2 weeks), - driving or machine use limit: (none for 1 week or until pain free), - Shower/bathe limit: (may shower) Diet: - Resume previous diet SPECIAL CARE INSTRUCTIONS: - May shower. Let water run over area and pat dry. - Luis A will be removed in office - Call the surgeon's office with any questions or concerns - - (ex. temperature higher than 101 degrees F, excessive bleeding or pain). MEDICATIONS: - Resume previous medications unless instructed otherwise by your surgeon/Doctor. FOLLOW UP VISIT: - If not already scheduled, please call the office to schedule a two week follow-up appointment. Office number Pending Studies at Discharge: No Stand-Alone Forms: My [facility], Smoking Cessation Medications and DC Order Prescriptions: New Anoro Ellipta 62.5-25 mcg/actuation Blister With Device 1 ea inhalation DAILY Qty: 60 RF: 6 Arnuity Ellipta 100 mcg/actuation Blister With Device 1 inh inhalation DAILY Qty: 30 RF: 0 ipratropium-albuterol 0.5 mg-3 mg(2.5 mg base)/3 mL Solution For Nebulization 3 ml NEB Q2H PRN (Reason: shortness of breath) Qty: 90 RF: 0 tramadol 50 mg tablet 50 mg PO TID PRN (Reason: pain) Qty: 10 RF: 0 Continued acetaminophen 500 mg Tablet 500 mg PO Q6H PRN (Reason: Pain) RF: 0 gabapentin 100 mg capsule 100 mg PO HS RF: 0 losartan 25 mg tablet 25 mg PO PM RF: 0 omeprazole 20 mg capsule,delayed release(DR/EC) 20 mg PO QDL RF: 0 alfuzosin [Uroxatral] 10 mg tablet extended release 24 hr 10 mg PO QAM RF: 0 clonazepam 1 mg tablet RF: 0 diltiazem HCl 300 mg capsule,extended release 24hr PO RF: 0 Changed citalopram [Celexa] 10 mg tablet 20 mg PO DAILY Qty: 30 RF: 5 Discontinued fluticasone propion-salmeterol [Advair Diskus] 500-50 mcg/dose blister with device 1 puffs INH BID Qty: 3 RF: 1 yavjhdzvrlm-fafukdnul-aipphscq [Trelegy Ellipta] 100-62.5-25 mcg blister with device 1 inh inhalation QAM RF: 0 Discharge Orders: Discharge Order (Routine); Ordered 04/14/21 Ordered By: Jose Green Admission Data Admit Date/Time: 04/06/21 05:55 Attending Provider: Jose Green Admit Provider: Philip [place] Primary Care Provider: Jaime Rolle Other Providers: Philip [place] ; Ai García ; Zoë Hernandez ; Ary Mayorga ; Kassi Barakat ; Annalee Cano ; Demetria Sun ; Jonathan Walker ; Bakari Marsh ; Alfred Daniels ; Hugh Whitt ; Ligia Whitt ; Blayne Singh ; Jennifer Pizano ; Jabier Norman ; Cali Echavarria ; Devon Arroyo ; Simon Alvarado ; Courtney Ventura ; Barak Larson ; Romana Clemente ; Kristin Larson ; Jamison Mejia ; Arlene Naqvi ; Ever Bowen. ; Livier Arias ; Aaliyah Ring ; Arlene Guillen ; Ana Cardoso ; Rusty Wolf ; Diana Valencia ; Mariella Silverio ; Chana Singleton ; Evelyn Angel ; Humphrey Angel V ; Tian Shah ; Ary Brush ; Zeferino Garcia ; Tiffanie Pryor ; Lalitha Castillo ; Humphrey Ivy ; Mann Ventura ; Fran Garcia ; Nannette Delacruz ; Chana Trevino ; Bryan Renteria ; Mango Alvarado ; Carrie Sosa ; Cortez Roque ; Jessica Regalado ; Aristides Contreras ; Jose Cruz Garduno ; Cortez Harley ; Jonathan Avila Jr ; Nesha Harman ; Rodolfo Falcon ; Rubio Leigh ; Nelson Villatoro ; Daryn Langley ; Estela Mosquera Other Interventions: Discharge Summary Assessment (RN) Last Done: 04/14/21 13:09 Coding Level of Care Code D/C DAY MANAGEMENT >30 MINS Diagnoses Small bowel obstruction K56.609 Ventral incisional hernia K43.2 Acute on chronic respiratory failure with hypoxia and hypercapnia J96.21; J96.22 COPD (chronic obstructive pulmonary disease) J44.9 Hypertension I10 BPH (benign prostatic hyperplasia) N40.0 Depression F32.9 PTSD (post-traumatic stress disorder) F43.10 Anxiety F41.9 Pulmonary embolism I26.99
== END 2021-04-14 14:55 | disposition home health service (06) | DRG 353 ==
LOC: ED 02:40 → 3N 05:55 → SUATTDRO 05:55 → 3N 08:15 → 1E 04-07 21:06 → 2N 04-09 07:14

== ENCOUNTER 2022-12-25 11:54 | Inpatient (IN) ==
[2022-12-25] MEDS ORDERED: SODIUM CHLORIDE 0.9% 1000ML 1,000 ML IV SCH (12:45)
[2022-12-25 12:55] LABS: Basophils # (auto) 0.09 K/uL (0-0.2); Basophils % (auto) 0.7 %; Eosinophils # (auto) 0.05 K/uL (0-0.50); Eosinophils % (auto) 0.4 %; Hematocrit (blood only) 38.4 % (42.0-52.0); Hemoglobin 13.2 g/dl (14.0-18.0); Immature Granulocytes # (auto) 0.04 K/uL (0.01-0.20); Immature Granulocytes % (auto) 0.3 %; Lymphocytes # (auto) 1.43 K/uL (1.2-3.4); Lymphocytes % (auto) 11.8 %; Mean Corpuscular Hemoglobin 30.7 pg (25.0-34.0); Mean Corpuscular Hgb Conc 34.4 g/dL (32.0-36.0); Mean Corpuscular Volume 89.3 fL (80.0-100.0); Mean Platelet Volume 9.5 fL (9.4-12.4); Monocytes # (auto) 0.88 K/uL (0.11-0.59); Monocytes % (auto) 7.2 %; Neutrophils # (auto) 9.66 K/uL (1.40-6.50); Neutrophils % (auto) 79.6 %; Platelet Count 412 K/uL (130-400); RDW Coefficient of Variation 13.2 % (11.5-14.5); RDW Standard Deviation 42.8 fL (36.4-46.3); White Blood Count 12.15 K/ul (4.8-10.8)
--- NOTE | 2022-12-25 12:57 | XRay Report ---
XR chest 1V portable CLINICAL HISTORY: sob TECHNIQUE: Single frontal radiograph of the chest was obtained. Comparison: Comparison is made to chest radiograph 03/03/2022 FINDINGS: No lines and tubes are seen. The cardiomediastinal silhouette is normal. Emphysema is seen. No eviden ce of pleural effusion or pneumothorax. IMPRESSION: No acute abnormalities and in particular no radiographic evidence of pneumonia. Emphysema is seen. ACT 112: Negative or not required by law. Electronically signed by: Fran Aguilar M.D. 12/25/2022 12:56 PM
[2022-12-25 13:22] LABS: Appearance Urine Turbid (Clear); Bacteria Urine Automated 4+ (Negative); Bilirubin Urine Negative (Negative); Blood Urine Trace (Negative); Color Urine Yellow; Glucose Urine UA Negative (Negative); Ketones Urine Negative (Negative); Leukocyte Esterase Urine 3+ (Negative); Nitrite Urine Negative (Negative); Protein Urine 1+ (Negative); RBC Urine Automated 0-4 /hpf (0-4); Specific Gravity Urine 1.016 (1.000-1.030); Urobilinogen Urine Negative (Negative); WBC Urine Automated >30 /hpf (0-5)
[2022-12-25 13:40] LABS: Mucus Urine Present (None Prsent)
--- NOTE | 2022-12-25 13:41 | Emergency Department Note ---
Impression & Plan Anxiety, COPD (chronic obstructive pulmonary disease), Acute UTI (urinary tract infection) ED Provider Note ED Provider Note NAME: DAT DON AGE:72 SEX: Male : 1950 ARRIVES VIA: EMS INFORMANT: Patient ED PROVIDER(s): Haylee Stevenson DO CHIEF COMPLAINT: Increased anxiety, shortness of breath HPI: This is a 72-year-old male who presents emergency department via EMS due to concern for increased anxiety and shortness of breath. Patient does have a history of COPD and does wear oxygen chronically. Patient states he had been trying to adjust his own anxiety medications and has felt increased anxiety as a result. Patient states he will develop "burning" throughout his body with his increased anxiety. Patient states he does not currently see any mental health professionals regarding his anxiety but the medications come from his PCP. Patient states he has not had as good of an appetite and has more difficulty sleeping. Patient feels his increased difficulty with anxiety began several years ago due to the political climate at the time. Patient denies any coming chest pain, abdominal pain, leg swelling, change in bowel or bladder function, recent fevers, chills, or URI symptoms. PAST MEDICAL HISTORY:See Below PAST SURGICAL HISTORY:See Below FAMILY HISTORY:See Below SOCIAL HISTORY:See Below HOME MEDICATIONS:See Below ALLERGIES:See Below VITALS:See Below PHYSICAL EXAMINATION: GENERAL: alert, well appearing, well nourished, no distress, non-toxic EYE EXAM: normal conjunctiva, PERRL and EOM's grossly intact OROPHARYNX: no exudate, no erythema, lips, buccal mucosa, and tongue normal and mucous membranes are moist NECK: supple, no nuchal rigidity, no adenopathy, non-tender LUNGS: Clear to auscultation. Normal chest wall mechanics, no w/r/r HEART: no murmurs, S1 normal and S2 normal ABDOMEN: abdomen soft, non-tender, normo-active bowel sounds, no masses, no rebound or guarding. BACK: Back is symmetrical on inspection and there is no deformity, no midline tenderness, no CVA tenderness. SKIN: no rashes, petechiae, orbruising UPPER EXTREMITIES: upper extremities are grossly normal. FROM, nml pulses b/l. LOWER EXTREMITIES: No pitting edema. FROM, nml pulses b/l. NEURO EXAM: Normal sensorium, cranial nerves II-XII grossly intact, normal speech, no facial droop,nogross weakness of arms, no gross weakness of legs. Gross sensation intact. No ataxia. Vital Signs: reviewed and remarkable Differential Diagnosis: COPD exacerbation, pneumonia, medication withdrawal, medication ADR, URI, ACS, dysrhythmia, JANNETH, electrolyte abnormality, anxiety, as well as others presents MEDICAL DECISION MAKING: [] Consultation(s): 1502: Discussed with Dr. Peoples. He will see in consult as at this time patient unwilling to be placed in a mental health facility for better management of his anxiety and is requesting admission to the hospital. I did begin treatment for the UTI noted on labs, patient had no other systemic symptoms, no evidence of JANNETH. Patient feels his COPD and breathing is well controlled at baseline, and he only has increased difficulty breathing with increasing anxiety. ER Treatment Provided: See below Diagnostics Interpreted By Me: -ECG: Normal sinus at 95, normal axis, normal intervals, nonspecific ST/T wave change -Cardiac Monitoring: An order was placed for continuous cardiac monitoring. The monitor shows a rate of 84 with normal sinus rhythm. -Laboratory studies: As stated above and show below. -Imaging studies: X-ray Chest: A single view study of the chest was reviewed and was negative for cardiomegaly, focal infiltrate, effusion, pulmonary edema, or wide mediastinum. 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 hx nares 2014- PTSD (post-traumatic stress disorder) Pulmonary embolism (01/22/14) HX 2013 Sleep apnea continous O2 at night Ventilator dependent uses portable ventilator at least 4 hours daily; uses home o2 3lpm via nc continuous Surgical History History of cardiac catheterization 30 YRS AGO- NO STENTS- S/P repair of ventral hernia S/P tonsillectomy Family History Other Lung disease Social History Smoking Status: Former smoker Tobacco Type: Cigarettes Age Quit Using Tobacco: 62; Cigarettes Per Day: QUIT >20 YRS AGO; Second Hand Exposure: No; Do You Dip or Chew Tobacco: No; Hx Alcohol Use: No Hx Substance Use: No Preferred Language: Welsh Communication Ability: Effective 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 Beliefs That Will Affect Care: None Current Living Situation: Spouse Feels Safe at Home: Yes Assistive Devices: Oxygen - Continuous Allergies Allergies Allergy/AdvReac Type Severity Reaction Status Date / Time Influenza Virus Vaccines Allergy Severe SHORTNESS Verified 11/17/22 12:15 OF BREATH morphine Allergy Intermediate "I FELT Verified 11/17/22 12:15 FUNNY IN THE HEAD" budesonide AdvReac Intermediate sob Verified 11/17/22 12:15 [From [employer]] formoterol AdvReac Intermediate sob Verified 11/17/22 12:15 [From [employer]] glycopyrrolate AdvReac Intermediate sob Verified 11/17/22 12:15 [From [employer]] Home Meds Home Medications Medication Instructions Recorded Confirmed acetaminophen 500 mg tablet 500 mg PO Q6H PRN Pain 03/27/19 12/25/22 losartan 25 mg tablet 25 mg PO PM 04/06/21 12/25/22 clonazepam 1 mg tablet 0.5 mg PO BID 04/12/21 12/25/22 citalopram 20 mg tablet 20 mg PO QAM 03/03/22 12/25/22 diltiazem HCl 300 mg capsule,24 300 mg PO QAM 03/03/22 12/25/22 hr,extended release (Tiadylt ER) omeprazole 20 mg capsule,delayed 20 mg PO QAM 09/09/22 12/25/22 release finasteride 5 mg tablet 5 mg PO QAM 11/11/22 12/25/22 ipratropium 20 mcg-albuterol 100 0 puff inhalation DAILY 12/25/22 12/25/22 mcg/actuation mist for inhalation (Combivent Respimat) Previous Rx's Medication Instructions Recorded ipratropium 0.5 mg-albuterol 3 mg 3 ml NEB Q2H PRN shortness of 09/16/22 (2.5 mg base)/3 mL nebulization breath #540 mL soln fluticasone fur. 100 mcg-umeclid 1 inh inhalation DAILY #3 Inhalers 10/12/22 62.5 mcg-vilant 25 mcg inhalat.powder (Trelegy Ellipta) Results & Data (ED) Vital Signs Vital Signs - 24 hr 12/25/22 12:02 12/25/22 12:10 12/25/22 12:12 Temperature 36.5 C Temperature Source Oral Pulse Rate 95 H Pulse Rate [Apical] Pulse Rhythm [Apical] Pulse Strength [Apical] Respiratory Rate 21 Respiratory Effort / Characteristics Short of Breath Non-Labored Spontaneous Respiratory Depth Respiratory Pattern Regular Blood Pressure 163/91 H Blood Pressure [Right Arm] Blood Pressure Mean 115 Blood Pressure Mean [Right Arm] Blood Pressure Position Lying Blood Pressure Position [Right Arm] Pulse Oximetry 98 98 Oxygen Delivery Method Nasal Cannula Room Air Nasal Cannula Oxygen Flow Rate 3 3 Sepsis Recent Fever Within 48 Hours No Sepsis New/Unexplained Change in Mental Status N/A Sepsis Action Taken by Nursing No Action Required 12/25/22 12:27 12/25/22 13:30 12/25/22 15:37 Temperature Temperature Source Pulse Rate 92 H Pulse Rate [Apical] 88 84 Pulse Rhythm [Apical] Regular Pulse Strength [Apical] Normal Respiratory Rate 21 20 Respiratory Effort / Characteristics Non-Labored Spontaneous Respiratory Depth Normal Respiratory Pattern Regular Blood Pressure Blood Pressure [Right Arm] 173/104 H 189/84 H Blood Pressure Mean Blood Pressure Mean [Right Arm] 127 119 Blood Pressure Position Blood Pressure Position [Right Arm] Semi-fowlers Semi-fowlers Pulse Oximetry 99 98 Oxygen Delivery Method Nasal Cannula Nasal Cannula Oxygen Flow Rate 3 3 Sepsis Recent Fever Within 48 Hours Sepsis New/Unexplained Change in Mental Status Sepsis Action Taken by Nursing Laboratory Data 12/25/22 12:39 12/25/22 12:39 Lab Results 12/25/22 12/25/22 12/25/22 Range/Units 12:39 12:39 12:39 WBC 12.15 H (4.8-10.8) K/ul RBC 4.30 L (4.70-6.10) M/uL Hgb 13.2 L (14.0-18.0) g/dl Hct 38.4 L (42.0-52.0) % MCV 89.3 (80.0-100.0) fL MCH 30.7 (25.0-34.0) pg MCHC 34.4 (32.0-36.0) g/dL RDW Std Deviation 42.8 (36.4-46.3) fL RDW Coeff of [place] 13.2 (11.5-14.5) % Plt Count 412 H (130-400) K/uL MPV 9.5 (9.4-12.4) fL Immature Gran % (Auto) 0.3 % Neut % (Auto) 79.6 % Lymph % (Auto) 11.8 % [place] % (Auto) 7.2 % Eos % (Auto) 0.4 % Baso % (Auto) 0.7 % Neut # (Auto) 9.66 H (1.40-6.50) K/uL Lymph # (Auto) 1.43 (1.2-3.4) K/uL [place] # (Auto) 0.88 H (0.11-0.59) K/uL Eos # (Auto) 0.05 (0-0.50) K/uL Baso # (Auto) 0.09 (0-0.2) K/uL Immature Gran # (Auto) 0.04 (0.01-0.20) K/uL Sodium Cancelled Potassium Cancelled Chloride Cancelled Carbon Dioxide Cancelled Anion Gap Cancelled BUN Cancelled Creatinine Cancelled Est Cr Clr Drug Dosing Cancelled Est GFR ( Amer) Cancelled Est GFR (Non-Af Amer) Cancelled BUN/Creatinine Ratio Cancelled Glucose Cancelled Calcium Cancelled Magnesium Cancelled Total Bilirubin Cancelled AST Cancelled ALT Cancelled Alkaline Phosphatase Cancelled Troponin I High Sens 12.1 (0-20) pg/ml Total Protein Cancelled Albumin Cancelled Globulin Cancelled Albumin/Globulin Ratio Cancelled Lipase Cancelled TSH 1.868 (0.300-4.500) uIu/ml Urine Color Urine Appearance (Clear) Urine pH (4.5-7.5) Ur Specific [place] (1.000-1.030) Urine Protein (Negative) Urine Glucose (UA) (Negative) Urine Ketones (Negative) Urine Blood (Negative) Urine Nitrite (Negative) Urine Bilirubin (Negative) Urine Urobilinogen (Negative) Ur Leukocyte Esterase (Negative) Urine WBC (Auto) (0-5) /hpf Urine RBC (Auto) (0-4) /hpf U Hyaline Cast (Auto) (0-5) /lpf U Epithel Cells (Auto) (0-5) /lpf Urine Bacteria (Auto) (Negative) Urine Mucus (None Prsent) Urine Yeast Urine Opiates Screen (Neg) Ur Methadone, Qual (Neg) Urine Barbiturates (Neg) Ur Phencyclidine (PCP) (Neg) U Amphetamin/Meth Scrn (Neg) MDMA (Ecstasy) Screen (Neg) U Benzodiazepines Scrn (Neg) Ur Cocaine Metabolite (Neg) U Marijuana (THC) Screen (Neg) SARS-CoV-2 (PCR) (Negative) Influenza Type A (PCR) (Neg) Influenza Type B (PCR) (Neg) RSV (RT-PCR) (Neg) 12/25/22 12/25/22 12/25/22 Range/Units 12:55 12:55 13:32 WBC (4.8-10.8) K/ul RBC (4.70-6.10) M/uL Hgb (14.0-18.0) g/dl Hct (42.0-52.0) % MCV (80.0-100.0) fL MCH (25.0-34.0) pg MCHC (32.0-36.0) g/dL RDW Std Deviation (36.4-46.3) fL RDW Coeff of [place] (11.5-14.5) % Plt Count (130-400) K/uL MPV (9.4-12.4) fL Immature Gran % (Auto) % Neut % (Auto) % Lymph % (Auto) % [place] % (Auto) % Eos % (Auto) % Baso % (Auto) % Neut # (Auto) (1.40-6.50) K/uL Lymph # (Auto) (1.2-3.4) K/uL [place] # (Auto) (0.11-0.59) K/uL Eos # (Auto) (0-0.50) K/uL Baso # (Auto) (0-0.2) K/uL Immature Gran # (Auto) (0.01-0.20) K/uL Sodium 140 Potassium 3.3 L Chloride 103 Carbon Dioxide 31 Anion Gap 6 BUN 21 Creatinine 0.96 Est Cr Clr Drug Dosing 65.2 Est GFR ( Amer) 92.4 Est GFR (Non-Af Amer) 79.8 BUN/Creatinine Ratio 21.9 H Glucose 97 Calcium 8.5 L Magnesium 2.0 Total Bilirubin 0.3 AST 14 ALT 11 Alkaline Phosphatase 80 Troponin I High Sens (0-20) pg/ml Total Protein 6.9 Albumin 3.9 Globulin 3.0 Albumin/Globulin Ratio 1.3 Lipase 11 TSH (0.300-4.500) uIu/ml Urine Color Yellow Urine Appearance Turbid A (Clear) Urine pH 6.0 (4.5-7.5) Ur Specific [place] 1.016 (1.000-1.030) Urine Protein 1+ H (Negative) Urine Glucose (UA) Negative (Negative) Urine Ketones Negative (Negative) Urine Blood Trace H (Negative) Urine Nitrite Negative (Negative) Urine Bilirubin Negative (Negative) Urine Urobilinogen Negative (Negative) Ur Leukocyte Esterase 3+ H (Negative) Urine WBC (Auto) >30 H (0-5) /hpf Urine RBC (Auto) 0-4 (0-4) /hpf U Hyaline Cast (Auto) 1-5 (0-5) /lpf U Epithel Cells (Auto) 10-20 H (0-5) /lpf Urine Bacteria (Auto) 4+ H (Negative) Urine Mucus Present A (None Prsent) Urine Yeast Not Reportable Urine Opiates Screen Neg (Neg) Ur Methadone, Qual Neg (Neg) Urine Barbiturates Neg (Neg) Ur Phencyclidine (PCP) Neg (Neg) U Amphetamin/Meth Scrn Neg (Neg) MDMA (Ecstasy) Screen Neg (Neg) U Benzodiazepines Scrn Neg (Neg) Ur Cocaine Metabolite Neg (Neg) U Marijuana (THC) Screen Neg (Neg) SARS-CoV-2 (PCR) (Negative) Influenza Type A (PCR) (Neg) Influenza Type B (PCR) (Neg) RSV (RT-PCR) (Neg) 12/25/22 Range/Units 14:41 WBC (4.8-10.8) K/ul RBC (4.70-6.10) M/uL Hgb (14.0-18.0) g/dl Hct (42.0-52.0) % MCV (80.0-100.0) fL MCH (25.0-34.0) pg MCHC (32.0-36.0) g/dL RDW Std Deviation (36.4-46.3) fL RDW Coeff of [place] (11.5-14.5) % Plt Count (130-400) K/uL MPV (9.4-12.4) fL Immature Gran % (Auto) % Neut % (Auto) % Lymph % (Auto) % [place] % (Auto) % Eos % (Auto) % Baso % (Auto) % Neut # (Auto) (1.40-6.50) K/uL Lymph # (Auto) (1.2-3.4) K/uL [place] # (Auto) (0.11-0.59) K/uL Eos # (Auto) (0-0.50) K/uL Baso # (Auto) (0-0.2) K/uL Immature Gran # (Auto) (0.01-0.20) K/uL Sodium Potassium Chloride Carbon Dioxide Anion Gap BUN Creatinine Est Cr Clr Drug Dosing Est GFR ( Amer) Est GFR (Non-Af Amer) BUN/Creatinine Ratio Glucose Calcium Magnesium Total Bilirubin AST ALT Alkaline Phosphatase Troponin I High Sens (0-20) pg/ml Total Protein Albumin Globulin Albumin/Globulin Ratio Lipase TSH (0.300-4.500) uIu/ml Urine Color Urine Appearance (Clear) Urine pH (4.5-7.5) Ur Specific [place] (1.000-1.030) Urine Protein (Negative) Urine Glucose (UA) (Negative) Urine Ketones (Negative) Urine Blood (Negative) Urine Nitrite (Negative) Urine Bilirubin (Negative) Urine Urobilinogen (Negative) Ur Leukocyte Esterase (Negative) Urine WBC (Auto) (0-5) /hpf Urine RBC (Auto) (0-4) /hpf U Hyaline Cast (Auto) (0-5) /lpf U Epithel Cells (Auto) (0-5) /lpf Urine Bacteria (Auto) (Negative) Urine Mucus (None Prsent) Urine Yeast Urine Opiates Screen (Neg) Ur Methadone, Qual (Neg) Urine Barbiturates (Neg) Ur Phencyclidine (PCP) (Neg) U Amphetamin/Meth Scrn (Neg) MDMA (Ecstasy) Screen (Neg) U Benzodiazepines Scrn (Neg) Ur Cocaine Metabolite (Neg) U Marijuana (THC) Screen (Neg) SARS-CoV-2 (PCR) NEGATIVE (Negative) Influenza Type A (PCR) Negative (Neg) Influenza Type B (PCR) Negative (Neg) RSV (RT-PCR) Negative (Neg) Administered Medications Citalopram Hydrobromide (Citalopram 20 Mg Tab) 20 mg PO QAM ALINA Stop: 01/25/23 08:59 Last Admin: 12/26/22 05:41 Dose: 20 mg Documented By: JOANN Clonazepam (Clonazepam 0.5 Mg Tab) 0.5 mg PO BID ALINA Stop: 01/24/23 20:59 Last Admin: 12/26/22 05:41 Dose: 0.5 mg Documented By: Admin: 12/25/22 20:29 Dose: 0.5 mg Documented By: JOANN Diltiazem HCl (Diltiazem Hcl 300 Mg Capcr) 300 mg PO QAM ALINA Stop: 01/25/23 08:59 Last Admin: 12/26/22 05:41 Dose: 300 mg Documented By: JOANN Sodium Chloride (Nss 1000ml) 1,000 mls @ 80 mls/hr IV .[id number] ALINA Stop: 01/24/23 17:50 Last Admin: 12/26/22 06:31 Dose: 80 mls/hr Documented By: Infusion: 12/26/22 06:31 Dose: 80 mls/hr Documented By: Admin: 12/25/22 18:42 Dose: 80 mls/hr Documented By: SHERRILL Losartan Potassium (Losartan Potassium 25 Mg Tab) 25 mg PO PM ALINA Stop: 01/24/23 20:59 Last Admin: 12/25/22 20:29 Dose: 25 mg Documented By: JOANN Discontinued Medications Albuterol (Albut/Ipratrop 3mg/0.5mg Neb 3 Ml Vial) 3 ml NEB NOW STA; Protocol Stop: 12/25/22 15:10 Last Admin: 12/25/22 15:18 Dose: 3 ml Documented By: Sodium Chloride (Nss 1000ml) 1,000 mls @ 125 mls/hr IV .Q8H ALINA Stop: 01/24/23 12:44 Last Infusion: 12/26/22 03:39 Dose: 0 mls/hr Documented By: Admin: 12/25/22 12:46 Dose: 125 mls/hr Documented By: AB Ceftriaxone Sodium 1,000 mg/ (Dextrose) 50 mls @ 100 mls/hr IV NOW STA Stop: 12/25/22 15:17 Last Infusion: 12/25/22 15:45 Dose: 0 mls/hr Documented By: Admin: 12/25/22 15:15 Dose: 100 mls/hr Documented By: AB Lorazepam (Lorazepam 2 Mg/1 Ml Vial) 0.5 mg IV NOW STA Stop: 12/25/22 14:49 Last Admin: 12/25/22 14:57 Dose: 0.5 mg Documented By: AB Potassium Chloride (Potassium Chloride Crtab 20 Meq Tabcr) 40 meq PO NOW STA Stop: 12/25/22 14:17 Last Admin: 12/25/22 14:41 Dose: 40 meq Documented By: AB Imaging Data Radiologist's Impression: Chest X-Ray 12/25/22 12:35 XR chest 1V portable CLINICAL HISTORY: sob TECHNIQUE: Single frontal radiograph of the chest was obtained. Comparison: Comparison is made to chest radiograph 03/03/2022 FINDINGS: No lines and tubes are seen. The cardiomediastinal silhouette is normal. Emphysema is seen. No evidence of pleural effusion or pneumothorax. IMPRESSION: No acute abnormalities and in particular no radiographic evidence of pneumonia. Emphysema is seen. ACT 112: Negative or not required by law. Electronically signed by: Fran Aguilar M.D. 12/25/2022 12:56 PM Discharge Plan Visit Data Chief Complaint: Shortness of Breath/Dyspnea Stated Complaint: SOB, ANXIETY ED Provider: Haylee Stevenson Discharge Problem: Anxiety, COPD (chronic obstructive pulmonary disease), Acute UTI (urinary tract infection) Patient Disposition: Admitted As Inpatient Condition: Good Discharge Instructions Interventions: ED Discharge Assessment Last Done: 12/25/22 17:28
[2022-12-25 14:09] LABS: Albumin Globulin Ratio 1.3 (0.9-2); Albumin Level 3.9 gm/dl (3.4-5.0); BUN Creatinine Ratio 21.9 (10-20); Bilirubin,Total 0.3 mg/dl (0.2-1.0); Calcium 8.5 mg/dl (8.6-10.3); Creatinine Clr Calc Pharmacy 65.2 ml/min; Est GFR (African American) 92.4 ml/min; Est GFR (Non-African American) 79.8 ml/min; Potassium 3.3 mmol/L (3.5-5.1); Total Protein 6.9 gm/dl (6.0-8.3)
[2022-12-25] MEDS ORDERED: POTASSIUM CHLORIDE CRTAB 20 MEQ TABCR PO STA (14:16)
[2022-12-25] MEDS ORDERED: LORazepam 2 MG/1 ML VIAL IV STA (14:48)
[2022-12-25] MEDS ORDERED: cefTRIAXone SODIUM 1,000 MG in DEXTROSE 5% AD-VAN 50 ML IV STA (14:48)
[2022-12-25 15:07] LABS: Amphetamines+Metham, Urine Neg (Neg); Barbiturates, Urine Neg (Neg); Benzodiazepine, Urine Neg (Neg); Cocaine, Urine Neg (Neg); MDMA (Ecstacy), Urine Neg (Neg); Methadone, Urine Neg (Neg); Opiate, Urine Neg (Neg); Phencyclidine, Urine Neg (Neg)
[2022-12-25] MEDS ORDERED: ALBUT/IPRATROP 3MG/0.5MG NEB 3 ML VIAL NEB STA (15:09)
[2022-12-25 15:28] LABS: Influenza A virus by PCR Negative (Neg); Influenza B virus by PCR Negative (Neg); RSV by PCR Negative (Neg); SARS CoV2 RNA(COVID-19) Ceph NEGATIVE (Negative)
--- NOTE | 2022-12-25 16:39 | History & Physical Report ---
Date of Service December 25, 2022 Assessment & Plan (1) Acute UTI (urinary tract infection): Plan: - U/a in ER with +leuk est and bacteria; UC pending. - Received Ceftriaxone in ER, will continue IV abx and follow urine culture & sensitivity. - Continue IV fluids at 80 cc/hr. (2) Paresthesia: Plan: - Recommend Iron studies, B12/Folate levels. - Possibly anxiety induced but will rule out underlying deficiencies. (3) Chest pain: Plan: - EKG in the ER was negative for ST T wave changes. - Troponin negative. - Admit to telemetry unit x 24 hours. - Symptom likely anxiety induced, no evidence of cardiac involvement. (4) Anxiety: Plan: - We will plan to continue Celexa 20 mg daily and Klonopin 0.5 mg BID. - Consult psychiatry for further evaluation. (5) Hypertension: Plan: - Continue home Diltiazem and Losartan. - BP elevated - SBP 160 to 180's, will need to adjust medications if no improvement. (6) COPD (chronic obstructive pulmonary disease): Plan: - Remains on 3L via O2, chronic supplemental oxygen. - Continue home inhalers. (7) Leukocytosis: Plan: - Chronic, recommend flow cytometry and peripheral smear. (8) Anemia: Plan: - Hgb 13.2, MCV WNL - obtaining anemia panel as noted above. (9) Thrombocytosis: Plan: - Likely reactive, unclear etiology. - Iron studies are pending. DVT ppx: Encourage ambulation. Will hold pharmacologic ppx. Code status: FULL CODE Dispo: Telemetry admission, discharge likely 12/26 following psychiatry evaluation. History of Present Illness Chief Complaint: UTI Parasthesias Primary Care Provider: Jaime Rolle PA-C Mr. Guadalupe is a 72 y/o male with past medical history of anemia, anxiety, Monteiro's esophagus, BPH, COPD, depression, mood disorder, PTSD, PE, sleep apnea who presents with dysuria and low back pain along with general parasthesias. He reports he has had racing thoughts for quite some time, along with complaints of his entire "body burning". Episodes can last for 5 to 30 minutes. He feels that episodes started after the political climate changed within the [place], specifically when [employer] was elected. He is taking Celexa 20 mg daily along with Klonopin 0.5 mg BID at home, managed by PCP. When asked if he has been evaluated by a psychiatrist, the patient reports "I do not need one because I don't have psychiatric issues". He admits to mild intermittent left sided chest pain. He has burning with urinary at home and low back pain. EKG and troponin during ER work up were both negative. U/a positive for +3 Leuk est and 4+ bacteria; UC is pending. He received Ceftriaxone 1 gm x 1 dose. CXR was negative for acute findings. BP is elevated, SBP 160 to 180's. He received potassium 40 mEq PO for K level 3.3. He also received Ativan 0.5 mg IV x 1 dose. He will be admitted for evaluation of reported parasthesias along with treatment of UTI. Allergies Allergy/AdvReac Type Severity Reaction Status Date / Time Influenza Virus Vaccines Allergy Severe SHORTNESS Verified 11/17/22 12:15 OF BREATH morphine Allergy Intermediate "I FELT Verified 11/17/22 12:15 FUNNY IN THE HEAD" budesonide AdvReac Intermediate sob Verified 11/17/22 12:15 [From LookUP] formoterol AdvReac Intermediate sob Verified 11/17/22 12:15 [From LookUP] glycopyrrolate AdvReac Intermediate sob Verified 11/17/22 12:15 [From LookUP] Home Medications Medication Instructions Recorded Confirmed Type acetaminophen 500 mg tablet 500 mg PO Q6H PRN Pain 03/27/19 12/25/22 History losartan 25 mg tablet 25 mg PO PM 04/06/21 12/25/22 History clonazepam 1 mg tablet 0.5 mg PO BID 04/12/21 12/25/22 History citalopram 20 mg tablet 20 mg PO QAM 03/03/22 12/25/22 History diltiazem HCl 300 mg capsule,24 300 mg PO QAM 03/03/22 12/25/22 History hr,extended release (Tiadylt ER) omeprazole 20 mg capsule,delayed 20 mg PO QAM 09/09/22 12/25/22 History release ipratropium 0.5 mg-albuterol 3 mg 3 ml NEB Q2H PRN shortness of 09/16/22 12/25/22 Rx (2.5 mg base)/3 mL nebulization breath #540 mL soln fluticasone fur. 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 hx nares 2013- PTSD (post-traumatic stress disorder) Pulmonary embolism (01/22/14) HX 2013 Sleep apnea continous O2 at night Ventilator dependent uses portable ventilator at least 4 hours daily; uses home o2 3lpm via nc continuous Surgical History History of cardiac catheterization 30 YRS AGO- NO STENTS- S/P repair of ventral hernia S/P tonsillectomy Family History Other Lung disease Social History Smoking Status: Former smoker Tobacco Type: Cigarettes Age Quit Using Tobacco: 62; Cigarettes Per Day: QUIT >20 YRS AGO; Second Hand Exposure: No; Do You Dip or Chew Tobacco: No; Hx Alcohol Use: No Hx Substance Use: No Preferred Language: Bangladeshi Communication Ability: Effective Box Toe Maker Required: No Beliefs That Will Affect Care: None Current Living Situation: Spouse Feels Safe at Home: Yes Assistive Devices: Oxygen - Continuous Review of Systems Review of Systems: Constitutional: Negative for weight loss, night sweats, or fever Eyes: Negative for event change of vision ENT: Negative for epistaxis, nasal discharge, sore throat, or deafness Cardiovascular: Chest pain;Negative for anginal type chest pain, palpitations, dizziness, diaphoresis Respiratory: Negative for new shortness of breath, hemoptysis, or purulent c ough Gastrointestinal: Negative for diarrhea, hematemesis, melena, nausea, vomiting, or dyspepsia Integumentary (skin): Negative for rash or jaundice discoloration Genitourinary: Dysuria;Negative for urinary frequency, hematuria Neurological: Parasthesias; Negative for weakness, seizure activity, headache, or dizziness Lymphatic/Hematologic: Negative for petechiae, bleeding or new adenopathy Musculoskeletal: Negative for new joint or back pain Allergic/Immunologic: Negative for unusual rash or pruritis Physical Exam Physical Exam: Constitutional: Pleasant elderly male, in mild distress Eyes: Eyes are SMILEY EOMI without conjunctival erythema or icterus. ENT: External examination was negative for masses. Neck: Negative for masses or palpable thyromegaly Respiratory: Lung sounds were generally clear bilaterally. Cardiovascular: Heart was RRR without significant murmur, gallops or rubs. Musculoskeletal System: The musculoskeletal system seemed concordant with age. Skin: The skin was negative for jaundice. Extremities: Negative for edema or erythema Results & Data Results & Data Vital Signs (Past 12 Hours) Vital Signs Temp Pulse Pulse Resp BP BP Pulse Ox 12/25/22 15:37 84 20 189/84 H 98 12/25/22 13:30 88 21 173/104 H 99 12/25/22 12:27 92 H 12/25/22 12:12 98 12/25/22 12:10 12/25/22 12:02 36.5 C 95 H 21 163/91 H 98 O2 Del Method O2 Flow Rate 12/25/22 15:37 Nasal Cannula 3 12/25/22 13:30 Nasal Cannula 3 12/25/22 12:27 12/25/22 12:12 Nasal Cannula 3 12/25/22 12:10 Room Air 12/25/22 12:02 Nasal Cannula 3 Laboratory Results 12/25/22 12/25/22 12/25/22 Range/Units 14:41 13:32 12:55 WBC (4.8-10.8) K/ul RBC (4.70-6.10) M/uL Hgb (14.0-18.0) g/dl Hct (42.0-52.0) % MCV (80.0-100.0) fL MCH (25.0-34.0) pg MCHC (32.0-36.0) g/dL RDW Std Deviation (36.4-46.3) fL RDW Coeff of [place] (11.5-14.5) % Plt Count (130-400) K/uL MPV (9.4-12.4) fL Immature Gran % (Auto) % Neut % (Auto) % Lymph % (Auto) % Bradley % (Auto) % Eos % (Auto) % Baso % (Auto) % Neut # (Auto) (1.40-6.50) K/uL Lymph # (Auto) (1.2-3.4) K/uL Bradley # (Auto) (0.11-0.59) K/uL Eos # (Auto) (0-0.50) K/uL Baso # (Auto) (0-0.2) K/uL Immature Gran # (Auto) (0.01-0.20) K/uL Sodium 140 Potassium 3.3 L Chloride 103 Carbon Dioxide 31 Anion Gap 6 BUN 21 Creatinine 0.96 Est Cr Clr Drug Dosing 65.2 Est GFR ( Amer) 92.4 Est GFR (Non-Af Amer) 79.8 BUN/Creatinine Ratio 21.9 H Glucose 97 Calcium 8.5 L Magnesium 2.0 Total Bilirubin 0.3 AST 14 ALT 11 Alkaline Phosphatase 80 Troponin I High Sens (0-20) pg/ml Total Protein 6.9 Albumin 3.9 Globulin 3.0 Albumin/Globulin Ratio 1.3 Lipase 11 TSH (0.300-4.500) uIu/ml Urine Color Urine Appearance (Clear) Urine pH (4.5-7.5) Ur Specific Armour (1.000-1.030) Urine Protein (Negative) Urine Glucose (UA) (Negative) Urine Ketones (Negative) Urine Blood (Negative) Urine Nitrite (Negative) Urine Bilirubin (Negative) Urine Urobilinogen (Negative) Ur Leukocyte Esterase (Negative) Urine WBC (Auto) (0-5) /hpf Urine RBC (Auto) (0-4) /hpf U Hyaline Cast (Auto) (0-5) /lpf U Epithel Cells (Auto) (0-5) /lpf Urine Bacteria (Auto) (Negative) Urine Mucus (None Prsent) Urine Yeast Urine Opiates Screen Neg (Neg) Ur Methadone, Qual Neg (Neg) Urine Barbiturates Neg (Neg) Ur Phencyclidine (PCP) Neg (Neg) U Amphetamin/Meth Scrn Neg (Neg) MDMA (Ecstasy) Screen Neg (Neg) U Benzodiazepines Scrn Neg (Neg) Ur Cocaine Metabolite Neg (Neg) U Marijuana (THC) Screen Neg (Neg) SARS-CoV-2 (PCR) NEGATIVE (Negative) Influenza Type A (PCR) Negative (Neg) Influenza Type B (PCR) Negative (Neg) RSV (RT-PCR) Negative (Neg) 12/25/22 12/25/22 12/25/22 Range/Units 12:55 12:39 12:39 WBC (4.8-10.8) K/ul RBC (4.70-6.10) M/uL Hgb (14.0-18.0) g/dl Hct (42.0-52.0) % MCV (80.0-100.0) fL MCH (25.0-34.0) pg MCHC (32.0-36.0) g/dL RDW Std Deviation (36.4-46.3) fL RDW Coeff of [place] (11.5-14.5) % Plt Count (130-400) K/uL MPV (9.4-12.4) fL Immature Gran % (Auto) % Neut % (Auto) % Lymph % (Auto) % Bradley % (Auto) % Eos % (Auto) % Baso % (Auto) % Neut # (Auto) (1.40-6.50) K/uL Lymph # (Auto) (1.2-3.4) K/uL Bradley # (Auto) (0.11-0.59) K/uL Eos # (Auto) (0-0.50) K/uL Baso # (Auto) (0-0.2) K/uL Immature Gran # (Auto) (0.01-0.20) K/uL Sodium Cancelled Potassium Cancelled Chloride Cancelled Carbon Dioxide Cancelled Anion Gap Cancelled BUN Cancelled Creatinine Cancelled Est Cr Clr Drug Dosing Cancelled Est GFR ( Amer) Cancelled Est GFR (Non-Af Amer) Cancelled BUN/Creatinine Ratio Cancelled Glucose Cancelled Calcium Cancelled Magnesium Cancelled Total Bilirubin Cancelled AST Cancelled ALT Cancelled Alkaline Phosphatase Cancelled Troponin I High Sens 12.1 (0-20) pg/ml Total Protein Cancelled Albumin Cancelled Globulin Cancelled Albumin/Globulin Ratio Cancelled Lipase Cancelled TSH 1.868 (0.300-4.500) uIu/ml Urine Color Yellow Urine Appearance Turbid A (Clear) Urine pH 6.0 (4.5-7.5) Ur Specific Armour 1.016 (1.000-1.030) Urine Protein 1+ H (Negative) Urine Glucose (UA) Negative (Negative) Urine Ketones Negative (Negative) Urine Blood Trace H (Negative) Urine Nitrite Negative (Negative) Urine Bilirubin Negative (Negative) Urine Urobilinogen Negative (Negative) Ur Leukocyte Esterase 3+ H (Negative) Urine WBC (Auto) >30 H (0-5) /hpf Urine RBC (Auto) 0-4 (0-4) /hpf U Hyaline Cast (Auto) 1-5 (0-5) /lpf U Epithel Cells (Auto) 10-20 H (0-5) /lpf Urine Bacteria (Auto) 4+ H (Negative) Urine Mucus Present A (None Prsent) Urine Yeast Not Reportable Urine Opiates Screen (Neg) Ur Methadone, Qual (Neg) Urine Barbiturates (Neg) Ur Phencyclidine (PCP) (Neg) U Amphetamin/Meth Scrn (Neg) MDMA (Ecstasy) Screen (Neg) U Benzodiazepines Scrn (Neg) Ur Cocaine Metabolite (Neg) U Marijuana (THC) Screen (Neg) SARS-CoV-2 (PCR) (Negative) Influenza Type A (PCR) (Neg) Influenza Type B (PCR) (Neg) RSV (RT-PCR) (Neg) 12/25/22 Range/Units 12:39 WBC 12.15 H (4.8-10.8) K/ul RBC 4.30 L (4.70-6.10) M/uL Hgb 13.2 L (14.0-18.0) g/dl Hct 38.4 L (42.0-52.0) % MCV 89.3 (80.0-100.0) fL MCH 30.7 (25.0-34.0) pg MCHC 34.4 (32.0-36.0) g/dL RDW Std Deviation 42.8 (36.4-46.3) fL RDW Coeff of [place] 13.2 (11.5-14.5) % Plt Count 412 H (130-400) K/uL MPV 9.5 (9.4-12.4) fL Immature Gran % (Auto) 0.3 % Neut % (Auto) 79.6 % Lymph % (Auto) 11.8 % Bradley % (Auto) 7.2 % Eos % (Auto) 0.4 % Baso % (Auto) 0.7 % Neut # (Auto) 9.66 H (1.40-6.50) K/uL Lymph # (Auto) 1.43 (1.2-3.4) K/uL Bradley # (Auto) 0.88 H (0.11-0.59) K/uL Eos # (Auto) 0.05 (0-0.50) K/uL Baso # (Auto) 0.09 (0-0.2) K/uL Immature Gran # (Auto) 0.04 (0.01-0.20) K/uL Sodium Potassium Chloride Carbon Dioxide Anion Gap BUN Creatinine Est Cr Clr Drug Dosing Est GFR ( Amer) Est GFR (Non-Af Amer) BUN/Creatinine Ratio Glucose Calcium Magnesium Total Bilirubin AST ALT Alkaline Phosphatase Troponin I High Sens (0-20) pg/ml Total Protein Albumin Globulin Albumin/Globulin Ratio Lipase TSH (0.300-4.500) uIu/ml Urine Color Urine Appearance (Clear) Urine pH (4.5-7.5) Ur Specific Armour (1.000-1.030) Urine Protein (Negative) Urine Glucose (UA) (Negative) Urine Ketones (Negative) Urine Blood (Negative) Urine Nitrite (Negative) Urine Bilirubin (Negative) Urine Urobilinogen (Negative) Ur Leukocyte Esterase (Negative) Urine WBC (Auto) (0-5) /hpf Urine RBC (Auto) (0-4) /hpf U Hyaline Cast (Auto) (0-5) /lpf U Epithel Cells (Auto) (0-5) /lpf Urine Bacteria (Auto) (Negative) Urine Mucus (None Prsent) Urine Yeast Urine Opiates Screen (Neg) Ur Methadone, Qual (Neg) Urine Barbiturates (Neg) Ur Phencyclidine (PCP) (Neg) U Amphetamin/Meth Scrn (Neg) MDMA (Ecstasy) Screen (Neg) U Benzodiazepines Scrn (Neg) Ur Cocaine Metabolite (Neg) U Marijuana (THC) Screen (Neg) SARS-CoV-2 (PCR) (Negative) Influenza Type A (PCR) (Neg) Influenza Type B (PCR) (Neg) RSV (RT-PCR) (Neg) Code Status & VTE Plan VTE Prophylaxis Plan VTE Prophylaxis will be ordered: Yes Supervising Physician Co-Signing Physician Notes Patient seen and examined, chart reviewed, case discussed with Kristin Gallegos PA-C and I agree with the assessment and plan as above except as otherwise noted Labs and images reviewed Patient presents for a history of persisting "body burning "paresthesias which seem worse more recently, which has been present for 2 years. He is also noted to have a UTI on admission. He has had a chronic elevated leukocytosis. At bedside he reports he has had burning urination and notes that he has had episodes lasting up to half hour where his whole body will feel like it is on fire. He notes that anxiety and some political discussion contribute to these, they have also come and gone intermittently and he has to focus hard to get the episodes to pass. He denies lip tingling, hyperventilation during these episodes. Breathing is unlabored, lungs are clear, heart rate is regular on assessment. Sensation of soft touch is intact in hands and feet at bedside assessment. He is alert and oriented to name, place, and year. Suspect he has a strong underlying anxiety component with a history of Celexa and Klonopin; but is also noted to have a chronic significant leukocytosis independent of steroids and history of anemia. Agree with B12, folate assessment and additional anemia work-up with iron levels. Agree with treatment of UTI with Rocephin pending culture at this time. Patient with limited insight into effect of anxiety on his potential symptoms, psych has been consulted. Flow cytometry regarding chronic leukocytosis is pending. Patient denies night sweats/weight loss/other B-cell symptoms. Agree with assessment and management above. PG Care Time/CCT Total # of Minutes Spent Total Time Spent with Patient: Total time spent is greater than 50% in coordination of care (as documented) at patient's floor/unit and/or counseling patient: [place] [address] INT INP/OBS CARE MIN Patient Type New Diagnoses Acute UTI (urinary tract infection) N39.0 Paresthesia R20.2 Chest pain R07.9 Anxiety F41.9 Hypertension I10 COPD (chronic obstructive pulmonary disease) J44.9 Leukocytosis D72.829 Anemia D64.9 Thrombocytosis D75.839
[2022-12-25 17:42] LABS: Ferritin 15.6 ng/ml (8-388)
[2022-12-25] MEDS: SODIUM CHLORIDE 0.9% 1000ML 1,000 ML IV SCH (18:42)
[2022-12-25] MEDS: LOSARTAN POTASSIUM 25 MG TAB PO SCH (20:29)
[2022-12-25] MEDS: clonazePAM 0.5 MG TAB PO SCH (20:29)
[2022-12-26] MEDS: dilTIAZem HCL 300 MG CAPCR PO SCH (05:41)
[2022-12-26] MEDS: clonazePAM 0.5 MG TAB PO SCH ×2 (05:41→21:32)
[2022-12-26] MEDS: CITALOPRAM 20 MG TAB PO SCH (05:41)
[2022-12-26] MEDS: SODIUM CHLORIDE 0.9% 1000ML 1,000 ML IV SCH ×2 (06:31→16:57)
[2022-12-26] MEDS: FINASTERIDE 5 MG TAB PO SCH (08:01)
[2022-12-26] MEDS: FLUTICASONE/VILANTEROL 100/25MCG 14 PUFFS/INHALER INH SCH (08:02)
[2022-12-26] MEDS: UMECLIDINIUM BROMIDE 62.5MCG/BLISTER 7 PUFFS/INHALER INH SCH (08:02)
[2022-12-26 08:35] LABS: Hematocrit (blood only) 38.4 % (42.0-52.0); Hemoglobin 13.1 g/dl (14.0-18.0); Mean Corpuscular Hemoglobin 30.3 pg (25.0-34.0); Mean Corpuscular Hgb Conc 34.1 g/dL (32.0-36.0); Mean Corpuscular Volume 88.9 fL (80.0-100.0); Mean Platelet Volume 8.7 fL (9.4-12.4); Platelet Count 356 K/uL (130-400); RDW Coefficient of Variation 13.2 % (11.5-14.5); RDW Standard Deviation 43.1 fL (36.4-46.3); Red Blood Count 4.32 M/uL (4.70-6.10); White Blood Count 11.45 K/ul (4.8-10.8)
[2022-12-26 08:45] LABS: BUN Creatinine Ratio 22.9 (10-20); Calcium 8.5 mg/dl (8.6-10.3); Creatinine Clr Calc Pharmacy 87.2 ml/min; Est GFR (African American) 110.8 ml/min; Est GFR (Non-African American) 95.6 ml/min; Potassium 3.8 mmol/L (3.5-5.1)
[2022-12-26] MEDS ORDERED: IPRATROPIUM BROMIDE/ALBUTEROL respimat INH INH SCH (09:00)
[2022-12-26] MEDS ORDERED: NON-FORMULARY MEDICATION (Fluticasone-Umeclidin-Vilanter [Trelegy Ellipta] 100-62.5-25 mcg INH SCH (09:00)
[2022-12-26] MEDS ORDERED: clonazePAM 0.5 MG TAB PO STA (11:04)
[2022-12-26] MEDS: CYANOCOBALAMIN 1000 MCG/ML VIAL IM SCH (11:17)
--- NOTE | 2022-12-26 12:21 | Psychiatric Consultation ---
Date of Consultation December 26, 2022 Impression / Recommendations Impression 72 yo man with history of bipolar affective disorder type II, unspecified anxiety (differential in past of panic disorder vs anxiety d/t COPD with hypoxia vs generalized anxiety) with medical conditions including COPD on home oxygen 3L and HTN admitted medically for increased anxiety, paresthesia, and UTI. Diagnostically symptoms could certainly represent atypical panic attack presentation and likely multidirectional where at times panic symptoms occur and then somatic effects and other times, as observed in the past, sounds like episodes of hypoxia set off panic attacks. Given history of BPAD type II would not recommend increasing citalopram at this time, rather consideration for addition of a mood stabilizer would be preferred option. Given long history of Klonopin use with no evidence for falls or misuse could consider increasing this, though agree with ongoing effort to use lowest possible effective dose given risks of falls, cognitive effects especially given his age. Discussed option to try abilify for mood stabilization and off-label to help with anxiety symptoms. He would like to try this tomorrow morning. Reviewed side effects including but not limited to cardiac effects, metabolic effects, movement disorder effects. Reviewed that cost has come down considerably from when he had to stop this about 10 years ago due to high co-pay. QTc stable for abilify trial. (1) Panic attacks: (2) Bipolar 2 disorder: (3) Anxiety: (4) COPD (chronic obstructive pulmonary disease): Plan -Start trial of abilify 2.5mg qAM for anxiety and mood stabilization, if helpful and well tolerated with no increase in QTc (<500ms) could consider increasing to 2.5mg BID in future for further benefit. -If anxiety worsens again in outpatient setting consider addition of mirtazapine 7.5mg HS. -Continue celexa 20mg daily -Continue Klonopin 0.5mg BID, could consider trial increase to 0.5mg TID or 1mg BID if found to be helpful and well tolerated until abilify takes full effect -Continue to optimize medical management of COPD and other medical conditions Psych History Identifying Data 72 yo man with history of bipolar affective disorder type II, unspecified anxiety (differential in past of panic disorder vs anxiety d/t COPD with hypoxia vs generalized anxiety) with medical conditions including COPD on home oxygen 3L and HTN admitted medically for increased anxiety, paresthesia, and UTI. Psychiatry consulted for recommendations for anxiety. Chief Complaint "I've been more anxious". History of Present Illness Jamison presented to the hospital for new paresthesia and racing thoughts that have progressively worsened over the last few years with stressors he attributes to worrying about the political climate, social isolation and increased difficulty engaging independently. Additional recent history per psych liason assessment per note on 12/25/2022: "Met with this patient who was pleasant and easy to engage. He states that he has been anxious recently and has "bad thoughts". When he starts getting those thoughts he feels hot and unwell. He states that he felt this way several times in the past few days and that is what brought him to the hospital. Recent stressors include being "housebound" due to the pandemic and poor oxygenation. 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 He feels that his does most of the work and he doesn't feel like he contributes much to the household. 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 He had an episode of feeling hot. During this time he was easily distracted and having trouble focusing on conversation. His breathing became increasingly labored and it was noticed that his oxygen was noted to be at 1 L. It was increased to 2 and his symptoms resolved within 30 seconds. He was advised that he will meet with the physician tomorrow. He said that is OK, but he doesn't like to meet too many people, he prefers to meet with the same people every day when possible. He asked to go to bed after the interview and was independent enough to situate himself in bed and pull the sheets up with no significant shortness of breath." He agrees that he has been anxious lately. Recalls that his Klonopin dose was decreased but cannot recall the timeline for this (per review of PDMP reduced from Klonopin 1mg BID in February 2022, originally switched to lorazepam then in July back to Klonopin but at lower dose of 0.5mg BID). He agrees that his recent symptoms could possibly represent panic attacks though notes sometimes the anxiety is set off by breathing issues. He feels overall that he's been very psychiatrically stable over the last 9-10 years and denies any depression nor SI. Agrees that age related changes such as not having same energy level has been difficult but he continues to enjoy painting and has a good relationship with his . Current psychiatric medications include: Klonopin 0.5mg BID (recently tapered from prior dose of 1mg BID) and citalopram 20mg daily. Past psychiatric history notable for previous admissions to [facility] inpt psych unit, last in 2013 as well as at [facility]. He has previous psychiatric diagnoses of bipolar affective disorder type II and unspecified anxiety. Previous medication trials including lamictal, escitalopram, cymbalta (no benefit), zoloft, Effexor (no benefit), hydroxyzine, Klonopin. Had good benefit to [facility] but was stopped prior to 2013 due to high insurance cost. Saw an outpatient psychiatrist Dr. Pineda in the past and Mary Ready for therapy in 2013. No known history of any prior suicide attempts. Allergies Allergy/AdvReac Type Severity Reaction Status Date / Time Influenza Virus Vaccines Allergy Severe SHORTNESS Verified 11/17/22 12:15 OF BREATH morphine Allergy Intermediate "I FELT Verified 11/17/22 12:15 FUNNY IN THE HEAD" budesonide AdvReac Intermediate sob Verified 11/17/22 12:15 [From [place]] formoterol AdvReac Intermediate sob Verified 11/17/22 12:15 [From [place]] glycopyrrolate AdvReac Intermediate sob Verified 11/17/22 12:15 [From [place]] Home Medications Medication Instructions Recorded Confirmed Type acetaminophen 500 mg tablet 500 mg PO Q6H PRN Pain 03/27/19 12/25/22 History losartan 25 mg tablet 25 mg PO PM 04/06/21 12/25/22 History clonazepam 1 mg tablet 0.5 mg PO BID 04/12/21 12/25/22 History citalopram 20 mg tablet 20 mg PO QAM 03/03/22 12/25/22 History diltiazem HCl 300 mg capsule,24 300 mg PO QAM 03/03/22 12/25/22 History hr,extended release (Tiadylt ER) omeprazole 20 mg capsule,delayed 20 mg PO QAM 09/09/22 12/25/22 History release ipratropium 0.5 mg-albuterol 3 mg 3 ml NEB Q2H PRN shortness of 09/16/22 12/25/22 Rx (2.5 mg base)/3 mL nebulization breath #540 mL soln fluticasone fur. 100 mcg-umeclid 1 inh inhalation DAILY #3 Inhalers 10/12/22 12/25/22 Rx 62.5 mcg-vilant 25 mcg inhalat.powder (Trelegy Ellipta) finasteride 5 mg tablet 5 mg PO QAM 11/11/22 12/25/22 History ipratropium 20 mcg-albuterol 100 0 puff inhalation DAILY 12/25/22 12/25/22 History mcg/actuation mist for inhalation (Combivent Respimat) Patient History Medical History (Updated 12/26/22 @ 16:52 by Tracy Shearer MD) Anemia Anxiety Barretts esophagus Bipolar 2 disorder BPH with obstruction/lower urinary tract symptoms COPD (chronic obstructive pulmonary disease) FOLLOWS W/ DR RODRIGUES LAST VISIT 08/2022 Depression Hx of small bowel obstruction Mood disorder 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 2013- PTSD (post-traumatic stress disorder) Pulmonary embolism (01/22/14) HX 2013 Sleep apnea continous O2 at night Ventilator dependent uses portable ventilator at least 4 hours daily; uses home o2 3lpm via nc continuous Surgical History History of cardiac catheterization 30 YRS AGO- NO STENTS- S/P repair of ventral hernia S/P tonsillectomy Family History Other Lung disease Social History Smoking Status: Former smoker Tobacco Type: Cigarettes Age Quit Using Tobacco: 62; Cigarettes Per Day: QUIT >20 YRS AGO; Second Hand Exposure: No; Do You Dip or Chew Tobacco: No; Hx Alcohol Use: No Hx Substance Use: No Preferred Language: Portuguese Communication Ability: Effective 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: No Beliefs That Will Affect Care: None Current Living Situation: Spouse Feels Safe at Home: Yes Assistive Devices: Oxygen - Continuous Physical Exam Psychiatric: Orientation: alert and oriented x 3 Apperance: appropriately dressed and appropriately groomed Eye Contact: good eye contact Motor Behavior: no abnormal motor movements Speech: normal rate/rhythm/volume of speech Affect: euthymic affect (with some smiles) Mood: + anxious mood; no depressed mood Thought Process: linear/logical thought process Thought Content: reality based without delusions Suicidal Thoughts: denies suicidal thoughts Homicidal Thoughts: denies homicidal thoughts Hallucinations: no auditory hallucinations and no visual hallucinations Cognition: recent memory grossly intact, remote memory grossly intact, attention grossly intact and language grossly intact Estimated Intelligence: consistent with education level Insight: + fair insight Judgment: + fair judgement Vital Signs (Past 24 Hours): Last Vital Signs Temp 36.4 C L 12/26/22 07:35 Pulse 83 12/26/22 08:00 Resp 19 12/26/22 07:35 BP 184/108 H 12/26/22 07:35 Pulse Ox 95 12/26/22 07:35 O2 Del Method Nasal Cannula 12/26/22 07:35 O2 Flow Rate 3 12/26/22 07:35 Review of Systems All systems reviewed & are unremarkable except as noted in HPI & below Results & Data (PSY) Laboratory Results Na+ normal Diagnostic Findings QTc 469 ms on EKG on 12/25/2022 Medications Administered Citalopram Hydrobromide (Citalopram 20 Mg Tab) 20 mg PO QAM [facility] Stop: 01/25/23 08:59 Last Admin: 12/26/22 05:41 Dose: 20 mg Documented By: JOANN Clonazepam (Clonazepam 0.5 Mg Tab) 0.5 mg PO BID [facility] Stop: 01/24/23 20:59 Last Admin: 12/26/22 05:41 Dose: 0.5 mg Documented By: Admin: 12/25/22 20:29 Dose: 0.5 mg Documented By: JOANN Cyanocobalamin (Cyanocobalamin 1000 Mcg/Ml Vial) 1,000 mcg IM QAM [facility] Stop: 12/31/22 08:59 Last Admin: 12/26/22 11:17 Dose: 1,000 mcg Documented By: SHERRILL Diltiazem HCl (Diltiazem Hcl 300 Mg Capcr) 300 mg PO QAM [facility] Stop: 01/25/23 08:59 Last Admin: 12/26/22 05:41 Dose: 300 mg Documented By: JOANN Finasteride (Finasteride 5 Mg Tab) 5 mg PO QAM [facility] Stop: 01/25/23 08:59 Last Admin: 12/26/22 08:01 Dose: 5 mg Documented By: SHERRILL Fluticasone/Vilanterol (Fluticasone/Vilanterol 100/25mcg 14 Puffs/Inhaler) 1 puffs INH DAILY [facility]INA Stop: 01/25/23 08:59 Last Admin: 12/26/22 08:02 Dose: 1 puffs Documented By: SHERRILL Sodium Chloride (Nss 1000ml) 1,000 mls @ 80 mls/hr IV .[id number] ALINA Stop: 01/24/23 17:50 Last Admin: 12/26/22 06:31 Dose: 80 mls/hr Documented By: Infusion: 12/26/22 06:31 Dose: 80 mls/hr Documented By: Admin: 12/25/22 18:42 Dose: 80 mls/hr Documented By: SHERRILL Losartan Potassium (Losartan Potassium 25 Mg Tab) 25 mg PO PM ALINA Stop: 01/24/23 20:59 Last Admin: 12/25/22 20:29 Dose: 25 mg Documented By: JOANN Umeclidinium [place] (Umeclidinium [place] 62.5mcg/Blister 7 Puffs/Inhaler) 1 puffs INH DAILY [facility]INA Stop: 01/25/23 08:59 Last Admin: 12/26/22 08:02 Dose: 1 puffs Documented By: SHERRILL Coding Level of Care Code 47969 IN/OBS CONSULT LVL 4,60M Diagnoses Panic attacks F41.0 Bipolar 2 disorder F31.81 Anxiety F41.9 COPD (chronic obstructive pulmonary disease) J44.9 Time Spent (min) 60
--- NOTE | 2022-12-26 12:57 | Hospitalist Progress Note ---
Date of Service December 26, 2022 Assessment & Plan (1) Acute UTI (urinary tract infection): Plan: u/a suspicious for UTI certainly symptomatic for such urine cx pending cont rocephin d/c IV fluids - patient eating/drinking ok at this time (2) Bipolar 2 disorder: Plan: known pre-existing diagnosis appreciate Dr Shearer's consultation abilify 2.5mg qam added by Dr Shearer increase clonazepam to 0.5mg TID cont citalopram 20mg daily (3) Paresthesia: Plan: B12 def could be contributing anxiety could be contributing start IM B12 shots daily while here then B12 orally at d/c (4) Chest pain: Plan: if symptoms recur --> CTA chest to r/o PE given prior history of such troponin neg - doubt ACS (5) Anxiety: Plan: see #2 above (6) Hypertension: Plan: Continue home Diltiazem and Losartan. if BPs remain high then adjust meds tomorrow (7) COPD (chronic obstructive pulmonary disease): Plan: Without exacerbation Cont NC O2 Cont home inhalers (8) Leukocytosis: Plan: Chronic Flow cytometry and peripheral smear pending (9) Anemia: Plan: Patient with combination of Fe Def and B12 def replace both as below (10) BPH (benign prostatic hyperplasia): Plan: Cont finasteride Bladder scan done post-void -- no retention, 0cc PVR (11) Chronic respiratory failure with hypoxia and hypercapnia: Plan: on home O2 continuously 3 L NC stable (12) Pulmonary embolism: Plan: history of such in 2013 heparin 5000 BID for DVT proph while here (13) B12 deficiency: Plan: level is <200 in light of paresthesias, neuropsych symptoms, etc - start B12 injections, 1000mcg IM daily while here (14) Iron deficiency: Plan: ferritin 15 c/w Fe def in light of Monteiro's esophagus history and tobacco history needs to get back to his GI provider ocne we are ahead of UTI can offer IV venofer Plan DVT proph - heparin 5000 BID change observation status to full admission status care d/w Dr Shearer from psychiatry Admission and Anticipated Discharge Date Admission Date: December 25, 2022 Subjective patient had just returned from the bathroom after returning & sitting down he was a little short of breath he c/o severe anxiety states he has been on clonazepam for many years no longer effective - lasts just a couple of hours he previously took 1mg doses and it was cut in 1/2 a few months ago despite his anxiety he sleeps well at night only until he developed severe urinary frequency about a week ago did his sleep start to suffer paresthesias are a burning sensation over his chest/abdomen he attributes it to anxiety denies paresthesias of arms/legs he states the paresthesias come on quickly and resolve rather quickly they are not persistent we discussed the low B12 and low Fe levels discussed supplementation tele overnight wnl Review of Systems Review of Systems: gen - no fever cv - no chest pain - just the paresthesias pulm - WADDELL at baseline; no change in pulmonary symptoms from baseline GI - no nausea/emesis psych - severe anxiety, prior h/o bipolar disorder Physical Exam Physical Exam: gen - pleasant, NAD neck - no JVD mouth - MMM heart - RRR, s1 s2 lungs - poor airation, decreased BS, no rales or wheeze abd - soft NT ND BS+ ext - no edema, pulses 2+ b/l psych - a/o x 3, anxious Results & Data Results & Data Vital Signs (Past 12 Hours) Vital Signs Temp Pulse Pulse Pulse Resp BP BP 12/26/22 11:26 36.4 C L 82 141/81 H 12/26/22 08:00 83 12/26/22 07:35 36.4 C L 90 19 184/108 H 12/26/22 04:45 36.6 C 94 H 18 172/101 H Pulse Ox O2 Del Method O2 Flow Rate 12/26/22 11:26 93 Nasal Cannula 4 12/26/22 08:00 12/26/22 07:35 95 Nasal Cannula 3 12/26/22 04:45 97 Nasal Cannula 3 Laboratory Results Laboratory Results - last 24 hr 12/26/22 12/26/22 08:06 08:06 WBC 11.45 H RBC 4.32 L Hgb 13.1 L Hct 38.4 L MCV 88.9 MCH 30.3 MCHC 34.1 RDW Std Deviation 43.1 RDW Coeff of [place] 13.2 Plt Count 356 MPV 8.7 L Sodium 142 Potassium 3.8 Chloride 106 Carbon Dioxide 31 Anion Gap 5 BUN 16 Creatinine 0.70 Est Cr Clr Drug Dosing 87.2 Est GFR ( Amer) 110.8 Est GFR (Non-Af Amer) 95.6 BUN/Creatinine Ratio 22.9 H Glucose 93 Calcium 8.5 L PG Care Time/CCT Total # of Minutes Spent Total Time Spent with Patient: Total time spent is greater than 50% in coordination of care (as documented) at patient's floor/unit and/or counseling patient: Coding Level of Care Code 43673 SUB INP/OBS CARE 3/50MIN Diagnoses Acute UTI (urinary tract infection) N39.0 Bipolar 2 disorder F31.81 Paresthesia R20.2 Chest pain R07.9 Anxiety F41.9 Hypertension I10 COPD (chronic obstructive pulmonary disease) J44.9 Leukocytosis D72.829 Anemia D64.9 BPH (benign prostatic hyperplasia) N40.0 Chronic respiratory failure with hypoxia and hypercapnia J96.11; J96.12 Pulmonary embolism I26.99 B12 deficiency E53.8 Iron deficiency E61.1
[2022-12-26] MEDS: cefTRIAXone SODIUM 1,000 MG in DEXTROSE 5% AD-VAN 50 ML IV SCH (16:57)
--- NOTE | 2022-12-26 20:49 | Electrocardiogram Report ---
Test Reason : Blood Pressure : / mmHG Vent. Rate : 095 BPM Atrial Rate : 095 BPM P-R Int : 144 ms QRS Dur : 092 ms QT Int : 374 ms P-R-T Axes : 085 068 076 degrees QTc Int : 469 ms Poor data quality, interpretation may be adversely affected Normal sinus rhythm Nonspecific ST and T wave abnormality Abnormal ECG When compared with ECG of 03-MAR-2022 11:30, No significant change was found Confirmed by Jaspal Corral ([id number]) on 12/26/2022 8:49:11 PM Referred By: REFERRED SELF Confirmed By:Jaspal Corral
[2022-12-26] MEDS: HEPARIN SOD 5,000 UNIT/0.5 ML VIAL SQ SCH (21:33)
[2022-12-26] MEDS: LOSARTAN POTASSIUM 25 MG TAB PO SCH (21:36)
[2022-12-26] MEDS: ACETAMINOPHEN 325 MG TAB PO PRN (22:49)
[2022-12-27] MEDS: clonazePAM 0.5 MG TAB PO SCH ×3 (06:49→19:44)
[2022-12-27] MEDS: dilTIAZem HCL 300 MG CAPCR PO SCH (07:09)
[2022-12-27] MEDS: FINASTERIDE 5 MG TAB PO SCH (07:10)
[2022-12-27] MEDS: CITALOPRAM 20 MG TAB PO SCH (07:10)
[2022-12-27] MEDS: ARIPiprazole 5 MG TAB PO SCH (07:10)
[2022-12-27] MEDS: FLUTICASONE/VILANTEROL 100/25MCG 14 PUFFS/INHALER INH SCH (07:11)
[2022-12-27] MEDS: UMECLIDINIUM BROMIDE 62.5MCG/BLISTER 7 PUFFS/INHALER INH SCH (07:11)
[2022-12-27] MEDS: CYANOCOBALAMIN 1000 MCG/ML VIAL IM SCH (07:11)
[2022-12-27] MEDS: HEPARIN SOD 5,000 UNIT/0.5 ML VIAL SQ SCH ×2 (07:12→19:45)
[2022-12-27] MEDS: PANTOprazole 40 MG TAB PO SCH (07:19)
[2022-12-27] MEDS: LOSARTAN POTASSIUM 25 MG TAB PO SCH ×2 (09:20→19:46)
[2022-12-27 09:27] LABS: Hematocrit (blood only) 37.4 % (42.0-52.0); Hemoglobin 12.9 g/dl (14.0-18.0); Mean Corpuscular Hemoglobin 30.3 pg (25.0-34.0); Mean Corpuscular Hgb Conc 34.5 g/dL (32.0-36.0); Mean Corpuscular Volume 87.8 fL (80.0-100.0); Mean Platelet Volume 8.6 fL (9.4-12.4); Platelet Count 365 K/uL (130-400); RDW Standard Deviation 41.7 fL (36.4-46.3); Red Blood Count 4.26 M/uL (4.70-6.10); White Blood Count 10.26 K/ul (4.8-10.8)
[2022-12-27 09:44] LABS: BUN Creatinine Ratio 17.3 (10-20); Calcium 8.7 mg/dl (8.6-10.3); Creatinine Clr Calc Pharmacy 80.5 ml/min; Est GFR (African American) 107.7 ml/min; Est GFR (Non-African American) 92.9 ml/min; Potassium 3.5 mmol/L (3.5-5.1)
[2022-12-27] MEDS: ACETAMINOPHEN 325 MG TAB PO PRN (10:40)
--- NOTE | 2022-12-27 14:11 | Psychiatric Progress Note ---
Date of Service December 27, 2022 Impression / Recommendations Impression 72 yo man with history of bipolar affective disorder type II, unspecified anxiety (differential in past of panic disorder vs anxiety d/t COPD with hypoxia vs generalized anxiety) with medical conditions including COPD on home oxygen 3L and HTN admitted medically for increased anxiety, paresthesia, and UTI. Diagnostically symptoms could certainly represent atypical panic attack presentation and likely multidirectional where at times panic symptoms occur and then somatic effects and other times, as observed in the past, sounds like episodes of hypoxia set off panic attacks. Given history of BPAD type II would not recommend increasing citalopram at this time, rather consideration for addition of a mood stabilizer would be preferred option. Given long history of Klonopin use with no evidence for falls or misuse could consider increasing this, though agree with ongoing effort to use lowest possible effective dose given risks of falls, cognitive effects especially given his age. 12/27/2022: Still with episodes of internal sense of warmth/burning that seem to be related to episodes of being startled or anxious. He'd like to increase abilify in hopes that he may feel increased anxiety benefits from higher dose. Tolerated initial dose without any side effects. (1) Panic attacks: (2) Bipolar 2 disorder: (3) Anxiety: (4) COPD (chronic obstructive pulmonary disease): Plan -Increase abilify to 5mg for anxiety and mood stabilization, if helpful and well tolerated with no increase in QTc (<500ms) could consider increasing to 5mg BID in future for further benefit. -If anxiety worsens again in outpatient setting consider addition of mirtazapine 7.5mg HS. -Continue celexa 20mg daily and lamictal 50mg daily -Continue Klonopin 0.5mg BID, could consider trial increase to 0.5mg TID or 1mg BID if found to be helpful and well tolerated until abilify takes full effect -In future could consider use of gabapentin if symptoms felt to be related to neurologic pain sensation with added benefit of often being used off-label for anxiety, if started would reduce Klonopin -Continue to optimize medical management of COPD and other medical conditions Interval History Identifying Information 72 yo man with history of bipolar affective disorder type II, unspecified anxiety (differential in past of panic disorder vs anxiety d/t COPD with hypoxia vs generalized anxiety) with medical conditions including COPD on home oxygen 3L and HTN admitted medically for increased anxiety, paresthesia, and UTI. Psychiatry consulted for recommendations for anxiety. Chief Complaint "I'm still having that burning". Subjective Subjective Patient was seen & assessed and interval progress reviewed. Tolerated abilify this morning, didn't notice any side effects but also no benefit so far. Still having intermittent sensation of burning vs warmth in his body. Feels like it is an internal sensation, not external or on the skin. He thinks it seems to happen after he's started like this morning after someone opened the door. Reviewed option to increase abilify for further benefit which he's like to do. Denies any other new complaints or concerns. Physical Exam Psychiatric Orientation: alert and oriented x 3 Apperance: appropriately dressed and appropriately groomed Eye Contact: good eye contact Motor Behavior: no abnormal motor movements Speech: normal rate/rhythm/volume of speech Affect: euthymic affect (with some smiles) Mood: + anxious mood; no depressed mood Thought Process: linear/logical thought process Thought Content: reality based without delusions Suicidal Thoughts: denies suicidal thoughts Homicidal Thoughts: denies homicidal thoughts Hallucinations: no auditory hallucinations and no visual hallucinations Cognition: recent memory grossly intact, remote memory grossly intact, attention grossly intact and language grossly intact Estimated Intelligence: consistent with education level Insight: + fair insight Judgment: + fair judgement Vital Signs (Past 24 Hours) Last Vital Signs Temp 36.3 C L 12/27/22 11:09 Pulse 83 12/27/22 11:09 Resp 18 12/27/22 11:09 BP 149/91 H 12/27/22 11:09 Pulse Ox 96 12/27/22 11:09 O2 Del Method Nasal Cannula 12/27/22 11:09 O2 Flow Rate 3 12/27/22 11:09 Results & Data ([facility]) Laboratory Results Laboratory Results - last 24 hr 12/25/22 12/27/22 12/27/22 16:54 08:58 08:58 WBC 10.26 RBC 4.26 L Hgb 12.9 L Hct 37.4 L MCV 87.8 MCH 30.3 MCHC 34.5 RDW Std Deviation 41.7 RDW Coeff of [place] 13.0 Plt Count 365 MPV 8.6 L Peripher Smr Path Cons Sodium 139 Potassium 3.5 Chloride 103 Carbon Dioxide 31 Anion Gap 5 BUN 13 Creatinine 0.75 Est Cr Clr Drug Dosing 80.5 Est GFR ( Amer) 107.7 Est GFR (Non-Af Amer) 92.9 BUN/Creatinine Ratio 17.3 Glucose 105 H Calcium 8.7 Current Inpatient Medications Current Inpatient Medications: Current Inpatient Medications Acetaminophen (Acetaminophen 325 Mg Tab) 650 mg PO Q4H PRN PRN Reason: Pain Stop: 01/25/23 22:35 Last Admin: 12/27/22 10:40 Dose: 650 mg Aripiprazole (A[facility]iprazole 5 Mg Tab) [facility] [place]: 01/26/23 08:59 Last Admin: 12/27/22 07:10 Dose: 2.5 mg Citalopram Hydrobromide (Citalopram 20 Mg Tab) [facility] [place] Stop: 01/25/23 08:59 Last Admin: 12/27/22 07:10 Dose: 20 mg Clonazepam (Clonazepam 0.5 Mg Tab) 0.5 mg PO TID [facility] Stop: 01/25/23 20:59 Last Admin: 12/27/22 13:56 Dose: 0.5 mg Cyanocobalamin (Cyanocobalamin 1000 Mcg/Ml Vial) 1,000 mcg IM QAM [facility] Stop: 12/31/22 08:59 Last Admin: 12/27/22 07:11 Dose: 1,000 mcg Diltiazem HCl (Diltiazem Hcl 300 Mg Capcr) 300 [facility] [place] Stop: 01/25/23 08:59 Last Admin: 12/27/22 07:09 Dose: 300 mg Finasteride (Finasteride 5 Mg Tab) 5 mg PO QAM [facility] Stop: 01/25/23 08:59 Last Admin: 12/27/22 07:10 Dose: 5 mg Fluticasone/Vilanterol (Fluticasone/Vilanterol 100/25mcg 14 Puffs/Inhaler) 1 puffs INH DAILY [facility] Stop: 01/25/23 08:59 Last Admin: 12/27/22 07:11 Dose: 1 puffs Heparin Sodium (Porcine) (Heparin Sod 5,000 Unit/0.5 Ml Vial) 5,000 units SQ Q12H [facility] Stop: 01/25/23 20:59 Last Admin: 12/27/22 07:12 Dose: 5,000 units Ceftriaxone Sodium 1,000 mg/ (Dextrose) 50 mls @ 100 mls/hr IV Q24H [facility]; Protocol Stop: 12/30/22 16:29 Last Infusion: 12/26/22 17:30 Dose: Infused Lamotrigine (Lamotrigine 25 Mg Tab) 50 mg PO QAM [facility] Stop: 01/26/23 13:49 Losartan Potassium (Losartan Potassium 25 Mg Tab) 25 mg PO BID [facility] Stop: 01/26/23 08:59 Last Admin: 12/27/22 09:20 Dose: 25 mg Pantoprazole Sodium (Pantoprazole 40 Mg Tab) 40 mg PO QAM [facility] Stop: 01/26/23 08:59 Last Admin: 12/27/22 07:19 Dose: 40 mg Umeclidinium [place] (Umeclidinium [place] 62.5mcg/Blister 7 Puffs/Inhaler) 1 puffs INH DAILY [facility] Stop: 01/25/23 08:59 Last Admin: 12/27/22 07:11 Dose: 1 puffs
[2022-12-27] MEDS: lamoTRIgine 25 MG TAB PO SCH (14:19)
[2022-12-27] MEDS: cefTRIAXone SODIUM 1,000 MG in DEXTROSE 5% AD-VAN 50 ML IV SCH (16:43)
[2022-12-27] MEDS ORDERED: POTASSIUM CHLORIDE CRTAB 20 MEQ TABCR PO STA (18:51)
[2022-12-27] MEDS ORDERED: IRON SUCROSE 200 MG in 0.9 % SODIUM CHLORIDE 100 ML IV ONE (20:00)
--- NOTE | 2022-12-27 20:20 | Hospitalist Progress Note ---
Date of Service December 27, 2022 Assessment & Plan (1) Acute UTI (urinary tract infection): Plan: urine cx with alpha strep day #2 IV rocephin stop rocephin after today's dose start amox 500mg TID in the am tomorrow plan 7 days UNLESS PSA is markedly elevated (which would suggest possible prostatitis) if PSA is very high consider 3-4 week treatment course for prostatitis (2) Bipolar 2 disorder: Plan: known pre-existing diagnosis appreciate Dr Shearer's consultation abilify 2.5mg qam added by Dr Shearer increased clonazepam to 0.5mg TID cont citalopram 20mg daily lamictal 50mg daily (3) Paresthesia: Plan: B12 def could be contributing anxiety could be contributing other contributors day #2 of IM B12 then change to PO B12 at d/c Vit B12 level = 187 (normal 180+) although technically "normal" range I would consider this deficiency (4) Chest pain: Plan: not truly a pain but more of an intermittent, burning sensation that comes/goes without warning and no obvious provocation see #3 above troponin neg - doubt ACS (5) Anxiety: Plan: see #2 above (6) Hypertension: Plan: uncontrolled Continue home Diltiazem Increase losartan to 25mg BID follow response (7) COPD (chronic obstructive pulmonary disease): Plan: Without exacerbation Cont NC O2 Cont home inhalers (8) Leukocytosis: Plan: Chronic Flow cytometry and peripheral smear pending (9) Anemia: Plan: Patient with combination of Fe Def and B12 def replace both as below (10) BPH (benign prostatic hyperplasia): Plan: Cont finasteride Bladder scan done post-void -- no retention, 0cc PVR check PSA in am if markedly elevated this may suggest acute prostatitis (11) Chronic respiratory failure with hypoxia and hypercapnia: Plan: on home O2 continuously 3 L NC stable (12) Pulmonary embolism: Plan: history of such in 2013 heparin 5000 BID for DVT proph while here (13) B12 deficiency: Plan: level is <200 in light of paresthesias, neuropsych symptoms, etc - started B12 injections, 1000mcg IM daily while here day #2 of such change to PO b12 at d/c (14) Iron deficiency: Plan: ferritin 15 c/w Fe def in light of Monteiro's esophagus history and tobacco history needs to get back to his GI provider will give venofer 200mg IV x 1 consider repeat venofer tomorrow can f/u with Ms Foster Yovani at [facility] post-d/c to follow this issue (15) Insomnia: Plan: 2nd to Bipolar and anxiety add melatonin HS add atarax HS Plan DVT proph - heparin 5000 BID care d/w Dr Shearer from psychiatry can d/c tele move to med/surg - he may sleep better on 3rd floor updated at bedside Admission and Anticipated Discharge Date Admission Date: December 26, 2022 Subjective tele stable overnight patient slept very poorly overnight he continues with anxiety continues with episodes of his chest/abdominal wall "burning" urinary symptoms improved ate poorly at breakfast and lunch but ate 100% of dinner during the visit his was present patient reports he takes lamictal 50mg daily - once we learned of this the lamictal was promptly ordered for him Review of Systems Review of Systems: gen - no fevers cv - no chest pain, just "burning sensation" that comes/goes pulm - no dyspnea at rest; mild WADDELL with walking to bathroom (baseline) GI - no nausea/emesis Physical Exam Physical Exam: gen - pleasant, NAD, a bit anxious at times neck - no JVD mouth - MMM heart - RRR, s1 s2, no murmur lungs - airation poor/fair (no change), no rales or wheeze, no increased work of breathing, mild barrel chest abd - soft NT ND BS+; small reducible umbilical hernia ext - no edema, pulses 2+ b/l psych - a/o x 3 Results & Data Results & Data Vital Signs (Past 12 Hours) Vital Signs Temp Pulse Pulse Resp BP BP Pulse Ox 12/27/22 15:32 81 12/27/22 15:28 36.4 C L 80 20 159/92 H 99 12/27/22 11:09 36.3 C L 83 18 149/91 H 96 O2 Del Method O2 Flow Rate 12/27/22 15:32 12/27/22 15:28 Nasal Cannula 3 12/27/22 11:09 Nasal Cannula 3 Laboratory Results Laboratory Results - last 24 hr 12/25/22 12/27/22 12/27/22 16:54 08:58 08:58 WBC 10.26 RBC 4.26 L Hgb 12.9 L Hct 37.4 L MCV 87.8 MCH 30.3 MCHC 34.5 RDW Std Deviation 41.7 RDW Coeff of [place] 13.0 Plt Count 365 MPV 8.6 L Peripher Smr Path Cons Sodium 139 Potassium 3.5 Chloride 103 Carbon Dioxide 31 Anion Gap 5 BUN 13 Creatinine 0.75 Est Cr Clr Drug Dosing 80.5 Est GFR ( Amer) 107.7 Est GFR (Non-Af Amer) 92.9 BUN/Creatinine Ratio 17.3 Glucose 105 H Calcium 8.7 Diagnostic Findings 12/25/22 12:55 Urine Culture - Final Urine,Clean Catch Alpha strep. not enterococcus Corynbact.sp not urealyticum PG Care Time/CCT Total # of Minutes Spent Total Time Spent with Patient: Total time spent is greater than 50% in coordination of care (as documented) at patient's floor/unit and/or counseling patient: Coding Level of Care Code 99332 SUB INP/OBS CARE 3/50MIN Diagnoses Acute UTI (urinary tract infection) N39.0 Bipolar 2 disorder F31.81 Paresthesia R20.2 Chest pain R07.9 Anxiety F41.9 Hypertension I10 COPD (chronic obstructive pulmonary disease) J44.9 Leukocytosis D72.829 Anemia D64.9 BPH (benign prostatic hyperplasia) N40.0 Chronic respiratory failure with hypoxia and hypercapnia J96.11; J96.12 Pulmonary embolism I26.99 B12 deficiency E53.8 Iron deficiency E61.1 Insomnia G47.00
[2022-12-27] MEDS ORDERED: hydrOXYzine HCl 25 MG TAB PO PRN (21:20)
[2022-12-27] MEDS: MELATONIN 3 MG TAB PO SCH (22:08)
[2022-12-28] MEDS ORDERED: KETOROLAC TROMETHAMINE 15 MG/ML VIAL IV ONE (03:48)
[2022-12-28 07:05] LABS: Calcium 8.8 mg/dl (8.6-10.3); Creatinine Clr Calc Pharmacy 73.6 ml/min; Est GFR (African American) 103.8 ml/min; Est GFR (Non-African American) 89.6 ml/min; Potassium 3.6 mmol/L (3.5-5.1)
[2022-12-28] MEDS: AMOXICILLIN 500 MG CAP PO SCH ×3 (08:42→20:06)
[2022-12-28] MEDS: ARIPiprazole 5 MG TAB PO SCH (08:42)
[2022-12-28] MEDS: FLUTICASONE/VILANTEROL 100/25MCG 14 PUFFS/INHALER INH SCH (08:42)
[2022-12-28] MEDS: LOSARTAN POTASSIUM 25 MG TAB PO SCH ×2 (08:43→20:06)
[2022-12-28] MEDS: lamoTRIgine 25 MG TAB PO SCH (08:43)
[2022-12-28] MEDS: dilTIAZem HCL 300 MG CAPCR PO SCH (08:43)
[2022-12-28] MEDS: PANTOprazole 40 MG TAB PO SCH (08:43)
[2022-12-28] MEDS: FINASTERIDE 5 MG TAB PO SCH (08:44)
[2022-12-28] MEDS: CITALOPRAM 20 MG TAB PO SCH (08:44)
[2022-12-28] MEDS: CYANOCOBALAMIN 1000 MCG/ML VIAL IM SCH (08:45)
[2022-12-28] MEDS: HEPARIN SOD 5,000 UNIT/0.5 ML VIAL SQ SCH ×2 (08:45→21:16)
[2022-12-28] MEDS: UMECLIDINIUM BROMIDE 62.5MCG/BLISTER 7 PUFFS/INHALER INH SCH (08:46)
[2022-12-28] MEDS: clonazePAM 0.5 MG TAB PO SCH ×3 (08:48→20:05)
[2022-12-28] MEDS ORDERED: ARIPiprazole 5 MG TAB PO ONE (10:10)
--- NOTE | 2022-12-28 11:56 | Hospitalist Progress Note ---
Date of Service December 28, 2022 Assessment & Plan (1) Acute UTI (urinary tract infection): Plan: u/a suspicious for UTI certainly symptomatic for such urine cx with alpha Streptococcus, not Enterococcus, as well as corynebacterium With a history of multiple large bladder stones as well as severely enlarged prostate seen on cystoscopy, follows with urology Received rocephin and now switched to amoxicillin-will finish out a 10-day course (2) Bipolar 2 disorder: Plan: known pre-existing diagnosis appreciate Dr Shearer's consultation A lot of his symptoms may be related to hypomania at this point abilify 2.5mg qam added by Dr Shearer and she recommends increasing to 5 mg p.o. once daily-we will do this for today increased clonazepam to 0.5mg TID cont citalopram 20mg daily-would not increase dose due to history of bipolar (3) Paresthesia: Plan: Suffers from whole body paresthesias and burning sensation that starts in his chest and spreads outwards B12 def could be contributing anxiety could be contributing started IM B12 shots daily while here then B12 orally at d/c-has already felt significant improvement since starting this Follow-up as an outpatient (4) Chest pain: Plan: if symptoms recur --> CTA chest to r/o PE given prior history of such troponin neg - doubt ACS (5) Anxiety: Plan: See above (6) Hypertension: Plan: Continue home Diltiazem and Losartan. Monitor blood pressures (7) COPD (chronic obstructive pulmonary disease): Plan: Without exacerbation Cont NC O2 Cont home inhalers (8) Leukocytosis: Plan: Chronic Peripheral smear somewhat inconclusive and flow cytometry sent and pending (9) Anemia: Plan: Patient with combination of Fe Def and B12 def replace both as below (10) BPH (benign prostatic hyperplasia): Plan: Cont finasteride Bladder scan done post-void -- no retention, 0cc PVR Follow-up with urology PSA lower than previous at 18 (11) Chronic respiratory failure with hypoxia and hypercapnia: Plan: on home O2 continuously 3 L NC stable (12) Pulmonary embolism: Plan: history of such in 2013 heparin 5000 BID for DVT proph while here (13) B12 deficiency: Plan: level is <200 in light of paresthesias, neuropsych symptoms, etc - start B12 injections, 1000mcg IM daily while here (14) Iron deficiency: Plan: ferritin 15 c/w Fe def in light of Monteiro's esophagus history and tobacco history needs to get back to his GI provider -We will give IV venofe x1 dose today r Plan DVT proph - heparin 5000 BID Disposition-continued stay, improving, possible discharged home tomorrow care d/w Dr Shearer from psychiatry Admission and Anticipated Discharge Date Admission Date: December 26, 2022 Subjective Patient reports feeling so much better through the night and early this morning. He did have some return of racing thoughts in the burning sensation throughout his upper body this morning associated with that. However, overall feels much improved but would like to stay 1 more night just to see if he continues to improve prior to returning home. I discussed his care with psychiatry. Physical Exam Constitutional: WD/WN, vitals as above Respiratory: normal respiratory effort, lungs clear to auscultation Cardiovascular: RRR, no murmur, no edema Gastrointestinal (Abdomen): Inspection/Auscultation: + visible herniation (Small, reducible umbilical hernia); + abdomen abnormal to inspection (Incisional scar from hernia repair right side abdomen) Percussion/Palpation: + abdomen tender (Mild at previous hernia repair site, no guarding or rebound), abdomen soft and + hernia (Umbilical hernia reducible, no hernia at previous hernia repair site) Psychiatric: Orientation: alert, oriented x 3 and cooperative Affect: euthymic affect Results & Data Results & Data Vital Signs (Past 12 Hours) Vital Signs Temp Pulse Resp BP Pulse Ox O2 Del Method O2 Flow Rate 12/28/22 09:45 Nasal Cannula 3 12/28/22 07:20 36.6 C 78 16 164/89 H 99 Nasal Cannula 3 Laboratory Results BMP, PSA reviewed PG Care Time/CCT Total # of Minutes Spent Total Time Spent with Patient: Total time spent is greater than 50% in coordination of care (as documented) at patient's floor/unit and/or counseling patient: Coding Level of Care Code 60371 SUB INP/OBS CARE 2/35MIN Diagnoses Acute UTI (urinary tract infection) N39.0 Bipolar 2 disorder F31.81 Paresthesia R20.2 Chest pain R07.9 Anxiety F41.9 Hypertension I10 COPD (chronic obstructive pulmonary disease) J44.9 Leukocytosis D72.829 Anemia D64.9 BPH (benign prostatic hyperplasia) N40.0 Chronic respiratory failure with hypoxia and hypercapnia J96.11; J96.12 Pulmonary embolism I26.99 B12 deficiency E53.8 Iron deficiency E61.1
[2022-12-28] MEDS: DOCUSATE SODIUM/SENNA 50/8.6MG TAB PO SCH (13:31)
[2022-12-28] MEDS ORDERED: IRON SUCROSE 200 MG in 0.9 % SODIUM CHLORIDE 100 ML IV ONE (15:00)
[2022-12-28] MEDS: MELATONIN 3 MG TAB PO SCH (20:05)
[2022-12-29] MEDS: DOCUSATE SODIUM/SENNA 50/8.6MG TAB PO SCH (07:17)
[2022-12-29] MEDS: dilTIAZem HCL 300 MG CAPCR PO SCH (07:17)
[2022-12-29] MEDS: AMOXICILLIN 500 MG CAP PO SCH ×3 (07:17→19:59)
[2022-12-29] MEDS: lamoTRIgine 25 MG TAB PO SCH (07:17)
[2022-12-29] MEDS: LOSARTAN POTASSIUM 25 MG TAB PO SCH ×2 (07:17→19:59)
[2022-12-29] MEDS: CITALOPRAM 20 MG TAB PO SCH (07:17)
[2022-12-29] MEDS: PANTOprazole 40 MG TAB PO SCH (07:17)
[2022-12-29] MEDS: FLUTICASONE/VILANTEROL 100/25MCG 14 PUFFS/INHALER INH SCH (07:18)
[2022-12-29] MEDS: UMECLIDINIUM BROMIDE 62.5MCG/BLISTER 7 PUFFS/INHALER INH SCH (07:18)
[2022-12-29] MEDS: FINASTERIDE 5 MG TAB PO SCH (07:18)
[2022-12-29] MEDS: clonazePAM 0.5 MG TAB PO SCH ×3 (07:18→20:04)
[2022-12-29] MEDS: CYANOCOBALAMIN 1000 MCG/ML VIAL IM SCH (07:21)
[2022-12-29] MEDS: HEPARIN SOD 5,000 UNIT/0.5 ML VIAL SQ SCH ×2 (07:22→19:59)
[2022-12-29] MEDS ORDERED: ARIPiprazole 5 MG TAB PO SCH (09:00)
--- NOTE | 2022-12-29 17:32 | Hospitalist Progress Note ---
Date of Service December 29, 2022 Assessment & Plan (1) Acute UTI (urinary tract infection): Plan: u/a suspicious for UTI certainly symptomatic for such urine cx with alpha Streptococcus, not Enterococcus, as well as corynebacterium With a history of multiple large bladder stones as well as severely enlarged prostate seen on cystoscopy, follows with urology Received rocephin and now switched to amoxicillin-will finish out a 10-day course (2) Bipolar 2 disorder: Plan: known pre-existing diagnosis appreciate Dr Shearer's consultation A lot of his symptoms may be related to hypomania at this point abilify 2.5mg qam added by Dr Shearer and she recommends increasing to 5 mg p.o. once daily-not helping much so far--> check ECG and if QT ok, increase further to 5mg po bid this evening increased clonazepam to 0.5mg TID cont citalopram 20mg daily-would not increase dose due to history of bipolar no inpatient stay indicated (3) Paresthesia: Plan: Suffers from whole body paresthesias and burning sensation that starts in his chest and spreads outwards B12 def could be contributing anxiety could be contributing started IM B12 shots daily while here x 5 doses and then B12 orally at d/c-has already felt significant improvement since starting this Follow-up as an outpatient (4) Chest pain: Plan: if symptoms recur --> CTA chest to r/o PE given prior history of such troponin neg - doubt ACS (5) Anxiety: Plan: See above (6) Hypertension: Plan: BPs are mildly elevated Continue home Diltiazem and Losartan. Monitor blood pressures and could adjust meds if remain consistently elevated (7) COPD (chronic obstructive pulmonary disease): Plan: Without exacerbation Cont NC O2 Cont home inhalers (8) Leukocytosis: Plan: Chronic Peripheral smear somewhat inconclusive and flow cytometry sent and pending (9) Anemia: Plan: Patient with combination of Fe Def and B12 def replace both as below (10) BPH (benign prostatic hyperplasia): Plan: Cont finasteride Bladder scan done post-void -- no retention, 0cc PVR Follow-up with urology PSA lower than previous at 18 (11) Chronic respiratory failure with hypoxia and hypercapnia: Plan: on home O2 continuously 3 L NC stable (12) Pulmonary embolism: Plan: history of such in 2013 heparin 5000 BID for DVT proph while here (13) B12 deficiency: Plan: level is <200 in light of paresthesias, neuropsych symptoms, etc - start B12 injections, 1000mcg IM daily while here (14) Iron deficiency: Plan: ferritin 15 c/w Fe def in light of Monteiro's esophagus history and tobacco history needs to get back to his GI provider -will give another dose of IV Venofer Plan DVT proph - heparin 5000 BID Disposition-continued stay, improving, possible discharged home tomorrow if feeling better care d/w Psych nurse liaison Admission and Anticipated Discharge Date Admission Date: December 26, 2022 Subjective Pt still with c/o burning episodes across his body x 2 today, lasting a couple of minutes each, seem to go away on their own. Racing thoughts. Did feel more tired today with increased dose of ABilify. He mostly spent time showing me his artwork. He is eating. Does not feel ready to go home yet Physical Exam Constitutional: WD/WN, vitals as above Respiratory: normal respiratory effort; no cough Cardiovascular: Extremities: no edema Psychiatric: Orientation: alert, oriented x 3 and cooperative Affect: euthymic affect Results & Data Results & Data Vital Signs (Past 12 Hours) Vital Signs Temp Pulse Resp BP Pulse Ox O2 Del Method O2 Flow Rate 12/29/22 15:01 36.6 C 89 16 173/92 H 100 Nasal Cannula 3 12/29/22 12:40 88 157/84 H 12/29/22 07:29 Nasal Cannula 3 12/29/22 07:16 36.9 C 98 H 18 163/97 H 99 Nasal Cannula 3 PG Care Time/CCT Total # of Minutes Spent Total Time Spent with Patient: Total time spent is greater than 50% in coordination of care (as documented) at patient's floor/unit and/or counseling patient: Coding Level of Care Code 29981 SUB INP/OBS CARE 2/35MIN Diagnoses Acute UTI (urinary tract infection) N39.0 Bipolar 2 disorder F31.81 Paresthesia R20.2 Chest pain R07.9 Anxiety F41.9 Hypertension I10 COPD (chronic obstructive pulmonary disease) J44.9 Leukocytosis D72.829 Anemia D64.9 BPH (benign prostatic hyperplasia) N40.0 Chronic respiratory failure with hypoxia and hypercapnia J96.11; J96.12 Pulmonary embolism I26.99 B12 deficiency E53.8 Iron deficiency E61.1
[2022-12-29] MEDS ORDERED: IRON SUCROSE 300 MG in SODIUM CHLORIDE 0.9% 250 ML IV ONE (18:30)
[2022-12-29] MEDS: MELATONIN 3 MG TAB PO SCH (20:00)
[2022-12-29] MEDS: ARIPiprazole 5 MG TAB PO SCH (20:36)
[2022-12-30] MEDS: FINASTERIDE 5 MG TAB PO SCH (07:30)
[2022-12-30] MEDS: LOSARTAN POTASSIUM 25 MG TAB PO SCH (07:30)
[2022-12-30] MEDS: clonazePAM 0.5 MG TAB PO SCH ×2 (07:31→13:10)
[2022-12-30] MEDS: PANTOprazole 40 MG TAB PO SCH (07:31)
[2022-12-30] MEDS: lamoTRIgine 25 MG TAB PO SCH (07:31)
[2022-12-30] MEDS: AMOXICILLIN 500 MG CAP PO SCH ×2 (07:31→13:10)
[2022-12-30] MEDS: CITALOPRAM 20 MG TAB PO SCH (07:31)
[2022-12-30] MEDS: ARIPiprazole 5 MG TAB PO SCH (07:31)
[2022-12-30] MEDS: CYANOCOBALAMIN 1000 MCG/ML VIAL IM SCH (07:31)
[2022-12-30] MEDS: dilTIAZem HCL 300 MG CAPCR PO SCH (07:31)
[2022-12-30] MEDS: DOCUSATE SODIUM/SENNA 50/8.6MG TAB PO SCH (07:31)
[2022-12-30] MEDS: HEPARIN SOD 5,000 UNIT/0.5 ML VIAL SQ SCH (07:32)
[2022-12-30] MEDS: UMECLIDINIUM BROMIDE 62.5MCG/BLISTER 7 PUFFS/INHALER INH SCH (07:32)
[2022-12-30] MEDS: FLUTICASONE/VILANTEROL 100/25MCG 14 PUFFS/INHALER INH SCH (07:32)
--- NOTE | 2022-12-30 10:16 | Electrocardiogram Report ---
Test Reason : Blood Pressure : / mmHG Vent. Rate : 088 BPM Atrial Rate : 088 BPM P-R Int : 142 ms QRS Dur : 084 ms QT Int : 372 ms P-R-T Axes : 079 072 098 degrees QTc Int : 450 ms Sinus rhythm with occasional Premature ventricular complexes Otherwise normal ECG When compared with ECG of 25-DEC-2022 11:57, Premature ventricular complexes are now Present Nonspecific T wave abnormality now evident in Lateral leads Confirmed by Timbo Karimi ([id number] on 12/30/2022 10:16:10 AM Referred By: REFERRED SELF Confirmed By:Austin Karimi
[2022-12-30] MEDS ORDERED: ALBUT/IPRATROP 3MG/0.5MG NEB 3 ML VIAL NEB STA (11:52)
--- NOTE | 2022-12-30 12:27 | Discharge Summary ---
Discharge Summary Date of Service December 30, 2022 Notes For Next Care Provider Medication Changes From Visit Added Lamictal, Abilify, and increased clonazepam to 3 times a day Patient declines to follow-up with outpatient psychiatry. He would like PCP to refill his psychiatric medications. Finish out amoxicillin course for UTI. Admission HPI Per Admitting Provider Mr. Guadalupe is a 72 y/o male with past medical history of anemia, anxiety, Monteiro's esophagus, BPH, COPD, depression, mood disorder, PTSD, PE, sleep apnea who presents with dysuria and low back pain along with general parasthesias. He reports he has had racing thoughts for quite some time, along with complaints of his entire "body burning". Episodes can last for 5 to 30 minutes. He feels that episodes started after the political climate changed within the [place], specifically when [place] was elected. He is taking Celexa 20 mg daily along with Klonopin 0.5 mg BID at home, managed by PCP. When asked if he has been evaluated by a psychiatrist, the patient reports "I do not need one because I don't have psychiatric issues". He admits to mild intermittent left sided chest pain. He has burning with urinary at home and low back pain. EKG and troponin during ER work up were both negative. U/a positive for +3 Leuk est and 4+ bacteria; UC is pending. He received Ceftriaxone 1 gm x 1 dose. CXR was negative for acute findings. BP is elevated, SBP 160 to 180's. He received potassium 40 mEq PO for K level 3.3. He also received Ativan 0.5 mg IV x 1 dose. He will be admitted for evaluation of reported parasthesias along with treatment of UTI. Principal Dx & Hospital Course #1 = Principal Diagnosis (1) Acute UTI (urinary tract infection): u/a suspicious for UTI certainly symptomatic for such urine cx with alpha Streptococcus, not Enterococcus, as well as corynebacterium With a history of multiple large bladder stones as well as severely enlarged prostate seen on cystoscopy, follows with urology Received rocephin and now switched to amoxicillin-will finish out a 10-day course (2) Bipolar 2 disorder: known pre-existing diagnosis appreciate Dr Shearer's consultation A lot of his symptoms may be related to hypomania at this point abilify 2.5mg qam added by Dr Shearer and she recommends increasing to 5 mg p.o. twice daily-QTc checked on ECG and was normal increased clonazepam to 0.5mg TID Added Lamictal 50 mg daily cont citalopram 20mg daily-would not increase dose due to history of bipolar no inpatient stay indicated Follow-up with PCP as he does not want to follow-up with psychiatry His symptoms were much improved with less panic attacks, less racing thoughts. Mood improved (3) Paresthesia: Suffers from whole body paresthesias and burning sensation that starts in his chest and spreads outwards B12 def could be contributing anxiety could be contributing started IM B12 shots daily while here x 5 doses and then B12 orally at d/c-has already felt significant improvement since starting this Follow-up as an outpatient (4) Chest pain: Resolved troponin neg - doubt ACS (5) Anxiety: See above (6) Hypertension: BPs are mildly elevated Continue home Diltiazem and Losartan was increased to 25 Mg p.o. twice daily. Monitor blood pressures and could adjust meds if remain consistently elevated as an outpatient (7) COPD (chronic obstructive pulmonary disease): Without exacerbation Cont NC O2 Cont home inhalers (8) Leukocytosis: Chronic Peripheral smear somewhat inconclusive and flow cytometry sent and negative Follow-up with PCP or hematology as outpatient if persist (9) Anemia: Patient with combination of Fe Def and B12 def replaced both as below (10) BPH (benign prostatic hyperplasia): Cont finasteride Bladder scan done post-void -- no retention, 0cc PVR Follow-up with urology PSA lower than previous at 18 (11) Chronic respiratory failure with hypoxia and hypercapnia: on home O2 continuously 3 L NC stable Also on home BiPAP (12) Pulmonary embolism: history of such in 2013 heparin 5000 BID for DVT proph while here (13) B12 deficiency: level is <200 in light of paresthesias, neuropsych symptoms, etc - start B12 injections, 1000mcg IM daily while here (14) Iron deficiency: ferritin 15 c/w Fe def in light of Monteiro's esophagus history and tobacco history needs to get back to his GI provider Received 2 doses of IV Venofer 300 mg each while here Follow-up with PCP as an outpatient Plan DVT proph - heparin 5000 BID Disposition-DC to home, much improved Discharge Exam Constitutional WD/WN, vitals as above Respiratory normal respiratory effort, lungs clear to auscultation normal respiratory effort; no cough Cardiovascular RRR, no murmur, no edema Extremities: no edema Psychiatric Orientation: alert, oriented x 3 and cooperative Affect: euthymic affect Updated Medication List Medication Instructions Recorded Confirmed Type acetaminophen 500 mg tablet 500 mg PO Q6H PRN Pain 03/27/19 12/25/22 History citalopram 20 mg tablet 20 mg PO QAM 03/03/22 12/25/22 History diltiazem HCl 300 mg capsule,24 300 mg PO QAM 03/03/22 12/25/22 History hr,extended release (Tiadylt ER) ipratropium 0.5 mg-albuterol 3 mg 3 ml NEB Q2H PRN shortness of 09/16/22 12/25/22 Rx (2.5 mg base)/3 mL nebulization breath #540 mL soln fluticasone fur. 100 mcg-umeclid 1 inh inhalation DAILY #3 Inhalers 10/12/22 12/25/22 Rx 62.5 mcg-vilant 25 mcg inhalat.powder (Trelegy Ellipta) finasteride 5 mg tablet 5 mg PO QAM 11/11/22 12/25/22 History ipratropium 20 mcg-albuterol 100 0 puff inhalation DAILY 12/25/22 12/25/22 History mcg/actuation mist for inhalation (Combivent Respimat) amoxicillin 500 mg capsule 500 mg PO TID 5 days #15 caps 12/30/22 Rx aripiprazole 5 mg tablet (Abilify) 5 mg PO BID #60 tabs 12/30/22 Rx clonazepam 1 mg tablet 0.5 mg PO TID #90 tabs 12/30/22 Rx cyanocobalamin (vitamin B-12) 1,000 mcg PO DAILY #30 caps 12/30/22 Rx 1,000 mcg capsule lamotrigine 25 mg tablet (Lamictal) 50 mg PO QAM #60 tabs 12/30/22 Rx losartan 25 mg tablet 25 mg PO BID #60 tabs 12/30/22 Rx melatonin 3 mg tablet 3 mg PO HS #30 tabs 12/30/22 Rx pantoprazole 40 mg tablet,delayed 40 mg PO QAM #30 tabs 12/30/22 Rx release Hospital Stay Data Consultations 12/25/22 15:06 Consult Hospitalist Stat 12/25/22 17:51 Consult Psychiatry Routine Pending Results Patient Have Any Pending Studies at Discharge: No Discharge Instructions Given to Patient (Per Discharging Provider) Please finish out 5 more days of the amoxicillin as an antibiotic for your UTI. Please follow up with your Urologist as scheduled. For your burning sensation, this is likely caused by both your anxiety as well as your vitamin B12 deficiency. You were started on Vitamin B12 shots and should continue on vitamin B12 pills after discharge. You were also started on Abilify which is really helping your racing thoughts and burning sensation. Your clonazepam dose was also increased to three times a day. Take the mid day dose around 2 PM. You were also started on lamotrigine for your anxiety. You were also iron deficient and were given IV iron infusions. Please follow up with your PCP and your GI doctor about this. Your blood pressure was high and your losartan dose was increased to twice a day. You should take Protonix daily for your history of Monteiro's esophagus from acid reflux. Total Time Total Time Spent Total Time Spent (In Minutes): 40 minutes Coding Level of Care Code 20259 INP/OBS DISCH >30 MIN Diagnoses Acute UTI (urinary tract infection) N39.0 Bipolar 2 disorder F31.81 Paresthesia R20.2 Chest pain R07.9 Anxiety F41.9 Hypertension I10 COPD (chronic obstructive pulmonary disease) J44.9 Leukocytosis D72.829 Anemia D64.9 BPH (benign prostatic hyperplasia) N40.0 Chronic respiratory failure with hypoxia and hypercapnia J96.11; J96.12 Pulmonary embolism I26.99 B12 deficiency E53.8 Iron deficiency E61.1
== END 2022-12-30 16:59 | disposition home or self-care (01) | DRG 690 ==
LOC: ED 11:54 → 2N 11:54 → SUATTDRO 16:19 → 2N 17:28 → SUATTDRO 12-26 19:51 → 3E 12-27 21:11

== ENCOUNTER 2023-06-24 10:18 | Inpatient (IN) ==
--- NOTE | 2023-06-24 11:19 | Emergency Department Note ---
Impression & Plan COPD exacerbation, RLL pneumonia, Acute on chronic hypoxic respiratory failure ED Provider Note NAME: DAT DON AGE: 72 SEX: M : 1950 ARRIVES VIA: Ambulance INFORMANT: Patient, ED PROVIDER(S): Kiet Goyal MD CHIEF COMPLAINT: Shortness of breath MEDICAL DECISION MAKING: Patient presents due to concern for worsening shortness of breath and WADDELL a known setting of COPD. IV was established and blood obtained along with an EKG troponin chest x-ray and VBG. Patient was ordered IV fluids Atrovent ipratropium in addition to IV steroids magnesium 2 g over 1 hour and BiPAP was ordered. I did speak with respiratory replace the BiPAP and gave the breathing treatment. The patient's VBG is normal and trial off BiPAP. Upon subsequent reassessment the patient was still having some difficulty with breathing was placed on BiPAP again and was given another DuoNeb treatment. I did speak with the inpatient hospitalist service and the patient was admitted to the medicine service. Patient's chest x-ray did show concern for right lower lobe pneumonia. Antibiotics were ordered via pharmacy. Critical Care: I have personally spent 46 minutes of critical care time in direct management of this patient. This includes bedside care, interpretation of diagnostic studies, and testing, discussion with consultants, patient, and family members, and other require inpatient management activities. This 46 minutes is in excess of all separately billable procedures. Discussion w/ other healthcare providers: Dr. Peoples inpatient medicine service Prior /Outside records reviewed: I reviewed a discharge summary from May 16, 2023. Patient has a known history of COPD on home oxygen and was admitted at that time due to concern for hypertension COPD exacerbation Differential diagnosis: Reactive airway disease, pneumonia, pneumothorax, COPD, CHF, ACS, pulmonary embolism, musculoskeletal, GERD as well as other pathologies were considered. Diagnostics, as interpreted by me: ECG: Sinus tachycardia, rate of 115, normal intervals, normal axis no ST elevations Cardiac monitoring: An order was placed for continuous cardiac monitoring. The monitor shows a rate of 98 with sinus rhythm. Patient was placed on pulse oximetry Medical decision rules: Curb 65 score Imaging studies: I informally interpreted the patient's chest x-ray which shows right lower lobe pneumonia with formal report to follow. HPI: Patient presents due to concern for worsening shortness of breath. The patient does suffer from some chronic shortness of breath with a known history of COPD but this is worsened over the last week and certainly over the last 3 days. The patient states that whenever he gets up to use the bathroom and then returns to the bed he gets significantly winded. The at bedside noted today that he was calling for help but was only to use hand signals as he was so short of breath that he was unable to talk. The patient was was immediately given his nebulizer treatment and his Trelegy. Ambulance was called. The patient states that he has had some cough but no productive cough. The patient states that he has had the feeling of an elephant on his chest with associated chest pain that was centralized nonradiating. Patient states that is not currently present. Patient denies any prior history of known heart disease per patient but that his father of congestive heart failure. Patient denies any leg swelling or calf pain. No history of DVT or PE. The patient is a former smoker smoking many years ago. No known sick contacts or recent travel. PAST MEDICAL HISTORY: See Below PAST SURGICAL HISTORY: See Below SOCIAL HISTORY: See Below HOME MEDICATIONS: See Below ALLERGIES: See Below VITALS: See Below PHYSICAL EXAMINATION: GENERAL: Mildly ill in appearance, nasal cannula in place EYE EXAM: Normal conjunctiva. PERRL, no anisocoria and EOM's grossly intact w/o pain. OROPHARYNX: Moist mucus membranes, grossly normal dentition. NECK: Supple, no nuchal rigidity, no adenopathy, non-tender. No signs of meningismus. FROM of the neck with good chin to chest and neck extension. No stridor. LUNGS: Diminished breath sounds throughout. Scant wheezes normal chest wall mechanics. HEART: NSR, no MRG. ABDOMEN: Abdomen soft, non-tender, no masses, no rebound or guarding. BACK: No CVA TTP. SKIN: No rashes and no bruising. UPPER EXTREMITIES: Upper extremities are grossly normal. LOWER EXTREMITIES: Grossly normal, no edema. NEURO EXAM: A&O x3, cranial nerves II-XII grossly intact, normal speech, moves all 4 extremities. 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 hx nares 2013- JANNETH (acute kidney injury) Anemia COPD (chronic obstructive pulmonary disease) FOLLOWS W/ DR RODRIGUES LAST VISIT 08/2022 Pulmonary embolism (01/22/14) HX 2013 Sleep apnea continous O2 at night PTSD (post-traumatic stress disorder) Surgical History S/P repair of ventral hernia S/P tonsillectomy History of cardiac catheterization 30 YRS AGO- NO STENTS- Family History Other Lung disease Social History Smoking Status: Former smoker Tobacco Type: Cigarettes Age Quit Using Tobacco: 62; Cigarettes Per Day: QUIT >20 YRS AGO; Second Hand Exposure: No; Do You Dip or Chew Tobacco: No; Tobacco Cessation Education Requested by Patient: No Hx Alcohol Use: No Hx Substance Use: No Preferred Language: Thai Communication Ability: Effective Ticketing Agent Required: No Beliefs That Will Affect Care: None Current Living Situation: Spouse Other Information That Helps Us Care for You: No Feels Safe at Home: Yes Safety Concerns: Feels Safe At This Time Assistive Devices: None Allergies Allergies Allergy/AdvReac Type Severity Reaction Status Date / Time Influenza Virus Vaccines Allergy Severe SHORTNESS Verified 05/08/23 22:19 OF BREATH morphine Allergy Intermediate "I FELT Verified 05/08/23 22:19 FUNNY IN THE HEAD" budesonide AdvReac Intermediate sob Verified 05/08/23 22:19 [From Sunrun] formoterol AdvReac Intermediate sob Verified 05/08/23 22:19 [From Sunrun] glycopyrrolate AdvReac Intermediate sob Verified 05/08/23 22:19 [From Sunrun] Home Meds Home Medications Medication Instructions Recorded Confirmed acetaminophen 500 mg tablet 500 mg PO Q6H PRN Pain 03/27/19 05/08/23 finasteride 5 mg tablet 5 mg PO QAM 11/11/22 06/24/23 ipratropium 20 mcg-albuterol 100 0 puff inhalation QID PRN 12/25/22 06/24/23 mcg/actuation mist for inhalation Shortness Of Breath Or Wheezing (Combivent Respimat) citalopram 40 mg tablet 20 mg PO DAILY 05/08/23 06/24/23 clonazepam 0.5 mg tablet 0.5 mg PO BID PRN Anxiety 05/08/23 06/24/23 diltiazem HCl 360 mg capsule,24 360 mg PO DAILY 05/08/23 06/24/23 hr,extended release (Tiadylt ER) ferrous sulfate 325 mg (65 mg 325 mg PO DAILY 05/08/23 06/24/23 iron) tablet ipratropium 0.5 mg-albuterol 3 mg 0 ml NEB Q2H PRN shortness of 06/24/23 06/24/23 (2.5 mg base)/3 mL nebulization breath soln lamotrigine 25 mg tablet (Lamictal) 25 mg PO BID 06/24/23 06/24/23 losartan 50 mg tablet 25 mg PO DAILY 06/24/23 06/24/23 pantoprazole 40 mg tablet,delayed 0 mg PO QAM 06/24/23 06/24/23 release Previous Rx's Medication Instructions Recorded fluticasone fur. 100 mcg-umeclid 1 inh inhalation DAILY #3 Inhalers 10/12/22 62.5 mcg-vilant 25 mcg inhalat.powder (Trelegy Ellipta) aripiprazole 5 mg tablet (Abilify) 5 mg PO BID #60 tabs 12/30/22 cyanocobalamin (vitamin B-12) 1,000 mcg PO DAILY #30 caps 12/30/22 1,000 mcg capsule aspirin 81 mg tablet,delayed 81 mg PO QAM #90 tabs 05/16/23 release isosorbide mononitrate 30 mg 30 mg PO DAILY #30 tabs 05/16/23 tablet,extended release 24 hr Results & Data (ED) Vital Signs Vital Signs - 24 hr 06/24/23 10:36 06/24/23 10:44 06/24/23 10:44 Temperature 36.4 C L Temperature Source Oral Pulse Rate 107 H 109 H Pulse Rhythm Regular Pulse Strength Normal Respiratory Rate 20 Respiratory Effort / Characteristics Non-Labored Spontaneous Spontaneous Accessory Muscle Use Labored Nasal Flaring Short of Breath Tripoding Respiratory Depth Normal Shallow Respiratory Pattern Regular Regular Blood Pressure 141/123 H Blood Pressure Mean 129 Pulse Oximetry 98 Oxygen Delivery Method Room Air Oxygen Flow Rate 5 Sepsis Recent Fever Within 48 Hours No Sepsis New/Unexplained Change in Mental Status N/A Sepsis Action Taken by Nursing No Action Required Oxygen Flow Rate - Titration Pulse Oximetry Post Tiitration 06/24/23 10:52 Temperature Temperature Source Pulse Rate Pulse Rhythm Pulse Strength Respiratory Rate Respiratory Effort / Characteristics Respiratory Depth Respiratory Pattern Blood Pressure Blood Pressure Mean Pulse Oximetry 98 Oxygen Delivery Method Room Air Oxygen Flow Rate 5 Sepsis Recent Fever Within 48 Hours Sepsis New/Unexplained Change in Mental Status Sepsis Action Taken by Nursing Oxygen Flow Rate - Titration 4 Pulse Oximetry Post Tiitration 97 Home Medications Current Medication List: was personally reviewed by me Laboratory Data Attestation: I reviewed the patient's lab results. 06/26/23 06:12 06/27/23 07:48 Lab Results 06/24/23 06/24/23 06/24/23 Range/Units 10:39 12:14 14:02 WBC 14.41 H (4.8-10.8) K/ul RBC 4.61 L (4.70-6.10) M/uL Hgb 14.1 (14.0-18.0) g/dl Hct 42.5 (42.0-52.0) % MCV 92.2 (80.0-100.0) fL MCH 30.6 (25.0-34.0) pg MCHC 33.2 (32.0-36.0) g/dL RDW Std Deviation 45.6 (36.4-46.3) fL RDW Coeff of [place] 13.6 (11.5-14.5) % Plt Count 348 (130-400) K/uL MPV 9.2 L (9.4-12.4) fL Immature Gran % (Auto) 0.7 % Neut % (Auto) 75.1 % Lymph % (Auto) 15.5 % [place] % (Auto) 7.5 % Eos % (Auto) 0.3 % Baso % (Auto) 0.9 % Neut # (Auto) 10.83 H (1.40-6.50) K/uL Lymph # (Auto) 2.23 (1.20-3.40) K/uL [place] # (Auto) 1.08 H (0.11-0.59) K/uL Eos # (Auto) 0.04 (0.00-0.50) K/uL Baso # (Auto) 0.13 (0.00-0.20) K/uL Immature Gran # (Auto) 0.10 (0.01-0.20) K/uL PT 10.3 (9.0-12.0) Seconds INR 0.9 (0.9-1.1) APTT 29.0 (21.0-31.0) Seconds PTT Ratio 1.0 VBG pH 7.38 (7.36-7.41) VBG pCO2 58 H (38-50) mmHg VBG pO2 64 mmHg VBG HCO3 34 mmol/L VBG O2 Saturation 93.0 % VBG Base Excess 7.3 mEq/L Sodium 143 (136-145) mmol/L Potassium 3.7 (3.5-5.1) mmol/L Chloride 101 (98-107) mmol/L Carbon Dioxide 34 H (21-32) mmol/L Anion Gap 8 (3-11) BUN 23 (6-23) mg/dl Creatinine 0.93 (0.6-1.4) mg/dl Est Cr Clr Drug Dosing 66.7 ml/min Est GFR ( Amer) 96.1 ml/min Est GFR (Non-Af Amer) 82.9 ml/min BUN/Creatinine Ratio 24.7 H (10-20) Glucose 100 H (70-99(Fasting)) mg/dl Calcium 9.8 (8.6-10.3) mg/dl Magnesium 2.1 (1.7-2.4) mg/dl Total Bilirubin 0.4 (0.2-1.0) mg/dl AST 14 (13-39) U/L ALT 11 (7-52) U/L Alkaline Phosphatase 100 (34-104) U/L Troponin I High Sens 22.1 H 23.1 H (0-20) pg/ml Total Protein 7.8 (6.0-8.3) gm/dl Albumin 4.2 (3.4-5.0) gm/dl Globulin 3.6 (2.5-4.0) gm/dl Albumin/Globulin Ratio 1.2 (0.9-2) Administered Medications Albuterol (Albuterol Hfa 8 Gm Inhaler) 1 puffs INH Q6H PRN; Protocol PRN Reason: SOB/WHEEZING Stop: 07/24/23 18:52 Last Admin: 06/27/23 09:28 Dose: 1 puffs Documented By: Admin: 06/26/23 09:27 Dose: 1 puffs Documented By: KAMERON Albuterol (Albut/Ipratrop 3mg/0.5mg Neb 3 Ml Vial) 3 ml NEB QIDR [facility]; Protocol Stop: 07/25/23 10:59 Last Admin: 06/27/23 06:53 Dose: 3 ml Documented By: Admin: 06/26/23 19:20 Dose: 3 ml Documented By: Admin: 06/26/23 14:40 Dose: 3 ml Documented By: Admin: 06/26/23 11:19 Dose: 3 ml Documented By: Admin: 06/26/23 07:16 Dose: 3 ml Documented By: Admin: 06/25/23 18:22 Dose: 3 ml Documented By: Admin: 06/25/23 15:32 Dose: 3 ml Documented By: Admin: 06/25/23 11:09 Dose: 3 ml Documented By: Admin: 06/25/23 09:05 Dose: 3 ml Documented By: OCTAVIO Aripiprazole (Aripiprazole 5 Mg Tab) 5 mg PO BID [facility] Stop: 07/24/23 20:59 Last Admin: 06/27/23 08:44 Dose: 5 mg Documented By: Admin: 06/26/23 20:44 Dose: 5 mg Documented By: Admin: 06/26/23 07:47 Dose: 5 mg Documented By: Admin: 06/25/23 19:31 Dose: 5 mg Documented By: Admin: 06/25/23 07:33 Dose: 5 mg Documented By: Admin: 06/24/23 20:30 Dose: 5 mg Documented By: JESUS Aspirin (Aspirin 81 Mg Ectab) 81 mg PO QAM [facility] Stop: 07/25/23 08:59 Last Admin: 06/27/23 08:44 Dose: 81 mg Documented By: Admin: 06/26/23 07:45 Dose: 81 mg Documented By: Admin: 06/25/23 07:33 Dose: 81 mg Documented By: RIKY Azithromycin (Azithromycin 250 Mg Tab) 250 mg PO QAM [facility]INA Stop: 06/29/23 09:01 Last Admin: 06/27/23 10:15 Dose: 250 mg Documented By: TIANA Citalopram Hydrobromide (Citalopram 20 Mg Tab) 20 mg PO DAILY [facility] Stop: 07/25/23 08:59 Last Admin: 06/27/23 09:02 Dose: 20 mg Documented By: Admin: 06/26/23 07:47 Dose: 20 mg Documented By: Admin: 06/25/23 07:33 Dose: 20 mg Documented By: RIKY Clonazepam (Clonazepam 0.5 Mg Tab) 0.5 mg PO TID [facility]INA Stop: 07/26/23 20:59 Last Admin: 06/27/23 08:52 Dose: 0.5 mg Documented By: Admin: 06/26/23 20:44 Dose: 0.5 mg Documented By: JESUS Diltiazem HCl (Diltiazem Hcl 180 Mg Capcr) 360 mg PO DAILY [facility]INA Stop: 07/25/23 08:59 Last Admin: 06/27/23 08:45 Dose: 360 mg Documented By: Admin: 06/26/23 07:46 Dose: 360 mg Documented By: Admin: 06/25/23 07:33 Dose: 360 mg Documented By: RIKY Enoxaparin Sodium (Enoxaparin Inj 40 Mg/0.4 Ml Syr) 40 mg SQ DAILY [facility]INA Stop: 07/26/23 08:59 Last Admin: 06/27/23 09:06 Dose: 40 mg Documented By: Admin: 06/26/23 07:48 Dose: 40 mg Documented By: ALVARO Ferrous Sulfate (Ferrous Sulfate 325 Mg Tab) 325 mg PO DAILY [facility]INA Stop: 07/25/23 08:59 Last Admin: 06/27/23 09:00 Dose: 325 mg Documented By: Admin: 06/26/23 07:46 Dose: 325 mg Documented By: Admin: 06/25/23 07:33 Dose: 325 mg Documented By: RIKY Finasteride (Finasteride 5 Mg Tab) 5 mg PO QAM [facility]INA Stop: 07/25/23 08:59 Last Admin: 06/27/23 08:45 Dose: 5 mg Documented By: Admin: 06/26/23 07:45 Dose: 5 mg Documented By: Admin: 06/25/23 07:34 Dose: 5 mg Documented By: RIKY Fluticasone/Umeclidinium/Vilanterol (Fluticasone/Umeclidin/Vilanter 100-62.5-25) 1 puffs INH DAILY [facility]INA Stop: 07/25/23 08:59 Last Admin: 06/27/23 08:43 Dose: 1 puffs Documented By: Admin: 06/26/23 07:47 Dose: 1 puffs Documented By: Admin: 06/25/23 07:32 Dose: 1 puffs Documented By: RIKY Cefepime HCl 2,000 mg/ Syringe 20 mls @ 5 mls/min IV Q8H ALINA; Protocol Stop: 07/02/23 08:59 Last Admin: 06/27/23 08:53 Dose: 5 mls/min Documented By: Admin: 06/27/23 01:40 Dose: 5 mls/min Documented By: Admin: 06/26/23 16:29 Dose: 5 mls/min Documented By: Admin: 06/26/23 09:45 Dose: 5 mls/min Documented By: Admin: 06/26/23 01:45 Dose: 5 mls/min Documented By: Admin: 06/25/23 18:20 Dose: 5 mls/min Documented By: Admin: 06/25/23 10:35 Dose: 5 mls/min Documented By: RIKY Methylprednisolone 40 mg/ (Syringe) 0.64 mls @ 1.5 mls/min IV Q12H ALINA Stop: 07/26/23 20:59 Last Admin: 06/27/23 08:43 Dose: 1.5 mls/min Documented By: Admin: 06/26/23 20:44 Dose: 1.5 mls/min Documented By: JESUS Vancomycin HCl 750 mg/ Sodium (Chloride) 265 mls @ 200 mls/hr IV Q12H ALINA Stop: 07/04/23 07:59 Last Infusion: 06/27/23 10:12 Dose: Infused Documented By: Admin: 06/27/23 08:51 Dose: 200 mls/hr Documented By: TIANA Ipratropium [place] (Ipratropium [place] Hfa Inhaler) 1 puffs INH Q6H PRN; Protocol PRN Reason: SOB/WHEEZING Stop: 07/24/23 18:52 Last Admin: 06/27/23 09:30 Dose: 1 puffs Documented By: Admin: 06/26/23 09:27 Dose: 1 puffs Documented By: KAMERON Isosorbide Mononitrate (Isosorbide [place] Extended Rel 30 Mg Tabcr) 30 mg PO DAILY ALINA Stop: 07/25/23 08:59 Last Admin: 06/27/23 09:02 Dose: 30 mg Documented By: Admin: 06/26/23 07:46 Dose: 30 mg Documented By: Admin: 06/25/23 07:33 Dose: 30 mg Documented By: RIKY Lamotrigine (Lamotrigine 25 Mg Tab) 25 mg PO BID ALINA Stop: 07/24/23 20:59 Last Admin: 06/27/23 09:02 Dose: 25 mg Documented By: Admin: 06/26/23 20:44 Dose: 25 mg Documented By: Admin: 06/26/23 07:47 Dose: 25 mg Documented By: Admin: 06/25/23 19:31 Dose: 25 mg Documented By: Admin: 06/25/23 07:41 Dose: 25 mg Documented By: Admin: 06/24/23 20:30 Dose: 25 mg Documented By: JESUS Losartan Potassium (Losartan Potassium 50 Mg Tab) 50 mg PO BID ALINA Stop: 07/27/23 08:59 Last Admin: 06/27/23 09:01 Dose: 50 mg Documented By: TIANA Pantoprazole Sodium (Pantoprazole 40 Mg Tab) 40 mg PO QAM [facility]INA Stop: 07/25/23 10:14 Last Admin: 06/27/23 09:00 Dose: 40 mg Documented By: Admin: 06/26/23 07:46 Dose: 40 mg Documented By: Admin: 06/25/23 10:35 Dose: 40 mg Documented By: RIKY Discontinued Medications Albuterol (Albut/Ipratrop 3mg/0.5mg Neb 3 Ml Vial) 12 ml NEB ONE ONE; Protocol Stop: 06/24/23 13:32 Last Admin: 06/24/23 13:42 Dose: 12 ml Documented By: BETO Albuterol (Albut/Ipratrop 3mg/0.5mg Neb 3 Ml Vial) 3 ml NEB Q4R PRN; Protocol PRN Reason: shortness of breath Stop: 07/24/23 18:37 Last Admin: 06/24/23 19:20 Dose: 3 ml Documented By: KIRA Clonazepam (Clonazepam 0.5 Mg Tab) 0.5 mg PO BID PRN PRN Reason: Anxiety Stop: 07/24/23 18:37 Last Admin: 06/26/23 16:29 Dose: 0.5 mg Documented By: Admin: 06/26/23 08:08 Dose: 0.5 mg Documented By: Admin: 06/25/23 19:31 Dose: 0.5 mg Documented By: Admin: 06/25/23 07:41 Dose: 0.5 mg Documented By: Admin: 06/25/23 02:37 Dose: 0.5 mg Documented By: JESUS Enoxaparin Sodium (Enoxaparin Inj 40 Mg/0.4 Ml Syr) 40 mg SQ Q12H ALINA Stop: 07/25/23 07:59 Last Admin: 06/25/23 07:34 Dose: 40 mg Documented By: RIKY Sodium Chloride (Nss) 1,000 mls @ 999 mls/hr IV .Q1H1M [facility]INA Stop: 06/24/23 12:30 Last Infusion: 06/24/23 13:26 Dose: Infused Documented By: Admin: 06/24/23 11:48 Dose: 999 mls/hr Documented By: STEPHEN Magnesium Sulfate/Dextrose (Magnesium Sulfate / D5w) 1 gm in 100 mls @ 200 mls/hr IV Q1H [facility]INA Stop: 06/24/23 13:00 Last Infusion: 06/24/23 12:57 Dose: Infused Documented By: Admin: 06/24/23 12:22 Dose: 200 mls/hr Documented By: Infusion: 06/24/23 12:18 Dose: Infused Documented By: Admin: 06/24/23 11:48 Dose: 200 mls/hr Documented By: STEPHEN Ceftriaxone Sodium (Rocephin) 50 mls @ 100 mls/hr IV NOW ONE Stop: 06/24/23 13:59 Last Infusion: 06/24/23 14:14 Dose: Infused Documented By: Admin: 06/24/23 13:37 Dose: 100 mls/hr Documented By: STEPHEN Doxycycline Hyclate 100 mg/ (Dextrose) 100 mls @ 50 mls/hr IV NOW STA Stop: 06/24/23 15:21 Last Infusion: 06/24/23 16:27 Dose: Infused Documented By: Admin: 06/24/23 14:24 Dose: 50 mls/hr Documented By: STEPHEN Azithromycin 500 mg/ Dextrose 255 mls @ 125 mls/hr IV Q24H ALINA Stop: 06/27/23 18:59 Last Infusion: 06/25/23 21:46 Dose: Infused Documented By: Admin: 06/25/23 19:43 Dose: 125 mls/hr Documented By: Infusion: 06/24/23 22:33 Dose: Infused Documented By: Admin: 06/24/23 20:30 Dose: 125 mls/hr Documented By: JESUS Lorazepam 0.25 mg/ Syringe 0.25 mls @ 2 mls/min IV NOW STA Stop: 06/24/23 22:12 Last Admin: 06/24/23 23:02 Dose: 2 mls/min Documented By: JESUS Vancomycin HCl 1,500 mg/ (Sodium Chloride) 530 mls @ 200 mls/hr IV ONE ONE Stop: 06/26/23 22:23 Last Infusion: 06/27/23 00:13 Dose: Infused Documented By: Admin: 06/26/23 21:34 Dose: 200 mls/hr Documented By: JESUS Ipratropium [place] (Ipratropium [place] Neb Soln 0.02% 2.5 Ml Vial) 0.5 mg NEB NOW STA Stop: 06/24/23 11:57 Last Admin: 06/24/23 12:43 Dose: 0.5 mg Documented By: BETO Levalbuterol HCl (Levalbuterol 1.25 Mg/3 Ml Neb) 4.5 mg NEB NOW STA; Protocol Stop: 06/24/23 11:57 Last Admin: 06/24/23 12:43 Dose: 4.5 mg Documented By: BETO Losartan Potassium (Losartan Potassium 25 Mg Tab) 25 mg PO DAILY ALINA Stop: 07/25/23 08:59 Last Admin: 06/26/23 07:45 Dose: 25 mg Documented By: Admin: 06/25/23 07:33 Dose: 25 mg Documented By: RIKY Losartan Potassium (Losartan Potassium 25 Mg Tab) 25 mg PO ONE ONE Stop: 06/26/23 16:55 Last Admin: 06/26/23 18:01 Dose: 25 mg Documented By: ALVARO Methylprednisolone (Methylprednisolone 125 Mg/2 Ml Vial) 125 mg IV NOW STA Stop: 06/24/23 11:31 Last Admin: 06/24/23 11:48 Dose: 125 mg Documented By: STEPHEN Miscellaneous (Trelegy: Order Awaiting Action) 1 each N/A QS [facility] Stop: 07/25/23 00:00 Last Admin: 06/25/23 04:24 Dose: Not Given Documented By: JESUS Pantoprazole Sodium (Pantoprazole 40 Mg Tab) 0 mg PO QAM [facility] Stop: 07/25/23 08:59 Last Admin: 06/25/23 10:40 Dose: Not Given Documented By: RIKY Prednisone (Prednisone 20 Mg Tab) 60 mg PO DAILY [facility] Stop: 07/25/23 08:59 Last Admin: 06/26/23 07:46 Dose: 60 mg Documented By: Admin: 06/25/23 07:33 Dose: 60 mg Documented By: RIKY Imaging Data Radiologist's Impression: Chest X-Ray 06/24/23 11:30 XR chest 1V portable HISTORY: 72 years-old Male Dyspnea acute shortness of breath COMPARISON: 05/10/2023 TECHNIQUE: AP view of the chest FINDINGS: Cardiomediastinal and hilar silhouettes are unchanged. No pneumothorax, pleural effusion or overt pulmonary edema. Advanced pulmonary emphysema with chronic interstitial coarsening of the lung bases. Mild patchy right basilar airspace opacities. Chronic right-sided rib fractures. Bones appear grossly intact. IMPRESSION: Advanced emphysema with mild right basilar airspace opacities suggestive of pneumonia versus aspiration pneumonitis. Follow-up imaging to document resolution recommended. ACT 112: Negative or not required by law. The above report was generated using voice recognition software. It may contain grammatical, syntax or spelling errors. Electronically signed by: Sarwat Montes M.D. 06/24/2023 11:56 AM Discharge Plan Visit Data Chief Complaint: Shortness of Breath/Dyspnea Stated Complaint: SOB ED Provider: Kiet Goyal Discharge Problem: COPD exacerbation, RLL pneumonia, Acute on chronic hypoxic respiratory failure Patient Disposition: Admitted As Inpatient Discharge Instructions Interventions: ED Discharge Assessment Last Done: 06/24/23 18:14 Discharge Problem: RLL pneumonia Qualifiers: Pneumonia type: due to unspecified organism Qualified Code(s): J18.9 - Pneumonia, unspecified organism
[2023-06-24] MEDS ORDERED: SODIUM CHLORIDE 0.9% 1,000 ML IV SCH (11:30)
[2023-06-24] MEDS ORDERED: methylPREDNISolone 125 MG/2 ML VIAL IV STA (11:30)
[2023-06-24] MEDS ORDERED: LEVALBUTEROL 1.25 MG/3 ML NEB NEB SCH (11:45)
[2023-06-24] MEDS ORDERED: IPRATROPIUM BROMIDE NEB SOLN 0.02% 2.5 ML VIAL INH SCH (11:45)
[2023-06-24] MEDS: MAGNESIUM SULFATE / D5W 1 GM/100 ML BAG IV SCH ×2 (11:48→12:22)
[2023-06-24 11:49] LABS: Basophils # (auto) 0.13 K/uL (0.00-0.20); Basophils % (auto) 0.9 %; Eosinophils # (auto) 0.04 K/uL (0.00-0.50); Eosinophils % (auto) 0.3 %; Hematocrit (blood only) 42.5 % (42.0-52.0); Hemoglobin 14.1 g/dl (14.0-18.0); Immature Granulocytes % (auto) 0.7 %; Lymphocytes # (auto) 2.23 K/uL (1.20-3.40); Lymphocytes % (auto) 15.5 %; Mean Corpuscular Hemoglobin 30.6 pg (25.0-34.0); Mean Corpuscular Hgb Conc 33.2 g/dL (32.0-36.0); Mean Corpuscular Volume 92.2 fL (80.0-100.0); Mean Platelet Volume 9.2 fL (9.4-12.4); Monocytes # (auto) 1.08 K/uL (0.11-0.59); Monocytes % (auto) 7.5 %; Neutrophils # (auto) 10.83 K/uL (1.40-6.50); Neutrophils % (auto) 75.1 %; Platelet Count 348 K/uL (130-400); RDW Coefficient of Variation 13.6 % (11.5-14.5); RDW Standard Deviation 45.6 fL (36.4-46.3); Red Blood Count 4.61 M/uL (4.70-6.10); White Blood Count 14.41 K/ul (4.8-10.8)
[2023-06-24] MEDS ORDERED: IPRATROPIUM BROMIDE NEB SOLN 0.02% 2.5 ML VIAL NEB STA (11:56)
[2023-06-24] MEDS ORDERED: LEVALBUTEROL 1.25 MG/3 ML NEB NEB STA (11:56)
--- NOTE | 2023-06-24 11:58 | XRay Report ---
XR chest 1V portable HISTORY: 72 years-old Male Dyspnea acute shortness of breath COMPARISON: 05/10/2023 TECHNIQUE: AP view of the chest FINDINGS: Cardiomediastinal and hilar silhouettes are unchanged. No pneumothorax, pleural effusion or overt pul monary edema. Advanced pulmonary emphysema with chronic interstitial coarsening of the lung bases. Mi ld patchy right basilar airspace opacities. Chronic right-sided rib fractures. Bones appear grossly i ntact. IMPRESSION: Advanced emphysema with mild right basilar airspace opacities suggestive of pneumonia misti florin aspiration pneumonitis. Follow-up imaging to document resolution recommended. ACT 112: Negative or not required by law. The above report was generated using voice recognition software. It may contain grammatical, syntax o r spelling errors. Electronically signed by: Sarwat Montes M.D. 06/24/2023 11:56 AM
[2023-06-24 12:07] LABS: Albumin Globulin Ratio 1.2 (0.9-2); Albumin Level 4.2 gm/dl (3.4-5.0); BUN Creatinine Ratio 24.7 (10-20); Bilirubin,Total 0.4 mg/dl (0.2-1.0); Calcium 9.8 mg/dl (8.6-10.3); Creatinine Clr Calc Pharmacy 66.7 ml/min; Est GFR (African American) 96.1 ml/min; Est GFR (Non-African American) 82.9 ml/min; Globulin 3.6 gm/dl (2.5-4.0); Magnesium 2.1 mg/dl (1.7-2.4); Potassium 3.7 mmol/L (3.5-5.1); Total Protein 7.8 gm/dl (6.0-8.3)
[2023-06-24 12:14] LABS: Troponin I High Sensitivity 22.1 pg/ml (0-20)
[2023-06-24 12:17] LABS: INR 0.9 (0.9-1.1); Prothrombin Time 10.3 Seconds (9.0-12.0)
[2023-06-24 12:30] LABS: Base Excess VBG 7.3 mEq/L; HCO3 VBG 34 mmol/L; PCO2 VBG 58 mmHg (38-50); PO2 VBG 64 mmHg; pH VBG 7.38 (7.36-7.41)
[2023-06-24] MEDS ORDERED: XOPENEX/ATROVENT 1.25mg/0.5MG NEB COMBO NEB SCH (13:00)
--- NOTE | 2023-06-24 13:09 | Electrocardiogram Report ---
Test Reason : Blood Pressure : / mmHG Vent. Rate : 115 BPM Atrial Rate : 115 BPM P-R Int : 144 ms QRS Dur : 070 ms QT Int : 334 ms P-R-T Axes : 085 077 073 degrees QTc Int : 462 ms Sinus tachycardia Nonspecific ST and T wave abnormality Abnormal ECG When compared with ECG of 13-MAY-2023 08:59, ST more depressed Anterior leads Confirmed by John Ni ([id number]) on 06/24/2023 1:09:29 PM Referred By: REFERRED SELF Confirmed By:John Ni
[2023-06-24] MEDS ORDERED: DOXYCYCLINE HYCLATE 100 MG in D5W MINI-B (NOW) IV STA (13:22)
[2023-06-24] MEDS ORDERED: ALBUT/IPRATROP 3MG/0.5MG NEB 3 ML VIAL NEB ONE (13:31)
--- NOTE | 2023-06-24 14:06 | History & Physical Report ---
Date of Service June 24, 2023 Assessment & Plan (1) COPD exacerbation: (2) RLL pneumonia: (3) Chest pain: (4) Barretts esophagus: (5) Elevated troponin: (6) Bipolar 2 disorder: (7) Depression: (8) Anxiety: (9) BPH (benign prostatic hyperplasia): Plan Steven is a 72M with history of COPD, Monteiro's esophagus, Bipolar 2 disorder, depression/anxiety, pulmonary embolism, BPH, HTN, former smoker, PTSD, MAKAYLA, and MRSA who presents for evaluation of dyspnea on exertion. RLL Pneumonia - Increasing dyspnea over last week w/ associated chills - Leukocytosis (14) w/ neutrophil predominance - CXR indicating mild R basilar airspace opacities suggestive of PNA vs aspiration pneumonitis * Recommended imaging to confirm resolution - MRSA nares pending (Hx of MRSA) - Sputum cultures pending - Continue Ceftriaxone 1g IV Q24h COPD Exacerbation - Evidence of diffuse wheezing and diminished air movement on exam - S/p Methylpred 125 mg IV, NSS bolus, magnesium, Ipatropium, and Levalbuterol in ED - Ongoing respiratory support with BiPAP * Most recent VBG showing normal pH 7.38, pCO2 58 H, and pO2 64 - Continue Prednisone 60 mg daily - Continue Azithromycin 500 mg IV Q24h - Continue DuoNebs Q4rPRN - Supplement w/ oxygen via nasal canula to O2 sat 88-92%, home baseline supplementation 3L NC - Continue home Trelegy (patient brought inhaler) Elevated Troponin (22.1 H)/Chest Pain - Patient notes heavy, non-radiating chest pain - Etiology unclear anxiety vs reflux vs CAD vs COPD Exacerbation - Not worsened from prior admission 05/16/23 * CTA Chest w/o PE during prior admission * Echocardiogram w/ preserved EF and no wall motion abnormalities during prior admission - Sinus Tachycardia w/ ST Depression on EKG - Trop elevated at 22.1 on presentation and increased to 23.1 - Trend Troponin - Repeat EKG for worsening/change in chest discomfort Coronary Artery Disease - Mild, noted on heart catheterization in 2005 - Continue Isosorbide mononitrate 30 mg PO daily - Continue Aspirin 81 mg PO QAM Hypertension - Continue Losartan 25 mg PO daily - Continue Diltiazem 360 mg P) daily Bipolar 2/Anxiety/Depression/PTSD - Continue Abilify, Citalopram, Lamotrigine and Clonazepam BPH - Continue Finasteride 4 mg PO QAM GERD/Barretts Esophagus - Continue home Pantoprazole FEN: Heart Healthy Code status: Full Code DVT ppx: Lovenox starting in AM Isolation: None Dispo:PCU/Tele History of Present Illness Chief Complaint: Dyspnea Primary Care Provider: Jaime Rolle PA-C Steven is a 72M with history of COPD, Monteiro's esophagus, Bipolar 2 disorder, depression/anxiety, pulmonary embolism, BPH, HTN, former smoker, PTSD, MAKAYLA, and MRSA who presents for evaluation of dyspnea on exertion. Patient was recently discharged on 05/16/23 from an admission for a COPD exacerbation - patient notes this episode feels worse. Patient was evaluated with present at bedside, assisted with history. Patient notes that over the last week he has been increasingly dyspneic, to the point that this morning after ambulating to the bathroom he was so short of breath that he was unable to speak. His immediately gave him a nebulizer and his Trelogy inhaler, which improved his dyspnea, but ultimately an ambulance was called. Patient notes that he often feels like he has an elephant sitting on the center of his chest, his discomfort does not radiate. He is not actively experiencing chest pain. Patient is on 3L of oxygen via nasal canula at baseline, but notes that he has been needing his oxygen more often at home. During the episode this morning, jose alfredo's O2 saturation dipped to 81%, but recovered to 92% following breathing treatments. Patient notes that he has no pain when he breaths or new cough, but states that he has had chills over the last week. Patient has chronic headaches which are resolved with Tylenol, but has not experienced any lightheadedness or dizziness. He has not experienced any LE edema, orthopnea, or claudication. He has had a decreased appetite. He has not had any bowel/bladder changes. ED Course: NSS, magnesium, Methylpred, VBG, BiPAP, breathing treatment, CTX Allergies Allergy/AdvReac Type Severity Reaction Status Date / Time Influenza Virus Vaccines Allergy Severe SHORTNESS Verified 05/08/23 22:19 OF BREATH morphine Allergy Intermediate "I FELT Verified 05/08/23 22:19 FUNNY IN THE HEAD" budesonide AdvReac Intermediate sob Verified 05/08/23 22:19 [From Root Orange] formoterol AdvReac Intermediate sob Verified 05/08/23 22:19 [From Root Orange] glycopyrrolate AdvReac Intermediate sob Verified 05/08/23 22:19 [From Root Orange] Home Medications Medication Instructions Recorded Confirmed Type acetaminophen 500 mg tablet 500 mg PO Q6H PRN Pain 03/27/19 05/08/23 History fluticasone fur. 100 mcg-umeclid 1 inh inhalation DAILY #3 Inhalers 10/12/22 06/24/23 Rx 62.5 mcg-vilant 25 mcg inhalat.powder (Trelegy Ellipta) finasteride 5 mg tablet 5 mg PO QAM 11/11/22 06/24/23 History ipratropium 20 mcg-albuterol 100 0 puff inhalation QID PRN 12/25/22 06/24/23 History mcg/actuation mist for inhalation Shortness Of Breath Or Wheezing (Combivent Respimat) aripiprazole 5 mg tablet (Abilify) 5 mg PO BID #60 tabs 12/30/22 06/24/23 Rx cyanocobalamin (vitamin B-12) 1,000 mcg PO DAILY #30 caps 12/30/22 05/08/23 Rx 1,000 mcg capsule citalopram 40 mg tablet 20 mg PO DAILY 05/08/23 06/24/23 History clonazepam 0.5 mg tablet 0.5 mg PO BID PRN Anxiety 05/08/23 06/24/23 History diltiazem HCl 360 mg capsule,24 360 mg PO DAILY 05/08/23 06/24/23 History hr,extended release (Tiadylt ER) ferrous sulfate 325 mg (65 mg 325 mg PO DAILY 05/08/23 06/24/23 History iron) tablet aspirin 81 mg tablet,delayed 81 mg PO QAM #90 tabs 05/16/23 Rx release isosorbide mononitrate 30 mg 30 mg PO DAILY #30 tabs 05/16/23 06/24/23 Rx tablet,extended release 24 hr ipratropium 0.5 mg-albuterol 3 mg 0 ml NEB Q2H PRN shortness of 06/24/2306/24 History (2.5 mg base)/3 mL nebulization breath soln lamotrigine 25 mg tablet (Lamictal) 25 mg PO BID 06/24/23 06/24/23 History losartan 50 mg tablet 25 mg PO DAILY 06/24/23 06/24/23 History pantoprazole 40 mg tablet,delayed 0 mg PO QAM 06/24/23 06/24/23 History release Past Med/Surg History Medical History (Updated 06/24/23 @ 16:26 by Estela Smiley DO) Bipolar 2 disorder Ventilator dependent uses portable ventilator at least 4 hours daily; uses home o2 3lpm via nc continuous Hx of small bowel obstruction Barretts esophagus BPH with obstruction/lower urinary tract symptoms Chronic respiratory failure with hypoxia and hypercapnia Suicidal ideation Sepsis Right lower lobe pneumonia Pneumonia Pneumonia Mood disorder 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 hx nares 2013- JANNETH (acute kidney injury) Anemia COPD (chronic obstructive pulmonary disease) FOLLOWS W/ DR RODRIGUES LAST VISIT 08/2022 Pulmonary embolism (01/22/14) HX 2014 Sleep apnea continous O2 at night PTSD (post-traumatic stress disorder) Surgical History S/P repair of ventral hernia S/P tonsillectomy History of cardiac catheterization 30 YRS AGO- NO STENTS- Family History Other Lung disease Social History Smoking Status: Former smoker Tobacco Type: Cigarettes Age Quit Using Tobacco: 62; Cigarettes Per Day: QUIT >20 YRS AGO; Second Hand Exposure: No; Do You Dip or Chew Tobacco: No; Tobacco Cessation Education Requested by Patient: No Hx Alcohol Use: No Hx Substance Use: No Preferred Language: Chinese Communication Ability: Effective Extension Course Coordinator Required: No Beliefs That Will Affect Care: None Current Living Situation: Spouse Other Information That Helps Us Care for You: No Feels Safe at Home: Yes Safety Concerns: Feels Safe At This Time Assistive Devices: None Physical Exam Physical Exam: Gen: NAD, BiPAP in place, fatigued HEENT: Supple, no LAD, no thyromegaly, no JVD Resp:Labored, bilateral inspiratory/expiratory wheezing (R>L) CV:RRR, normal S1/S2, occasional PVCs, no M/R/G Abd: Soft, non-distended, no TTP, normoactive bowels, no masses Extr: 2+ dp bilaterally, no edema Skin: No rashes lesions or erythema Results & Data Results & Data Vital Signs (Past 12 Hours) Vital Signs Temp Pulse Pulse Resp BP BP Pulse Ox 06/24/23 13:48 82 20 96 06/24/23 12:04 90 22 99 06/24/23 12:04 90 20 99 06/24/23 11:54 95 H 20 99 06/24/23 11:54 92 H 20 119/78 99 06/24/23 10:52 98 06/24/23 10:44 36.4 C L 109 H 20 141/123 H 98 06/24/23 10:36 107 H O2 Del Method O2 Flow Rate FiO2 06/24/23 13:48 32 06/24/23 12:04 32 06/24/23 12:04 BiPAP 32 06/24/23 11:54 BiPAP 06/24/23 11:54 BiPAP 06/24/23 10:52 Room Air 5 06/24/23 10:44 Room Air 5 06/24/23 10:36 Supervising Physician Co-Signing Physician Notes Patient seen and examined, chart reviewed, case discussed with Estela Smiley, and I agree with the assessment and plan as above except as otherwise noted Labs and images reviewed Jamison is a 72-year-old male with past medical history of COPD, bipolar 2, depression, anxiety who presents with a COPD exacerbation and right lower lobe pneumonia. X-ray is consistent with right pneumonia. Patient has had increased wheezing and shortness of breath. He has a minimally elevated troponin suspicious for demand. He is improving following steroids, multiple Xopenex treatments, and BiPAP. VBG 7.3 . Agree with steroids, CAP coverage with Rocephin and reasonable to add adjunct azithromycin for concurrent COPD exacerbation. Chest pain-free on exam, troponin trended. Agree with assessment and management as noted above Resident Activity Tracking Resident Involvement: Resident Care Provided Care Provided: Adult Hospital Medicine
[2023-06-24] MEDS ORDERED: ACETAMINOPHEN 325 MG TAB PO PRN (15:00)
[2023-06-24 16:18] LABS: Adenovirus PCR Not Detected (NotDetected); Bordetella parapertussis PCR Not Detected (NotDetected); Bordetella pertussis PCR Not Detected (NotDetected); Chlamydia pneumoniae PCR Not Detected (NotDetected); Coronavirus 229E PCR Not Detected (NotDetected); Coronavirus CoV-2 (COVID19)PCR Not Detected (NotDetected); Coronavirus HKU1 PCR Not Detected (NotDetected); Coronavirus NL63 PCR Not Detected (NotDetected); Coronavirus OC43PCR Not Detected (NotDetected); Human Metapneumovirus PCR Not Detected (NotDetected); Influenza A PCR Not Detected (NotDetected); Influenza B PCR Not Detected (NotDetected); Mycoplasma pneumoniae PCR Not Detected (NotDetected); Parainfluenza Virus 1 PCR Not Detected (NotDetected); Parainfluenza Virus 2 PCR Not Detected (NotDetected); Parainfluenza Virus 3 PCR Not Detected (NotDetected); Parainfluenza Virus 4 PCR Not Detected (NotDetected); Respiratory Syncytial VirusPCR Not Detected (NotDetected); Rhinovirus/Enterovirus PCR Not Detected (NotDetected)
[2023-06-24] MEDS ORDERED: IPRATROPIUM BROMIDE/ALBUTEROL respimat INH INH PRN (18:38)
[2023-06-24] MEDS ORDERED: ALBUT/IPRATROP 3MG/0.5MG NEB 3 ML VIAL NEB PRN (18:38)
[2023-06-24] MEDS: lamoTRIgine 25 MG TAB PO SCH (20:30)
[2023-06-24] MEDS: AZITHROMYCIN 500 MG in DEXTROSE 5% 250 ML IV SCH (20:30)
[2023-06-24] MEDS: ARIPiprazole 5 MG TAB PO SCH (20:30)
[2023-06-24] MEDS ORDERED: LORazepam 0.25 MG in SYRINGE 0.125 ML IV STA (22:11)
[2023-06-25] MEDS: clonazePAM 0.5 MG TAB PO PRN ×3 (02:37→19:31)
[2023-06-25 06:41] LABS: Hematocrit (blood only) 36.5 % (42.0-52.0); Hemoglobin 12.3 g/dl (14.0-18.0); Mean Corpuscular Hemoglobin 31.1 pg (25.0-34.0); Mean Corpuscular Hgb Conc 33.7 g/dL (32.0-36.0); Mean Corpuscular Volume 92.2 fL (80.0-100.0); Mean Platelet Volume 8.6 fL (9.4-12.4); Platelet Count 326 K/uL (130-400); RDW Coefficient of Variation 13.6 % (11.5-14.5); RDW Standard Deviation 46.2 fL (36.4-46.3); Red Blood Count 3.96 M/uL (4.70-6.10); White Blood Count 16.57 K/ul (4.8-10.8)
[2023-06-25 06:59] LABS: BUN Creatinine Ratio 28.6 (10-20); Calcium 8.8 mg/dl (8.6-10.3); Creatinine Clr Calc Pharmacy 63.3 ml/min; Est GFR (African American) 90.2 ml/min; Est GFR (Non-African American) 77.8 ml/min; Potassium 3.6 mmol/L (3.5-5.1)
[2023-06-25 07:21] LABS: Basophils # (auto) 0.02 K/uL (0.00-0.20); Basophils % (auto) 0.1 %; Immature Granulocytes # (auto) 0.12 K/uL (0.01-0.20); Immature Granulocytes % (auto) 0.7 %; Lymphocytes # (auto) 0.85 K/uL (1.20-3.40); Lymphocytes % (auto) 5.1 %; Monocytes # (auto) 0.34 K/uL (0.11-0.59); Monocytes % (auto) 2.1 %; Neutrophils # (auto) 15.24 K/uL (1.40-6.50); RBC Morphology Unremarkable
[2023-06-25] MEDS: FLUTICASONE/UMECLIDIN/VILANTER 100-62.5-25 INH SCH (07:32)
[2023-06-25] MEDS: ASPIRIN 81 MG ECTAB PO SCH (07:33)
[2023-06-25] MEDS: ISOSORBIDE MONO EXTENDED REL 30 MG TABCR PO SCH (07:33)
[2023-06-25] MEDS: ARIPiprazole 5 MG TAB PO SCH ×2 (07:33→19:31)
[2023-06-25] MEDS: dilTIAZem HCL 180 MG CAPCR PO SCH (07:33)
[2023-06-25] MEDS: predniSONE 20 MG TAB PO SCH (07:33)
[2023-06-25] MEDS: LOSARTAN POTASSIUM 25 MG TAB PO SCH (07:33)
[2023-06-25] MEDS: FERROUS SULFATE 325 MG TAB PO SCH (07:33)
[2023-06-25] MEDS: CITALOPRAM 20 MG TAB PO SCH (07:33)
[2023-06-25] MEDS: FINASTERIDE 5 MG TAB PO SCH (07:34)
[2023-06-25] MEDS: lamoTRIgine 25 MG TAB PO SCH ×2 (07:41→19:31)
[2023-06-25] MEDS ORDERED: ENOXAPARIN INJ 40 MG/0.4 ML SYR SQ SCH (08:00)
[2023-06-25] MEDS ORDERED: PANTOprazole 40 MG TAB PO SCH (09:00)
[2023-06-25] MEDS: ALBUT/IPRATROP 3MG/0.5MG NEB 3 ML VIAL NEB SCH ×4 (09:05→18:22)
[2023-06-25] MEDS: PANTOprazole 40 MG TAB PO SCH (10:35)
[2023-06-25] MEDS: CEFEPIME 2,000 MG in SYRINGE 0 ML IV SCH ×2 (10:35→18:20)
[2023-06-25] MEDS ORDERED: cefTRIAXone SODIUM 1,000 MG in DEXTROSE 5 % MINI-B 50 ML IV SCH (13:00)
[2023-06-25] MEDS: AZITHROMYCIN 500 MG in DEXTROSE 5% 250 ML IV SCH (19:43)
--- NOTE | 2023-06-25 21:28 | Hospitalist Progress Note ---
Date of Service June 25, 2023 Assessment & Plan (1) RLL pneumonia: Plan: as seen on admission CXR. at risk of gram negatives given his COPD & chronic resp failure as well as admission in late April. MRSA screen also positive; can't rule out MRSA pneumonia. typical pathogens & atypicals also possible. change rocephin to cefepime for better gram neg coverage. cont azithromycin for atypical coverage. consider MRSA coverage if he fails to improve or worsens. supportive care. repeat cxr in am tomorrow. (2) COPD exacerbation: Plan: in the setting of #1. cont prednisone 60mg/day. cont home inhalers & nebs. pulmonary toilet. (3) Acute on chronic hypoxic respiratory failure: Plan: acute component - 2nd to #1, #2 documented RRs in the high 20s/low 30s at ER presentation. admitting hospitalist documented "labor" breathing on exam at time of her assessment. nursing staff report upon arrival to the floor yesterday he was on BIPAP and still having increased work of breathing. fortunately BIPAP has been weaned off. he is back to NC O2. he is typically on 3 L NC o2 at rest, and 4 L with activity - per 2-step done 05/16/23. (4) Chest pain: Plan: 2nd to #1, #2 troponin scantly elevated CTA chest during previous admission 04/2023 without PE (5) Barretts esophagus: Plan: cont PPI (6) Elevated troponin: Plan: minimal/scant elevation 2nd to myocardial demand ischemia in setting of #1, #2 (7) Bipolar 2 disorder: Plan: cont all chronic meds --> abilify BID, celexa daily, clonazepam, lamictal 25 BID (8) Depression: Plan: see #7 above (9) Anxiety: Plan: typically has severe anxiety at baseline and especially during times of illness cont clonazepam along with other mood stabilizers as above (10) BPH (benign prostatic hyperplasia): Plan: cont finasteride (11) DVT prophylaxis: Plan: lovenox 40mg daily (12) Positive result for methicillin resistant Staphylococcus aureus (MRSA) screening: Plan: see #1 above Plan will need PT/OT while here Admission and Anticipated Discharge Date Admission Date: June 24, 2023 Subjective patient has been off BIPAP all day stable on NC O2 he was sitting at side of the bed during the visit states he feels unwell, but better than yesterday coughing, but no sputum production has episodes of dyspnea even at rest appetite -- meal consumption <50% today is anxious, and feels "depressed about being sick" prior to getting sick he says his spirits & bipolar had been stable tele overnight - NSR or sinus tach Review of Systems Review of Systems: gen - no fevers cv - no chest pain, no edema of legs pulm - cough/congested/wheezing/dyspnea GI - no nausea/emesis Physical Exam Physical Exam: gen - sitting at side of bed, anxious - but no respiratory distress mouth - MMM neck - no obvious JVD heart - RRR, s1 s2, no murmur lungs - fair airation at best all lung segments; minimal wheezes end-expiratory; rales bases - fine, mild at best abd - soft NT ND BS+ ext - no edema, pulses 2+ b/l psych - a/o x 3, anxious Results & Data Results & Data Vital Signs (Past 12 Hours) Vital Signs Temp Pulse Resp BP Pulse Ox Pulse Ox O2 Del Method 06/25/23 21:10 Nasal Cannula 06/25/23 20:15 36.6 C 98 H 20 155/72 H 96 Nasal Cannula 06/25/23 18:22 109 H 22 92 Nasal Cannula 06/25/23 15:50 36.7 C 72 22 176/91 H 96 Nasal Cannula 06/25/23 15:32 96 H 22 96 Nasal Cannula 06/25/23 15:00 95 06/25/23 11:33 36.8 C 104 H 22 168/90 H 96 Nasal Cannula 06/25/23 11:10 101 H 20 96 Nasal Cannula O2 Del Method O2 Flow Rate 06/25/23 21:10 5 06/25/23 20:15 3 06/25/23 18:22 3 06/25/23 15:50 3 06/25/23 15:32 3 06/25/23 15:00 Room Air 06/25/23 11:33 3 06/25/23 11:10 3 Laboratory Results Laboratory Results - last 24 hr 06/24/23 06/25/23 20:35 05:59 WBC 16.57 H RBC 3.96 L Hgb 12.3 L Hct 36.5 L MCV 92.2 MCH 31.1 MCHC 33.7 RDW Std Deviation 46.2 RDW Coeff of Loida 13.6 Plt Count 326 MPV 8.6 L Immature Gran % (Auto) 0.7 Neut % (Auto) 92.0 Lymph % (Auto) 5.1 [place] % (Auto) 2.1 Eos % (Auto) 0.0 Baso % (Auto) 0.1 Neut # (Auto) 15.24 H Lymph # (Auto) 0.85 L [place] # (Auto) 0.34 Eos # (Auto) 0.00 Baso # (Auto) 0.02 Immature Gran # (Auto) 0.12 RBC Morphology Unremarkable Sodium 142 Potassium 3.6 Chloride 103 Carbon Dioxide 32 Anion Gap 7 BUN 28 H Creatinine 0.98 Est Cr Clr Drug Dosing 63.3 Est GFR ( Amer) 90.2 Est GFR (Non-Af Amer) 77.8 BUN/Creatinine Ratio 28.6 H Glucose 137 H Calcium 8.8 Troponin I High Sens 28.2 H PG Care Time/CCT Total # of Minutes Spent Total Time Spent with Patient: Total time spent is greater than 50% in coordination of care (as documented) at patient's floor/unit and/or counseling patient: Coding Level of Care Code 27766 SUB INP/OBS CARE 2/35MIN Diagnoses RLL pneumonia J18.9 COPD exacerbation J44.1 Acute on chronic hypoxic respiratory failure J96.21 Chest pain R07.9 Barretts esophagus K22.70 Elevated troponin R77.8 Bipolar 2 disorder F31.81 Depression F32.9 Anxiety F41.9 BPH (benign prostatic hyperplasia) N40.0 DVT prophylaxis Z29.9 Positive result for methicillin resistant Staphylococcus aureus (MRSA) screening Z22.322
[2023-06-26] MEDS: CEFEPIME 2,000 MG in SYRINGE 0 ML IV SCH ×3 (01:45→16:29)
[2023-06-26 06:47] LABS: Hematocrit (blood only) 37.8 % (42.0-52.0); Hemoglobin 12.3 g/dl (14.0-18.0); Mean Corpuscular Hgb Conc 32.5 g/dL (32.0-36.0); Mean Corpuscular Volume 95.2 fL (80.0-100.0); Platelet Count 352 K/uL (130-400); RDW Coefficient of Variation 14.2 % (11.5-14.5); RDW Standard Deviation 49.1 fL (36.4-46.3); Red Blood Count 3.97 M/uL (4.70-6.10); White Blood Count 25.34 K/ul (4.8-10.8)
[2023-06-26 06:48] LABS: BUN Creatinine Ratio 41.7 (10-20); Calcium 9.4 mg/dl (8.6-10.3); Creatinine Clr Calc Pharmacy 64.6 ml/min; Est GFR (African American) 92.4 ml/min; Est GFR (Non-African American) 79.8 ml/min; Potassium 4.1 mmol/L (3.5-5.1)
[2023-06-26 07:08] LABS: Basophils # (auto) 0.05 K/uL (0.00-0.20); Basophils % (auto) 0.2 %; Immature Granulocytes # (auto) 0.21 K/uL (0.01-0.20); Immature Granulocytes % (auto) 0.8 %; Lymphocytes # (auto) 2.22 K/uL (1.20-3.40); Lymphocytes % (auto) 8.8 %; Monocytes # (auto) 1.94 K/uL (0.11-0.59); Monocytes % (auto) 7.7 %; Neutrophils # (auto) 20.92 K/uL (1.40-6.50); Neutrophils % (auto) 82.5 %; RBC Morphology Unremarkable
[2023-06-26] MEDS: ALBUT/IPRATROP 3MG/0.5MG NEB 3 ML VIAL NEB SCH ×4 (07:16→19:20)
[2023-06-26] MEDS: FINASTERIDE 5 MG TAB PO SCH (07:45)
[2023-06-26] MEDS: LOSARTAN POTASSIUM 25 MG TAB PO SCH (07:45)
[2023-06-26] MEDS: ASPIRIN 81 MG ECTAB PO SCH (07:45)
[2023-06-26] MEDS: dilTIAZem HCL 180 MG CAPCR PO SCH (07:46)
[2023-06-26] MEDS: ISOSORBIDE MONO EXTENDED REL 30 MG TABCR PO SCH (07:46)
[2023-06-26] MEDS: FERROUS SULFATE 325 MG TAB PO SCH (07:46)
[2023-06-26] MEDS: PANTOprazole 40 MG TAB PO SCH (07:46)
[2023-06-26] MEDS: predniSONE 20 MG TAB PO SCH (07:46)
[2023-06-26] MEDS: FLUTICASONE/UMECLIDIN/VILANTER 100-62.5-25 INH SCH (07:47)
[2023-06-26] MEDS: lamoTRIgine 25 MG TAB PO SCH ×2 (07:47→20:44)
[2023-06-26] MEDS: CITALOPRAM 20 MG TAB PO SCH (07:47)
[2023-06-26] MEDS: ARIPiprazole 5 MG TAB PO SCH ×2 (07:47→20:44)
[2023-06-26] MEDS: ENOXAPARIN INJ 40 MG/0.4 ML SYR SQ SCH (07:48)
[2023-06-26] MEDS: clonazePAM 0.5 MG TAB PO PRN ×2 (08:08→16:29)
--- NOTE | 2023-06-26 09:11 | XRay Report ---
XR chest 2V PA/lateral HISTORY: RLL pneumonia, interval change COMPARISON: Chest 06/24/2023. FINDINGS: Advanced emphysema again noted. No pneumothorax. No pleural effusions. The heart is normal in size. Small hiatus hernia again suggested. Chronic right-sided rib fractures again noted. Patchy r ight basilar densities have slightly improved. No evidence for pulmonary edema. IMPRESSION: 1. Improved aeration within the right basilar opacities. 2. Emphysema again noted. ACT 112: Negative or not required by law. Electronically signed by: Hugh Kennedy M.D. 06/26/2023 9:09 AM
[2023-06-26] MEDS: IPRATROPIUM BROMIDE HFA INHALER INH PRN (09:27)
[2023-06-26] MEDS: ALBUTEROL HFA 8 GM INHALER INH PRN (09:27)
[2023-06-26] MEDS ORDERED: LOSARTAN POTASSIUM 25 MG TAB PO ONE (16:54)
[2023-06-26] MEDS ORDERED: VANCOMYCIN CONSULT ACTIVE PRN (18:53)
[2023-06-26] MEDS ORDERED: VANCOMYCIN HCL 1,500 MG in SODIUM CHLORIDE 0.9% 500 ML IV ONE (19:45)
--- NOTE | 2023-06-26 20:21 | Hospitalist Progress Note ---
Date of Service June 26, 2023 Assessment & Plan (1) RLL pneumonia: Plan: as seen on admission CXR. repeat cxr - infiltrate still present, but a little smaller vs yesterday. [id number] he remains quite ill and has increased work of breathing. at risk of gram negatives given his COPD & chronic resp failure as well as admission in late April. MRSA screen also positive; can't rule out MRSA pneumonia. typical pathogens & atypicals also possible. day #2 cefepime. day #3 azithromycin. add vanco IV for MRSA coverage due to high wbc count and clinical worsening. supportive care. unfortunately blood cx's were not drawn at time of presentation. (2) COPD exacerbation: Plan: in the setting of #1. worse. change prednisone to IV solumedrol 40mg IV q12h. cont home inhalers & nebs. pulmonary toilet. (3) Acute on chronic hypoxic respiratory failure: Plan: acute component - 2nd to #1, #2 documented RRs in the high 20s/low 30s at ER presentation. admitting hospitalist documented "labor" breathing on exam at time of her assessment. and he continues with increased work of breathing today. he is typically on 3 L NC o2 at rest, and 4 L with activity - per 2-step done 05/16/23. cont NC during the day and BIPAP with sleep/naps. (4) Chest pain: Plan: 2nd to #1, #2 troponin scantly elevated CTA chest during previous admission 04/2023 without PE no chest pain since admission (5) Barretts esophagus: Plan: cont PPI (6) Elevated troponin: Plan: minimal/scant elevation 2nd to myocardial demand ischemia in setting of #1, #2 (7) Bipolar 2 disorder: Plan: cont all chronic meds --> abilify BID, celexa daily, clonazepam, lamictal 25 BID will increase clonazepam to 0.5mg TID due to severe anxiety (we did such during prior hospitalization) (8) Depression: Plan: see #7 above (9) Anxiety: Plan: typically has severe anxiety at baseline and especially during times of illness increase clonazepam to 0.5mg TID (10) BPH (benign prostatic hyperplasia): Plan: cont finasteride (11) DVT prophylaxis: Plan: lovenox 40mg daily (12) Positive result for methicillin resistant Staphylococcus aureus (MRSA) screening: Plan: see #1 above (13) Hypertension: Plan: while hospitalized his BPs are often VERY high due to anxiety, steroids, being uncomfortable, etc during prior hospitalization he had difficult to control BPs during prior stay titrated losartan to 50mg BID and added imdur he is also on cardizem 360mg daily losartan only ordered at 25mg daily right now --> increase to BID dosing suspect he will need 50mg BID like last hospitalization Plan will need PT/OT while here if able to tolerate updated by phone this pm Admission and Anticipated Discharge Date Admission Date: June 24, 2023 Subjective patient has been dyspneic much of the day today coughing but no sputum dyspneic with just moving around in room no chest pain no abdominal pain he is very anxious is using BIPAP at hs and will use it again tonight updated pt's by phone this evening tele - NSR, sinus tach Review of Systems Review of Systems: gen - no fevers cv - mild orthopnea pulm - wheezing/dyspnea/cough GI - no abd pain or nausea Physical Exam Physical Exam: gen - tachypneic with retractions but can talk in complete sentences; anxious mouth - MMM neck - no obvious JVD heart - tachy, regular rhythm, s1 s2, no murmur lungs - rales R base (fine, distant); extensive wheezing all lung segments; tachypneic; retracting abd - soft NT ND BS+; tiny umbilical hernia (reducible) ext - no edema, pulses 2+ b/l psych - a/o x 3, anxious Results & Data Results & Data Vital Signs (Past 12 Hours) Vital Signs Temp Pulse Pulse Resp BP Pulse Ox O2 Del Method 06/26/23 20:06 36.6 C 101 H 18 154/92 H 94 Nasal Cannula 06/26/23 19:20 90 26 H 97 Nasal Cannula 06/26/23 16:24 37.0 C 96 H 22 185/106 H 94 Nasal Cannula 06/26/23 15:56 91 H 06/26/23 14:40 95 H 30 H 96 Nasal Cannula 06/26/23 11:56 36.4 C L 91 H 22 174/96 H 96 Nebulizer 06/26/23 11:19 87 22 96 Nasal Cannula 06/26/23 09:28 87 24 96 Nasal Cannula O2 Flow Rate 06/26/23 20:06 3 06/26/23 19:20 2 06/26/23 16:24 3 06/26/23 15:56 06/26/23 14:40 3 06/26/23 11:56 06/26/23 11:19 3 06/26/23 09:28 3 Laboratory Results Laboratory Results - last 24 hr 06/26/23 06:12 WBC 25.34 H RBC 3.97 L Hgb 12.3 L Hct 37.8 L MCV 95.2 MCH 31.0 MCHC 32.5 RDW Std Deviation 49.1 H RDW Coeff of Loida 14.2 Plt Count 352 MPV 9.0 L Immature Gran % (Auto) 0.8 Neut % (Auto) 82.5 Lymph % (Auto) 8.8 [place] % (Auto) 7.7 Eos % (Auto) 0.0 Baso % (Auto) 0.2 Neut # (Auto) 20.92 H Lymph # (Auto) 2.22 [place]ha # (Auto) 1.94 H Eos # (Auto) 0.00 Baso # (Auto) 0.05 Immature Gran # (Auto) 0.21 H RBC Morphology Unremarkable Sodium 145 Potassium 4.1 Chloride 106 Carbon Dioxide 33 H Anion Gap 6 BUN 40 H Creatinine 0.96 Est Cr Clr Drug Dosing 64.6 Est GFR ( Amer) 92.4 Est GFR (Non-Af Amer) 79.8 BUN/Creatinine Ratio 41.7 H Glucose 107 H Calcium 9.4 PG Care Time/CCT Total # of Minutes Spent Total Time Spent with Patient: Total time spent is greater than 50% in coordination of care (as documented) at patient's floor/unit and/or counseling patient: Coding Level of Care Code 60885 SUB INP/OBS CARE 3/50MIN Diagnoses RLL pneumonia J18.9 COPD exacerbation J44.1 Acute on chronic hypoxic respiratory failure J96.21 Chest pain R07.9 Barretts esophagus K22.70 Elevated troponin R77.8 Bipolar 2 disorder F31.81 Depression F32.9 Anxiety F41.9 BPH (benign prostatic hyperplasia) N40.0 DVT prophylaxis Z29.9 Positive result for methicillin resistant Staphylococcus aureus (MRSA) screening Z22.322 Hypertension I10
[2023-06-26] MEDS: clonazePAM 0.5 MG TAB PO SCH (20:44)
[2023-06-26] MEDS: methylPREDNISolone 40 MG in SYRINGE 0 ML IV SCH (20:44)
--- NOTE | 2023-06-26 21:51 | Pharmacy Report ---
Pharmacy Vanc AUC Short Note - Date of Service June 26, 2023 - Assessment & Plan Assessment 72 year old M receiving Vancomycin for treatment of pulmonary source/pneumonia. Day #1 of Vancomycin therapy: 06/26/23 Plan Vancomycin * Load: Vancomycin 1,500 mg IV once on 06/26/23 at 2134. * Maintenance: Vancomycin 750 mg IV q12h starting 06/27/23 at 0800. * AUC/FRANK is the preferred PK/PD target for vancomycin * AUC guided dosing is effective and associated with decreased risk of nephrotoxicity compared to traditional trough targets * Trough level of 14.7 mcg/mL is predicted to achieve target AUC/FRANK of 400-600 mg/L.hr and may be associated with a 10% risk of nephrotoxicity * Trough or random level ordered for: 06/28/23 with AM labs Pharmacy will continue to follow and will adjust dose/frequency as necessary. Thank you.
[2023-06-27] MEDS: CEFEPIME 2,000 MG in SYRINGE 0 ML IV SCH ×3 (01:40→18:20)
[2023-06-27] MEDS: ALBUT/IPRATROP 3MG/0.5MG NEB 3 ML VIAL NEB SCH ×4 (06:53→19:40)
[2023-06-27 08:10] LABS: Hypersegmented Neutrophils 1+
[2023-06-27] MEDS: methylPREDNISolone 40 MG in SYRINGE 0 ML IV SCH ×2 (08:43→20:42)
[2023-06-27] MEDS: FLUTICASONE/UMECLIDIN/VILANTER 100-62.5-25 INH SCH (08:43)
[2023-06-27] MEDS: ASPIRIN 81 MG ECTAB PO SCH (08:44)
[2023-06-27] MEDS: ARIPiprazole 5 MG TAB PO SCH ×2 (08:44→20:43)
[2023-06-27] MEDS: dilTIAZem HCL 180 MG CAPCR PO SCH (08:45)
[2023-06-27] MEDS: FINASTERIDE 5 MG TAB PO SCH (08:45)
[2023-06-27] MEDS: VANCOMYCIN HCL 750 MG in SODIUM CHLORIDE 0.9% 250 ML IV SCH ×2 (08:51→20:41)
[2023-06-27] MEDS: clonazePAM 0.5 MG TAB PO SCH ×4 (08:52→20:42)
[2023-06-27] MEDS: FERROUS SULFATE 325 MG TAB PO SCH (09:00)
[2023-06-27] MEDS: PANTOprazole 40 MG TAB PO SCH (09:00)
[2023-06-27] MEDS ORDERED: LOSARTAN POTASSIUM 25 MG TAB PO SCH (09:00)
[2023-06-27] MEDS: LOSARTAN POTASSIUM 50 MG TAB PO SCH ×2 (09:01→20:43)
[2023-06-27] MEDS: lamoTRIgine 25 MG TAB PO SCH ×2 (09:02→20:43)
[2023-06-27] MEDS: CITALOPRAM 20 MG TAB PO SCH (09:02)
[2023-06-27] MEDS: ISOSORBIDE MONO EXTENDED REL 30 MG TABCR PO SCH (09:02)
[2023-06-27] MEDS: ENOXAPARIN INJ 40 MG/0.4 ML SYR SQ SCH (09:06)
[2023-06-27] MEDS: ALBUTEROL HFA 8 GM INHALER INH PRN (09:28)
[2023-06-27] MEDS: IPRATROPIUM BROMIDE HFA INHALER INH PRN (09:30)
[2023-06-27] MEDS: AZITHROMYCIN 250 MG TAB PO SCH (10:15)
[2023-06-27 10:26] LABS: Calcium 8.6 mg/dl (8.6-10.3); Potassium 4.3 mmol/L (3.5-5.1)
[2023-06-27 10:32] LABS: BUN Creatinine Ratio 41.5 (10-20); Creatinine Clr Calc Pharmacy 75.6 ml/min; Est GFR (African American) 103.8 ml/min; Est GFR (Non-African American) 89.6 ml/min
[2023-06-27 11:08] LABS: Basophils # (auto) 0.02 K/uL (0.00-0.20); Basophils % (auto) 0.1 %; Hematocrit (blood only) 36.1 % (42.0-52.0); Hemoglobin 11.6 g/dl (14.0-18.0); Immature Granulocytes # (auto) 0.22 K/uL (0.01-0.20); Immature Granulocytes % (auto) 1.2 %; Lymphocytes # (auto) 0.98 K/uL (1.20-3.40); Lymphocytes % (auto) 5.2 %; Mean Corpuscular Hemoglobin 31.3 pg (25.0-34.0); Mean Corpuscular Hgb Conc 32.1 g/dL (32.0-36.0); Mean Corpuscular Volume 97.3 fL (80.0-100.0); Monocytes # (auto) 1.05 K/uL (0.11-0.59); Monocytes % (auto) 5.5 %; Platelet Count 351 K/uL (130-400); RDW Coefficient of Variation 14.2 % (11.5-14.5); RDW Standard Deviation 50.5 fL (36.4-46.3); Red Blood Count 3.71 M/uL (4.70-6.10); White Blood Count 18.97 K/ul (4.8-10.8)
[2023-06-27] MEDS ORDERED: methylPREDNISolone 40 MG in SYRINGE 0 ML IV ONE (15:39)
--- NOTE | 2023-06-27 16:31 | XRay Report ---
XR chest 1V portable HISTORY: 72 years-old Male RLL pneumonia, distress; eval worsening pneumonia acute shortness of mara th COMPARISON: 06/26/2023 TECHNIQUE: AP view of the chest FINDINGS: Cardiac silhouette is enlarged. Emphysema with chronic interstitial coarsening. Mild bibasilar ill-de fined opacities are again noted. Chronic appearing right-sided rib fractures. Hiatal hernia. Degenera tive changes of the shoulders and spine. IMPRESSION: 1. Cardiomegaly without pulmonary edema. 2. Emphysema with chronic interstitial coarsening. 3. Mild bibasilar opacities persist suggestive of atelectasis versus pneumonitis. ACT 112: Negative or not required by law. The above report was generated using voice recognition software. It may contain grammatical, syntax o r spelling errors. Electronically signed by: Sarwat Montes M.D. 06/27/2023 4:30 PM
[2023-06-27] MEDS ORDERED: ALBUTEROL 0.083% NEBU SOLN 3 ML VIAL NEB PRN (20:03)
[2023-06-27 20:45] LABS: Base Excess VBG 7.1 mEq/L; HCO3 VBG 34 mmol/L; PCO2 VBG 56 mmHg (38-50); PO2 VBG 79 mmHg; pH VBG 7.39 (7.36-7.41)
--- NOTE | 2023-06-27 21:16 | Hospitalist Progress Note ---
Date of Service June 27, 2023 Assessment & Plan (1) Acute on chronic hypoxic respiratory failure: Plan: acute component - 2nd to #2, #3 - worse today despite abx, steroids, nebs, BIPAP, etc. he is typically on 3 L NC o2 at rest, and 4 L with activity at home. trialed him on HFNC in remberto of standard NC today. did ok for several hours on such, then attempted to get OOB to void and developed severe respiratory distress. placed back on BIPAP and will remain on such for the rest of the night. see below. strongly consider pulmonary consultation. (2) RLL pneumonia: Plan: as seen on admission CXR. cxr today with b/l basilar infiltrates. overall pulmonary status is worse today. at risk of gram negatives given his COPD & chronic resp failure as well as his admission in late April. MRSA screen positive; can't rule out MRSA pneumonia. typical pathogens & atypicals also possible. day #3 cefepime. day #4 azithromycin. day #2 IV vanco for MRSA coverage due to high wbc count and clinical worsening. cont supportive care. unfortunately blood cx's were not drawn at time of presentation. (3) COPD exacerbation: Plan: worse. increase solumedrol to 40mg IV q8h. QID duonebs. cont home inhalers. pulmonary toilet as able - flutter valve, incentive kathia, etc. no evidence of complicating pulmonary edema/CHF. BIPAP HS, HFNC during the day (if able). (4) Chest pain: Plan: early in admission 2nd to pulmonary issues as above troponin scantly elevated CTA chest during previous admission 04/2023 without PE he has had no chest pain since admission (5) Barretts esophagus: Plan: cont PPI (6) Elevated troponin: Plan: minimal/scant elevation 2nd to myocardial demand ischemia in setting of pneumonia and acute/chronic respiratory failure (7) Bipolar 2 disorder: Plan: cont all chronic meds --> abilify BID, celexa daily, clonazepam, lamictal 25 BID will increase clonazepam to 0.5mg qam, 0.5mg qafternoon, and 1mg at HS (this is the dosing we used during prior hospitalization for his severe anxiety) (8) Depression: Plan: see #7 above (9) Anxiety: Plan: typically has severe anxiety at baseline and especially during times of illness increased clonazepam to TID dosing as noted above (10) BPH (benign prostatic hyperplasia): Plan: cont finasteride (11) DVT prophylaxis: Plan: lovenox 40mg daily (12) Positive result for methicillin resistant Staphylococcus aureus (MRSA) screening: Plan: vanco for MRSA coverage for pneumonia (13) Hypertension: Plan: while hospitalized his BPs are often VERY high due to anxiety, steroids, being uncomfortable, etc during prior hospitalization he had very difficult to control BPs during prior stay titrated losartan to 50mg BID and added imdur 30mg daily he is also on cardizem 360mg daily losartan only ordered at 25mg daily at time of admission titrated back to 50mg BID if additional BP control needed consider adding hydralazine vs increasing imdur, etc Plan updated at bedside today his status remains guarded plan of care was signed out to the night physician team code status - currently full code, but at one point today he said "no tubes" it was difficult to clarify his wishes because of his distress code status will need to be discussed further with patient and his Admission and Anticipated Discharge Date Admission Date: June 24, 2023 Subjective saw patient twice today first visit his was at bedside he reports not feeling any better in comparison to admission, although his thinks he is improved he wore BIPAP for most of the overnight hours he remains dyspneic with any activity continues with nonproductive cough no chest pain no abdominal pain eating fair tele - NSR, sinus tach during this first visit he had obvious subcostal retractions with tachypnea we discussed trial of high-flow NC in place of standard NC later in the evening I checked on Mr Guadalupe again he had apparently just gotten out of bed to void and returned to bed he was severely dyspneic with increased work of breathing and was diaphoretic denied chest pain anxious immediately found staff and we changed the HFNC back to BIPAP after about 5 minutes on BIPAP his tachycardia improved, RR improved, and his retractions improved amazingly he said he felt "good" while on HFNC CXR early in the afternoon - b/l basilar infiltrates, no pulm edema, emphysematous changes VBG obtained urgently - pH wnl, pCO2 elevated but compensated BNP wnl Review of Systems Review of Systems: gen - no fevers, no rigors cv - no chest pain; +orthopnea GI - no abd pain/nausea/emesis pulm - dyspnea with minimal activity, cough, congestion, wheezing Physical Exam Physical Exam: first visit: gen - tachypneic with retractions but remains able to talk in complete sentences, retractions (subcostal) mouth - MMM neck - no obvious JVD heart - tachy, regular rhythm, s1 s2, no murmur lungs - minimal faint rales b/l bases; very poor air movement; wheezes anterior chest; mild faint wheezes posteriorly; tachypneic with RR 20s; subcostal retractions abd - soft NT ND BS+; tiny umbilical hernia ext - no edema, pulses 2+ b/l psych - a/o x 3 Results & Data Results & Data Vital Signs (Past 12 Hours) Vital Signs Temp Pulse Resp BP BP Pulse Ox O2 Del Method 06/27/23 19:40 104 H 22 92 High Flow Nasal Cannula 06/27/23 19:31 36.5 C 100 H 24 205/111 H 92 High Flow Nasal Cannula 06/27/23 17:31 103 H 20 93 High Flow Nasal Cannula 06/27/23 16:02 36.6 C 96 H 20 168/84 H 97 Nasal Cannula 06/27/23 15:06 96 H 26 H 95 Nasal Cannula 06/27/23 12:16 37.0 C 107 H 20 168/81 H 91 Nasal Cannula 06/27/23 11:02 95 H 24 96 Nasal Cannula 06/27/23 10:00 Nasal Cannula 06/27/23 09:30 101 H 22 97 Nasal Cannula O2 Flow Rate FiO2 06/27/23 19:40 40 30 06/27/23 19:31 40 30 06/27/23 17:31 40 30 06/27/23 16:02 3 06/27/23 15:06 4 06/27/23 12:16 06/27/23 11:02 3 06/27/23 10:00 3 06/27/23 09:30 4 Laboratory Results Laboratory Results - last 24 hr 06/26/23 06/27/23 06/27/23 06:12 07:48 10:39 WBC Cancelled 18.97 H RBC Cancelled 3.71 L Hgb Cancelled 11.6 L Hct Cancelled 36.1 L MCV Cancelled 97.3 MCH Cancelled 31.3 MCHC Cancelled 32.1 RDW Std Deviation Cancelled 50.5 H RDW Coeff of Loida Cancelled 14.2 Plt Count Cancelled 351 MPV Cancelled 9.0 L Immature Gran % (Auto) Cancelled 1.2 Neut % (Auto) Cancelled 88.0 Lymph % (Auto) Cancelled 5.2 Johnston % (Auto) Cancelled 5.5 Eos % (Auto) Cancelled 0.0 Baso % (Auto) Cancelled 0.1 Neut # (Auto) Cancelled 16.70 H Lymph # (Auto) Cancelled 0.98 L Johnston # (Auto) Cancelled 1.05 H Eos # (Auto) Cancelled 0.00 Baso # (Auto) Cancelled 0.02 Immature Gran # (Auto) Cancelled 0.22 H Absolute Nucleated RBC Cancelled Nucleated RBC % (auto) Cancelled Neutrophils % (Manual) Cancelled Band Neutrophils % Cancelled Lymphocytes % (Manual) Cancelled Prolymphocyte % Cancelled Reactive Lymphs % (Man) Cancelled Monocytes % (Manual) Cancelled Eosinophils % (Manual) Cancelled Basophils % (Manual) Cancelled Metamyelocytes % (Man) Cancelled Myelocytes % (Man) Cancelled Promyelocytes % (Man) Cancelled Blast Cells % (Manual) Cancelled Plasma Cell % (Manual) Cancelled Other Cells % Cancelled Nucleated RBC % Cancelled Neutrophils # (Manual) Cancelled Band Neutrophils # Cancelled Total Absolute Neuts Cancelled Lymphocytes # (Manual) Cancelled Prolymphocyte # Cancelled Reactive Lymphs # Cancelled Total Abs Lymphocytes Cancelled Monocytes # (Manual) Cancelled Eosinophils # (Manual) Cancelled Basophils # (Manual) Cancelled Metamyelocytes # (Man) Cancelled Myelocytes # (Manual) Cancelled Promyelocytes # (Man) Cancelled Blast Cells # (Man) Cancelled Plasma Cell # (Manual) Cancelled Other Cells # Cancelled Nucleated RBCs # (Man) Cancelled Hypersegmented Neuts 1+ Cancelled Hyposegmented Neuts Cancelled Hypogranular Neuts Cancelled Large Granular Lymphs Cancelled # Lrg Granular Lymphs Cancelled Hairy Cells Cancelled Smudge Cells Cancelled Toxic Granulation Cancelled Toxic Vacuolation Cancelled Dohle Bodies Cancelled Wei Rods Cancelled Platelet Estimate Cancelled Hypogranular Platelets Cancelled Giant Platelets Cancelled Platelet Satelliting Cancelled RBC Morphology Cancelled Polychromasia Cancelled Hypochromasia Cancelled Poikilocytosis Cancelled Basophilic Stippling Cancelled Anisocytosis Cancelled Microcytosis Cancelled Macrocytosis Cancelled Spherocytes Cancelled Pappenheimer Bodies Cancelled Sickle Cells Cancelled Target Cells Cancelled Tear Drop Cells Cancelled Ovalocytes Cancelled Stomatocytes Cancelled Lal-Warba Bodies Cancelled Echinocytes Cancelled Acanthocytes (Spur) Cancelled Rouleaux Cancelled RBC Agglutinates Cancelled Schistocytes Cancelled Sezary Cell Cancelled VBG pH VBG pCO2 VBG pO2 VBG HCO3 VBG O2 Saturation VBG Base Excess Sodium 146 H Potassium 4.3 Chloride 107 Carbon Dioxide 30 Anion Gap 9 BUN 34 H Creatinine 0.82 Est Cr Clr Drug Dosing 75.6 Est GFR ( Amer) 103.8 Est GFR (Non-Af Amer) 89.6 BUN/Creatinine Ratio 41.5 H Glucose 130 H Calcium 8.6 B-Natriuretic Peptide Blood Parasites ID Cancelled 06/27/23 20:33 WBC RBC Hgb Hct MCV MCH MCHC RDW Std Deviation RDW Coeff of Loida Plt Count MPV Immature Gran % (Auto) Neut % (Auto) Lymph % (Auto) Johnston % (Auto) Eos % (Auto) Baso % (Auto) Neut # (Auto) Lymph # (Auto) Johnston # (Auto) Eos # (Auto) Baso # (Auto) Immature Gran # (Auto) Absolute Nucleated RBC Nucleated RBC % (auto) Neutrophils % (Manual) Band Neutrophils % Lymphocytes % (Manual) Prolymphocyte % Reactive Lymphs % (Man) Monocytes % (Manual) Eosinophils % (Manual) Basophils % (Manual) Metamyelocytes % (Man) Myelocytes % (Man) Promyelocytes % (Man) Blast Cells % (Manual) Plasma Cell % (Manual) Other Cells % Nucleated RBC % Neutrophils # (Manual) Band Neutrophils # Total Absolute Neuts Lymphocytes # (Manual) Prolymphocyte # Reactive Lymphs # Total Abs Lymphocytes Monocytes # (Manual) Eosinophils # (Manual) Basophils # (Manual) Metamyelocytes # (Man) Myelocytes # (Manual) Promyelocytes # (Man) Blast Cells # (Man) Plasma Cell # (Manual) Other Cells # Nucleated RBCs # (Man) Hypersegmented Neuts Hyposegmented Neuts Hypogranular Neuts Large Granular Lymphs # Lrg Granular Lymphs Hairy Cells Smudge Cells Toxic Granulation Toxic Vacuolation Dohle Bodies Wei Rods Platelet Estimate Hypogranular Platelets Giant Platelets Platelet Satelliting RBC Morphology Polychromasia Hypochromasia Poikilocytosis Basophilic Stippling Anisocytosis Microcytosis Macrocytosis Spherocytes Pappenheimer Bodies Sickle Cells Target Cells Tear Drop Cells Ovalocytes Stomatocytes Lal-Warba Bodies Echinocytes Acanthocytes (Spur) Rouleaux RBC Agglutinates Schistocytes Sezary Cell VBG pH 7.39 VBG pCO2 56 H VBG pO2 79 VBG HCO3 34 VBG O2 Saturation 97.0 VBG Base Excess 7.1 Sodium Potassium Chloride Carbon Dioxide Anion Gap BUN Creatinine Est Cr Clr Drug Dosing Est GFR ( Amer) Est GFR (Non-Af Amer) BUN/Creatinine Ratio Glucose Calcium B-Natriuretic Peptide 68 Blood Parasites ID Diagnostic Findings Chest X-Ray 06/27/23 15:39 XR chest 1V portable HISTORY: 72 years-old Male RLL pneumonia, distress; eval worsening pneumonia acute shortness of breath COMPARISON: 06/26/2023 TECHNIQUE: AP view of the chest FINDINGS: Cardiac silhouette is enlarged. Emphysema with chronic interstitial coarsening. Mild bibasilar ill-defined opacities are again noted. Chronic appearing right- sided rib fractures. Hiatal hernia. Degenerative changes of the shoulders and spine. IMPRESSION: 1. Cardiomegaly without pulmonary edema. 2. Emphysema with chronic interstitial coarsening. 3. Mild bibasilar opacities persist suggestive of atelectasis versus pneumonitis. ACT 112: Negative or not required by law. The above report was generated using voice recognition software. It may contain grammatical, syntax or spelling errors. Electronically signed by: Sarwat Montes M.D. 06/27/2023 4:30 PM PG Care Time/CCT Total # of Minutes Spent Total Time Spent with Patient: Total time spent is greater than 50% in coordination of care (as documented) at patient's floor/unit and/or counseling patient: Coding Level of Care Code 12623 SUB INP/OBS CARE 3/50MIN Diagnoses Acute on chronic hypoxic respiratory failure J96.21 RLL pneumonia J18.9 Pneumonia type: due to unspecified organism COPD exacerbation J44.1 Chest pain R07.9 Barretts esophagus K22.70 Elevated troponin R77.8 Bipolar 2 disorder F31.81 Depression F32.9 Anxiety F41.9 BPH (benign prostatic hyperplasia) N40.0 DVT prophylaxis Z29.9 Positive result for methicillin resistant Staphylococcus aureus (MRSA) screening Z22.322 Hypertension I10 (2) RLL pneumonia Pneumonia type: due to unspecified organism Qualified Code(s): J18.9 - Pneumonia, unspecified organism
[2023-06-28] MEDS: CEFEPIME 2,000 MG in SYRINGE 0 ML IV SCH ×3 (01:20→18:26)
[2023-06-28] MEDS: methylPREDNISolone 40 MG in SYRINGE 0 ML IV SCH ×3 (04:55→19:49)
[2023-06-28] MEDS ORDERED: VANCOMYCIN LEVEL ONE (07:00)
[2023-06-28] MEDS: ALBUT/IPRATROP 3MG/0.5MG NEB 3 ML VIAL NEB SCH ×5 (07:11→23:17)
[2023-06-28] MEDS: VANCOMYCIN HCL 750 MG in SODIUM CHLORIDE 0.9% 250 ML IV SCH (08:11)
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
[2023-06-28 08:33] LABS: Hematocrit (blood only) 38.4 % (42.0-52.0); Hemoglobin 12.2 g/dl (14.0-18.0); Mean Corpuscular Hemoglobin 30.9 pg (25.0-34.0); Mean Corpuscular Hgb Conc 31.8 g/dL (32.0-36.0); Mean Corpuscular Volume 97.2 fL (80.0-100.0); Mean Platelet Volume 9.1 fL (9.4-12.4); Platelet Count 362 K/uL (130-400); RDW Coefficient of Variation 14.2 % (11.5-14.5); Red Blood Count 3.95 M/uL (4.70-6.10)
[2023-06-28 08:40] LABS: BUN Creatinine Ratio 38.6 (10-20); Calcium 8.9 mg/dl (8.6-10.3); Creatinine Clr Calc Pharmacy 74.7 ml/min; Est GFR (African American) 103.3 ml/min; Est GFR (Non-African American) 89.2 ml/min; Phosphorus 3.2 mg/dl (2.5-4.9)
[2023-06-28] MEDS: FLUTICASONE/UMECLIDIN/VILANTER 100-62.5-25 INH SCH (08:52)
[2023-06-28] MEDS: LOSARTAN POTASSIUM 50 MG TAB PO SCH ×2 (08:53→19:51)
[2023-06-28] MEDS: lamoTRIgine 25 MG TAB PO SCH ×2 (08:54→19:51)
[2023-06-28] MEDS: PANTOprazole 40 MG TAB PO SCH (08:54)
[2023-06-28] MEDS: CITALOPRAM 20 MG TAB PO SCH (08:55)
[2023-06-28] MEDS: ARIPiprazole 5 MG TAB PO SCH ×2 (08:55→19:51)
[2023-06-28] MEDS: FINASTERIDE 5 MG TAB PO SCH (08:55)
[2023-06-28] MEDS: FERROUS SULFATE 325 MG TAB PO SCH (08:56)
[2023-06-28] MEDS: ISOSORBIDE MONO EXTENDED REL 30 MG TABCR PO SCH (08:56)
[2023-06-28] MEDS: AZITHROMYCIN 250 MG TAB PO SCH (08:57)
[2023-06-28] MEDS: dilTIAZem HCL 180 MG CAPCR PO SCH (08:57)
[2023-06-28] MEDS: ASPIRIN 81 MG ECTAB PO SCH (08:58)
[2023-06-28] MEDS: clonazePAM 0.5 MG TAB PO SCH ×4 (09:07→19:52)
[2023-06-28] MEDS: ENOXAPARIN INJ 40 MG/0.4 ML SYR SQ SCH (09:07)
[2023-06-28] MEDS ORDERED: cloNIDine HCL 0.1 MG TAB PO ONE (09:09)
--- NOTE | 2023-06-28 09:21 | Pharmacy Report ---
Pharmacy PK ABX Note - Date of Service June 28, 2023 - Assessment and Plan Assessment 72 year old M receiving VANCOMYCIN/CEFEPIME for treatment of pneumonia. Pertinent microbiologic data includes: Positive MRSA Nasal Swab. Vancmycin added after clinical worsening. Trough level today 10.8 , although this is prior to steady state does suggest attainment of low end of AUC/FRANK target. Given clinical status and continued leukocytosis, will adjust dose to target higher end of goal range. Day # []/[] of antimicrobial therapy. Plan Vancomycin * Adjust dose to 1000 mg q12H * Regimen is predicted to achieve target AUC/FRANK of 400-600 mg/L.hr (586 mg/L.hr ) * Random level ordered with 11/16 AM labs Pharmacy will continue to follow and will adjust dose/frequency as necessary. Thank you. Pharmacy has transitioned to AUC monitoring for vancomycin. AUC/FRANK is the preferred PK/PD target and is associated with decreased risk of nephrotoxicity compared to traditional trough targets.
--- NOTE | 2023-06-28 11:25 | Critical Care Consultation ---
Date of Consultation June 28, 2023 Assessment & Plan (1) Acute on chronic hypoxic respiratory failure: Agree with current management of COPD exacerbation and pneumonia. Patient is frail with a tenuous baseline which are poor prognostic indicators. Continue with solumedrol and broad spectrum empiric antibiotics. Change albuterol to duonebs scheduled. hold off on Trelegy since he is unable to use it effectively at this time. Agree with intermittent BIPAP and high flow during the day as needed. Patient was encouraged to use BIPAP throughout most of the night every night. (2) RLL pneumonia: (3) COPD exacerbation: (4) Panic attacks: (5) Bipolar 2 disorder: (6) Leukocytosis: slight trending upwards can be steroid induced. continue monitor. (7) Sleep apnea: BIPAP at night. (8) Pulmonary embolism: on lovenox prophylactic dose. Plan Thank you very much for allowing us to participate in the care of your patient. Please call with any questions. will continue to follow. Discussed with RN. History of Present Illness Reason for Consultation: shortness of breath Attending Physician: Eliana Perkins MD History of Present Illness 72M with history of COPD on home oxygen 3LPM, Monteiro's esophagus, Bipolar 2 disorder, depression/anxiety, pulmonary embolism, BPH, HTN, former smoker, PTSD, MAKAYLA, who presents for evaluation of dyspnea on exertion. Patient was recently discharged on 05/16/23 from an admission for a COPD exacerbation. Patient notes that over the last week he has been increasingly dyspneic, to the point that this morning after ambulating to the bathroom he was so short of breath that he was unable to speak. Tried nebulizer and his Trelogy inhaler but ultimately EMS was called. Patient notes that he often feels like he has an elephant sitting on the center of his chest, his discomfort does not radiate. He is not actively experiencing chest pain. At baseline his sat is in the 80's, low 90's at best on home oxygen. Denied cough, LE swelling or weight change. He also reported decreased appetite. Since admission he's been treated with antibiotics Vanc, cefepime, and azithromycin, solumedrol, and duonebs. He is using BIPAP at home which he has at home, during the day high flow was started yesterday which he tolerated poorly complaining of air pressure and loud noise. Allergies Allergy/AdvReac Type Severity Reaction Status Date / Time Influenza Virus Vaccines Allergy Severe SHORTNESS Verified 05/08/23 22:19 OF BREATH morphine Allergy Intermediate "I FELT Verified 05/08/23 22:19 FUNNY IN THE HEAD" budesonide AdvReac Intermediate sob Verified 05/08/23 22:19 [From [employer]] formoterol AdvReac Intermediate sob Verified 05/08/23 22:19 [From [employer]] glycopyrrolate AdvReac Intermediate sob Verified 05/08/23 22:19 [From [facility]] Home Medications Medication Instructions Recorded Confirmed Type acetaminophen 500 mg tablet 500 mg PO Q6H PRN Pain 03/27/19 05/08/23 History fluticasone fur. 100 mcg-umeclid 1 inh inhalation DAILY #3 Inhalers 10/12/22 06/24/23 Rx 62.5 mcg-vilant 25 mcg inhalat.powder (Trelegy Ellipta) finasteride 5 mg tablet 5 mg PO QAM 11/11/22 06/24/23 History ipratropium 20 mcg-albuterol 100 0 puff inhalation QID PRN 12/25/22 06/24/23 History mcg/actuation mist for inhalation Shortness Of Breath Or Wheezing (Combivent Respimat) aripiprazole 5 mg tablet (Abilify) 5 mg PO BID #60 tabs 12/30/22 06/24/23 Rx cyanocobalamin (vitamin B-12) 1,000 mcg PO DAILY #30 caps 12/30/22 05/08/23 Rx 1,000 mcg capsule citalopram 40 mg tablet 20 mg PO DAILY 05/08/23 06/24/23 History clonazepam 0.5 mg tablet 0.5 mg PO BID PRN Anxiety 05/08/23 06/24/23 History diltiazem HCl 360 mg capsule,24 360 mg PO DAILY 05/08/23 06/24/23 History hr,extended release (Tiadylt ER) ferrous sulfate 325 mg (65 mg 325 mg PO DAILY 05/08/23 06/24/23 History iron) tablet aspirin 81 mg tablet,delayed 81 mg PO QAM #90 tabs 05/16/23 Rx release isosorbide mononitrate 30 mg 30 mg PO DAILY #30 tabs 05/16/23 06/24/23 Rx tablet,extended release 24 hr ipratropium 0.5 mg-albuterol 3 mg 0 ml NEB Q2H PRN shortness of 06/24/23 06/24/23 History (2.5 mg base)/3 mL nebulization breath soln lamotrigine 25 mg tablet (Lamictal) 25 mg PO BID 06/24/23 06/24/23 History losartan 50 mg tablet 25 mg PO DAILY 06/24/23 06/24/23 History pantoprazole 40 mg tablet,delayed 0 mg PO QAM 06/24/23 06/24/23 History release Patient History Medical History Bipolar 2 disorder Ventilator dependent uses portable ventilator at least 4 hours daily; uses home o2 3lpm via nc continuous Hx of small bowel obstruction Barretts esophagus BPH with obstruction/lower urinary tract symptoms Chronic respiratory failure with hypoxia and hypercapnia Suicidal ideation Sepsis Right lower lobe pneumonia Pneumonia Pneumonia Mood disorder 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 hx shawn 2013- JANNETH (acute kidney injury) Anemia COPD (chronic obstructive pulmonary disease) FOLLOWS W/ DR RODRIGUES LAST VISIT 08/2022 Pulmonary embolism (01/22/14) HX 2013 Sleep apnea continous O2 at night PTSD (post-traumatic stress disorder) Surgical History S/P repair of ventral hernia S/P tonsillectomy History of cardiac catheterization 30 YRS AGO- NO STENTS- Family History Other Lung disease Social History Smoking Status: Former smoker Tobacco Type: Cigarettes Age Quit Using Tobacco: 62; Cigarettes Per Day: QUIT >20 YRS AGO; Second Hand Exposure: No; Do You Dip or Chew Tobacco: No; Tobacco Cessation Education Requested by Patient: No Hx Alcohol Use: No Hx Substance Use: No Preferred Language: Urdu Communication Ability: Effective Director Of Instrumental Music Required: No Beliefs That Will Affect Care: None Current Living Situation: Spouse Other Information That Helps Us Care for You: No Feels Safe at Home: Yes Safety Concerns: Feels Safe At This Time Assistive Devices: Cane, Oxygen - Continuous and Walker Review of Systems Review of Systems: as per HPI. Physical Exam Constitutional: in bed in moderate respiratory distress. Respiratory: + respiratory distress; + abnormal respi ratory effort Auscultation: + diminished lung sounds and + wheezes Cardiovascular: Rate/Rhythm: regular rate and regular rhythm Neurologic: moves all extremities and awake Speech / Cognition: normal cognition Psychiatric: Orientation: alert and oriented to place Speech: normal rate/rhythm/volume of speech Affect: mood congruent with affect Results & Data Results & Data Vital Signs (Past 12 Hours) Vital Signs Temp Pulse Pulse Resp BP Pulse Ox O2 Del Method 06/28/23 10:42 78 26 H 97 Nasal Cannula 06/28/23 08:29 36.7 C 101 H 34 H 212/98 H 98 Oxymask 06/28/23 07:13 92 H 22 97 BiPAP 06/28/23 07:11 92 H 22 97 06/28/23 03:31 107 H 26 H 93 06/28/23 02:50 36.3 C L 107 H 24 183/131 H 92 BiPAP 06/28/23 00:10 23 95 06/27/23 23:25 36.4 C L 92 H 26 H 184/112 H 97 BiPAP O2 Flow Rate FiO2 06/28/23 10:42 3 06/28/23 08:29 5.0 06/28/23 07:13 30 06/28/23 07:11 30 06/28/23 03:31 30 06/28/23 02:50 06/28/23 00:10 30 06/27/23 23:25 30 Coding Level of Care Code 76431 IN/OBS CONSULT LVL 4,60M Diagnoses Acute on chronic hypoxic respiratory failure J96.21 RLL pneumonia J18.9 Pneumonia type: due to unspecified organism COPD exacerbation J44.1 Panic attacks F41.0 Bipolar 2 disorder F31.81 Bandemia D72.825 Leukocytosis type: bandemia Obstructive sleep apnea syndrome G47.33 Sleep apnea type: obstructive Pulmonary embolism I26.99 (2) RLL pneumonia Pneumonia type: due to unspecified organism Qualified Code(s): J18.9 - Pneumonia, unspecified organism (6) Leukocytosis Leukocytosis type: bandemia Qualified Code(s): D72.825 - Bandemia (7) Sleep apnea Sleep apnea type: obstructive Qualified Code(s): G47.33 - Obstructive sleep apnea (adult) (pediatric)
--- NOTE | 2023-06-28 17:26 | Hospitalist Progress Note ---
Date of Service June 28, 2023 Assessment & Plan (1) Acute on chronic hypoxic respiratory failure: Plan: acute on chronic hypoxic and hypercarbic respiratory failure remains severely ill with slight improvement since yesterday he is typically on 3 L NC o2 at rest, and 4 L with activity at home. - consulted pulmonary, reviewed recommendations in their note - continue O2 high flow nasal cannula, BiPAP at night (2) RLL pneumonia: Plan: bibasilar infiltrates on chest x-ray, MRSA nasal screen positive at risk of gram negatives given his COPD & chronic resp failure as well as his admission in late April. MRSA screen positive; can't rule out MRSA pneumonia. typical pathogens & atypicals also possible. cefepime 06/25-current azithromycin d 11/17 IV vancomycin 06/27-current (3) COPD exacerbation: Plan: continue solumedrol 40mg IV q8h. duonebs q4h cont home inhalers. pulmonary toilet as able - flutter valve, incentive kathia, etc. no evidence of complicating pulmonary edema/CHF. no edema/JVD and BNP low (4) Chest pain: Plan: early in admission 2nd to pulmonary issues as above troponin scantly elevated CTA chest during previous admission 04/2023 without PE he has had no chest pain since admission (5) Barretts esophagus: Plan: cont PPI (6) Elevated troponin: Plan: minimal/scant elevation 2nd to myocardial demand ischemia in setting of pneumonia and acute/chronic respiratory failure (7) Bipolar 2 disorder: Plan: cont all chronic meds --> abilify BID, celexa daily, clonazepam, lamictal 25 BID increased clonazepam to 0.5mg qam, 0.5mg qafternoon, and 1mg at HS (this is the dosing we used during prior hospitalization for his severe anxiety) (8) Depression: Plan: see #7 above (9) Anxiety: Plan: typically has severe anxiety at baseline and especially during times of illness increased clonazepam to TID dosing as noted above (10) BPH (benign prostatic hyperplasia): Plan: cont finasteride (11) DVT prophylaxis: Plan: lovenox 40mg daily (12) Positive result for methicillin resistant Staphylococcus aureus (MRSA) screening: Plan: vanco for MRSA coverage for pneumonia (13) Hypertension: Plan: while hospitalized his BPs are often VERY high due to anxiety, steroids, being uncomfortable, etc during prior hospitalization he had very difficult to control BPs BPs above goal 06/28 during prior stay titrated losartan to 50mg BID and added imdur 30mg daily he is also on cardizem 360mg daily --> change this to amlodipine starting 06/29 if additional BP control needed consider adding hydralazine vs increasing imdur, etc Plan updated at bedside 06/27 code status - currently full code, but at one point today he said "no tubes" it was difficult to clarify his wishes because of his distress code status will need to be discussed further with patient and his Admission and Anticipated Discharge Date Admission Date: June 24, 2023 Subjective feels short of breath at rest, slightly improved compared to yesterday, was refusing HFO2 this am and refusing bipap, feels anxious, no CP Physical Exam 2 Physical Exam: PHYSICAL EXAMINATION Last 24h vital signs reviewed, see documentation in flowsheet General: frail and chronically ill-appearing HEENT: Normocephalic, atraumatic, pupils round and equal, sclerae anicteric, no conjunctival injection, moist mucus membranes Lungs: labored respiratory effort with tachypnea and abdominal breathing pattern, severely diminished breath sounds throughout expiratory wheezes in both bases Heart: Regular rate and rhythm, no murmurs. No JVD Abdomen: Soft, nontender, nondistended. Bowel sounds present. Extremities: Warm, dry, well-perfused. No extremity edema. Neuro: Alert and oriented x 4, face symmetric, moves 4 extremities well Psych: anxious affect and normal behavior Results & Data Results & Data Vital Signs (Past 12 Hours) Vital Signs Temp Pulse Pulse Resp BP BP Pulse Ox 06/28/23 15:43 36.6 C 80 24 142/76 H 95 06/28/23 14:26 86 24 97 06/28/23 14:25 87 24 97 06/28/23 11:33 36.5 C 97 H 30 H 175/83 H 93 06/28/23 11:13 36.4 C L 66 19 153/63 H 98 06/28/23 10:42 78 26 H 97 06/28/23 08:29 36.7 C 101 H 34 H 212/98 H 98 06/28/23 08:00 06/28/23 07:41 77 06/28/23 07:13 92 H 22 97 06/28/23 07:11 92 H 22 97 O2 Del Method O2 Flow Rate FiO2 06/28/23 15:43 High Flow Nasal Cannula 25 35 06/28/23 14:26 High Flow Nasal Cannula 25 35 06/28/23 14:25 High Flow Nasal Cannula 25 35 06/28/23 11:33 High Flow Nasal Cannula 25 35 06/28/23 11:13 Room Air 06/28/23 10:42 Nasal Cannula 3 06/28/23 08:29 Oxymask 5.0 06/28/23 08:00 BiPAP, High Flow Nasal Cannula 35 06/28/23 07:41 06/28/23 07:13 BiPAP 30 06/28/23 07:11 30 Laboratory Results 06/28/23 07:58 06/28/23 07:58 PG Care Time/CCT Total # of Minutes Spent Total Time Spent with Patient: Total time spent is greater than 50% in coordination of care (as documented) at patient's floor/unit and/or counseling patient: Coding Level of Care Code 18227 SUB INP/OBS CARE 3/50MIN Diagnoses Acute on chronic hypoxic respiratory failure J96.21 RLL pneumonia J18.9 Pneumonia type: due to unspecified organism COPD exacerbation J44.1 Chest pain R07.9 Barretts esophagus K22.70 Elevated troponin R77.8 Bipolar 2 disorder F31.81 Depression F32.9 Anxiety F41.9 BPH (benign prostatic hyperplasia) N40.0 DVT prophylaxis Z29.9 Positive result for methicillin resistant Staphylococcus aureus (MRSA) screening Z22.322 Hypertension I10 (2) RLL pneumonia Pneumonia type: due to unspecified organism Qualified Code(s): J18.9 - Pneumonia, unspecified organism
[2023-06-28] MEDS: VANCOMYCIN HCL 1,000 MG in SODIUM CHLORIDE 0.9% 250 ML IV SCH (19:52)
[2023-06-29] MEDS: CEFEPIME 2,000 MG in SYRINGE 0 ML IV SCH ×3 (01:55→16:06)
[2023-06-29] MEDS: ALBUT/IPRATROP 3MG/0.5MG NEB 3 ML VIAL NEB SCH ×6 (02:36→23:45)
[2023-06-29] MEDS: methylPREDNISolone 40 MG in SYRINGE 0 ML IV SCH ×3 (04:14→20:53)
[2023-06-29 06:28] LABS: Creatinine Clr Calc Pharmacy 80.6 ml/min; Est GFR (African American) 106.6 ml/min; Est GFR (Non-African American) 91.9 ml/min
[2023-06-29] MEDS: VANCOMYCIN HCL 1,000 MG in SODIUM CHLORIDE 0.9% 250 ML IV SCH ×2 (07:45→20:43)
[2023-06-29] MEDS: LOSARTAN POTASSIUM 50 MG TAB PO SCH ×2 (07:47→20:55)
[2023-06-29] MEDS: PANTOprazole 40 MG TAB PO SCH (07:47)
[2023-06-29] MEDS: lamoTRIgine 25 MG TAB PO SCH ×2 (07:47→20:54)
[2023-06-29] MEDS: FERROUS SULFATE 325 MG TAB PO SCH (07:47)
[2023-06-29] MEDS: ARIPiprazole 5 MG TAB PO SCH ×2 (07:47→20:55)
[2023-06-29] MEDS: AZITHROMYCIN 250 MG TAB PO SCH (07:47)
[2023-06-29] MEDS: CITALOPRAM 20 MG TAB PO SCH (07:47)
[2023-06-29] MEDS: ASPIRIN 81 MG ECTAB PO SCH (07:47)
[2023-06-29] MEDS: FINASTERIDE 5 MG TAB PO SCH (07:47)
[2023-06-29] MEDS: ISOSORBIDE MONO EXTENDED REL 30 MG TABCR PO SCH (07:48)
[2023-06-29] MEDS: FLUTICASONE/UMECLIDIN/VILANTER 100-62.5-25 INH SCH (07:48)
[2023-06-29] MEDS: ENOXAPARIN INJ 40 MG/0.4 ML SYR SQ SCH (07:48)
[2023-06-29] MEDS: clonazePAM 0.5 MG TAB PO SCH ×4 (07:50→20:53)
[2023-06-29] MEDS ORDERED: amLODIPine BESYLATE 5 MG TAB PO SCH (09:00)
[2023-06-29] MEDS: IPRATROPIUM BROMIDE HFA INHALER INH PRN (09:46)
[2023-06-29] MEDS: ALBUTEROL HFA 8 GM INHALER INH PRN (09:46)
[2023-06-29 12:03] LABS: Calcium 8.6 mg/dl (8.6-10.3); Potassium 3.8 mmol/L (3.5-5.1)
[2023-06-29 12:08] LABS: BUN Creatinine Ratio 46.7 (10-20); Creatinine Clr Calc Pharmacy 82.7 ml/min; Est GFR (African American) 107.7 ml/min; Est GFR (Non-African American) 92.9 ml/min
[2023-06-29] MEDS ORDERED: cloNIDine HCL 0.1 MG TAB PO ONE (14:46)
--- NOTE | 2023-06-29 17:35 | Hospitalist Progress Note ---
Date of Service June 29, 2023 Assessment & Plan (1) Acute on chronic hypoxic respiratory failure: Plan: acute on chronic hypoxic and hypercarbic respiratory failure remains severely ill with slight improvement since yesterday, but high risk for morbidity, mortality and worsening functional status because of severity of acute and chronic illness he is typically on 3 L NC o2 at rest, and 4 L with activity at home. - consulted pulmonary 06/29 - continue O2 high flow nasal cannula, BiPAP at night (2) RLL pneumonia: Plan: bibasilar infiltrates on chest x-ray, MRSA nasal screen positive at risk of gram negatives given his COPD & chronic resp failure as well as his admission in late April. MRSA screen positive; can't rule out MRSA pneumonia. typical pathogens & atypicals also possible. cefepime 06/25-current (has end date of 07/02) azithromycin completed 500 mg x 3 days then 250 mg x 3 days IV vancomycin 06/27-current (3) Hypertension: Plan: while hospitalized his BPs are often VERY high due to anxiety, steroids, being uncomfortable, etc during prior hospitalization he had very difficult to control BPs BPs above goal 06/29 during prior stay titrated losartan to 50mg BID and added imdur 30mg daily he is also on cardizem 360mg daily --> changed this to amlodipine starting 06/29, increase to 10 mg clonidine 0.1 mg x 1 this afternoon for severe HTN if additional BP control needed consider adding hydralazine vs increasing imdur, etc (4) COPD exacerbation: Plan: continue solumedrol 40mg IV q8h. duonebs q4h cont home inhalers. pulmonary toilet as able - flutter valve, incentive kathia, etc. no evidence of complicating pulmonary edema/CHF. no edema/JVD and BNP low (5) Chest pain: Plan: early in admission 2nd to pulmonary issues as above troponin scantly elevated CTA chest during previous admission 04/2023 without PE he has had no chest pain since admission (6) Barretts esophagus: Plan: cont PPI (7) Elevated troponin: Plan: minimal/scant elevation 2nd to myocardial demand ischemia in setting of pneumonia and acute/chronic respiratory failure (8) Bipolar 2 disorder: Plan: cont all chronic meds --> abilify BID, celexa daily, clonazepam, lamictal 25 BID increased clonazepam to 0.5mg qam, 0.5mg qafternoon, and 1mg at HS (this is the dosing we used during prior hospitalization for his severe anxiety) (9) Depression: Plan: see #7 above (10) Anxiety: Plan: typically has severe anxiety at baseline and especially during times of illness increased clonazepam to TID dosing as noted above (11) BPH (benign prostatic hyperplasia): Plan: cont finasteride (12) DVT prophylaxis: Plan: lovenox 40mg daily (13) Positive result for methicillin resistant Staphylococcus aureus (MRSA) screening: Plan: vanco for MRSA coverage for pneumonia Plan updated at bedside 06/27, 06/29 code status - currently full code, but at one point today he said "no tubes" it was difficult to clarify his wishes because of his distress code status will need to be discussed further with patient and his Admission and Anticipated Discharge Date Admission Date: June 24, 2023 Subjective remains extremely dyspneic though slightly improved compared to yesterday. No chest pain. I updated his in room. Physical Exam 2 Physical Exam: PHYSICAL EXAMINATION Last 24h vital signs reviewed, see documentation in flowsheet General: frail and chronically ill-appearing HEENT: Normocephalic, atraumatic, pupils round and equal, sclerae anicteric, no conjunctival injection, moist mucus membranes Lungs: labored respiratory effort with tachypnea and abdominal breathing pattern - though this improved a bit, severely diminished breath sounds throughout not currently wheezing Heart: Regular rate and rhythm, no murmurs. No JVD Abdomen: Soft, nontender, nondistended. Bowel sounds present. Extremities: Warm, dry, well-perfused. No extremity edema. Neuro: Alert and oriented x 4, face symmetric, moves 4 extremities well Psych: anxious affect and normal behavior Results & Data Results & Data Vital Signs (Past 12 Hours) Vital Signs Temp Pulse Pulse Resp BP BP Pulse Ox 06/29/23 15:50 169/93 H 06/29/23 15:22 105 H 26 H 93 06/29/23 14:46 36.7 C 95 H 18 209/120 H 93 06/29/23 11:51 97 H 22 91 06/29/23 10:00 60 06/29/23 10:00 06/29/23 09:51 190/84 H 184/87 H 06/29/23 09:46 109 H 30 H 91 11/15/23 07:30 36.3 C L 94 H 20 188/100 H 94 06/29/23 07:13 86 20 95 O2 Del Method O2 Flow Rate FiO2 06/29/23 15:50 06/29/23 15:22 High Flow Nasal Cannula 20 40 06/29/23 14:46 High Flow Nasal Cannula 20 06/29/23 11:51 High Flow Nasal Cannula 20 40 06/29/23 10:00 06/29/23 10:00 High Flow Nasal Cannula 40 06/29/23 09:51 06/29/23 09:46 High Flow Nasal Cannula 20 40 06/29/23 07:30 Nasal Cannula 3 06/29/23 07:13 BiPAP 30 Laboratory Results 06/28/23 07:58 06/29/23 11:06 Diagnostic Findings Chest X-Ray 06/24/23 11:30 XR chest 1V portable HISTORY: 72 years-old Male Dyspnea acute shortness of breath COMPARISON: 05/10/2023 TECHNIQUE: AP view of the chest FINDINGS: Cardiomediastinal and hilar silhouettes are unchanged. No pneumothorax, pleural effusion or overt pulmonary edema. Advanced pulmonary emphysema with chronic interstitial coarsening of the lung bases. Mild patchy right basilar airspace opacities. Chronic right-sided rib fractures. Bones appear grossly intact. IMPRESSION: Advanced emphysema with mild right basilar airspace opacities suggestive of pneumonia versus aspiration pneumonitis. Follow-up imaging to document resolution recommended. ACT 112: Negative or not required by law. The above report was generated using voice recognition software. It may contain grammatical, syntax or spelling errors. Electronically signed by: Sarwat Montes M.D. 06/24/2023 11:56 AM Chest X-Ray 06/26/23 08:00 XR chest 2V PA/lateral HISTORY: RLL pneumonia, interval change COMPARISON: Chest 06/24/2023. FINDINGS: Advanced emphysema again noted. No pneumothorax. No pleural effusions. The heart is normal in size. Small hiatus hernia again suggested. Chronic right- sided rib fractures again noted. Patchy right basilar densities have slightly improved. No evidence for pulmonary edema. IMPRESSION: 1. Improved aeration within the right basilar opacities. 2. Emphysema again noted. ACT 112: Negative or not required by law. Electronically signed by: Hugh Kennedy M.D. 06/26/2023 9:09 AM Chest X-Ray 06/27/23 15:39 XR chest 1V portable HISTORY: 72 years-old Male RLL pneumonia, distress; eval worsening pneumonia acute shortness of breath COMPARISON: 06/26/2023 TECHNIQUE: AP view of the chest FINDINGS: Cardiac silhouette is enlarged. Emphysema with chronic interstitial coarsening. Mild bibasilar ill-defined opacities are again noted. Chronic appearing right- sided rib fractures. Hiatal hernia. Degenerative changes of the shoulders and spine. IMPRESSION: 1. Cardiomegaly without pulmonary edema. 2. Emphysema with chronic interstitial coarsening. 3. Mild bibasilar opacities persist suggestive of atelectasis versus pneumonitis. ACT 112: Negative or not required by law. The above report was generated using voice recognition software. It may contain grammatical, syntax or spelling errors. Electronically signed by: Sarwat Montes M.D. 06/27/2023 4:30 PM PG Care Time/CCT Total # of Minutes Spent Total Time Spent with Patient: Total time spent is greater than 50% in coordination of care (as documented) at patient's floor/unit and/or counseling patient: Coding Level of Care Code 39159 SUB INP/OBS CARE 3/50MIN Diagnoses Acute on chronic hypoxic respiratory failure J96.21 RLL pneumonia J18.9 Pneumonia type: due to unspecified organism Hypertension I10 COPD exacerbation J44.1 Chest pain R07.9 Barretts esophagus K22.70 Elevated troponin R77.8 Bipolar 2 disorder F31.81 Depression F32.9 Anxiety F41.9 BPH (benign prostatic hyperplasia) N40.0 DVT prophylaxis Z29.9 Positive result for methicillin resistant Staphylococcus aureus (MRSA) screening Z22.322 (2) RLL pneumonia Pneumonia type: due to unspecified organism Qualified Code(s): J18.9 - Pneumonia, unspecified organism
--- NOTE | 2023-06-29 17:50 | Pulmonology Progress Note ---
Date of Service June 29, 2023 Assessment & Plan (1) Acute on chronic hypoxic respiratory failure: Plan: Agree with current management of COPD exacerbation and pneumonia. Patient is frail with a tenuous baseline which are poor prognostic indicators. Continue with solumedrol. completed azithromycin, on vanc d3 and cefepime d5. no cultures pending. continue scheduled duonebs. hold off on Trelegy since he is unable to use it effectively at this time. Agree with intermittent BIPAP and high flow during the day as needed and BIPAP at night. He is using IS and acapella. Try to get out of bed to chair. Monitor WBC. (2) RLL pneumonia: Pneumonia type: due to unspecified organism Qualified Code(s): J18.9 - Pneumonia, unspecified organism (3) COPD exacerbation: (4) Panic attacks: (5) Bipolar 2 disorder: (6) Leukocytosis: Plan: slight trending upwards can be steroid induced. continue monitor. Leukocytosis type: bandemia Qualified Code(s): D72.825 - Bandemia (7) Sleep apnea: Plan: BIPAP at night. Sleep apnea type: obstructive Qualified Code(s): G47.33 - Obstructive sleep apnea (adult) (pediatric) (8) Pulmonary embolism: Plan: on lovenox prophylactic dose. Plan Thank you very much for allowing us to participate in the care of your patient. Please call with any questions. will continue to follow. Discussed with RN. Admission and Anticipated Discharge Date Admission Date: June 24, 2023 Subjective same. no events overnight. just finished eating breakfast. used BIPAP overnight. Physical Exam Respiratory: + uses accessory muscles; + abnormal res piratory effort Auscultation: + diminished lung sounds; no wheezes Cardiovascular: Rate/Rhythm: regular rate and regular rhythm Neurologic: moves all extremities and awake Speech / Cognition: normal cognition Psychiatric: Orientation: alert and oriented to place Speech: normal rate/rhythm/volume of speech Affect: mood congruent with affect Results & Data Results & Data Vital Signs (Past 12 Hours) Vital Signs Temp Pulse Pulse Resp BP BP Pulse Ox 06/29/23 15:50 169/93 H 06/29/23 15:22 105 H 26 H 93 06/29/23 14:46 36.7 C 95 H 18 209/120 H 93 06/29/23 11:51 97 H 22 91 06/29/23 10:00 60 11/15/23 10:00 06/29/23 09:51 190/84 H 184/87 H 06/29/23 09:46 109 H 30 H 91 06/29/23 07:30 36.3 C L 94 H 20 188/100 H 94 06/29/23 07:13 86 20 95 O2 Del Method O2 Flow Rate FiO2 06/29/23 15:50 06/29/23 15:22 High Flow Nasal Cannula 20 40 06/29/23 14:46 High Flow Nasal Cannula 20 06/29/23 11:51 High Flow Nasal Cannula 20 40 06/29/23 10:00 06/29/23 10:00 High Flow Nasal Cannula 40 06/29/23 09:51 06/29/23 09:46 High Flow Nasal Cannula 20 40 06/29/23 07:30 Nasal Cannula 3 06/29/23 07:13 BiPAP 30 PG Care Time/CCT Total # of Minutes Spent Total Time Spent with Patient: Total time spent is greater than 50% in coordination of care (as documented) at patient's floor/unit and/or counseling patient: Coding Level of Care Code 65851 SUB INP/OBS CARE 2/35MIN Diagnoses Acute on chronic hypoxic respiratory failure J96.21 RLL pneumonia J18.9 Pneumonia type: due to unspecified organism COPD exacerbation J44.1 Panic attacks F41.0 Bipolar 2 disorder F31.81 Bandemia D72.825 Leukocytosis type: bandemia Obstructive sleep apnea syndrome G47.33 Sleep apnea type: obstructive Pulmonary embolism I26.99
[2023-06-30] MEDS: CEFEPIME 2,000 MG in SYRINGE 0 ML IV SCH ×3 (01:23→16:05)
[2023-06-30] MEDS: ALBUT/IPRATROP 3MG/0.5MG NEB 3 ML VIAL NEB SCH ×6 (02:20→22:27)
[2023-06-30] MEDS: methylPREDNISolone 40 MG in SYRINGE 0 ML IV SCH ×3 (04:04→20:26)
[2023-06-30] MEDS ORDERED: VANCOMYCIN LEVEL ONE (04:44)
[2023-06-30 06:41] LABS: Hematocrit (blood only) 36.2 % (42.0-52.0); Hemoglobin 11.8 g/dl (14.0-18.0); Mean Corpuscular Hemoglobin 30.6 pg (25.0-34.0); Mean Corpuscular Hgb Conc 32.6 g/dL (32.0-36.0); Mean Platelet Volume 9.1 fL (9.4-12.4); Platelet Count 334 K/uL (130-400); RDW Coefficient of Variation 13.8 % (11.5-14.5); RDW Standard Deviation 47.3 fL (36.4-46.3); Red Blood Count 3.85 M/uL (4.70-6.10); White Blood Count 16.71 K/ul (4.8-10.8)
[2023-06-30 06:47] LABS: BUN Creatinine Ratio 44.1 (10-20); Calcium 8.6 mg/dl (8.6-10.3); Creatinine Clr Calc Pharmacy 91.2 ml/min; Est GFR (African American) 112.1 ml/min; Est GFR (Non-African American) 96.8 ml/min; Potassium 3.6 mmol/L (3.5-5.1)
[2023-06-30] MEDS: VANCOMYCIN HCL 1,000 MG in SODIUM CHLORIDE 0.9% 250 ML IV SCH ×2 (08:44→20:32)
--- NOTE | 2023-06-30 09:51 | XRay Report ---
XR chest 1V portable CLINICAL HISTORY: gross aspiration, worse hypoxia TECHNIQUE: Single frontal radiograph of the chest was obtained. Comparison: Comparison is made to chest radiograph 06/27/2023 FINDINGS: No lines and tubes are seen. Cardiomegaly is noted. The aortic arch is calcified. No significant airs pace opacities are seen. Bibasilar atelectasis is again seen. Emphysema with interstitial coarsening noted. No evidence of pleural effusion or pneumothorax. IMPRESSION: No significant airspace opacities to suggest aspiration. ACT 112: Negative or not required by law. Electronically signed by: Fran Aguilar M.D. 06/30/2023 9:50 AM
[2023-06-30] MEDS: clonazePAM 0.5 MG TAB PO SCH ×4 (10:02→20:26)
[2023-06-30] MEDS: CITALOPRAM 20 MG TAB PO SCH (10:02)
[2023-06-30] MEDS: amLODIPine BESYLATE 5 MG TAB PO SCH (10:02)
[2023-06-30] MEDS: ARIPiprazole 5 MG TAB PO SCH ×2 (10:02→20:26)
[2023-06-30] MEDS: LOSARTAN POTASSIUM 50 MG TAB PO SCH ×2 (10:03→20:26)
[2023-06-30] MEDS: ISOSORBIDE MONO EXTENDED REL 30 MG TABCR PO SCH (10:03)
[2023-06-30] MEDS: ASPIRIN 81 MG ECTAB PO SCH (10:04)
[2023-06-30] MEDS: PANTOprazole 40 MG TAB PO SCH (10:04)
[2023-06-30] MEDS: lamoTRIgine 25 MG TAB PO SCH ×2 (10:04→20:26)
[2023-06-30] MEDS: FINASTERIDE 5 MG TAB PO SCH (10:04)
[2023-06-30] MEDS: ENOXAPARIN INJ 40 MG/0.4 ML SYR SQ SCH (10:05)
[2023-06-30] MEDS: FLUTICASONE/UMECLIDIN/VILANTER 100-62.5-25 INH SCH (10:06)
[2023-06-30] MEDS: FERROUS SULFATE 325 MG TAB PO SCH (11:28)
--- NOTE | 2023-06-30 11:30 | Pharmacy Report ---
Pharmacy PK ABX Note - Date of Service June 30, 2023 - Assessment and Plan Assessment 06/30: * Vanc level obtained this morning (16.4 mcg/mL), indicating that current regimen is appropriate. * Pt is on day 5 of 7 of IV abx. 72 year old M receiving VANCOMYCIN/CEFEPIME for treatment of pneumonia. Pertinent microbiologic data includes: Positive MRSA Nasal Swab. Vancmycin added after clinical worsening. Trough level today 10.8 , although this is prior to steady state does suggest attainment of low end of AUC/FRANK target. Given clinical status and continued leukocytosis, will adjust dose to target higher end of goal range. Day # []/[] of antimicrobial therapy. Plan Vancomycin * Continue vanc 1000 mg IV q12h * Regimen is predicted to achieve target AUC/FRANK of 400-600 mg/L.hr (500 mg/L.hr) * Will check another vanc level in 2-3 days if pt remains on vanc therapy (or sooner if significant changes occur) Pharmacy will continue to follow and will adjust dose/frequency as necessary. Thank you. Pharmacy has transitioned to AUC monitoring for vancomycin. AUC/FRANK is the preferred PK/PD target and is associated with decreased risk of nephrotoxicity compared to traditional trough targets.
--- NOTE | 2023-06-30 17:41 | Hospitalist Progress Note ---
Date of Service June 30, 2023 Assessment & Plan (1) Acute on chronic hypoxic respiratory failure: Plan: acute on chronic hypoxic and hypercarbic respiratory failure he is typically on 3 L NC o2 at rest, and 4 L with activity at home. remains severely ill with improvement since Tuesday, but high risk for morbidity, mortality and worsening functional status because of severity of acute and chronic illness aspirated eggs AM of 06/30. went "down wrong pipe" no history of aspirations or coughing after fluids noted, perhaps was a one-off - consulted pulmonary 06/29 - reviewed recs in note today - continue O2 high flow nasal cannula, BiPAP at night and PRN - stat CXR this AM after aspiration - reviewed film - clear. reviewed radiologist report - clear - hypoxia improved throughout the AM following aspiration (2) RLL pneumonia: Plan: bibasilar infiltrates on chest x-ray, MRSA nasal screen positive at risk of gram negatives given his COPD & chronic resp failure as well as his admission in late April. MRSA screen positive; can't rule out MRSA pneumonia. typical pathogens & atypicals also possible. cefepime 06/25-current (has end date of 07/02) azithromycin completed 500 mg x 3 days then 250 mg x 3 days IV vancomycin 06/27-current Procalcitonin negative 06/30. Leukocytosis persists at but maybe steroids. Likely will stop both vancomycin and cefepime on 07/02. (3) Hypertension: Plan: while hospitalized his BPs are often VERY high due to anxiety, steroids, being uncomfortable, etc during prior hospitalization he had very difficult to control BPs BPs above goal 06/30 but improved during prior stay titrated losartan to 50mg BID and added imdur 30mg daily he is also on cardizem 360mg daily --> changed this to amlodipine starting 06/29, increased to 10 mg 06/30 clonidine 0.1 mg occasionally PRN if additional BP control needed consider adding hydralazine vs increasing imdur, etc (4) COPD exacerbation: Plan: continue solumedrol 40mg IV q8h. duonebs q4h cont home inhalers. pulmonary toilet as able - flutter valve, incentive kathia, etc. no evidence of complicating pulmonary edema/CHF. no edema/JVD and BNP low (5) Chest pain: Plan: early in admission 2nd to pulmonary issues as above troponin scantly elevated CTA chest during previous admission 04/2023 without PE he has had no chest pain since admission (6) Barretts esophagus: Plan: cont PPI (7) Elevated troponin: Plan: minimal/scant elevation 2nd to myocardial demand ischemia in setting of pneumonia and acute/chronic respiratory failure (8) Bipolar 2 disorder: Plan: cont all chronic meds --> abilify BID, celexa daily, clonazepam, lamictal 25 BID increased clonazepam to 0.5mg qam, 0.5mg qafternoon, and 1mg at HS (this is the dosing we used during prior hospitalization for his severe anxiety) (9) Depression: Plan: see #7 above (10) Anxiety: Plan: typically has severe anxiety at baseline and especially during times of illness increased clonazepam to TID dosing as noted above (11) BPH (benign prostatic hyperplasia): Plan: cont finasteride (12) DVT prophylaxis: Plan: lovenox 40mg daily (13) Positive result for methicillin resistant Staphylococcus aureus (MRSA) screening: Plan: vanco for MRSA coverage for pneumonia Plan updated at bedside 06/27, 06/29 code status - currently full code, but at one point today he said "no tubes" it was difficult to clarify his wishes because of his distress code status will need to be discussed further with patient and his Admission and Anticipated Discharge Date Admission Date: June 24, 2023 Subjective Had witnessed gross aspiration while eating eggs this AM and transient severe hypoxia that improved, I saw him shortly after and he felt breathing overall continues to improve much less short of breath compared to 48h ago. No chest pain. Coughing and coughed up some egg bits. Physical Exam 2 Physical Exam: PHYSICAL EXAMINATION Last 24h vital signs reviewed, see documentation in flowsheet General: frail and chronically ill-appearing, wearing Bipap HEENT: Normocephalic, atraumatic, pupils round and equal, sclerae anicteric, no conjunctival injection, moist mucus membranes Lungs: increased respiratory effort with tachypnea and improved no longer abdominal breathing, diminished breath sounds throughout improved, not currently wheezing Heart: Regular rate and rhythm, no murmurs. No JVD Abdomen: Soft, nontender, nondistended. Bowel sounds present. Extremities: Warm, dry, well-perfused. No extremity edema. Neuro: Alert and oriented x 4, face symmetric, moves 4 extremities well Psych: normal affect and normal behavior Results & Data Results & Data Vital Signs (Past 12 Hours) Vital Signs Temp Pulse Pulse Resp BP Pulse Ox O2 Del Method 06/30/23 15:55 99 H 20 97 High Flow Nasal Cannula 06/30/23 15:33 89 06/30/23 15:17 36.6 C 89 20 164/96 H 94 High Flow Nasal Cannula 06/30/23 13:34 36.4 C L 107 H 18 173/86 H 93 High Flow Nasal Cannula 06/30/23 11:08 102 H 22 96 High Flow Nasal Cannula 06/30/23 10:49 36.8 C 110 H 24 92 Nasal Cannula 06/30/23 10:00 98 H 06/30/23 10:00 High Flow Nasal Cannula 06/30/23 08:41 126 H 34 H 96 06/30/23 07:20 36.3 C L 97 H 18 95/56 L 91 Nasal Cannula, High Flow Nasal Cannula 06/30/23 07:19 98 H 18 96 High Flow Nasal Cannula 06/30/23 07:16 98 H 18 95 BiPAP O2 Flow Rate FiO2 06/30/23 15:55 15 40 06/30/23 15:33 06/30/23 15:17 06/30/23 13:34 15 06/30/23 11:08 15 40 06/30/23 10:49 06/30/23 10:00 06/30/23 10:00 06/30/23 08:41 40 06/30/23 07:20 06/30/23 07:19 20 40 06/30/23 07:16 30 Laboratory Results 06/30/23 06:13 06/30/23 06:13 Diagnostic Findings Chest X-Ray 06/30/23 08:58 XR chest 1V portable CLINICAL HISTORY: gross aspiration, worse hypoxia TECHNIQUE: Single frontal radiograph of the chest was obtained. Comparison: Comparison is made to chest radiograph 06/27/2023 FINDINGS: No lines and tubes are seen. Cardiomegaly is noted. The aortic arch is calcified. No significant airspace opacities are seen. Bibasilar atelectasis is again seen. Emphysema with interstitial coarsening noted. No evidence of pleural effusion or pneumothorax. IMPRESSION: No significant airspace opacities to suggest aspiration. ACT 112: Negative or not required by law. Electronically signed by: Fran Aguilar M.D. 06/30/2023 9:50 AM PG Care Time/CCT Total # of Minutes Spent Total Time Spent with Patient: Total time spent is greater than 50% in coordination of care (as documented) at patient's floor/unit and/or counseling patient: Coding Level of Care Code 76822 SUB INP/OBS CARE 3/50MIN Diagnoses Acute on chronic hypoxic respiratory failure J96.21 RLL pneumonia J18.9 Pneumonia type: due to unspecified organism Hypertension I10 COPD exacerbation J44.1 Chest pain R07.9 Barretts esophagus K22.70 Elevated troponin R77.8 Bipolar 2 disorder F31.81 Depression F32.9 Anxiety F41.9 BPH (benign prostatic hyperplasia) N40.0 DVT prophylaxis Z29.9 Positive result for methicillin resistant Staphylococcus aureus (MRSA) screening Z22.322 (2) RLL pneumonia Pneumonia type: due to unspecified organism Qualified Code(s): J18.9 - Pneumonia, unspecified organism
[2023-07-01] MEDS: CEFEPIME 2,000 MG in SYRINGE 0 ML IV SCH ×3 (00:19→17:35)
[2023-07-01] MEDS: ALBUT/IPRATROP 3MG/0.5MG NEB 3 ML VIAL NEB SCH ×6 (02:16→22:23)
[2023-07-01] MEDS: methylPREDNISolone 40 MG in SYRINGE 0 ML IV SCH ×3 (03:15→18:28)
[2023-07-01] MEDS: ENOXAPARIN INJ 40 MG/0.4 ML SYR SQ SCH (07:59)
[2023-07-01] MEDS: clonazePAM 0.5 MG TAB PO SCH ×4 (07:59→20:13)
[2023-07-01] MEDS: FLUTICASONE/UMECLIDIN/VILANTER 100-62.5-25 INH SCH (08:00)
[2023-07-01] MEDS: ISOSORBIDE MONO EXTENDED REL 30 MG TABCR PO SCH (08:00)
[2023-07-01] MEDS: LOSARTAN POTASSIUM 50 MG TAB PO SCH ×2 (08:00→20:01)
[2023-07-01] MEDS: ASPIRIN 81 MG ECTAB PO SCH (08:00)
[2023-07-01] MEDS: PANTOprazole 40 MG TAB PO SCH (08:00)
[2023-07-01] MEDS: CITALOPRAM 20 MG TAB PO SCH (08:01)
[2023-07-01] MEDS: lamoTRIgine 25 MG TAB PO SCH ×2 (08:01→20:10)
[2023-07-01] MEDS: FINASTERIDE 5 MG TAB PO SCH (08:01)
[2023-07-01] MEDS: ARIPiprazole 5 MG TAB PO SCH ×2 (08:01→20:11)
[2023-07-01] MEDS: amLODIPine BESYLATE 5 MG TAB PO SCH (08:01)
[2023-07-01] MEDS: VANCOMYCIN HCL 1,000 MG in SODIUM CHLORIDE 0.9% 250 ML IV SCH (08:06)
[2023-07-01] MEDS: FERROUS SULFATE 325 MG TAB PO SCH (11:20)
--- NOTE | 2023-07-01 12:18 | Pulmonology Progress Note ---
Date of Service July 01, 2023 Assessment & Plan (1) Acute on chronic hypoxic respiratory failure: Plan: Agree with current management of COPD exacerbation and pneumonia. Patient is frail with a tenuous baseline which are poor prognostic indicators. Taper louise umedrol. completed azithromycin, on vanc d4 and cefepime d6. DC vanc. no cultures pending. continue scheduled duonebs. hold off on Trelegy since he is unable to use it effectively at this time. Agree with intermittent BIPAP and high flow during the day as needed and BIPAP at night. He is using IS and acapella. Try to get out of bed to chair. Monitor WBC. Called and spoke with Laura, updated her on patient current condition. Without prompting she mentioned that Jamison loves life and wants to fight and she wants to be supportive. (2) RLL pneumonia: Pneumonia type: due to unspecified organism Qualified Code(s): J18.9 - Pneumonia, unspecified organism (3) COPD exacerbation: (4) Panic attacks: (5) Bipolar 2 disorder: (6) Leukocytosis: Plan: slight trending upwards can be steroid induced. continue monitor. Leukocytosis type: bandemia Qualified Code(s): D72.825 - Bandemia (7) Sleep apnea: Plan: BIPAP at night. Sleep apnea type: obstructive Qualified Code(s): G47.33 - Obstructive sleep apnea (adult) (pediatric) (8) Pulmonary embolism: Plan: on lovenox prophylactic dose. Plan Thank you very much for allowing us to participate in the care of your patient. Please call with any questions. will continue to follow. Discussed with RN. Admission and Anticipated Discharge Date Admission Date: June 24, 2023 Physical Exam Respiratory: + paradoxical thoraco-abdominal movement ; + abnormal respiratory effort Auscultation: + diminished lung sounds; no wheezes Cardiovascular: Rate/Rhythm: regular rate and regular rhythm Neurologic: moves all extremities and awake Speech / Cognition: normal cognition Psychiatric: Orientation: alert and oriented to place Speech: normal rate/r hythm/volume of speech Affect: mood congruent with affect Results & Data Results & Data Vital Signs (Past 12 Hours) Vital Signs Temp Pulse Pulse Resp BP BP Pulse Ox 07/01/23 11:27 103 H 22 96 07/01/23 10:24 07/01/23 08:09 36.6 C 93 H 22 182/96 H 182/96 H 96 07/01/23 06:40 99 H 18 98 07/01/23 03:10 35.6 C L 95 H 23 155/91 H 98 07/01/23 02:16 75 18 98 O2 Del Method O2 Flow Rate FiO2 07/01/23 11:27 Nasal Cannula 3 07/01/23 10:24 High Flow Nasal Cannula 20 40 07/01/23 08:09 Nasal Cannula 3 07/01/23 06:40 Nasal Cannula 3 07/01/23 03:10 CPAP 40 07/01/23 02:16 BiPAP 40 PG Care Time/CCT Total # of Minutes Spent Total Time Spent with Patient: Total time spent is greater than 50% in coordination of care (as documented) at patient's floor/unit and/or counseling patient: Coding Level of Care Code 62714 SUB INP/OBS CARE 2/35MIN Diagnoses Acute on chronic hypoxic respiratory failure J96.21 RLL pneumonia J18.9 Pneumonia type: due to unspecified organism COPD exacerbation J44.1 Panic attacks F41.0 Bipolar 2 disorder F31.81 Bandemia D72.825 Leukocytosis type: bandemia Obstructive sleep apnea syndrome G47.33 Sleep apnea type: obstructive Pulmonary embolism I26.99
--- NOTE | 2023-07-01 18:03 | Hospitalist Progress Note ---
Date of Service July 01, 2023 Assessment & Plan (1) Acute on chronic hypoxic respiratory failure: Plan: acute on chronic hypoxic and hypercarbic respiratory failure he is typically on 3 L NC o2 at rest, and 4 L with activity at home. remains severely ill with improvement since Tuesday, but high risk for morbidity, mortality and worsening functional status because of severity of acute and chronic illness aspirated eggs AM of 06/30. went "down wrong pipe" no history of aspirations or coughing after fluids noted, perhaps was a one-off. CXR same day was clear. Episode seems to have resolved. - consulted pulmonary 06/29 - reviewed recs in note today 07/01 - continue O2 improved to regular nasal cannula, BiPAP at night and PRN - hypoxia improved and tolerated up to chair 07/01, though air movement remains poor and remains labored and dyspneic at rest (2) RLL pneumonia: Plan: bibasilar infiltrates on chest x-ray, MRSA nasal screen positive at risk of gram negatives given his COPD & chronic resp failure as well as his admission in late April. MRSA screen positive; can't rule out MRSA pneumonia. typical pathogens & atypicals also possible. cefepime 06/25-current (has end date of 07/02) azithromycin completed 500 mg x 3 days then 250 mg x 3 days IV vancomycin 06/27-current - will end 07/02 Procalcitonin negative 06/30. Leukocytosis persists at 16 but maybe steroids. Likely will stop both vancomycin and cefepime on 07/02. (3) COPD exacerbation: Plan: continue solumedrol 40mg IV q8h. same steroids today, air movement remains very marginal duonebs q4h cont home inhalers. pulmonary toilet as able - flutter valve, incentive kathia, etc. no evidence of complicating pulmonary edema/CHF. no edema/JVD and BNP low (4) Hypertension: Plan: while hospitalized his BPs are often VERY high due to anxiety, steroids, being uncomfortable, etc during prior hospitalization he had very difficult to control BPs BPs a little above goal 07/01 but improved during prior stay titrated losartan to 50mg BID and added imdur 30mg daily he is also on cardizem 360mg daily --> changed this to amlodipine starting 06/29, increased to 10 mg 06/30 clonidine 0.1 mg occasionally PRN if additional BP control needed consider adding hydralazine vs increasing imdur, etc (5) Chest pain: Plan: early in admission 2nd to pulmonary issues as above troponin scantly elevated CTA chest during previous admission 04/2023 without PE he has had no chest pain since admission (6) Barretts esophagus: Plan: cont PPI (7) Elevated troponin: Plan: minimal/scant elevation 2nd to myocardial demand ischemia in setting of pneumonia and acute/chronic respiratory failure (8) Bipolar 2 disorder: Plan: cont all chronic meds --> abilify BID, celexa daily, clonazepam, lamictal 25 BID increased clonazepam to 0.5mg qam, 0.5mg qafternoon, and 1mg at HS (this is the dosing we used during prior hospitalization for his severe anxiety) (9) Depression: Plan: see #7 above (10) Anxiety: Plan: typically has severe anxiety at baseline and especially during times of illness increased clonazepam to TID dosing as noted above (11) BPH (benign prostatic hyperplasia): Plan: cont finasteride (12) DVT prophylaxis: Plan: lovenox 40mg daily (13) Positive result for methicillin resistant Staphylococcus aureus (MRSA) screening: Plan: vanco for MRSA coverage for pneumonia Plan updated at bedside 06/27, 06/29, 07/01 code status - currently full code, but at one point today he said "no tubes" it was difficult to clarify his wishes because of his distress code status will need to be discussed further with patient and his Admission and Anticipated Discharge Date Admission Date: June 24, 2023 Subjective he is encouraged that he got up with PT and got into the chair, tolerating regular nasal cannula today, remains dyspneic at rest, coughed up more egg last night, no chest pain, Laura in room Physical Exam Physical Exam: PHYSICAL EXAMINATION Last 24h vital signs reviewed, see documentation in flowsheet General: frail and chronically ill-appearing, wearing regular nasal cannula O2 HEENT: Normocephalic, atraumatic, pupils round and equal, sclerae anicteric, no conjunctival injection, moist mucus membranes Lungs: increased respiratory effort with tachypnea and abdominal breathing, diminished breath sounds throughout - more diminished today, not currently wheezing Heart: Regular rate and rhythm, no murmurs. No JVD Abdomen: Soft, nontender, nondistended. Bowel sounds present. Extremities: Warm, dry, well-perfused. No extremity edema. Neuro: Alert and oriented x 4, face symmetric, moves 4 extremities well Psych: normal affect and normal behavior Results & Data Results & Data Vital Signs (Past 12 Hours) Vital Signs Temp Pulse Pulse Resp BP BP Pulse Ox 07/01/23 16:42 36.9 C 66 20 162/92 H 90 07/01/23 15:57 102 H 07/01/23 15:19 102 H 18 96 07/01/23 14:11 07/01/23 12:31 36.5 C 66 20 167/76 H 96 07/01/23 11:27 103 H 22 96 07/01/23 10:24 07/01/23 08:09 36.6 C 93 H 22 182/96 H 182/96 H 96 07/01/23 08:00 107 H 07/01/23 06:40 99 H 18 98 Pulse Ox Pulse Ox O2 Del Method O2 Flow Rate O2 Flow Rate O2 Flow Rate 07/01/23 16:42 Nasal Cannula 3 07/01/23 15:57 07/01/23 15:19 Nasal Cannula 3 07/01/23 14:11 95 93 3 3 07/01/23 12:31 Nasal Cannula 3 07/01/23 11:27 Nasal Cannula 3 07/01/23 10:24 Nasal Cannula 3 07/01/23 08:09 Nasal Cannula 3 07/01/23 08:00 07/01/23 06:40 Nasal Cannula 3 PG Care Time/CCT Total # of Minutes Spent Total Time Spent with Patient: Total time spent is greater than 50% in coordination of care (as documented) at patient's floor/unit and/or counseling patient: Coding Level of Care Code 12882 SUB INP/OBS CARE 2/35MIN Diagnoses Acute on chronic hypoxic respiratory failure J96.21 RLL pneumonia J18.9 Pneumonia type: due to unspecified organism COPD exacerbation J44.1 Hypertension I10 Chest pain R07.9 Barretts esophagus K22.70 Elevated troponin R77.8 Bipolar 2 disorder F31.81 Depression F32.9 Anxiety F41.9 BPH (benign prostatic hyperplasia) N40.0 DVT prophylaxis Z29.9 Positive result for methicillin resistant Staphylococcus aureus (MRSA) screening Z22.322 (2) RLL pneumonia Pneumonia type: due to unspecified organism Qualified Code(s): J18.9 - Pneumonia, unspecified organism
[2023-07-02] MEDS: CEFEPIME 2,000 MG in SYRINGE 0 ML IV SCH (01:04)
[2023-07-02] MEDS: ALBUT/IPRATROP 3MG/0.5MG NEB 3 ML VIAL NEB SCH ×6 (02:00→23:26)
[2023-07-02] MEDS: ASPIRIN 81 MG ECTAB PO SCH (08:13)
[2023-07-02] MEDS: LOSARTAN POTASSIUM 50 MG TAB PO SCH ×2 (08:13→20:39)
[2023-07-02] MEDS: CITALOPRAM 20 MG TAB PO SCH (08:14)
[2023-07-02] MEDS: ARIPiprazole 5 MG TAB PO SCH ×2 (08:14→20:39)
[2023-07-02] MEDS: FINASTERIDE 5 MG TAB PO SCH (08:14)
[2023-07-02] MEDS: lamoTRIgine 25 MG TAB PO SCH ×2 (08:14→20:40)
[2023-07-02] MEDS: PANTOprazole 40 MG TAB PO SCH (08:14)
[2023-07-02] MEDS: amLODIPine BESYLATE 5 MG TAB PO SCH (08:14)
[2023-07-02] MEDS: ISOSORBIDE MONO EXTENDED REL 30 MG TABCR PO SCH (08:14)
[2023-07-02] MEDS: ENOXAPARIN INJ 40 MG/0.4 ML SYR SQ SCH (08:14)
[2023-07-02] MEDS: FLUTICASONE/UMECLIDIN/VILANTER 100-62.5-25 INH SCH (08:15)
[2023-07-02] MEDS: clonazePAM 0.5 MG TAB PO SCH ×4 (08:17→20:36)
[2023-07-02] MEDS: FERROUS SULFATE 325 MG TAB PO SCH (08:21)
[2023-07-02] MEDS: methylPREDNISolone 40 MG in SYRINGE 0 ML IV SCH ×2 (08:21→20:00)
--- NOTE | 2023-07-02 16:27 | Pulmonology Progress Note ---
Date of Service July 02, 2023 Assessment & Plan (1) Acute on chronic hypoxic respiratory failure: Plan: Patient much improved today. Solumedrol further taper in AM. completed azithromycin, vanc x 5 days, cefepime d7, last day today. no cultures pending. continue scheduled duonebs. Agree with intermittent BIPAP and high flow during the day as needed and BIPAP at night. He is using IS and acapella. Out of bed to chair as tolerated. Spoke again with at bedside and patient. They are happy with his progress. (2) RLL pneumonia: Pneumonia type: due to unspecified organism Qualified Code(s): J18.9 - Pneumonia, unspecified organism (3) COPD exacerbation: (4) Panic attacks: (5) Bipolar 2 disorder: (6) Leukocytosis: Plan: slight trending upwards can be steroid induced. continue monitor. Leukocytosis type: bandemia Qualified Code(s): D72.825 - Bandemia (7) Sleep apnea: Plan: BIPAP at night. Sleep apnea type: obstructive Qualified Code(s): G47.33 - Obstructive sleep apnea (adult) (pediatric) (8) Pulmonary embolism: Plan: on lovenox prophylactic dose. Plan Thank you very much for allowing us to participate in the care of your patient. Please call with any questions. will continue to follow. Discussed with RN. Admission and Anticipated Discharge Date Admission Date: June 24, 2023 Subjective feeling much better today. sitting up in chair. Physical Exam Respiratory: normal respiratory effort; no respiratory distress and does not use accessory muscles Auscultation: + diminished lung sounds; no wheezes Cardiovascular: Rate/Rhythm: regular rate and regular rhythm Neurologic: moves all extremities and awake Speech / Cognition: normal cognition Psychiatric: Orientation: alert and oriented to place Speech: normal rate/rhythm/volume of speech Affect: mood congruent with affect Results & Data Results & Data Vital Signs (Past 12 Hours) Vital Signs Temp Pulse Pulse Resp BP Pulse Ox O2 Del Method 07/02/23 15:59 98 H 18 97 Nasal Cannula 07/02/23 15:52 100 H 07/02/23 11:29 115 H 20 90 Nasal Cannula 07/02/23 11:21 36.7 C 111 H 24 176/94 H 95 Nasal Cannula 07/02/23 10:00 101 H 07/02/23 10:00 Nasal Cannula 07/02/23 08:11 36.5 C 99 H 20 179/107 H 98 Nasal Cannula O2 Flow Rate 07/02/23 15:59 3 07/02/23 15:52 07/02/23 11:29 3 07/02/23 11:21 3 07/02/23 10:00 07/02/23 10:00 3 07/02/23 08:11 3 PG Care Time/CCT Total # of Minutes Spent Total Time Spent with Patient: Total time spent is greater than 50% in coordination of care (as documented) at patient's floor/unit and/or counseling patient: Coding Level of Care Code 24256 SUB INP/OBS CARE 2/35MIN Diagnoses Acute on chronic hypoxic respiratory failure J96.21 RLL pneumonia J18.9 Pneumonia type: due to unspecified organism COPD exacerbation J44.1 Panic attacks F41.0 Bipolar 2 disorder F31.81 Bandemia D72.825 Leukocytosis type: bandemia Obstructive sleep apnea syndrome G47.33 Sleep apnea type: obstructive Pulmonary embolism I26.99
--- NOTE | 2023-07-02 16:56 | Hospitalist Progress Note ---
Date of Service July 02, 2023 Assessment & Plan (1) Acute on chronic hypoxic respiratory failure: Plan: acute on chronic hypoxic and hypercarbic respiratory failure he is typically on 3 L NC o2 at rest, and 4 L with activity at home. significant improvement since Tuesday aspirated eggs AM of 06/30. went "down wrong pipe" no history of aspirations or coughing after fluids noted, perhaps was a one-off. CXR same day was clear. Episode seems to have resolved. - consulted pulmonary 06/29 - discussed plan today with Dr. Uriostegui - continue O2 improved to regular nasal cannula, BiPAP at night and PRN - hypoxia improved and tolerated up to chair 07/01, air movement improved (2) COPD exacerbation: Plan: continue solumedrol 40mg IV q12h today, change to prednisone 60 mg daily tomorrow and taper over about a week, discussed with pulmonary duonebs q4h cont home inhalers. pulmonary toilet as able - flutter valve, incentive kathia, etc. no evidence of complicating pulmonary edema/CHF. no edema/JVD and BNP low (3) RLL pneumonia: Plan: bibasilar infiltrates on chest x-ray, MRSA nasal screen positive at risk of gram negatives given his COPD & chronic resp failure as well as his admission in late April. MRSA screen positive; can't rule out MRSA pneumonia. typical pathogens & atypicals also possible. cefepime 06/25-07/02 azithromycin completed 500 mg x 3 days then 250 mg x 3 days IV vancomycin 06/27-07/02 Procalcitonin negative 06/30. Leukocytosis persists at but maybe steroids. (4) Hypertension: Plan: while hospitalized his BPs are often VERY high due to anxiety, steroids, being uncomfortable, etc during prior hospitalization he had very difficult to control BPs BPs a little above goal 07/02 but much improved during prior stay titrated losartan to 50mg BID and added imdur 30mg daily he is also on cardizem 360mg daily --> changed this to amlodipine starting 06/29, increased to 10 mg 06/30 BPs will improve with drop in steroid dosing (5) Chest pain: Plan: early in admission 2nd to pulmonary issues as above troponin scantly elevated CTA chest during previous admission 04/2023 without PE he has had no chest pain since admission (6) Barretts esophagus: Plan: cont PPI (7) Elevated troponin: Plan: minimal/scant elevation 2nd to myocardial demand ischemia in setting of pneumonia and acute/chronic respiratory failure (8) Bipolar 2 disorder: Plan: cont all chronic meds --> abilify BID, celexa daily, clonazepam, lamictal 25 BID increased clonazepam to 0.5mg qam, 0.5mg qafternoon, and 1mg at HS (this is the dosing we used during prior hospitalization for his severe anxiety) (9) Depression: Plan: see #7 above (10) Anxiety: Plan: typically has severe anxiety at baseline and especially during times of illness increased clonazepam to TID dosing as noted above (11) BPH (benign prostatic hyperplasia): Plan: cont finasteride (12) DVT prophylaxis: Plan: lovenox 40mg daily (13) Positive result for methicillin resistant Staphylococcus aureus (MRSA) screening: Plan: vanco for MRSA coverage for pneumonia Plan updated at bedside 06/27, 06/29, 07/01, 07/02 code status - currently full code, but at one point he said "no tubes" Admission and Anticipated Discharge Date Admission Date: June 24, 2023 Subjective Improved. He feels his shortness of breath is better. Sitting in chair again and is at his side. Not coughing much, remains on nasal cannula Physical Exam 2 Physical Exam: PHYSICAL EXAMINATION Last 24h vital signs reviewed, see documentation in flowsheet Exam unchanged 07/02 except air movement in lung much better General: frail and chronically ill-appearing, wearing regular nasal cannula O2 HEENT: Normocephalic, atraumatic, pupils round and equal, sclerae anicteric, no conjunctival injection, moist mucus membranes Lungs: increased respiratory effort with tachypnea, diminished breath sounds throughout but much improved audible to bases not currently wheezing, some basilar crackles present Heart: Regular rate and rhythm, no murmurs. No JVD Abdomen: Soft, nontender, nondistended. Bowel sounds present. Extremities: Warm, dry, well-perfused. No extremity edema. Neuro: Alert and oriented x 4, face symmetric, moves 4 extremities well Psych: normal affect and normal behavior Results & Data Results & Data Vital Signs (Past 12 Hours) Vital Signs Temp Pulse Pulse Resp BP Pulse Ox O2 Del Method 07/02/23 16:24 36.6 C 85 18 167/89 H 99 Nasal Cannula 07/02/23 15:59 98 H 18 97 Nasal Cannula 07/02/23 15:52 100 H 07/02/23 11:29 115 H 20 90 Nasal Cannula 07/02/23 11:21 36.7 C 111 H 24 176/94 H 95 Nasal Cannula 07/02/23 10:00 101 H 07/02/23 10:00 Nasal Cannula 07/02/23 08:11 36.5 C 99 H 20 179/107 H 98 Nasal Cannula O2 Flow Rate 07/02/23 16:24 3 07/02/23 15:59 3 07/02/23 15:52 07/02/23 11:29 3 07/02/23 11:21 3 07/02/23 10:00 07/02/23 10:00 3 07/02/23 08:11 3 Laboratory Results 06/30/23 06:13 06/30/23 06:13 PG Care Time/CCT Total # of Minutes Spent Total Time Spent with Patient: Total time spent is greater than 50% in coordination of care (as documented) at patient's floor/unit and/or counseling patient: Coding Level of Care Code 98151 SUB INP/OBS CARE 2/35MIN Diagnoses Acute on chronic hypoxic respiratory failure J96.21 COPD exacerbation J44.1 RLL pneumonia J18.9 Pneumonia type: due to unspecified organism Hypertension I10 Chest pain R07.9 Barretts esophagus K22.70 Elevated troponin R77.8 Bipolar 2 disorder F31.81 Depression F32.9 Anxiety F41.9 BPH (benign prostatic hyperplasia) N40.0 DVT prophylaxis Z29.9 Positive result for methicillin resistant Staphylococcus aureus (MRSA) screening Z22.322 (3) RLL pneumonia Pneumonia type: due to unspecified organism Qualified Code(s): J18.9 - Pneumonia, unspecified organism
[2023-07-03] MEDS: ALBUT/IPRATROP 3MG/0.5MG NEB 3 ML VIAL NEB SCH ×6 (03:29→22:30)
[2023-07-03] MEDS: PANTOprazole 40 MG TAB PO SCH (08:20)
[2023-07-03] MEDS: LOSARTAN POTASSIUM 50 MG TAB PO SCH ×2 (08:20→20:02)
[2023-07-03] MEDS: CITALOPRAM 20 MG TAB PO SCH (08:20)
[2023-07-03] MEDS: FINASTERIDE 5 MG TAB PO SCH (08:20)
[2023-07-03] MEDS: clonazePAM 0.5 MG TAB PO SCH ×4 (08:20→20:03)
[2023-07-03] MEDS: lamoTRIgine 25 MG TAB PO SCH ×2 (08:20→20:03)
[2023-07-03] MEDS: ARIPiprazole 5 MG TAB PO SCH ×2 (08:20→20:02)
[2023-07-03] MEDS: ISOSORBIDE MONO EXTENDED REL 30 MG TABCR PO SCH (08:20)
[2023-07-03] MEDS: ASPIRIN 81 MG ECTAB PO SCH (08:20)
[2023-07-03] MEDS: amLODIPine BESYLATE 5 MG TAB PO SCH (08:20)
[2023-07-03] MEDS: predniSONE 20 MG TAB PO SCH (08:21)
[2023-07-03] MEDS: ENOXAPARIN INJ 40 MG/0.4 ML SYR SQ SCH (08:21)
[2023-07-03] MEDS: FLUTICASONE/UMECLIDIN/VILANTER 100-62.5-25 INH SCH (08:22)
[2023-07-03] MEDS: FERROUS SULFATE 325 MG TAB PO SCH (08:24)
--- NOTE | 2023-07-03 16:53 | Hospitalist Progress Note ---
Date of Service July 03, 2023 Assessment & Plan (1) Acute on chronic hypoxic respiratory failure: Plan: acute on chronic hypoxic and hypercarbic respiratory failure he is typically on 3 L NC o2 at rest, and 4 L with activity at home. significant improvement since Tuesday aspirated eggs AM of 06/30. went "down wrong pipe" no history of aspirations or coughing after fluids noted, perhaps was a one-off. CXR same day was clear. Episode seems to have resolved. - consulted pulmonary 06/29 - discussed plan with Dr. Uriostegui last 07/02 - continue O2 improved to regular nasal cannula, BiPAP at night and PRN - hypoxia improved and tolerated up to chair since 07/01, air movement improved (2) COPD exacerbation: Plan: solumedrol through 07/02, changed to prednisone 60 mg daily 07/03 and taper over about a week as discussed with pulmonary hilario q4h - still not ready to decrease interval, perhaps tomorrow cont home inhalers. pulmonary toilet as able - flutter valve, incentive kathia, etc. no evidence of complicating pulmonary edema/CHF. -mild ankle edema probably related to prolonged steroids, monitor (3) RLL pneumonia: Plan: bibasilar infiltrates on chest x-ray, MRSA nasal screen positive at risk of gram negatives given his COPD & chronic resp failure as well as his admission in late April. MRSA screen positive; can't rule out MRSA pneumonia. typical pathogens & atypicals also possible. cefepime 06/25-07/02 azithromycin completed 500 mg x 3 days then 250 mg x 3 days IV vancomycin 06/27-07/02 Procalcitonin negative 06/30. Leukocytosis persists at 16 but maybe steroids. AM CBC (4) Hypertension: Plan: while hospitalized his BPs are often VERY high due to anxiety, steroids, being uncomfortable, etc during prior hospitalization he had very difficult to control BPs BPs a little above goal 07/03 but much improved compared to 3+ days ago during prior stay titrated losartan to 50mg BID and added imdur 30mg daily he is also on cardizem 360mg daily --> changed this to amlodipine starting 06/29, increased to 10 mg 06/30 BPs will improve with drop in steroid dosing (5) Chest pain: Plan: early in admission 2nd to pulmonary issues as above troponin scantly elevated CTA chest during previous admission 04/2023 without PE he has had no chest pain since admission (6) Barretts esophagus: Plan: cont PPI (7) Elevated troponin: Plan: minimal/scant elevation 2nd to myocardial demand ischemia in setting of pneumonia and acute/chronic respiratory failure (8) Bipolar 2 disorder: Plan: cont all chronic meds --> abilify BID, celexa daily, clonazepam, lamictal 25 BID increased clonazepam to 0.5mg qam, 0.5mg qafternoon, and 1mg at HS (this is the dosing we used during prior hospitalization for his severe anxiety) -tomorrow discuss whether we can taper back to home dose (9) Depression: Plan: see #7 above (10) Anxiety: Plan: typically has severe anxiety at baseline and especially during times of illness increased clonazepam to TID dosing as noted above (11) BPH (benign prostatic hyperplasia): Plan: cont finasteride (12) DVT prophylaxis: Plan: lovenox 40mg daily (13) Positive result for methicillin resistant Staphylococcus aureus (MRSA) screening: Plan: vanco for MRSA coverage for pneumonia Plan updated at bedside 06/27, 06/29, 07/01, 07/02 code status - currently full code, but at one point he said "no tubes" Admission and Anticipated Discharge Date Admission Date: June 24, 2023 Subjective shortness of breath slowly improving, tolerating more activity, not coughing, needs the neb by about 4.5-5h he thinks, not ready for q6h. Home uses daily to bid Physical Exam Physical Exam: PHYSICAL EXAMINATION Last 24h vital signs reviewed, see documentation in flowsheet Exam unchanged 07/03 except air movement in lungs a little better mild ankle edema new General: frail and chronically ill-appearing, wearing regular nasal cannula O2, sitting in chair HEENT: Normocephalic, atraumatic, pupils round and equal, sclerae anicteric, no conjunctival injection, moist mucus membranes Lungs: mildly increased respiratory effort with tachypnea, diminished breath sounds throughout but much improved audible to bases not currently wheezing. no longer abdominal breathing Heart: Regular rate and rhythm, no murmurs. No JVD Abdomen: Soft, nontender, nondistended. Bowel sounds present. Extremities: Warm, dry, well-perfused. mild ankle edema janet. Neuro: Alert and oriented x 4, face symmetric, moves 4 extremities well Psych: normal affect and normal behavior Results & Data Results & Data Vital Signs (Past 12 Hours) Vital Signs Temp Pulse Pulse Resp BP Pulse Ox O2 Del Method 07/03/23 16:12 91 H 07/03/23 15:58 36.5 C 103 H 18 169/92 H 96 Nasal Cannula 07/03/23 14:28 66 22 95 Nasal Cannula 07/03/23 11:32 36.4 C L 105 H 18 167/89 H 96 Nasal Cannula 07/03/23 11:05 96 H 20 94 Nasal Cannula 07/03/23 09:00 79 07/03/23 09:00 Nasal Cannula 07/03/23 07:59 36.6 C 98 H 18 197/107 H 99 Nasal Cannula 07/03/23 07:18 91 H 20 98 Nasal Cannula O2 Flow Rate 07/03/23 16:12 07/03/23 15:58 3 07/03/23 14:28 3 07/03/23 11:32 3 07/03/23 11:05 3 07/03/23 09:00 07/03/23 09:00 07/03/23 07:59 3 07/03/23 07:18 3 PG Care Time/CCT Total # of Minutes Spent Total Time Spent with Patient: Total time spent is greater than 50% in coordination of care (as documented) at patient's floor/unit and/or counseling patient: Coding Level of Care Code 20501 SUB INP/OBS CARE 2/35MIN Diagnoses Acute on chronic hypoxic respiratory failure J96.21 COPD exacerbation J44.1 RLL pneumonia J18.9 Pneumonia type: due to unspecified organism Hypertension I10 Chest pain R07.9 Barretts esophagus K22.70 Elevated troponin R77.8 Bipolar 2 disorder F31.81 Depression F32.9 Anxiety F41.9 BPH (benign prostatic hyperplasia) N40.0 DVT prophylaxis Z29.9 Positive result for methicillin resistant Staphylococcus aureus (MRSA) screening Z22.322 (3) RLL pneumonia Pneumonia type: due to unspecified organism Qualified Code(s): J18.9 - Pneumonia, unspecified organism
--- NOTE | 2023-07-03 18:04 | Pulmonology Progress Note ---
Date of Service July 03, 2023 Assessment & Plan (1) Acute on chronic hypoxic respiratory failure: Plan: Patient much improved today. completed antibiotics. Solumedrol to prednisone taper. continue scheduled duonebs. BIPAP at night. He is using IS and acapella. Out of bed to chair as tolerated. Hopefully he will be able to be discharged soon. Follow up with pulmonary in 1 to 2 weeks after discharge. will sign off. Please call if any questions. (2) RLL pneumonia: Pneumonia type: due to unspecified organism Qualified Code(s): J18.9 - Pneumonia, unspecified organism (3) COPD exacerbation: (4) Panic attacks: (5) Bipolar 2 disorder: (6) Leukocytosis: Plan: slight trending upwards can be steroid induced. continue monitor. Leukocytosis type: bandemia Qualified Code(s): D72.825 - Bandemia (7) Sleep apnea: Plan: BIPAP at night. Sleep apnea type: obstructive Qualified Code(s): G47.33 - Obstructive sleep apnea (adult) (pediatric) (8) Pulmonary embolism: Plan: on lovenox prophylactic dose. Plan Thank you very much for allowing us to participate in the care of your patient. Please call with any questions. will continue to follow. Discussed with RN. Admission and Anticipated Discharge Date Admission Date: June 24, 2023 Subjective ambulating with PT Physical Exam Respiratory: normal respiratory effort; no respiratory distress and does not use accessory muscles Auscultation: + diminished lung sounds; no wheezes Cardiovascular: Rate/Rhythm: regular rate and regular rhythm Neurologic: moves all extremities and awake Speech / Cognition: normal cognition Psychiatric: Orientation: alert and oriented to place Speech: normal rate/rhythm/volume of speech Affect: mood congruent with affect Results & Data Results & Data Vital Signs (Past 12 Hours) Vital Signs Temp Pulse Pulse Resp BP Pulse Ox O2 Del Method 07/03/23 16:12 91 H 07/03/23 15:58 36.5 C 103 H 18 169/92 H 96 Nasal Cannula 07/03/23 14:28 66 22 95 Nasal Cannula 07/03/23 11:32 36.4 C L 105 H 18 167/89 H 96 Nasal Cannula 07/03/23 11:05 96 H 20 94 Nasal Cannula 07/03/23 09:00 79 07/03/23 09:00 Nasal Cannula 07/03/23 07:59 36.6 C 98 H 18 197/107 H 99 Nasal Cannula 07/03/23 07:18 91 H 20 98 Nasal Cannula O2 Flow Rate 07/03/23 16:12 07/03/23 15:58 3 07/03/23 14:28 3 07/03/23 11:32 3 07/03/23 11:05 3 07/03/23 09:00 07/03/23 09:00 07/03/23 07:59 3 07/03/23 07:18 3 PG Care Time/CCT Total # of Minutes Spent Total Time Spent with Patient: Total time spent is greater than 50% in coordination of care (as documented) at patient's floor/unit and/or counseling patient: Coding Level of Care Code 95876 SUB INP/OBS CARE 2/35MIN Diagnoses Acute on chronic hypoxic respiratory failure J96.21 RLL pneumonia J18.9 Pneumonia type: due to unspecified organism COPD exacerbation J44.1 Panic attacks F41.0 Bipolar 2 disorder F31.81 Bandemia D72.825 Leukocytosis type: bandemia Obstructive sleep apnea syndrome G47.33 Sleep apnea type: obstructive Pulmonary embolism I26.99
[2023-07-04] MEDS: ALBUT/IPRATROP 3MG/0.5MG NEB 3 ML VIAL NEB SCH ×4 (02:00→19:41)
[2023-07-04 07:12] LABS: Hematocrit (blood only) 36.9 % (42.0-52.0); Hemoglobin 12.1 g/dl (14.0-18.0); Mean Corpuscular Hemoglobin 30.9 pg (25.0-34.0); Mean Corpuscular Hgb Conc 32.8 g/dL (32.0-36.0); Mean Corpuscular Volume 94.1 fL (80.0-100.0); Mean Platelet Volume 9.1 fL (9.4-12.4); Platelet Count 320 K/uL (130-400); RDW Coefficient of Variation 14.3 % (11.5-14.5); RDW Standard Deviation 49.1 fL (36.4-46.3); Red Blood Count 3.92 M/uL (4.70-6.10); White Blood Count 15.66 K/ul (4.8-10.8)
[2023-07-04] MEDS: clonazePAM 0.5 MG TAB PO SCH ×2 (08:27→20:34)
[2023-07-04] MEDS: ASPIRIN 81 MG ECTAB PO SCH (08:27)
[2023-07-04] MEDS: LOSARTAN POTASSIUM 50 MG TAB PO SCH ×2 (08:27→20:27)
[2023-07-04] MEDS: PANTOprazole 40 MG TAB PO SCH (08:27)
[2023-07-04] MEDS: ISOSORBIDE MONO EXTENDED REL 30 MG TABCR PO SCH (08:28)
[2023-07-04] MEDS: ENOXAPARIN INJ 40 MG/0.4 ML SYR SQ SCH (08:28)
[2023-07-04] MEDS: ARIPiprazole 5 MG TAB PO SCH ×2 (08:28→20:27)
[2023-07-04] MEDS: FINASTERIDE 5 MG TAB PO SCH (08:28)
[2023-07-04] MEDS: predniSONE 20 MG TAB PO SCH (08:28)
[2023-07-04] MEDS: amLODIPine BESYLATE 5 MG TAB PO SCH (08:28)
[2023-07-04] MEDS: lamoTRIgine 25 MG TAB PO SCH ×2 (08:28→20:27)
[2023-07-04] MEDS: CITALOPRAM 20 MG TAB PO SCH (08:28)
[2023-07-04] MEDS: FLUTICASONE/UMECLIDIN/VILANTER 100-62.5-25 INH SCH (08:29)
[2023-07-04] MEDS: FERROUS SULFATE 325 MG TAB PO SCH (08:31)
[2023-07-04 08:33] LABS: Calcium 8.6 mg/dl (8.6-10.3); Creatinine Clr Calc Pharmacy 103.4 ml/min; Est GFR (African American) 118.1 ml/min; Est GFR (Non-African American) 101.9 ml/min; Potassium 3.2 mmol/L (3.5-5.1)
[2023-07-04] MEDS ORDERED: POTASSIUM CHLORIDE CRTAB 20 MEQ TABCR PO STA (09:50)
[2023-07-04 10:03] LABS: HCO3 VBG 47 mmol/L; Oxygen Saturation VBG 95.3 %; PCO2 VBG 60 mmHg (38-50); PO2 VBG 66 mmHg
--- NOTE | 2023-07-04 16:43 | Hospitalist Progress Note ---
Date of Service July 04, 2023 Assessment & Plan (1) Acute on chronic hypoxic respiratory failure: Plan: acute on chronic hypoxic and hypercarbic respiratory failure he is typically on 3 L NC o2 at rest, and 4 L with activity at home, home nocturnal bipap. significant improvement since Tuesday aspirated eggs AM of 06/30. went "down wrong pipe" no history of aspirations or coughing after fluids noted, perhaps was a one-off. CXR same day was clear. Episode seems to have resolved. - consulted pulmonary 06/29 - discussed plan with Dr. Uriostegui last 07/02 - continue O2 improved to regular nasal cannula, BiPAP at night and PRN - hypoxia improved and tolerated up to chair since 07/01, air movement improved on 07/04 bicarb has gone up significantly on BMP to 42. obtained vbg which was reassuring - 7.5/60 so not really worse than usual for him. Mentating well. (2) COPD exacerbation: Plan: solumedrol through 07/02, changed to prednisone 60 mg daily 07/03 and taper over about a week as discussed with pulmonary duonebs have been q4h - decreased to q6hwa and prn today cont home inhalers. pulmonary toilet as able - flutter valve, incentive kathia, etc. -has has appt with his network/telecom engineer 07/19 -home soon - Laura thinks Tuesday no evidence of complicating pulmonary edema/CHF. -mild ankle edema probably related to prolonged steroids, monitor, improved (3) RLL pneumonia: Plan: bibasilar infiltrates on chest x-ray, MRSA nasal screen positive at risk of gram negatives given his COPD & chronic resp failure as well as his admission in late April. MRSA screen positive; can't rule out MRSA pneumonia. typical pathogens & atypicals also possible. cefepime 06/25-07/02 azithromycin completed 500 mg x 3 days then 250 mg x 3 days IV vancomycin 06/27-07/02 Procalcitonin negative 06/30. Leukocytosis persists at 16 but maybe steroids. CBC - WBC still 16 (4) Hypertension: Plan: while hospitalized his BPs are often VERY high due to anxiety, steroids, being uncomfortable, etc during prior hospitalization he had very difficult to control BPs BPs a little above goal 07/03 but much improved compared to last week during prior stay titrated losartan to 50mg BID and added imdur 30mg daily he was also on cardizem 360mg daily --> changed this to amlodipine starting 06/29, increased to 10 mg 06/30 BPs will improve with drop in steroid dosing (5) Chest pain: Plan: early in admission 2nd to pulmonary issues as above troponin scantly elevated CTA chest during previous admission 04/2023 without PE he has had no chest pain since admission (6) Barretts esophagus: Plan: cont PPI (7) Elevated troponin: Plan: minimal/scant elevation 2nd to myocardial demand ischemia in setting of pneumonia and acute/chronic respiratory failure (8) Bipolar 2 disorder: Plan: cont all chronic meds --> abilify BID, celexa daily, clonazepam, lamictal 25 BID (9) Depression: Plan: see #7 above (10) Anxiety: Plan: typically has severe anxiety at baseline and especially during times of illness at admission increased clonazepam to 0.5mg qam, 0.5mg qafternoon, and 1mg at HS (this is the dosing we used during prior hospitalization for his severe anxiety) -reduced to bid dosing today (11) BPH (benign prostatic hyperplasia): Plan: cont finasteride (12) DVT prophylaxis: Plan: lovenox 40mg daily (13) Positive result for methicillin resistant Staphylococcus aureus (MRSA) screening: Plan: vanco for MRSA coverage for pneumonia Plan hypokalemia replaced po 07/04 updated at bedside 06/27, 06/29, 07/01, 07/02, 07/04 code status - currently full code, but at one point he said "no tubes" Admission and Anticipated Discharge Date Admission Date: June 24, 2023 Subjective RN said he didn't wear his bipap much overnight, but Steven says he used it from around 10p to 5:30a. His breathing feels same today, not worse. Dyspnea at rest slowly improving. He desats with ambulation to the door with PT but recovers quickly. Ankle edema present yesterday resolved. His is in the room for update today. Physical Exam 2 Physical Exam: PHYSICAL EXAMINATION Last 24h vital signs reviewed, see documentation in flowsheet General: frail and chronically ill-appearing, wearing regular nasal cannula O2, sitting in bed, in room HEENT: Normocephalic, atraumatic, pupils round and equal, sclerae anicteric, no conjunctival injection, moist mucus membranes Lungs: increased respiratory effort with tachypnea, partially reclining and has e/o abdominal breathing, diminished breath sounds throughout but audible to bases not currently wheezing Heart: Regular rate and rhythm, no murmurs. No JVD Abdomen: Soft, nontender, nondistended. Bowel sounds present. Extremities: Warm, dry, well-perfused. mild ankle edema resolved Neuro: Alert and oriented x 4, face symmetric, moves 4 extremities well. not lethargic sleepy or confused Psych: normal affect and normal behavior Results & Data Results & Data Vital Signs (Past 12 Hours) Vital Signs Temp Pulse Pulse Resp BP BP Pulse Ox 07/04/23 16:20 36.6 C 99 H 22 167/96 H 96 07/04/23 15:41 98 H 07/04/23 13:26 94 07/04/23 12:47 104 H 20 94 07/04/23 11:25 36.6 C 102 H 23 134/81 96 07/04/23 09:38 96 H 07/04/23 09:38 07/04/23 07:36 36.6 C 104 H 22 185/93 H 92 07/04/23 07:11 92 H 12 97 07/04/23 04:45 81 O2 Del Method O2 Flow Rate 07/04/23 16:20 Nasal Cannula 3 07/04/23 15:41 07/04/23 13:26 3 07/04/23 12:47 Nasal Cannula 2 07/04/23 11:25 Nasal Cannula 3 07/04/23 09:38 07/04/23 09:38 Nasal Cannula 3 07/04/23 07:36 Nasal Cannula 3 07/04/23 07:11 Nasal Cannula 1.5 07/04/23 04:45 Laboratory Results 07/04/23 06:40 07/04/23 06:40 PG Care Time/CCT Total # of Minutes Spent Total Time Spent with Patient: Total time spent is greater than 50% in coordination of care (as documented) at patient's floor/unit and/or counseling patient: Coding Level of Care Code 53833 SUB INP/OBS CARE 2/35MIN Diagnoses Acute on chronic hypoxic respiratory failure J96.21 COPD exacerbation J44.1 RLL pneumonia J18.9 Pneumonia type: due to unspecified organism Hypertension I10 Chest pain R07.9 Barretts esophagus K22.70 Elevated troponin R77.8 Bipolar 2 disorder F31.81 Depression F32.9 Anxiety F41.9 BPH (benign prostatic hyperplasia) N40.0 DVT prophylaxis Z29.9 Positive result for methicillin resistant Staphylococcus aureus (MRSA) screening Z22.322 (3) RLL pneumonia Pneumonia type: due to unspecified organism Qualified Code(s): J18.9 - Pneumonia, unspecified organism
[2023-07-05] MEDS: ALBUT/IPRATROP 3MG/0.5MG NEB 3 ML VIAL NEB SCH ×3 (07:00→20:14)
[2023-07-05] MEDS: clonazePAM 0.5 MG TAB PO SCH ×3 (07:29→19:51)
[2023-07-05] MEDS: FLUTICASONE/UMECLIDIN/VILANTER 100-62.5-25 INH SCH (08:24)
[2023-07-05] MEDS: ARIPiprazole 5 MG TAB PO SCH ×2 (08:25→19:52)
[2023-07-05] MEDS: LOSARTAN POTASSIUM 50 MG TAB PO SCH ×2 (08:25→19:51)
[2023-07-05] MEDS: amLODIPine BESYLATE 5 MG TAB PO SCH (08:26)
[2023-07-05] MEDS: lamoTRIgine 25 MG TAB PO SCH ×2 (08:26→19:51)
[2023-07-05] MEDS: PANTOprazole 40 MG TAB PO SCH (08:26)
[2023-07-05] MEDS: predniSONE 20 MG TAB PO SCH (08:26)
[2023-07-05] MEDS: FINASTERIDE 5 MG TAB PO SCH (08:26)
[2023-07-05] MEDS: CITALOPRAM 20 MG TAB PO SCH (08:27)
[2023-07-05] MEDS: ENOXAPARIN INJ 40 MG/0.4 ML SYR SQ SCH (08:27)
[2023-07-05] MEDS: ISOSORBIDE MONO EXTENDED REL 30 MG TABCR PO SCH (08:27)
[2023-07-05] MEDS: ASPIRIN 81 MG ECTAB PO SCH (08:27)
[2023-07-05] MEDS: FERROUS SULFATE 325 MG TAB PO SCH (08:30)
[2023-07-05] MEDS ORDERED: ISOSORBIDE MONO EXTENDED REL 30 MG TABCR PO ONE (10:15)
[2023-07-05 11:21] LABS: BUN Creatinine Ratio 44.1 (10-20); Calcium 8.8 mg/dl (8.6-10.3); Creatinine Clr Calc Pharmacy 91.2 ml/min; Est GFR (African American) 112.1 ml/min; Est GFR (Non-African American) 96.8 ml/min; Magnesium 2.2 mg/dl (1.7-2.4); Potassium 3.6 mmol/L (3.5-5.1)
--- NOTE | 2023-07-05 20:44 | Hospitalist Progress Note ---
Date of Service July 05, 2023 Assessment & Plan (1) Acute on chronic hypoxic respiratory failure: Plan: acute component - 2nd to #2, #3 - resolved he is typically on 3 L NC o2 at rest, and 4 L with activity at home. completed course of triple abx for #2 on tapering steroids for COPD flare will need a repeat 2-step at d/c to ensure 3 L at rest and 4 L with activity suffices (2) RLL pneumonia: Plan: completed triple abx ( cefepime / vanco / zithromax ) to cover gram neg, atypicals, and MRSA clinically resolved (3) COPD exacerbation: Plan: much improved/resolving cont steroid taper cont nebs, home inhalers, etc cont NC O2 during day; BIPAP HS (4) Chest pain: Plan: no recurrent pain since admission was likely 2nd to #2, #3 (5) Barretts esophagus: Plan: cont PPI (6) Elevated troponin: Plan: minimal/scant elevation 2nd to myocardial demand ischemia in setting of pneumonia and acute/chronic respiratory failure (7) Bipolar 2 disorder: Plan: cont all chronic meds --> abilify BID, celexa daily, clonazepam, lamictal 25 BID (8) Depression: Plan: see #7 above (9) Anxiety: Plan: typically has severe anxiety at baseline and especially during times of illness needed TID klonipin early in the stay; now back to BID dosing (10) BPH (benign prostatic hyperplasia): Plan: cont finasteride (11) DVT prophylaxis: Plan: lovenox 40mg daily (12) Positive result for methicillin resistant Staphylococcus aureus (MRSA) screening: Plan: vanco for MRSA coverage for pneumonia earlier this admission - now off IV vanc (13) Hypertension: Plan: increase imdur to 60mg/day cont norvasc cont losartan Plan home tomorrow?? Admission and Anticipated Discharge Date Admission Date: June 24, 2023 Subjective used BIPAP again overnight on 3 L NC O2 during day cough improved 1 episode of sputum today (white) eating fair at best no chest pain or tightness is able to ambulate to bathroom with mild dyspnea on exertion was too worn out to participate in therapy today is hoping to be home for T-day on Review of Systems Review of Systems: gen - no fever cv - no orthopnea pulm - WADDELL is at baseline GI - no pain Physical Exam Physical Exam: gen - NAD, looks very good in comparison to last time I saw him 7 days ago; no distress mouth - MMM neck - no obvious JVD heart - RRR, s1 s2, no murmur lungs - scant faint rales b/l bases; wheezes much better; airation much better; no distress abd - soft NT ND BS+ ext - no edema, pulses 2+ b/l psych - a/o x 3 Results & Data Results & Data Vital Signs (Past 12 Hours) Vital Signs Temp Pulse Pulse Resp BP Pulse Ox O2 Del Method 07/05/23 20:14 90 20 97 Nasal Cannula 07/05/23 19:00 36.6 C 99 H 20 130/76 98 Nasal Cannula 07/05/23 15:00 105 H 07/05/23 14:58 36.8 C 80 20 148/79 H 98 Nasal Cannula 07/05/23 12:46 88 19 96 Nasal Cannula 07/05/23 11:25 36.4 C L 80 16 136/76 3 L Nasal Cannula 07/05/23 10:00 88 07/05/23 10:00 Nasal Cannula O2 Flow Rate 07/05/23 20:14 3 07/05/23 19:00 07/05/23 15:00 07/05/23 14:58 3 07/05/23 12:46 3 07/05/23 11:25 07/05/23 10:00 07/05/23 10:00 3 Laboratory Results Laboratory Results 07/05/23 10:39 WBC RBC Hgb Hct MCV MCH MCHC RDW Std Deviation RDW Coeff of Loida Plt Count MPV Sodium 144 Potassium 3.6 Chloride 98 Carbon Dioxide 42 H* Anion Gap 4 BUN 30 H Creatinine 0.68 Est Cr Clr Drug Dosing 91.2 Est GFR ( Amer) 112.1 Est GFR (Non-Af Amer) 96.8 BUN/Creatinine Ratio 44.1 H Glucose 105 H Calcium 8.8 Magnesium 2.2 PG Care Time/CCT Total # of Minutes Spent Total Time Spent with Patient: Total time spent is greater than 50% in coordination of care (as documented) at patient's floor/unit and/or counseling patient: Coding Level of Care Code 21425 SUB INP/OBS CARE 2/35MIN Diagnoses Acute on chronic hypoxic respiratory failure J96.21 RLL pneumonia J18.9 Pneumonia type: due to unspecified organism COPD exacerbation J44.1 Chest pain R07.9 Barretts esophagus K22.70 Elevated troponin R77.8 Bipolar 2 disorder F31.81 Depression F32.9 Anxiety F41.9 BPH (benign prostatic hyperplasia) N40.0 DVT prophylaxis Z29.9 Positive result for methicillin resistant Staphylococcus aureus (MRSA) screening Z22.322 Hypertension I10 (2) RLL pneumonia Pneumonia type: due to unspecified organism Qualified Code(s): J18.9 - Pneumonia, unspecified organism
[2023-07-06 06:32] LABS: Hematocrit (blood only) 35.7 % (42.0-52.0); Hemoglobin 11.8 g/dl (14.0-18.0); Mean Corpuscular Hemoglobin 31.2 pg (25.0-34.0); Mean Corpuscular Hgb Conc 33.1 g/dL (32.0-36.0); Mean Corpuscular Volume 94.4 fL (80.0-100.0); Mean Platelet Volume 9.1 fL (9.4-12.4); Platelet Count 317 K/uL (130-400); RDW Coefficient of Variation 14.4 % (11.5-14.5); RDW Standard Deviation 49.1 fL (36.4-46.3); Red Blood Count 3.78 M/uL (4.70-6.10)
[2023-07-06 06:51] LABS: BUN Creatinine Ratio 55.9 (10-20); Calcium 8.5 mg/dl (8.6-10.3); Creatinine Clr Calc Pharmacy 105.1 ml/min; Est GFR (African American) 118.9 ml/min; Est GFR (Non-African American) 102.6 ml/min; Potassium 3.2 mmol/L (3.5-5.1)
[2023-07-06] MEDS: ALBUT/IPRATROP 3MG/0.5MG NEB 3 ML VIAL NEB SCH ×2 (07:02→12:44)
[2023-07-06] MEDS: lamoTRIgine 25 MG TAB PO SCH (08:24)
[2023-07-06] MEDS: ASPIRIN 81 MG ECTAB PO SCH (08:24)
[2023-07-06] MEDS: FINASTERIDE 5 MG TAB PO SCH (08:24)
[2023-07-06] MEDS: predniSONE 20 MG TAB PO SCH (08:24)
[2023-07-06] MEDS: ENOXAPARIN INJ 40 MG/0.4 ML SYR SQ SCH (08:24)
[2023-07-06] MEDS: PANTOprazole 40 MG TAB PO SCH (08:24)
[2023-07-06] MEDS: LOSARTAN POTASSIUM 50 MG TAB PO SCH (08:24)
[2023-07-06] MEDS: CITALOPRAM 20 MG TAB PO SCH (08:24)
[2023-07-06] MEDS: amLODIPine BESYLATE 5 MG TAB PO SCH (08:24)
[2023-07-06] MEDS: ARIPiprazole 5 MG TAB PO SCH (08:24)
[2023-07-06] MEDS: FLUTICASONE/UMECLIDIN/VILANTER 100-62.5-25 INH SCH (08:25)
[2023-07-06] MEDS: clonazePAM 0.5 MG TAB PO SCH (08:29)
[2023-07-06] MEDS ORDERED: ISOSORBIDE MONO EXTENDED REL 60 MG TABCR PO SCH (09:00)
[2023-07-06] MEDS ORDERED: POTASSIUM CHLORIDE CRTAB 20 MEQ TABCR PO STA ×2 (09:55→13:11)
[2023-07-06] MEDS: FERROUS SULFATE 325 MG TAB PO SCH (10:19)
[2023-07-06 12:46] VITALS: RESP 18; O2SAT 96
[2023-07-06] MEDS ORDERED: clonazePAM 0.5 MG TAB PO STA (13:02)
[2023-07-06 13:25] LABS: Appearance Urine Clear (Clear); Bacteria Urine Automated Negative (Negative); Bilirubin Urine Negative (Negative); Blood Urine 3+ (Negative); Color Urine Yellow; Glucose Urine UA Negative (Negative); Ketones Urine Negative (Negative); Leukocyte Esterase Urine Negative (Negative); Nitrite Urine Negative (Negative); Protein Urine Negative (Negative); Specific Gravity Urine 1.014 (1.000-1.030); Urobilinogen Urine Negative (Negative); pH Urine 7.5 (4.5-7.5)
[2023-07-06 16:11] VITALS: TEMP 98.2
[2023-07-06 18:43] VITALS: BP 150/81; PULSE 72
--- NOTE | 2023-07-06 18:46 | Discharge Summary ---
Date of Service July 06, 2023 Admission HPI Per Admitting Provider Steven is a 72M with history of COPD, Monteiro's esophagus, Bipolar 2 disorder, depression/anxiety, pulmonary embolism, BPH, HTN, former smoker, PTSD, MAKAYLA, and MRSA who presents for evaluation of dyspnea on exertion. Patient was recently discharged on 05/16/23 from an admission for a COPD exacerbation - patient notes this episode feels worse. Patient was evaluated with present at bedside, assisted with history. Patient notes that over the last week he has been increasingly dyspneic, to the point that this morning after ambulating to the bathroom he was so short of breath that he was unable to speak. His immediately gave him a nebulizer and his Trelogy inhaler, which improved his dyspnea, but ultimately an ambulance was called. Patient notes that he often feels like he has an elephant sitting on the center of his chest, his discomfort does not radiate. He is not actively experiencing chest pain. Patient is on 3L of oxygen via nasal canula at baseline, but notes that he has been needing his oxygen more often at home. During the episode this morning, jose alfredo's O2 saturation dipped to 81%, but recovered to 92% following breathing treatments. Patient notes that he has no pain when he breaths or new cough, but states that he has had chills over the last week. Patient has chronic headaches which are resolved with Tylenol, but has not experienced any lightheadedness or dizziness. He has not experienced any LE edema, orthopnea, or claudication. He has had a decreased appetite. He has not had any bowel/bladder changes. ED Course: NSS, magnesium, Methylpred, VBG, BiPAP, breathing treatment, CTX Discharge Exam gen - NAD, looks very good in comparison to last time I saw him 7 days ago; no distress mouth - MMM neck - no obvious JVD heart - RRR, s1 s2, no murmur lungs - scant faint rales b/l bases; wheezes much better; airation much better; no distress abd - soft NT ND BS+ ext - no edema, pulses 2+ b/l psych - a/o x 3 Discharge Data Allergies Allergy/AdvReac Type Severity Reaction Status Date / Time Influenza Virus Vaccines Allergy Severe SHORTNESS Verified 05/08/23 22:19 OF BREATH morphine Allergy Intermediate "I FELT Verified 05/08/23 22:19 FUNNY IN THE HEAD" budesonide AdvReac Intermediate sob Verified 05/08/23 22:19 [From Techtium] formoterol AdvReac Intermediate sob Verified 05/08/23 22:19 [From Techtium] glycopyrrolate AdvReac Intermediate sob Verified 05/08/23 22:19 [From Techtium] Consultations 06/24/23 13:20 ED Decision to Admit Stat 06/28/23 09:15 Consult Pulmonology Routine Hospital Course (1) Acute on chronic hypoxic respiratory failure: acute component - 2nd to #2, #3 - resolved he is typically on 3 L NC o2 at rest, and 4 L with activity at home. completed course of triple abx for #2 on tapering steroids for COPD flare will need a repeat 2-step at d/c to ensure 3 L at rest and 4 L with activity suffices (2) RLL pneumonia: completed triple abx ( cefepime / vanco / zithromax ) to cover gram neg, atypicals, and MRSA clinically resolved (3) COPD exacerbation: much improved/resolving cont steroid taper cont nebs, home inhalers, etc cont NC O2 during day; BIPAP HS (4) Chest pain: no recurrent pain since admission was likely 2nd to #2, #3 (5) Barretts esophagus: cont PPI (6) Elevated troponin: minimal/scant elevation 2nd to myocardial demand ischemia in setting of pneumonia and acute/chronic respiratory failure (7) Bipolar 2 disorder: cont all chronic meds --> abilify BID, celexa daily, clonazepam, lamictal 25 BID (8) Depression: see #7 above (9) Anxiety: typically has severe anxiety at baseline and especially during times of illness needed TID klonipin early in the stay; now back to BID dosing (10) BPH (benign prostatic hyperplasia): cont finasteride (11) DVT prophylaxis: lovenox 40mg daily (12) Positive result for methicillin resistant Staphylococcus aureus (MRSA) screening: vanco for MRSA coverage for pneumonia earlier this admission - now off IV vanc (13) Hypertension: increase imdur to 60mg/day cont norvasc cont losartan Plan home tomorrow?? Home Health Attestation I certify that this patient is under my care and that I, or a physicians bankruptcy legal assistant working with me, had a face to-face encounter that meets the home health [id number]-[id number] encounter requirements with this patient. The encounter with the patient was in whole, or in part, for the following medical condition, which is the primary reason for home health care (list medical condition): SOB I certify that, based on my findings, the following services are medically necessary home health services: My clinical findings support the need for the above services because: Skilled Nsg Assessment Further, I certify that my clinical findings support that this patient is homebound (i.e. absences from home require considerable and taxing effort and are for medical reasons or anglican services or infrequently or of short duration when for other reasons) because: Supportive Aid - Walker Certification for Home Health Services: Based on the above findings, I certify that this patient is confined to the home and needs intermittent group home care, physical therapy and/or speech therapy or continues to need occupational therapy. The patient is under my care, and I have initiated the establishment of the plan of care. This patient will be followed by a physician who will periodically review the plan of care. Discharge Plan Discharge Items Patient Disposition: Home - Home Health Services Reason For Visit: COPD exacerbation Discharge Diagnosis: 1. severe COPD exacerbation - improving 2. pneumonia - improved 3. severe anxiety 4. high blood pressure 5. chronic respiratory failure on home oxygen Activity: As commented below Activity Comment: gradually increase activities over the next 7-10 days Non-emergency contact: Primary Care Provider Call non-emergency contact if: you have any medication questions, your symptoms worsen and you have a fever Follow-up/Referrals: Estela Mosquera MD, FCCP [Physician] - 07/20/23 (keep scheduled appointment with Dr Mosquera) Jaime Rolle PA-C [Primary Care Provider] - (4-5 days if possible ) Diet: Heart Healthy Addtl Attending Provider Instructions: Mr Guadalupe, You were hospitalized due to a SEVERE episode of COPD exacerbation as well as pneumonia. You completed 7 days of three different types of IV antibiotics. You received IV steroids much of your stay, and then about 4 days ago you transitioned over to oral prednisone. COVID testing was negative. You made gradual improvement with the above. Since this episode was so severe it may take you 2+ weeks to fully recover from this hospitalization. Take it easy and gradually increase activities as tolerated. Continue your oxygen at home as follows - * 3 liters at rest and with sleep * 4 liters with any activity Continue your BIPAP machine at night-time/naps as tolerated. Recommendation - 1. prednisone taper - start 07/07/23 - * 50mg daily x 2 days, then - * 40mg daily x 2 days, then - * 30mg daily x 2 days, then - * 20mg daily x 2 days, then - * 10mg daily x 2 days - then stop * take with food * prescription sent to [facility] for you 2. over the next several days continue your neb treatments (albuterol- ipratropium) every 4 hours as needed for cough/congestion/wheezing/shortness of breath. You may have to take 3-4 treatments each day for a while until the COPD exacerbation improves further. 3. clonazepam - 0.5mg three times daily - refill given on this for your anxiety Follow-up - see separate section Return to [facility] if - * you have fevers over 100 degrees * you have worsening shortness of breath * your oxygen levels on your finger with your pulse ox meter are consistently less than 88% * you have chest pains * you have severe diarrhea * any other concerns It was our pleasure to care for you! Happy Thanksgiving :) Pending Studies at Discharge: No Stand-Alone Forms: My [facility], Smoking Cessation Medications and DC Order Prescriptions: New prednisone 10 mg tablet 10 mg PO DIRECTED Qty: 30 0RF Rx Instructions: start 07/07, take with food. 5 tabs PO QD x 2 days; 4 tabs PO QD x 2 days; 3 tabs PO QD x 2 days; 2 tabs PO QD x 2 days; 1 tab PO QD x 2 days. Continued Trelegy Ellipta 100-62.5-25 mcg blister with device 1 inh inhalation DAILY Qty: 3 3RF acetaminophen 500 mg Tablet 500 mg PO Q6H PRN (Reason: Pain) finasteride 5 mg tablet 5 mg PO QAM aripiprazole [Abilify] 5 mg Tablet 5 mg PO BID Qty: 60 0RF cyanocobalamin (vitamin B-12) 1,000 mcg capsule 1,000 mcg PO DAILY Qty: 30 0RF Rx Instructions: Over the counter citalopram 40 mg tablet 20 mg PO DAILY diltiazem HCl [Tiadylt ER] 360 mg capsule,extended release 24 hr 360 mg PO DAILY ferrous sulfate 325 mg (65 mg iron) tablet 325 mg PO DAILY isosorbide mononitrate 30 mg Tablet Extended Release 24 Hr 30 mg PO DAILY Qty: 30 1RF aspirin 81 mg Tablet,Delayed Release (Dr/Ec) 81 mg PO QAM Qty: 90 0RF Rx Instructions: purchase [id number] lamotrigine [Lamictal] 25 mg tablet 25 mg PO BID losartan 50 mg tablet 50 mg PO BID Qty: 60 0RF Rx Instructions: previous 50 mg was bid 25 pantoprazole 40 mg tablet,delayed release (DR/EC) 40 mg PO QAM Qty: 1 0RF Rx Instructions: last p/u September ds Changed clonazepam 0.5 mg tablet 0.5 mg PO TID Qty: 60 0RF ipratropium-albuterol 0.5 mg-3 mg(2.5 mg base)/3 mL solution for nebulization 3 ml NEB Q4H PRN (Reason: shortness of breath) Qty: 1 0RF Rx Instructions: last p/u in 2021 Combivent Respimat 20-100 mcg/actuation mist 1 puff INHALATION QID PRN (Reason: Shortness Of Breath Or Wheezing) Qty: 1 0RF Rx Instructions: 07/13/22- last filled Discharge Orders: Discharge Order (Routine); Ordered 07/06/23 Ordered By: Nayan Ryan Admission Data Admit Date/Time: 06/24/23 15:00 Attending Provider: Nayan Ryan Admit Provider: Estela Smiley Primary Care Provider: Jaime Rolle Other Providers: Olman Peoples; Shadi Valladares [facility]; Clint Miguel; Nelson Villatoro; Daryn Langley; Estela Mosuqera; Gracia Bush; Rashida Pinzon; Rusty Avendano; Mango Hudson; Spring Joaquin Other Interventions: Discharge Summary Assessment (RN) Last Done: 07/06/23 18:41 Coding Diagnoses Acute on chronic hypoxic respiratory failure J96.21 RLL pneumonia J18.9 Pneumonia type: due to unspecified organism COPD exacerbation J44.1 Chest pain R07.9 Barretts esophagus K22.70 Elevated troponin R77.8 Bipolar 2 disorder F31.81 Depression F32.9 Anxiety F41.9 BPH (benign prostatic hyperplasia) N40.0 DVT prophylaxis Z29.9 Positive result for methicillin resistant Staphylococcus aureus (MRSA) screening Z22.322 Hypertension I10
== END 2023-07-06 19:30 | disposition home health service (06) | DRG 177 ==
LOC: ED 10:18 → 2S 15:00 → SUATTDRO 15:00 → 2S 18:14 → 4W 06-29 03:02
DX: J44.1 Chronic obstructive pulmonary disease with (acute) exacerbation; J96.22 Acute and chronic respiratory failure with hypercapnia; Z88.8 Allergy status to other drugs, medicaments and biological substances; N40.0 Benign prostatic hyperplasia without lower urinary tract symptoms; K21.9 Gastro-esophageal reflux disease without esophagitis; Z87.891 Personal history of nicotine dependence; J15.212 Pneumonia due to Methicillin resistant Staphylococcus aureus; J96.21 Acute and chronic respiratory failure with hypoxia; I25.10 Atherosclerotic heart disease of native coronary artery without angina pectoris; F31.81 Bipolar II disorder; J44.0 Chronic obstructive pulmonary disease with (acute) lower respiratory infection; Z86.14 Personal history of Methicillin resistant Staphylococcus aureus infection; Z88.5 Allergy status to narcotic agent; Z86.711 Personal history of pulmonary embolism; I24.89 Other forms of acute ischemic heart disease; I10 Essential (primary) hypertension; K22.70 Barrett's esophagus without dysplasia; Z88.7 Allergy status to serum and vaccine